=== PATIENT | female | born 1950 | race Caucasian/White ===

== ENCOUNTER → 2019-11-03 13:34 | Outpatient (BNVA) | payer SELFPAY | PROVIDERS: PCP Nurse Practitioner Family; Visit Provider Nurse Practitioner Family | DX: B37.0 Candidal stomatitis (principal) | CPT/HCPCS: 80053 ==

== ENCOUNTER 2019-12-16 14:28 | Emergency (ER) | payer MEDICAID, SELFPAY ==
[2019-12-16 14:30] VITALS: BP 191/109; PULSE 102; RESP 17; TEMP 36.9; O2SAT 97; BMI 18.3
[2019-12-16 15:10] LABS: Rapid Strep A Test Negative (Negative)
--- NOTE | 2019-12-16 15:22 | W.ED.GENADLT ---
HPI - General Adult General: Chief complaint: General Medical Stated complaint: throat pain/swelling Time Seen by Provider: 12/16/19 14:41 Source: patient Mode of arrival: ambulatory Limitations: no limitations History of Present Illness: HPI narrative: sore throat x 3 mos; improved mildly with diflucan orally x 2 weeks. Returned over the past few days. Severity scale (1-10): 8 Quality: burning Pain Consistency: constant Relieving factors: none Review of Systems General: Reports: 10 or more systems reviewed and unremarkable except in HPI and below Const: Denies: fever ENMT: Reports: throat pain, uvular edema, enlarged tonsils, painful swallowing and oral sores/lesions PFSH ED PFSH: Social History Smoking and tobacco status: current every day smoker cigarettes Packs smoked per day: 1 Alcohol intake: current Alcohol intake frequency: 0-2 Drinks per Day Alcohol type: beer Physical Exam HENMT: COMMON NORMALS: external nose normal NOSE: external nose normal THROAT: posterior oropharynx abnormal, postnasal drainage and uvular edema OTHER: discoloration and thickening of tongue palate; lesions and white pustular appearance to hypertrophied tonsils bilaterally Neck/C-Spine: COMMON NORMALS: full ROM and no lymphadenopathy GENERAL: Yes normal visual inspection Course ED course: Pt has been seen and evaluated for this complaint with her PCP. She is not improving clinically. Her BP is elevated today but is not on any medications. Will be following up for further evaluation on this finding as well. ENT referral. RSS negative. Diflucan orally and magic mouthwash ordered. Will proceed with DC. Vital Signs: Vital signs: Vital Signs Temperature 98.5 F 12/16/19 14:30 Pulse Rate 102 H 12/16/19 14:30 Respiratory Rate 17 12/16/19 14:30 Blood Pressure 191/109 12/16/19 14:30 Pulse Oximetry 97 12/16/19 14:30 [facility] - General Adult Lab Data: Labs: Lab Results 12/16/19 Range/Units 14:50 Group A Strep Rapi d Negative (Negative) Discharge Plan Discharge Patient Disposition: Home, Self-Care Clinical Impression: Esophageal thrush Condition: Stable Prescriptions: New Lidocaine Viscous 2 % solution 5 ml MUCOUS MEM Q3H PRN (Reason: pain) Qty: 100 RF: 0 fluconazole [Diflucan] 150 mg tablet 150 mg PO DAILY 21 Days RF: 0 No Action nystatin 100,000 unit/mL suspension 4 ml PO QID Qty: 473 RF: 1 fluconazole 200 mg tablet 200 mg PO DAILY Qty: 14 RF: 0 Referrals: Alka Tristan NP [Primary Care Provider] - Discharge Diet: Advance as tolerated Discharge Activity: Resume usual activity Activity Restrictions/Additional Instructions: STOP SMOKING. TAKE ALLERGY MEDICATION OTC. FOLLOW UP WITH ENT WITHOUT FAIL. Coding Level of Care Code ED [employer] for [employer]
[2019-12-16 15:37] VITALS: BP 149/89; PULSE 98; RESP 16; O2SAT 99
--- NOTE | 2019-12-17 13:11 | DCPLANNER ---
senior account manager had message to schedule a follow up appointment for patient with ENT, Dr. Hernandez. senior account manager called the clinic, spoke with Aisha, a follow up appointment was scheduled for November at 1:00. senior account manager spoke with patient, gave her the appointment information. Patient told case finisher to cancel the appointment, stated that she was not going to go to appointment. Patient stated that she does not have insurance.
== END 2019-12-16 15:37 | disposition home or self-care (01) ==
PROVIDERS: Emergency Provider Nurse Practitioner Family; PCP Nurse Practitioner Family
DX: B37.81 Candidal esophagitis (principal); F17.210 Nicotine dependence, cigarettes, uncomplicated
CPT/HCPCS: 12345; 87070; 87071; 87081; 87880; 99282

== ENCOUNTER 2020-01-05 10:25 | Outpatient (CLI) | payer MEDICAID, SELFPAY ==
--- NOTE | 2020-01-05 11:04 | FL_ITS ---
NOTE: Report was unsigned for reason: Order was edited. Original Signature date and time was: 01/05/20 [id number] WS: [id number] ESOPHAGRAM TECHNIQUE: Double contrast examination was performed with thin and thick barium. Upright and COURTNEY images were obtained. CLINICAL INFORMATION: CHRONIC DISEASE OF TONSILS AND ADENOIDS; DISEASE OF LARYNX COMPARISON: None. FINDINGS: Straightening of the normal cervical lordosis with moderate spondylitic changes. Anterior bridging osteophytes at C5-C7. Swallowing: Normal oropharyngeal phase. No evidence of aspiration or penetration. Esophagus: Moderate esophageal dysmotility. No stricture or obstructing mass. Moderate reflux is visualized to the midesophagus on the upright and supine imaging. No difficulties with the barium tablet. Gastroesophageal reflux: Present Fluoroscopy time: 3.4 minutes. [facility] [place]/FL barium swallow 2cont [id number] IMPRESSION: 1. Normal oropharyngeal phase. No evidence of aspiration or penetration. 2. Moderate esophageal dysmotility with reflux to the midesophagus in the upri ght and supine positioning 3. No evidence of high-grade stricture or mass. 4. No difficulties with barium tablet.
--- NOTE | 2020-01-05 14:14 | MR_ITS ---
WS: [id number] INDICATION: Chronic tonsillar and adenoid disease TECHNIQUE: MRI of the neck without gadolinium enhancement. Axial T1 and T2 coronal T1-T2 coronal T1 f at sat, and sagittal T2 fat sat. FINDINGS: Exam is limited due to patient motion. Diffuse nodular soft tissue thickening involving the adenoids and palatine tonsils. Additional simila r-appearing nodular soft tissue thickening involving the supraglottic larynx at the inferior aspect o f the piriform sinuses extending into the vocal folds and glottis. Circumferential soft tissue thicke kristal at the level of the glottis with mild glottic narrowing. Recommend correlation for malignancy an d direct visualization. Parotid glands are normal. Submandibular glands are normal. T2 hyperintense enlarged left cervical ly mph nodes level 2 and level 3 along the parotid tail and carotid sheath. Largest lymph nodes measure approximately 12 x 9 mm. Findings are nonspecific but suspicious for malignancy. This can be further evaluated with PET/CT. Subcutaneous sebaceous cysts in the upper back. Normal posterior fossa. Normal vascular flow voids at the skull base. Mild mucosal thickening in the right greater than left mastoid air cells. Mild centr al canal stenosis C5-C6 with a small central protrusion. Small bilateral T2 hyperintense thyroid nodules measuring 7-8 mm. MR/[place] [id number] IMPRESSION: 1. Exam is somewhat limited due to patient motion. 2. Diffuse nodular soft tissue thickening involving Waldeyer's ring at the lakshmi noids extending into the palatine tonsils. Recommend correlation for malignancy . 3. Additional similar-appearing nodular soft tissue thickening involving the s upraglottic larynx at the inferior aspect of the piriform sinuses extending int o the vocal folds and glottis. Circumferential soft tissue thickening at the le kanchan of the glottis with mild glottic narrowing. Recommend direct visualization. 4. Enlarged left level 2 and level 3 cervical lymph nodes along the left parot id tail and carotid sheath the largest measuring 12 x 9 mm suspicious for metas tatic disease. 5. No enlarged right-sided cervical lymph nodes visualized. 6. Partial opacification right mastoid air cells. 7. A few small thyroid nodules the largest measuring 8 mm. This can be followe d up with ultrasound. 8. Mild central canal stenosis with small disc protrusion at C5-C6.
== END 2020-01-05 10:26 | disposition home or self-care (01) ==
LOC: RAD 10:28
PROVIDERS: PCP Nurse Practitioner Family; Visit Provider Specialist
DX: J35.8 Other chronic diseases of tonsils and adenoids (principal); J38.7 Other diseases of larynx
CPT/HCPCS: 70336; 74220; 74221

== ENCOUNTER 2020-01-14 10:03 | Outpatient (CLI) | payer MEDICAID, SELFPAY ==
[2020-01-14 14:46] LABS: Basophils # 0.1 10^3/uL (0.0-0.1); Basophils % 0.8 %; Eosinophils # 0.2 10^3/uL (0.0-0.8); Eosinophils % 2.3 %; Hematocrit 41.6 % (37.0-47.0); Lymphocytes # 2.5 10^3/uL (0.8-4.8); Lymphocytes % 27.9 %; Mean Corpuscular HGB Conc 31.3 g/dL (30.0-36.0); Mean Corpuscular Hemoglobin 30.5 pg (28.0-34.0); Mean Corpuscular Volume 97.7 fL (81-99); Mean Platelet Volume 9.6 fL (7.4-10.4); Monocytes # 0.8 10^3/uL (0.2-0.9); Monocytes % 8.8 %; Neutrophils # 5.3 10^3/uL (1.8-7.7); Neutrophils % 59.9 %; Nucleated Red Blood Cells % 0 %; Platelet Count 356 10^3/cmm (130-400); Red Blood Count 4.26 10^6/uL (4.1-5.3); Red Cell Distribution Width 12.6 % (12.1-15.1); White Blood Count 8.9 10^3/uL (4.0-10.0)
[2020-01-14 15:17] LABS: Alanine Aminotransferase 9 U/L (0-33); Albumin Level 4.2 g/dL (3.5-5.2); Alkaline Phosphatase 62 IU/L (35-105); Aspartate Amino Transferase 16 U/L (0-32); Blood Urea Nitrogen 9 mg/dL (8-23); Calcium 9.7 mg/dL (8.5-10.5); Carbon Dioxide 26 mmol/L (22-29); Chloride 98 mmol/L (98-107); Globulin 3.4 g/dL (1.3-4.6); Glomerular Filtration Rate 159.2 mL/min (90-130); Glucose 97 mg/dL (65-115); Osmolality Calculated 276 mOsm/kg (285-295); Sodium 135 mmol/L (136-145); Total Bilirubin 0.4 mg/dL (0.15-1.2); Total Protein 7.6 g/dL (6.6-8.7)
--- NOTE | 2020-01-14 16:36 | N.ONRAD NP_ITS ---
Radiation Oncology New Patient Visit Patient: Luna Mathis MR#: [id number] : 1950> Age: 69> Sex: Female> Dictated by: Dr. Isidro Gomez Date of Service: 01/14/2020 Referring Physician(s) : Messi Clarke M.D. 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 She underwent biopsy on December 26, 2019. Pathology revealed it was P 16-. We were asked to see her regarding definitive radiation therapy in combination with sensitizing cis-[place] chemotherapy Radiotherapy to date: Summary > No prior radiation therapy. Chief Complaint / History of Present Illness: Mrs. Luna Mathis is a 69-year-old woman who noted thrush-like changes in her oral cavity where she saw white cottage cheese changes on her tonsil and tongue. During this time she was developing a sore throat. She had no difficulty swallowing when first noticing this in August 2019. In October 2019 she saw her primary physician and was treated with anti-fungal therapy with Diflucan and not in nystatin. Symptoms failed to improve she was then seen here in the emergency room and given a course of Diflucan and Magic mouthwash. And following this was sent to Dr. Diaz for further evaluation He saw her on December 26, 2019 at that time there was a large exophytic lesion involving the right tonsil and right soft palate that extend to the midline of the palate and involving the uvula there was perforation of the palate just lateral to the midline. He performed fiberoptic video laryngoscopy at that time there was a large exophytic lesion extending into the posterior aspect of the right soft palate and into the nasopharynx or prominent on the right past the midline there was bilateral true vocal cord pseudo-sulcus intra-arytenoid pachyderma edema and erythema of the arytenoid mucosa false cords were normal bilaterally visualized portion of the base of tongue vallecula epiglottis aryepiglottic folds and piriform sinuses were normal bilaterally. Biopsy was obtained and this did reveal squamous cell carcinoma P 16 negative. During this time she did note that she lost 9 pounds despite good appetite her taste was altered. She did note that some food went into her nasopharynx when swallowing liquids. Sore throat was described as 6 on a 10 scale of pain. She had no neck pain. MRI scan of the neck without gadolinium was performed on January 05, 2020 there was diffuse nodular soft tissue thickening involving Waldeyer's ring of the at the adenoids extending into the palatine tonsils. There was nodular soft tissue thickening along the supraglottic larynx extending into the vocal folds and glottis and circumferential soft tissue thickening at the level of the glottis and mild glottic narrowing. ( Note that the previous video laryngoscopy revealed no hypopharyngeal or laryngeal pathology) PET CT scan from January 10, 2020 revealed a hypermetabolic right tonsillar mass extending to the soft palate measuring 2.6 x 1.8 cm with an SUV of 22.3 consistent with malignancy bilateral sub-centimeters level 2 lymph nodes are FDG positive SUV of 3.0 on the right and 3.3 on the left reflecting a high probability of local metastatic disease no findings in the hypopharyngeal region were noted. No evidence for metastatic disease was seen elsewhere. Current Medications: HYDROcodone-Acetaminophen. Allergies: Aspirin. Medical History: No history of collagen vascular disease. No previous radiation therapy. Surgical History: Family History: Father is at age 77 having experienced surgical complications. Mother is at age 73. Social History: Last screened on 01/14/2020 - Current every day smoker 1.0 pack/day for 30 years (30 pack years). Last screened on 01/14/2020 - Active drinker 1 drink/day 7 days/week. Patient indicated use of the following products: cigarettes. Patient indicated access to the following support systems: lives with spouse, significant other, family, or friends, lives in own house, supportive family/friends willing to assist with needs, and adequate transportation available for expected visits. Patient indicated the following nutritional habits: regular meals. Patient indicated participation in the following forms of activity: regular exercise. As noted she has smoked 30 years up to 2 packs a day now 1 pack a day for 49 years. is disabled from COPD and is very limited in his mobility at home. She is very active gardening and [place] she has 8 children all of whom live here. Current Complaints / Review of Systems: Constitutional - Complains of mild fatigue. Complains of change in weight in which she has lost about 10 lbs. in the last 4 month. Denies lack of appetite, fever and night sweats. Eyes - Denies blurred vision. ENMT - Complains of dysphagia and also has odynophagia which started in end of 2019, ear pain occasionally in both ears, problems with hearing in the right ear and it feels like it needs to pop but does not., mouth dryness, stomatitis and altered taste with certain seasonings. Denies tinnitus. Neck - Denies neck pain and decreased range of motion. Integumentary - Denies bruising and rash. Breasts - Denies pain. Cardiovascular - Denies arrhythmias, chest pain and edema. Respiratory - Denies cough, dyspnea, hiccoughs and wheezing. Gastrointestinal - Denies abdominal pain, constipation, diarrhea, heartburn / dyspepsia, melena / GI bleeding, nausea and vomiting. Genitourinary (F) - Complains of nocturia gets up about 1 time per night. Denies dysuria, frequency, urgency, vaginal discharge / bleeding and vaginal spotting. Musculoskeletal - Complains of joint pain in which is generalized all over related to arthritis. Complains of generalized muscle weakness. Denies bone pain. Neurologic - Complains of headaches which is just a slight one that she gets almost everyday. Denies dizziness and abnormal gait. Endocrine - Denies diabetes and thyroid disease. Hematologic/Lymphatic - Denies tender or enlarged lymph nodes.. Vital Signs: Performed on 01/14/2020 11:37 AM Height - 67.00 in, Weight - 108.6 lbs (high), BSA - 1.56 sq.m, BMI - 17.01 (low), Temperature - 98.1 f (low), Pulse - 80 /min, Respiration - 20 /min, O2 Sat - 97 %, Pain - 6 and BP - 136/ 72 mm(hg). Physical Exam: A spry pleasant woman in no acute distress. She had no nasal voice voice was clear. H EENT examination there was an exophytic mass extending from both tonsillar regions into the soft palate uvula was destroyed by manual palpation confirmed mass in the tonsillar regions base of tongue was clear palpation she was edentulous with dentures placed in the maxilla no dentures in the mandible. Neck regions revealed small palpable adenopathy mid right neck I could not palpate any left neck adenopathy. Lungs decreased breath sounds. Heart regular without murmur gallop. Abdominal examination unremarkable. Extremities reveal no clubbing cyanosis or edema. 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 She has no evidence for occult metastatic disease. She has a good performance status. I recommended definitive radiation therapy to 70 Gy in combination with sensitizing chemotherapy. I discussed the critical nature for her to pursue smoking cessation. I also discussed the need for port placement to assist in chemotherapy administration. Ideally I would recommend a PEG tube placed prior to treatment. She is adamant in wanting not to do this. She has good appetite and supportive family and appears to be compliant with the need for aggressive hydration and nutritional support during treatment. 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 I discussed this in detail with the patient and her 2 daughters I emphasized the need for aggressive nutritional support and smoking cessation as critical elements in her care I reviewed my recommendations with Dr. Clarke as well. Plan: Signed by: 01/14/2020 4:34:53 PM <<Signature on File>> Time spent with patient: CPT Code: CPT Code:
--- NOTE | 2020-01-14 17:18 | ONC CON_ITS ---
Dr. Clarke New Patient Note Patient: Luna Mathis Unit #: [id number]: 1950 Dicatated By: Messi Clarke M.D.Date of Visit: January 14, 2020 Onc MED New Patient/Consult Referring Physician: Dr. Cosme Hernandez M.D. History of Present Illness: Mrs. Luna Mathis, is a 69-year-old female with history of thrush-like sign/symptoms , first noticed in August 2019, patient tried home remedies without much improvement eventually saw her primary care physician in October 2019 at that time she was prescribed Diflucan and nystatin, with no significant improvement patient developed progressive pain in her throat and dysphagia eventually referred to Dr. Hernandez, and she underwent fiberoptic video laryngoscopy which showed large exophytic lesion extending into the posterior aspect of right soft palate and into nasopharynx or prominent on the right past the midline, biopsy was obtained which confirmed well differentiated squamous cell carcinoma p16 negative. Patient underwent MRI scan of the neck on 01/05/2020 which showed diffuse nodular soft tissue thickening involving waldeyer's ring at the adenoids extending into the palatine tonsils. Additional similar-appearing nodular soft tissue thickening involving supraglottic larynx at the inferior aspect of the piriform sinuses extending into the vocal folds and glottis enlarged left cervical lymph nodes level II and level III seen largest measures 12 x 9 mm., Subsequently patient underwent CT PET scan which confirmed oropharyngeal primary with bilateral cervical lymph nodes size about 3 cm, no distant metastases seen. Patient has lost about 9 pounds since August 2019 due to pain in her throat which is now 6 on a scale of 1-10, now being controlled with pain medication. Patient denies any hemoptysis or hematemesis. Patient denies any change in taste or smell. Patient has long-standing history of smoking about one pack a day for 30 years and still active. Denies any hemoptysis or hematemesis, denies any fever chills, denies any nausea or vomiting, denies any diarrhea constipation denies any history of kidney failure her creatinine was 0.5 in October 2019. Denies any history of hearing loss. Past Medical History: Ms. Espinal medical history is unremarkable. Past Surgical History: Ms. Espinal surgical history is unremarkable. Medications: HYDROcodone-Acetaminophen 1 tablespoonful(s) (of 7.5-325 mg/15mL) Solution Oral q PRN Allergies: Aspirin Social History: Ms. Mathis is and she is retired. She is a daily smoker who has smoked 1.0 pack/day for 30 years. She drinks daily. She consumes 1 drink/day 7 days/week. She has indicated exposure to the following products: cigarettes. Ms. Mathis reports the following support systems: lives with spouse, significant other, family, or friends, lives in own house, supportive family/friends willing to assist with needs, and adequate transportation available for expected visits. Her diet consists of regular meals. She indicates her activity level as: regular exercise. Family History: Ms. Garcias mother at age 73. Ms. Garcias father at age 77: surgical complications. Review Of Symptoms: Constitutional - Complains of mild fatigue. Complains of change in weight in which she has lost about 10 lbs. in the last 4 month. Denies lack of appetite, fever and night sweats, Eyes - Denies blurred vision, ENMT - Complains of dysphagia and also has odynophagia which started in end of 2019, ear pain occasionally in both ears, problems with hearing in the right ear and it feels like it needs to pop but does not., mouth dryness, stomatitis and altered taste with certain seasonings. Denies tinnitus, Neck - Denies neck pain and decreased range of motion, Integumentary - Denies bruising and rash, Breasts - Denies pain, Cardiovascular - Denies arrhythmias, chest pain and edema, Respiratory - Denies cough, dyspnea, hiccoughs and wheezing, Gastrointestinal - Denies abdominal pain, constipation, diarrhea, heartburn / dyspepsia, melena / GI bleeding, nausea and vomiting, Genitourinary (F) - Complains of nocturia gets up about 1 time per night. Denies dysuria, frequency, urgency, vaginal discharge / bleeding and vaginal spotting, Musculoskeletal - Complains of joint pain in which is generalized all over related to arthritis. Complains of generalized muscle weakness. Denies bone pain, Neurologic - Complains of headaches which is just a slight one that she gets almost everyday. Denies dizziness and abnormal gait, Endocrine - Denies diabetes and thyroid disease, Hematologic/Lymphatic - Denies tender or enlarged lymph nodes, Constitutional - Appetite is good and weight is decreasing. No fever, chills, or night sweats. Positive for hot flashes and fatigue, ENMT - No sinus congestion/drainage. No mouth sores. Positive for sore throat and difficulty swallowing, Hematologic/Lymphatic - No abnormal bruising or bleeding, Respiratory - No shortness of breath. No cough. No pleuritic pain or hemoptysis, Cardiovascular - No angina pain. No palpitations, Gastrointestinal - Positive for nausea, no vomiting. Positive for heartburn and acid reflux. No diarrhea. Positive for constipation. No blood in the stool or black stools, Genitourinary (F) - No dysuria or hematuria. No urinary frequency. No urgency or incontinence, Musculoskeletal - Positive for joint and back pain, Neurologic - No headache or dizziness. No numbness/paresthesias or other focal neurologic symptoms, Psychiatric - Positive for anxiety or depression. No insomnia. Vital Signs: Performed on January 14, 2020 12:48: 67.00 in, 108.6 lbs, 98.1 F, 80, 20, 136/72 mm(hg), 97 %, 6, Performed on January 14, 2020 12:48: 17.009 kg/m2 (LOW), and Performed on January 14, 2020 11:37: 1.56 sq.m. Performance Status: 0 - Fully active, able to carry on all predisease activities without restrictions. (ECOG) Physical Examination: ENMT - Sinuses are nontender. No oral exudates Tongue normal.fullness in her tonsillar area more prominent on the right side and small palpable lymph node bilaterally, Respiratory - Lungs are clear to auscultation without rhonchi or wheezing, Cardiovascular - Regular rate and rhythm of heart, Abdomen - Non-tender, non-distended, bowel sounds present, Extremities - no edema or rash. Lab/Imaging: Most recent lab results are not available for this patient. Impression: Well differentiated squamous cell carcinoma, p16 negative per biopsy of right tonsil done on 12/26/2019 MRI scan of the neck done on 01/05/2020 showed diffuse nodular soft tissue thickening involving Waldeyer's ring at the adenoids extending into palatine tonsils. Additional similar appearing nodule soft tissue thickening involving supraglottic larynx at the inferior aspect of pyriform sinuses extending into vocal fold and epiglottis. Left cervical lymph nodes level II and level III noted largest lymph node 12 x 9 mm. 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 No distant metastases. 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 1 PPD for 30 years Plan: Discussed with patient regarding her disease status and treatment options, patient has locally advanced disease and her CT PET scan shows bilateral cervical lymph node involvement which would make her stage IV , p16 negative and not a candidate for upfront surgery but combined chemoradiation with high-dose cisplatin if tolerated. All the side effect possible benefit associated with high-dose cisplatin concurrent with radiation therapy were discussed including but not limited to, bone marrow suppression, hair loss, pablo/nephrotoxicity, nausea vomiting, were mentioned, further teaching will be done by chemotherapy nurse. Plan to consider cisplatin 100 mg/m??? concurrent with radiation therapy every 3 weeks, as tolerated . We'll obtain approval from her insurance prior to the treatment in the meantime consider Port-A-Cath placement and obtain baseline CBC CMP. And also refer her to radiation oncology for treatment plan and we'll see her back 1 week after chemoradiation is initiated. Signed By: Messi Clarke M.D. <<Signature on File>>
== END 2020-01-14 10:04 | disposition home or self-care (01) ==
PROVIDERS: Absent Provider Radiology Radiation Oncology; PCP Nurse Practitioner Family; Referring Provider Specialist; Visit Provider Internal Medicine Hematology & Oncology
DX: C09.8 Malignant neoplasm of overlapping sites of tonsil (principal); C77.0 Secondary and unspecified malignant neoplasm of lymph nodes of head, face and neck; J43.9 Emphysema, unspecified; F17.210 Nicotine dependence, cigarettes, uncomplicated
CPT/HCPCS: 80053; 85025; 99205; 99215

== ENCOUNTER 2020-01-21 07:49 | Day surgery (SDC) | payer MEDICAID, SELFPAY ==
[2020-01-20 13:07] VITALS: BMI 17.2
--- NOTE | 2020-01-21 | SCC_ITS ---
Procedure Done: Placement of PowerPort in the left subclavian vein 18.2 seconds of fluoroscopic guidance, for a cumulative dose of 1.01 mGy, was provided to Dr. Mendoza by the radiology department. C-arm images of the chest were saved for the patient's permanent record. [employer]
--- NOTE | 2020-01-21 08:01 | W.PM.OPSUD ---
Surgery/Procedure H&P Update DATE OF PROCEDURE: January 21, 2020 DATE H&P PERFORMED: 01/20/20 H&P UPDATE INFORMATION: I have reviewed H&P completed within last 30 days, I have examined patient prior to procedure and No changes to prior documentation PLANNED PROCEDURE: Operation Date: 01/21/20 09:00 Proposed Procedures p Portacath Placement 27835 C09.8(Not Applicable) - Rinku Mendoza MD
[2020-01-21 08:03] VITALS: BP 147/82; PULSE 98; RESP 18; TEMP 36.2; O2SAT 99
[2020-01-21] MEDS: sodium chloride 0.9% 1,000 ML 30 ML IV (08:29)
--- NOTE | 2020-01-21 08:31 | SC_ITS ---
NOTE: Report was unsigned for reason: Order was edited. Original Signature date and time was: 01/21/20 1434 WS: [id number] C-arm Fluoroscopy 33265 REASON FOR EXAM: intra-op FINDINGS: A Mediport is seen extending from the left side the positioning of the tip the catheter is above the right atrium excellent position. MTDD SC/C-arm Fluoroscopy 89228 IMPRESSION: . A Mediport is seen in good position extends from the left side.
--- NOTE | 2020-01-21 08:31 | ANES.PREANE2 ---
Pre-Anesthetic Assessment Pre-Anesthetic Assessment: Height/Weight: Height 1.7 m Weight 49.895 kg Temp Pulse Resp BP Pulse Ox 97.2 F L 98 18 147/82 99 01/21/20 08:03 01/21/20 08:03 01/21/20 08:03 01/21/20 08:03 01/21/20 08:03 Preop Diagnosis: Cancer of the hypopharynx Proposed Procedure: Operation Date: 01/21/20 09:00 Proposed Procedures p Portacath Placement 06705 C09.8(Not Applicable) - Rinku Mendoza MD Familial anesthetic complications: None Was Beta Nick taken within 24 hours: N/A Last intake: Intake Last Liquid Date 01/20/20 Last Liquid Time 23:55 Last Solid Date 01/20/20 Last Solid Time 22:00 Social: Social History: No alcohol and No tobacco Exam: Pre-Anes Outpt Exam: alert, oriented x 3, clear to auscultation bilaterally and regular rate & rhythm Airway: Cervical ROM: WNL MP: 2 Additional comments: edentulous Pulmonary: Pulmonary: None reported CV/HEM: CV/HEM: None reported : : None reported Hepatic: Hepatic: None reported GI: GI: None reported Metabolic: Metabolic: None reported Musc/skel: Musc/skel: None reported Neuropsych: Neuropsych: None reported Anesthetic Plan: ASA status: 2 Anesthesia: MAC Other: patient states she has trouble swallowing (cancer of hypoharynx) no difficulty breathing Risk of > 500 ml blood loss (7ml/kg in children): No Meds/Allergies Current Medications: Current Medications Generic Name Dose Route Start Last Admin Trade Name Freq PRN Reason Stop Dose Admin Sodium Chloride 1,000 mls @ 30 ml s/hr 01/21/20 08:15 01/21/20 08:29 Sodium Chloride 0.9% IV 01/22/20 08:14 30 mls/hr .Q24H [place] Administration PFSH Anesthesia PFSH: Medical History (Updated 01/20/20 @ 14:29 by Rinku Mendoza MD) Cancer of hypopharynx Family History Denies family history of Anesthesia complication Bleeding disorder Social History Smoking and tobacco status: current every day smoker cigarettes Packs smoked per day: 1 Alcohol intake: current Alcohol intake frequency: 0-2 Drinks per Day Alcohol type: beer Data Anesthesia Cardiac Studies: No Data to Display
[2020-01-21] MEDS: heparin, porcine 1,000 unit/mL INJ 10 mL 10000 UNIT XX (09:08)
[2020-01-21] MEDS: lidocaine 1% INJ 20 mL SUBCUT (09:10)
--- NOTE | 2020-01-21 09:31 | PM.OP ---
Operative Report Date of procedure: January 21, 2020 Pre-op Diagnosis: Cancer of the hypopharynx Post-op diagnosis: same Procedure Done: Placement of PowerPort in the left subclavian vein Fluoroscopic guidance and interpretation for placement of catheter Pathology: none sent Surgeon: Rinku Mendoza Anesthesia: MAC Estimated blood loss (mL): 10 Condition: stable Disposition: same day Procedure: The patient was taken to the Operating Room and the chest and neck bilaterally were prepped and draped in a sterile manner after the antibiotic had been administered and shoulder rolls had been placed. A total of 10 mL of 1% lidocaine with 0.5% Marcaine was infiltrated under the clavicle on the left side at the site of the planned entry into the subclavian vein. An introducer needle was then used to access the subclavian vein under the clavicle and after withdrawing blood syringe was removed and a guidewire passed under fluoroscopy into the superior vena cava. The site of the planned port was then marked on the chest and a 15 blade was used to make a 3 cm skin incision this was extended into the subcutaneous tissue using electrocautery and a subcutaneous pocket over the pectoralis fascia was created 2-0 Vicryl suture was used to suture the port to the pectoral fascia in the pocket on 3 sides. The catheter, after having been flushed with hep saline, was attached to the tunneler and a tunnel created between the port site and the subclavian vein entry site. Under fluoroscopy the dilator sheath was passed over the guidewire into the proximal superior vena cava. The inner dilator was removed and the sheath left behind and~ the catheter was introduced through the peel-away sheath with the tip in the superior vena cava. The peel-away sheath was removed. The proximal end of the catheter was cut to the right size and was attached to the port. Using a Gregorio needle the port was accessed, it withdrew blood easily and flushed easily. A final 5cc of heparin was used to flush the PowerPort. The subcutaneous tissue was approximated using interrupted 3-0 Vicryl sutures and the skin at the introducer site and the port site was closed using subcuticular running 4-0 Monocryl sutures. Surgical glue was applied and the patient was stable throughout the procedure. Fluoroscopic guidance and interpretation was performed for introduction of the guidewire in the left subclavian vein, passage of dilator and placement of catheter tip in the distal superior vena cava.
[2020-01-21 09:43] VITALS: BP 132/72; PULSE 85; RESP 14; TEMP 36.3; O2SAT 99
[2020-01-21 09:52] VITALS: BP 141/91; PULSE 86; RESP 18; TEMP 36.3; O2SAT 100
[2020-01-21] MEDS: cetylpyridinium Lozenge 1 EACH MUCOUS MEM (09:55)
== END 2020-01-21 10:15 | disposition home or self-care (01) ==
PROVIDERS: PCP Nurse Practitioner Family; Visit Provider Surgery
PROC: (CPT 36561; principal; 2020-01-21 09:00)
DX: C13.9 Malignant neoplasm of hypopharynx, unspecified (principal); F17.210 Nicotine dependence, cigarettes, uncomplicated
CPT/HCPCS: 36561; 12345; 76000; 77001; C1788; J0690; J1644; J2001; J2704; J3490; J7030

== ENCOUNTER 2020-02-17 06:52 | Outpatient (RCR) | payer MEDICAID, SELFPAY ==
--- NOTE | 2020-01-21 | CT_ITS ---
Radiation Therapy Planning CT images; total exam DLP: 604.33 mGy-cm MTDD
[2020-01-28] MEDS: sodium chloride 0.9% 250 ML 75 ML IV (09:32)
[2020-01-28 09:43] LABS: Basophils # 0.1 10^3/uL (0.0-0.1); Basophils % 0.5 %; Eosinophils # 0.2 10^3/uL (0.0-0.8); Eosinophils % 1.6 %; Hematocrit 40.2 % (37.0-47.0); Hemoglobin 12.7 g/dL (11.5-15.3); Lymphocytes # 2.1 10^3/uL (0.8-4.8); Lymphocytes % 18.2 %; Mean Corpuscular HGB Conc 31.6 g/dL (30.0-36.0); Mean Corpuscular Hemoglobin 30.8 pg (28.0-34.0); Mean Corpuscular Volume 97.6 fL (81-99); Mean Platelet Volume 9.6 fL (7.4-10.4); Monocytes # 0.8 10^3/uL (0.2-0.9); Neutrophils # 8.2 10^3/uL (1.8-7.7); Neutrophils % 72.2 %; Nucleated Red Blood Cells % 0 %; Platelet Count 346 10^3/cmm (130-400); Red Blood Count 4.12 10^6/uL (4.1-5.3); Red Cell Distribution Width 12.4 % (12.1-15.1); White Blood Count 11.4 10^3/uL (4.0-10.0)
[2020-01-28 10:00] LABS: Alanine Aminotransferase 7 U/L (0-33); Albumin Level 3.9 g/dL (3.5-5.2); Alkaline Phosphatase 65 IU/L (35-105); Aspartate Amino Transferase 14 U/L (0-32); Blood Urea Nitrogen 5 mg/dL (8-23); Calcium 9.7 mg/dL (8.5-10.5); Carbon Dioxide 25 mmol/L (22-29); Chloride 100 mmol/L (98-107); Globulin 3.6 g/dL (1.3-4.6); Glomerular Filtration Rate 159.2 mL/min (90-130); Glucose 112 mg/dL (65-115); Osmolality Calculated 280 mOsm/kg (285-295); Sodium 137 mmol/L (136-145); Total Bilirubin 0.4 mg/dL (0.15-1.2); Total Protein 7.5 g/dL (6.6-8.7)
[2020-01-28] MEDS: FUROsemide 10 mg/mL SDV 2mL 20 MG IV (13:16)
[2020-01-28] MEDS: sodium chlor 0.9% + KCl 20 mEq 20 MEQ/1,000 ML BAG 500 MEQ IV (13:18)
[2020-01-28] MEDS: LORazepam 0.5 mg Tablet PO (13:18)
--- NOTE | 2020-02-03 14:35 | ONCRAD TMN_ITS ---
Radiation Oncology Weekly Treatment Management Patient: Luna Mathis MR#: [id number] : 1950> Age: 69> Sex: Female Dictated by: Dr. Carl Olivera Date of Service: 02/03/2020 Referring Physician(s) : Messi Clarke M.D. 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 ID: [id number], Energy: 6X, Dose/Fx (cGy): 200, #Fx: , Dose Correction (cGy): 0, Total Dose (cGy): 1,000, Start Date: 01/28/2020, Elapsed Days: 6 Current Complaints/Interval History: Mrs. Mathis has completed 1 week of a 7-week course of radiation. She refused a feeding tube prior to the initiation of treatment. She has had significant problems with pain and has lost about 6 and half pounds over the past 3 weeks. She had a hydrocodone liquid which initially helped but ultimately began adding to the problem because of severe burning of the oropharyngeal mucosa. I gave her a prescription for oxycodone 12/20/2024 yesterday. She has found it helpful and actually she was able to put in her dentures today for the first time in quite some time. She thinks being able to wear the dentures will help with calorie intake. Prior to treatment she had severe sore throat, altered taste, and xerostomia. Therefore it is difficult to tell if she is having any of those problems related to radiation at this point. Certainly they are anticipated. Constitutional Complains of moderate fatigue. Complains of change in weight down 6.4 lbs. since last seen on 01/14/20. Denies lack of appetite but is having a hard time eating, fever and night sweats. ENMT Complains of dysphagia and also has odynophagia. Complains of ear pain on the left side. Complains of mouth dryness. Complains of altered taste. Denies stomatitis. Neck Denies neck pain. Integumentary No redness to the neck Current Medications: CISplatin, dexamethasone Sodium Phosphate, emend, furosemide, hYDROcodone-Acetaminophen, hYDROcodone-Acetaminophen, lORazepam, magnesium Sulfate, mouthwash Compounding Base, nystatin, oxyCODONE-Acetaminophen, palonosetron HCl, potassium Chloride, prochlorperazine Maleate. Allergies: Aspirin. Vital Signs: Performed on 02/03/2020 1:42 PM BMI - 16.007 kg/m2 (low), Height - 67.00 in, Weight - 102.2 lbs, Temperature - 97.9 f, Pulse - 82, Respiration - 20, O2 Sat - 100 %, Pain - 0 and BP - 120/ 79 mm(hg). Physical Exam: Appears stable, no skin erythema or desquamation. There is bilateral lymphadenopathy in the neck that is stable based on previous descriptions. She has no skin reaction at this point. The oral cavity is edentulous. In the oropharynx she has whitish tumor occupying all of the right tonsillar fossa and most of the right soft palate. There are changes that extend across the midline. I do not see any yeast at this time. Performance Status: 0 - Fully active, able to carry on all predisease activities without restrictions. (ECOG) Lab: None pending in Radiation Oncology. Test performed on 01/14/2020 2:07 PM Sodium - 135 mmol/l (low), Creatinine - 0.4 mg/dl (low) and eGFR - 159.2 ml/min (high). Imaging: No new diagnostic imaging was performed since the last weekly treatment visit. All radiation therapy related imaging (including but not limited to kV, MV, and CBCT generated images) was reviewed. Appropriate changes, if any, were made to assure accurate target localization. Impression/Plan: Tolerating treatment well with expected side effects. Continue treatment as planned. She will do her best to increase her fluid intake as well as her caloric intake. I recommended a feeding tube if her weight goes below 95 pounds. She seems agreeable CPT: 54257 Signed by: Dr. Carl Olivera>02/03/2020 2:33:46 PM <<Signature on File>>
[2020-02-04 13:18] LABS: Basophils # 0.1 10^3/uL (0.0-0.1); Basophils % 1.2 %; Eosinophils # 0.1 10^3/uL (0.0-0.8); Eosinophils % 0.8 %; Hematocrit 36.6 % (37.0-47.0); Hemoglobin 11.7 g/dL (11.5-15.3); Lymphocytes # 1.5 10^3/uL (0.8-4.8); Lymphocytes % 18.9 %; Mean Corpuscular Hemoglobin 30.5 pg (28.0-34.0); Mean Corpuscular Volume 95.3 fL (81-99); Mean Platelet Volume 9.5 fL (7.4-10.4); Monocytes # 0.8 10^3/uL (0.2-0.9); Monocytes % 10.7 %; Neutrophils # 5.2 10^3/uL (1.8-7.7); Neutrophils % 67.9 %; Nucleated Red Blood Cells % 0 %; Platelet Count 310 10^3/cmm (130-400); Red Blood Count 3.84 10^6/uL (4.1-5.3); Red Cell Distribution Width 12.1 % (12.1-15.1); White Blood Count 7.7 10^3/uL (4.0-10.0)
[2020-02-04 13:40] LABS: Albumin Level 4.1 g/dL (3.5-5.2); Alkaline Phosphatase 63 IU/L (35-105); Aspartate Amino Transferase 19 U/L (0-32); Blood Urea Nitrogen 8 mg/dL (8-23); Calcium 9.1 mg/dL (8.5-10.5); Carbon Dioxide 26 mmol/L (22-29); Chloride 98 mmol/L (98-107); Globulin 2.6 g/dL (1.3-4.6); Glomerular Filtration Rate 159.2 mL/min (90-130); Glucose 101 mg/dL (65-115); Osmolality Calculated 274 mOsm/kg (285-295); Sodium 134 mmol/L (136-145); Total Bilirubin 0.3 mg/dL (0.15-1.2); Total Protein 6.7 g/dL (6.6-8.7)
[2020-02-04 13:50] LABS: Alanine Aminotransferase 18 U/L (0-33)
--- NOTE | 2020-02-08 17:17 | ONC FU_ITS ---
[facility] Patient Note Patient: Luna Mathis Unit #: [id number]: 1950 Dictated By: Giovany MustafaDate of Visit: Feb 04, 2020 Onc MED Follow-Up/Prog Note Chief Complaint: squamous cell carcinoma involving bilateral tonsils History of Present Illness: Mrs. Mathis, is a 69-year-old female with history of thrush-like sign/symptoms. She first noticed them in August 2019. She tried home remedies without much improvement. She eventually saw her primary care physician in October 2019 and at that time she was prescribed Diflucan and nystatin. She had no significant improvement. Mrs Mathis developed progressive pain in her throat. She also had dysphagia. She was eventually referred to Dr. Hernandez. She underwent fiberoptic video laryngoscopy which showed large exophytic lesion extending into the posterior aspect of right soft palate and into nasopharynx or prominent on the right past the midline. 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 Mrs Mathis underwent MRI scan of the neck on 01/05/2020 which showed diffuse nodular soft tissue thickening involving Waldeyer's ring at the adenoids extending into the palatine tonsils. 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 Mrs Mathis has lost about 9 pounds since August 2019 due to pain in her throat which had been a 6 on a scale of 1-10, but being controlled with pain medication. She denies any hemoptysis or hematemesis. She also denies any change in taste or smell. She has long-standing history of smoking about one pack a day for 30 years and still active. Mrs. Mathis began her first cycle of chemotherapy on January 28, 2020. She is tolerating it well so far. She did have some fatigue on Sunday and Sunday after being treated last week. She states that but at that point and then after that point she felt really good. She had a lot of energy was eating good. She denies any pain. She denies any mouth sores sore throat or difficulty swallowing. She states that she has not had any nausea or vomiting. She states her breathing is about the same kind of comes and goes at times but for the most part is feeling good. She denies any chest pain or palpitations. He denies any lower extremity edema. She denies any bowel or bladder concerns at this time. She denies any neuropathy or hearing changes at present. She is only had 1 dose of the cisplatin which was 117 mg. Her ECOG is 1. Past Medical History: Ms. Espinal medical history is unremarkable. Past Surgical History: Ms. Espinal surgical history is unremarkable. Allergies: Aspirin Medications: Family History: Ms. Garcias mother at age 73. Ms. Garcias father at age 77: surgical complications. Social History: Ms. Mathis is and she is retired. She is a daily smoker who has smoked 0.5 packs/day for 30 years. She drinks daily. She consumes 1 drink/day 7 days/week. She has indicated exposure to the following products: cigarettes. Ms. Mathis reports the following support systems: lives with spouse, significant other, family, or friends, lives in own house, supportive family/friends willing to assist with needs, and adequate transportation available for expected visits. Her diet consists of regular meals. She indicates her activity level as: regular exercise. Review Of Symptoms: Constitutional Denies fevers, chills, night sweats, excessive fatigue or weight loss. Last weekend felt washed out, but resolved now. Allergic/Immunologic No reactions. Eyes Denies significant visual changes. No diplopia. No amaurosis. ENMT Denies changes in hearing, sore throat, mouth sores, difficulty or changes in swallowing ability, and/or sinus drainage. Endocrine No diabetes, thyroid disease or hormone replacement. Denies hot flashes or night sweats. Hematologic/Lymphatic Denies easy bruising or bleeding. The patient denies any tender or palpable lymph nodes. Respiratory Denies dyspnea on exertion, chest pain, cough or hemoptysis. Denies orthopnea. Cardiovascular Denies anginal chest pain, palpitations or orthopnea. Gastrointestinal Denies nausea, vomiting, diarrhea, GI bleeding, or constipation. Denies change in bowel habits and/or stool color, no heartburn or early satiety. Genitourinary (F) No hematuria, hesitancy, incontinence, vaginal bleeding, discharge or other problems with urination. Musculoskeletal Denies joint pain, swelling or redness. No decreased range of motion. Integumentary Denies chronic rashes, inflammation, ulcerations or skin changes. Neurologic Denies headache, blurred vision, and no areas of focal weakness or numbness. Normal gait. No sensory problems. Psychiatric Denies insomnia, depression, cadence or mood swings. Vital Signs: Performed on Feb 04, 2020 13:30 Height - 67.00 in Weight - 102.6 lbs (HIGH) BSA - 1.52 sq.m BMI - 16.07 (LOW) Temperature - 97.1 F (LOW) Pulse - 67 /min Respiration - 16 /min BP - 136/88 mm(hg) O2 Sat - 94 % (LOW) Pain - 0,1 - No physically strenuous activity, but ambulatory and able to carry out light or sedentary work (e.g. office work, light house work). (ECOG) Physical Examination: ENMT Mouth is noted to be beefy, bright red in appearance but thus far no oral exudates, ulcers, masses, thrush or mucositis. Oropharynx clear. Tongue is also bright red and beefy in appearance but no sores or yeast noted. Constitutional Alert, oriented, no acute distress. Skin pink, warm and dry. Head Normocephalic; atraumatic. Eyes Conjunctivae and sclerae are clear and without icterus. Pupils are reactive and equal. Neck Supple without masses or thyromegaly. No jugular venous distension. Hematologic/Lymphatic No petechiae or purpura. No tender or palpable lymph nodes in the cervical or supraclavicular areas. Respiratory Lungs are clear to auscultation without rhonchi or wheezing. Cardiovascular Regular rate and rhythm of heart without murmurs,clicks, gallops or rubs. Chest Left chest wall venous access device is unremarkable. It has healed well. Abdomen Non-tender, non-distended, no masses or ascites. Good bowel sounds noted in all quads. No guarding or rebound tenderness. No pulsatile masses. Back/Spine Non-tender to palpation. Extremities No visible deformities, no cyanosis, clubbing or edema. Musculoskeletal No tenderness or swelling, normal range of motion without obvious weakness. Integumentary No rashes or lesions. Neurologic No sensory or motor deficits, normal cerebellar function, normal gait. Psychiatric Alert and oriented times three. Coherent speech. Verbalizes understanding of our discussions today. Laboratory:Test performed on Feb 04, 2020 13:04 Sodium 134 mmol/L Potassium 4.0 mmol/L Chloride 98 mmol/L CO2 26 mmol/L Anion Gap 14.0 BUN 8 mg/dL Creatinine 0.4 mg/dL Cr Clearance (Est) 106.1300 mL/min eGFR 159.2 mL/min Glucose 101 mg/dL Calcium 9.1 mg/dL Protein, Total 6.7 g/dL Albumin 4.1 g/dL Globulin 2.6 g/dL Bilirubin, Total 0.3 mg/dL ALT (SGPT) 18 U/L AST (SGOT) 19 U/L Alkaline Phosphatase 63 IU/L WBC 7.7 10 3/uL RBC 3.84 10 6/uL HGB 11.7 g/dL HCT 36.6 % MCV 95.3 fL MCH 30.5 pg MCHC 32.0 g/dL RDW 12.1 % Platelet Count 310 10 3/cmm MPV 9.5 fL Neutrophils 5.2 10 3/uL Lymphocytes 1.5 10 3/uL Monocytes 0.8 10 3/uL Eosinophils 0.1 10 3/uL Basophils 0.1 10 3/uL Neutrophil % 67.9 % Lymphocyte % 18.9 % Monocyte % 10.7 % Eosinophil % 0.8 % Basophils % 1.2 % NRBC % 0 % Impression: Well differentiated squamous cell carcinoma, p16 negative per biopsy of right tonsil done on 12/26/2019 MRI scan of the neck done on 01/05/2020 showed diffuse nodular soft tissue thickening involving Waldeyer's ring at the adenoids extending into palatine tonsils. Additional similar appearing nodule soft tissue thickening involving supraglottic larynx at the inferior aspect of pyriform sinuses extending into vocal fold and epiglottis. Left cervical lymph nodes level II and level III noted largest lymph node 12 x 9 mm. 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 No distant metastases. 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 [address] Clarke discussed with Mrs Mathis her disease status and treatment options. She has locally advanced disease and her CT PET scan shows bilateral cervical lymph node involvement which would make her stage IV. This would also not allow her to be a candidate for upfront surgery. Mrs Mathis was offered a treatmetn plan with combined chemoradiation with high-dose cisplatin if tolerated. (cisplatin 100 mg/m??? concurrent with radiation therapy every 3 weeks, as tolerated) . She began her first cycle of cisplatin on January 28, 2020. She is tolerated it well with expected mild side effects. Plan: 1. Continue with cycle 1 this is day 8. She is doing well thus far. 2. She may need to consider a dexamethasone taper as I suspect this is why she was washed out on Sunday and Sunday after treatment last week. She states her after treatment she had energy and was cleaning her house and felt great for a couple days and then all of a sudden crashed . 3. Continue current anti-medics as they are working well for her. 4. Labs from today were reviewed in detail discussed with Mrs. Chrales a copy was given to her. WBC 7.7, hemoglobin 30.6 0.6 platelets 310,000 ANC is 5200. 5. We will plan to see her back in 1 week for labs only. She does have a Port-A-Cath and she will need port maintenance with all her labs. 6. We will plan for her to return in 2 weeks with CBC CMP prior to her visit. 7. Mrs. Mathis is instructed to contact questions or problems arise. 8. I did go ahead and send in a prescription for fluconazole in case she develops yeast over the weekend. She has instructions today once daily. She has mild beefy redness in the mouth but no actual thrush is noted at present. Her mouth appears that the yeast could start at any moment. Signed By: Giovany Mustafa-CAMMIE, AOCNP Matty Lopez MD <<Signature on File>>
--- NOTE | 2020-02-10 15:17 | ONCRAD TMN_ITS ---
Radiation Oncology Weekly Treatment Management Patient: Luna Mathis MR#: [id number] : 1950> Age: 69> Sex: Female Dictated by: Dr. Carl Olivera Date of Service: 02/10/2020 Referring Physician(s) : Messi Clarke M.D. Diagnosis: C09.8 - Malignant neoplasm of overlapping sites of tonsil, Diagnosed 01/14/2020 (Active) C77.0 - Secondary and unspecified malignant neoplasm of lymph nodes of head, face and neck, Diagnosed 01/14/2020 (Active) Radiotherapy to date: Course: HN 2019, Treatment Site: [facility] 35FX, Ref. 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 Her pain is improved. She takes about 3 oxycodone tablets per day. Her dry mouth is stable. She states she is dry all the time. Most food tastes normal. She is eating better because of having less pain. However, she continues to lose weight and is down another 1.4 pounds. She has mild irritation of the neck. She knows to apply Aquaphor if needed. Mrs. Mathis, is a 69-year-old female with history of thrush-like sign/symptoms. She first noticed them in August 2019. She tried home remedies without much improvement. She eventually saw her primary care physician in October 2019 and at that time she was prescribed Diflucan and nystatin. She had no significant improvement. Mrs Mathis developed progressive pain in her throat. She also had dysphagia. She was eventually referred to Dr. Hernandez. She underwent fiberoptic video laryngoscopy which showed large exophytic lesion extending into the posterior aspect of right soft palate and into nasopharynx or prominent on the right past the midline. 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 Mrs Mathis underwent MRI scan of the neck on 01/05/2020 which showed diffuse nodular soft tissue thickening involving Waldeyer's ring at the adenoids extending into the palatine tonsils. 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 Mrs Mathis has lost about 9 pounds since August 2019 due to pain in her throat which had been a 6 on a scale of 1-10, but being controlled with pain medication. She denies any hemoptysis or hematemesis. She also denies any change in taste or smell. She has long-standing history of smoking about one pack a day for 30 years and still active. Mrs. Mathis began her first cycle of chemotherapy on January 28, 2020. She is tolerating it well so far. She did have some fatigue on Sunday and Sunday after being treated last week. She states that but at that point and then after that point she felt really good. She had a lot of energy was eating good. She denies any pain. She denies any mouth sores sore throat or difficulty swallowing. She states that she has not had any nausea or vomiting. She states her breathing is about the same kind of comes and goes at times but for the most part is feeling good. She denies any chest pain or palpitations. He denies any lower extremity edema. She denies any bowel or bladder concerns at this time. She denies any neuropathy or hearing changes at present. She is only had 1 dose of the cisplatin which was 117 mg. Her ECOG is 1. Current Medications: CISplatin, dexamethasone Sodium Phosphate, emend, fluconazole, furosemide, hYDROcodone-Acetaminophen, lORazepam, magnesium Sulfate, mouthwash Compounding Base, nystatin, oxyCODONE-Acetaminophen, palonosetron HCl, potassium Chloride, prochlorperazine Maleate. Allergies: Aspirin. Current Complaints/Review of Systems: Constitutional - Complains of mild fatigue occasionally. Complains of change in weight down 1.4 lbs. since last OTV on 02/03/20. Denies lack of appetite, fever and night sweats. ENMT - Complains of dysphagia but is improving. Complains of ear pain on the left side occasionally. Complains of mouth dryness. Complains of stomatitis. Denies altered taste. Neck - Complains of neck pain. Denies decreased range of motion. Integumentary - Has slight redness to the neck. Vital Signs: Performed on 02/10/2020 1:29 PM BMI - 15.85 kg/m2 (low), Height - 67.00 in, Weight - 101.2 lbs, Temperature - 98.9 f, Pulse - 84, Respiration - 18, O2 Sat - 98 %, Pain - 0 and BP - 133/ 75 mm(hg). Physical Exam: Appears stable, no skin erythema or desquamation. There is mild erythema of the skin of the neck. No excessive irritation at all. In the oral cavity she has no yeast or viral ulcerations. There has been considerable reduction in the mass of the tumor involving the right tonsillar fossa and soft palate. Not only is the bulk of tumor significantly reduced, but the raw irritated appearance of the tumor has resolved. Performance Status: 1 - No physically strenuous activity, but ambulatory and able to carry out light or sedentary work (e.g. office work, light house work). (ECOG) Lab: None pending in Radiation Oncology. Test performed on 02/04/2020 1:04 PM RBC - 3.84 10 6/ul (low), HCT - 36.6 % (low), Sodium - 134 mmol/l (low), Creatinine - 0.4 mg/dl (low) and eGFR - 159.2 ml/min (high). Imaging: No new diagnostic imaging was performed since the last weekly treatment visit. All radiation therapy related imaging (including but not limited to kV, MV, and CBCT generated images) was reviewed. Appropriate changes, if any, were made to assure accurate target localization. Impression/Plan: Tolerating treatment well with expected side effects. Very nice reduction in tumor volume. Continue treatment as planned. CPT: 96083 Signed by: Dr. Carl Olivera>02/10/2020 3:16:26 PM <<Signature on File>>
--- NOTE | 2020-02-16 14:40 | ONCRAD TMN_ITS ---
Radiation Oncology Weekly Treatment Management Patient: Luna Mathis MR#: [id number] : 1950> Age: 69> Sex: Female Dictated by: Dr. Carl Olivera Date of Service: 02/16/2020 Referring Physician(s) : Messi Clarke M.D. Diagnosis: C09.8 - Malignant neoplasm of overlapping sites of tonsil, Diagnosed 01/14/2020 (Active) C77.0 - Secondary and unspecified malignant neoplasm of lymph nodes of head, face and neck, Diagnosed 01/14/2020 (Active) Radiotherapy to date: Course: HN 2019, Treatment Site: [facility] 35FX, Ref. ID: [id number], Energy: 6X, Dose/Fx (cGy): 200, #Fx: , Dose Correction (cGy): 0, Total Dose (cGy): 2,600, Start Date: 01/28/2020, Elapsed Days: 19 Chief Complaint/History of Present Illness: 2600 cGy in 13 fractions She has developed some sores in her mouth. She states that she is eating well and has a good appetite but her weight is down 2.2 pounds. Taste is off and her mouth is dry all the time. The oxycodone is helping her pain. She needs a refill today. Mrs. Mathis, is a 69-year-old female with history of thrush-like sign/symptoms. She first noticed them in August 2019. She tried home remedies without much improvement. She eventually saw her primary care physician in October 2019 and at that time she was prescribed Diflucan and nystatin. She had no significant improvement. Mrs Mathis developed progressive pain in her throat. She also had dysphagia. She was eventually referred to Dr. Hernandez. She underwent fiberoptic video laryngoscopy which showed large exophytic lesion extending into the posterior aspect of right soft palate and into nasopharynx or prominent on the right past the midline. 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 Mrs Mathis underwent MRI scan of the neck on 01/05/2020 which showed diffuse nodular soft tissue thickening involving Waldeyer's ring at the adenoids extending into the palatine tonsils. 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 Mrs Mathis has lost about 9 pounds since August 2019 due to pain in her throat which had been a 6 on a scale of 1-10, but being controlled with pain medication. She denies any hemoptysis or hematemesis. She also denies any change in taste or smell. She has long-standing history of smoking about one pack a day for 30 years and still active. Mrs. Mathis began her first cycle of chemotherapy on January 28, 2020. She is tolerating it well so far. She did have some fatigue on Sunday and Sunday after being treated last week. She states that but at that point and then after that point she felt really good. She had a lot of energy was eating good. She denies any pain. She denies any mouth sores sore throat or difficulty swallowing. She states that she has not had any nausea or vomiting. She states her breathing is about the same kind of comes and goes at times but for the most part is feeling good. She denies any chest pain or palpitations. He denies any lower extremity edema. She denies any bowel or bladder concerns at this time. She denies any neuropathy or hearing changes at present. She is only had 1 dose of the cisplatin which was 117 mg. Her ECOG is 1. Current Medications: CISplatin, dexamethasone Sodium Phosphate, emend, fluconazole, furosemide, hYDROcodone-Acetaminophen, lORazepam, magnesium Sulfate, mouthwash Compounding Base, nystatin, oxyCODONE-Acetaminophen, palonosetron HCl, potassium Chloride, prochlorperazine Maleate. Allergies: Aspirin. Current Complaints/Review of Systems: Constitutional - Complains of mild fatigue in the afternoon. Complains of change in weight in which she is donw 2.2 lbs. since last seen 02/10/20. Denies lack of appetite, fever and night sweats. ENMT - Complains of ear pain on the right side occasionally. Complains of mouth dryness. Complains of stomatitis. Complains of altered taste. Denies dysphagia but has odynophagia and is improving. Neck - Denies neck pain. Integumentary - Has no redness to the neck. Respiratory - Denies cough, dyspnea and hiccoughs. Vital Signs: Performed on 02/16/2020 1:29 PM BMI - 15.506 kg/m2 (low), Height - 67.00 in, Weight - 99.0 lbs, Temperature - 98.2 f, Pulse - 67, Respiration - 16, O2 Sat - 99 %, Pain - 0 and BP - 139/ 89 mm(hg). Physical Exam: Appears stable, no skin erythema or desquamation. No lymphadenopathy in the neck. No skin reaction. Oral cavity examination reveals mild mucositis and ulcerations related to treatment. No yeast or viral lesions seen. She continues to have an outstanding response of the primary cancer. Due to tumor erosion a significant amount of the soft palate and uvula are absent. However, the gross tumor that was quite bulky in this area at the beginning of treatment has resolved. There is just minor ulceration along the border of the soft palate. No tumor seen in the tonsillar fossa. Posterior pharyngeal wall looks excellent. Performance Status: 1 - No physically strenuous activity, but ambulatory and able to carry out light or sedentary work (e.g. office work, light house work). (ECOG) Lab: None pending in Radiation Oncology. Test performed on 02/04/2020 1:04 PM RBC - 3.84 10 6/ul (low), HCT - 36.6 % (low), Sodium - 134 mmol/l (low), Creatinine - 0.4 mg/dl (low) and eGFR - 159.2 ml/min (high). Imaging: No new diagnostic imaging was performed since the last weekly treatment visit. All radiation therapy related imaging (including but not limited to kV, MV, and CBCT generated images) was reviewed. Appropriate changes, if any, were made to assure accurate target localization. Impression/Plan: Tolerating treatment well with expected side effects. Continue treatment as planned. Refill for oxycodone given. She will continue her baking soda rinses, Magic mouthwash, and the oxycodone for control of pain. Weight loss is acceptable at this point. I encouraged her to continue to get calories and to maintain a good fluid intake. CPT: 45746 Signed by: Dr. Carl Olivera>02/16/2020 2:38:59 PM <<Signature on File>>
== END 2020-02-17 23:59 | disposition home or self-care (01) ==
LOC: ONCMED 06:52
PROVIDERS: Internal Medicine Hematology & Oncology; Nurse Practitioner; Absent Provider Specialist; PCP Nurse Practitioner Family; Visit Provider Specialist
DX: Z51.0 Encounter for antineoplastic radiation therapy (principal); Z51.11 Encounter for antineoplastic chemotherapy; C09.8 Malignant neoplasm of overlapping sites of tonsil; C77.0 Secondary and unspecified malignant neoplasm of lymph nodes of head, face and neck; K13.79 Other lesions of oral mucosa; F17.210 Nicotine dependence, cigarettes, uncomplicated
CPT/HCPCS: 36591; 77300; 77301; 77334; 77336; 77338; 77386; 80053; 85025; 96366; 96367; 96375; 96413; 99214; J1100; J1453; J1940; J2469; J3475; J3480; J7030; J7040; J7050; J9060

== ENCOUNTER 2020-03-19 06:57 | Outpatient (RCR) | payer MEDICAID, SELFPAY ==
[2020-02-18] MEDS: sodium chloride 0.9% 250 ML IV (09:32)
[2020-02-18 09:43] LABS: Basophils # 0.1 10^3/uL (0.0-0.1); Basophils % 1.6 %; Eosinophils # 0.2 10^3/uL (0.0-0.8); Eosinophils % 7.5 %; Hematocrit 37.7 % (37.0-47.0); Hemoglobin 11.9 g/dL (11.5-15.3); Lymphocytes # 0.7 10^3/uL (0.8-4.8); Lymphocytes % 22.1 %; Mean Corpuscular HGB Conc 31.6 g/dL (30.0-36.0); Mean Corpuscular Hemoglobin 31.2 pg (28.0-34.0); Mean Corpuscular Volume 98.7 fL (81-99); Mean Platelet Volume 9.1 fL (7.4-10.4); Monocytes # 0.4 10^3/uL (0.2-0.9); Monocytes % 12.4 %; Neutrophils # 1.7 10^3/uL (1.8-7.7); Neutrophils % 56.1 %; Nucleated Red Blood Cells % 0 %; Platelet Count 216 10^3/cmm (130-400); Red Blood Count 3.82 10^6/uL (4.1-5.3); Red Cell Distribution Width 13.2 % (12.1-15.1); White Blood Count 3.1 10^3/uL (4.0-10.0)
[2020-02-18 10:16] LABS: Alanine Aminotransferase 17 U/L (0-33); Alkaline Phosphatase 61 IU/L (35-105); Anion Gap 14.9 (5-19); Aspartate Amino Transferase 23 U/L (0-32); Blood Urea Nitrogen 11 mg/dL (8-23); Calcium 9.1 mg/dL (8.5-10.5); Carbon Dioxide 25 mmol/L (22-29); Chloride 103 mmol/L (98-107); Globulin 2.8 g/dL (1.3-4.6); Glomerular Filtration Rate 123.1 mL/min (90-130); Glucose 108 mg/dL (65-115); Osmolality Calculated 285 mOsm/kg (285-295); Potassium 3.9 mmol/L (3.5-5.1); Sodium 139 mmol/L (136-145); Total Bilirubin 0.2 mg/dL (0.15-1.2); Total Protein 6.8 g/dL (6.6-8.7)
--- NOTE | 2020-02-18 13:44 | ONC FU_ITS ---
Dr. Clarke follow up note Patient: Luna Mathis Unit #: [id number]: 1950 Dicatated By: Messi Clarke M.D.Date of Visit:Feb 18, 2020 Onc Med Follow-up/Prog Note History of Present Illness: Mrs. Mathis, is a 69-year-old female with history of thrush-like sign/symptoms. She first noticed them in August 2019. She tried home remedies without much improvement. She eventually saw her primary care physician in October 2019 and at that time she was prescribed Diflucan and nystatin. She had no significant improvement. Mrs Mathis developed progressive pain in her throat. She also had dysphagia. She was eventually referred to Dr. Hernandez. She underwent fiberoptic video laryngoscopy which showed large exophytic lesion extending into the posterior aspect of right soft palate and into nasopharynx or prominent on the right past the midline. 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 Mrs Mathis underwent MRI scan of the neck on 01/05/2020 which showed diffuse nodular soft tissue thickening involving Waldeyer's ring at the adenoids extending into the palatine tonsils. 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 Mrs Mathis has lost about 9 pounds since August 2019 due to pain in her throat which had been a 6 on a scale of 1-10, but being controlled with pain medication. She denies any hemoptysis or hematemesis. She also denies any change in taste or smell. She has long-standing history of smoking about one pack a day for 30 years and still active. Mrs. Mathis began her first cycle of chemotherapy on January 28, 2020. Came for follow-up, denies any specific complaints except generalized weakness but mild sore throat otherwise no fever or chills, no nausea or vomiting, no diarrhea or constipation, tolerated first cycle of chemotherapy with us cisplatin concurrent with radiation therapy, well. Medications: There is no information available for Current Medications - Patient. Allergies: Aspirin Review of Systems: Review of Systems is not available for this patient. Vital Signs: Performed on Feb 18, 2020 11:05 Height - 67.00 in Weight - 101.6 lbs (HIGH) BSA - 1.52 sq.m BMI - 15.91 (LOW) Temperature - 97.3 F (LOW) Pulse - 72 /min Respiration - 18 /min BP - 123/74 mm(hg) O2 Sat - 97 % Pain - 0 Performance Status: 1 - No physically strenuous activity, but ambulatory and able to carry out light or sedentary work (e.g. office work, light house work). (ECOG) Physical Examination: ENMT - No mouth sores, no thrush, no jaundice mild erythema involving throat, Respiratory - Lungs are clear, Cardiovascular - Regular rate and rhythm of heart, Abdomen - Soft, bowel sounds present, Extremities - No edema or rash. Lab/Imaging: Test performed on Feb 04, 2020 13:04 Sodium 134 mmol/L Potassium 4.0 mmol/L Chloride 98 mmol/L CO2 26 mmol/L Anion Gap 14.0 BUN 8 mg/dL Creatinine 0.4 mg/dL Cr Clearance (Est) 106.1300 mL/min eGFR 159.2 mL/min Glucose 101 mg/dL Calcium 9.1 mg/dL Protein, Total 6.7 g/dL Albumin 4.1 g/dL Globulin 2.6 g/dL Bilirubin, Total 0.3 mg/dL ALT (SGPT) 18 U/L AST (SGOT) 19 U/L Alkaline Phosphatase 63 IU/L WBC 7.7 10 3/uL RBC 3.84 10 6/uL HGB 11.7 g/dL HCT 36.6 % MCV 95.3 fL MCH 30.5 pg MCHC 32.0 g/dL RDW 12.1 % Platelet Count 310 10 3/cmm MPV 9.5 fL Neutrophils 5.2 10 3/uL Lymphocytes 1.5 10 3/uL Monocytes 0.8 10 3/uL Eosinophils 0.1 10 3/uL Basophils 0.1 10 3/uL Neutrophil % 67.9 % Lymphocyte % 18.9 % Monocyte % 10.7 % Eosinophil % 0.8 % Basophils % 1.2 % NRBC % 0 % Impression: Well differentiated squamous cell carcinoma, p16 negative per biopsy of right tonsil done on 12/26/2019 MRI scan of the neck done on 01/05/2020 showed diffuse nodular soft tissue thickening involving Waldeyer's ring at the adenoids extending into palatine tonsils. Additional similar appearing nodule soft tissue thickening involving supraglottic larynx at the inferior aspect of pyriform sinuses extending into vocal fold and epiglottis. Left cervical lymph nodes level II and level III noted largest lymph node 12 x 9 mm. 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 No distant metastases. 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 1 PPD for 30 years discussed with Mrs Mathis her disease status and treatment options. She has locally advanced disease and her CT PET scan shows bilateral cervical lymph node involvement which would make her stage IV. This would also not allow her to be a candidate for upfront surgery. Mrs Mathis was offered a treatmetn plan with combined chemoradiation with high-dose cisplatin if tolerated. (cisplatin 100 mg/m??? concurrent with radiation therapy every 3 weeks, as tolerated) . She began her first cycle of cisplatin on January 28, 2020. She is tolerated it well with expected mild side effects. Plan: Discussed with patient regarding her labs white blood count 3.1 hemoglobin 11.9 hematocrit 37.7 platelets 216,000 ANC 1700 CMP within normal limits Clinically, patient doing well, tolerating combined chemoradiation with high-dose cisplatin concurrent with radiation therapy well but with expected side effects e.g. progressive neutropenia/leukopenia, patient was due for her 3 weekly dose of cisplatin, today but there is a progressive leukopenia/neutropenia, will hold her chemotherapy for a week and then she will return to clinic in 1 week with CBC CMP and a far leukopenia/neutropenia resolves then will consider second dose of high-dose cisplatin concurrent with radiation therapy but with Neulasta support to prevent chemotherapy-induced neutropenia and delay in treatment schedule. Signed By: Messi Clarke M.D. <<Signature on File>>
[2020-02-24] MEDS: sodium chloride 0.9% 250 ML 75 ML IV (11:24)
[2020-02-24 11:43] LABS: Basophils # 0.1 10^3/uL (0.0-0.1); Basophils % 1.5 %; Eosinophils # 0.2 10^3/uL (0.0-0.8); Eosinophils % 4.7 %; Hematocrit 37.5 % (37.0-47.0); Hemoglobin 11.4 g/dL (11.5-15.3); Lymphocytes # 0.5 10^3/uL (0.8-4.8); Lymphocytes % 15.5 %; Mean Corpuscular HGB Conc 30.4 g/dL (30.0-36.0); Mean Corpuscular Hemoglobin 30.6 pg (28.0-34.0); Mean Corpuscular Volume 100.8 fL (81-99); Mean Platelet Volume 9.4 fL (7.4-10.4); Monocytes # 0.4 10^3/uL (0.2-0.9); Monocytes % 11.1 %; Neutrophils # 2.3 10^3/uL (1.8-7.7); Neutrophils % 66.6 %; Nucleated Red Blood Cells % 0 %; Platelet Count 206 10^3/cmm (130-400); Red Blood Count 3.72 10^6/uL (4.1-5.3); White Blood Count 3.4 10^3/uL (4.0-10.0)
[2020-02-24 12:13] LABS: Alanine Aminotransferase 14 U/L (0-33); Albumin Level 3.6 g/dL (3.5-5.2); Alkaline Phosphatase 49 IU/L (35-105); Anion Gap 12.8 (5-19); Aspartate Amino Transferase 18 U/L (0-32); Blood Urea Nitrogen 10 mg/dL (8-23); Calcium 8.6 mg/dL (8.5-10.5); Carbon Dioxide 23 mmol/L (22-29); Chloride 105 mmol/L (98-107); Globulin 3.1 g/dL (1.3-4.6); Glomerular Filtration Rate 159.2 mL/min (90-130); Glucose 104 mg/dL (65-115); Osmolality Calculated 280 mOsm/kg (285-295); Potassium 3.8 mmol/L (3.5-5.1); Sodium 137 mmol/L (136-145); Total Bilirubin 0.3 mg/dL (0.15-1.2); Total Protein 6.7 g/dL (6.6-8.7)
[2020-02-24] MEDS: FUROsemide 10 mg/mL SDV 2mL 20 MG IV (15:11)
[2020-02-24] MEDS: sodium chlor 0.9% + KCl 20 mEq 20 MEQ/1,000 ML BAG 500 MEQ IV (15:13)
--- NOTE | 2020-02-24 18:34 | ONC FU_ITS ---
Dr. Clarke follow up note Patient: Luna Mathis Unit #: [id number]: 1950 Dicatated By: Messi Clarke M.D.Date of Visit:Feb 24, 2020 Onc Med Follow-up/Prog Note History of Present Illness: Mrs. Mathis, is a 69-year-old female with history of thrush-like sign/symptoms. She first noticed them in August 2019. She tried home remedies without much improvement. She eventually saw her primary care physician in October 2019 and at that time she was prescribed Diflucan and nystatin. She had no significant improvement. Mrs Mathis developed progressive pain in her throat. She also had dysphagia. She was eventually referred to Dr. Hernandez. She underwent fiberoptic video laryngoscopy which showed large exophytic lesion extending into the posterior aspect of right soft palate and into nasopharynx or prominent on the right past the midline. 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 Mrs Mathis underwent MRI scan of the neck on 01/05/2020 which showed diffuse nodular soft tissue thickening involving Waldeyer's ring at the adenoids extending into the palatine tonsils. 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 Mrs Mathis has lost about 9 pounds since August 2019 due to pain in her throat which had been a 6 on a scale of 1-10, but being controlled with pain medication. She denies any hemoptysis or hematemesis. She also denies any change in taste or smell. She has long-standing history of smoking about one pack a day for 30 years and still active. Mrs. Mathis began her first cycle of chemotherapy on January 28, 2020. Came for follow-up, denies any specific complaint except sore throat but under control with Magic mouthwash otherwise denies any fever chills denies any nausea or vomiting denies any diarrhea constipation denies any hemoptysis or hematemesis denies any jaundice, tolerating combined chemoradiation well otherwise per her second dose of cisplatin was postponed because of persistent neutropenia/leukopenia Medications: LORazepam 0.5 - 1 Tablet (of 1 mg) Oral PRN, MAGIC MOUTHWASH 1 Solution t.i.d. PRN, oxyCODONE-Acetaminophen 1 Tablet (of 5-325 mg) Oral b.i.d. Allergies: Aspirin Review of Systems: Constitutional - Complains of mild fatigue. Denies fever and night sweats, ENMT - Complains of problems with hearing occasionally in the left ear which is muffled, mouth dryness, stomatitis and altered taste. Denies dysphagia, ear pain and tinnitus, Neck - Denies neck pain, Integumentary - Has some redness to the neck, Respiratory - Denies hiccoughs. Vital Signs: Performed on Feb 24, 2020 13:23 Height - 67.00 in Weight - 102.4 lbs Temperature - 98.2 F Pulse - 71 Respiration - 18 BP - 123/69 mm(hg) O2 Sat - 100 % Pain - 0 Performed on Feb 24, 2020 13:23 BMI - 16.038 kg/m2 (LOW) Performed on Feb 24, 2020 12:45 Height - 67.00 in Weight - 102.4 lbs (HIGH) BSA - 1.52 sq.m BMI - 16.04 (LOW) Temperature - 98.2 F (LOW) Pulse - 71 /min Respiration - 18 /min BP - 123/69 mm(hg) O2 Sat - 100 % Pain - 0 Performance Status: 1 - No physically strenuous activity, but ambulatory and able to carry out light or sedentary work (e.g. office work, light house work). (ECOG) Physical Examination: ENMT - No mouth sores no thrush but pharyngeal erythema, Respiratory - Lungs are clear, Cardiovascular - Regular rate and rhythm of heart, Abdomen - Soft, bowel sounds present, Extremities - No visible edema. Lab/Imaging: Test performed on Feb 18, 2020 09:08 Sodium 139 mmol/L Potassium 3.9 mmol/L Chloride 103 mmol/L CO2 25 mmol/L Anion Gap 14.9 BUN 11 mg/dL Creatinine 0.5 mg/dL Cr Clearance (Est) 84.9100 mL/min eGFR 123.1 mL/min Glucose 108 mg/dL Calcium 9.1 mg/dL Protein, Total 6.8 g/dL Albumin 4.0 g/dL Globulin 2.8 g/dL Bilirubin, Total 0.2 mg/dL ALT (SGPT) 17 U/L AST (SGOT) 23 U/L Alkaline Phosphatase 61 IU/L WBC 3.1 10 3/uL RBC 3.82 10 6/uL HGB 11.9 g/dL HCT 37.7 % MCV 98.7 fL MCH 31.2 pg MCHC 31.6 g/dL RDW 13.2 % Platelet Count 216 10 3/cmm MPV 9.1 fL Neutrophils 1.7 10 3/uL Lymphocytes 0.7 10 3/uL Monocytes 0.4 10 3/uL Eosinophils 0.2 10 3/uL Basophils 0.1 10 3/uL Neutrophil % 56.1 % Lymphocyte % 22.1 % Monocyte % 12.4 % Eosinophil % 7.5 % Basophils % 1.6 % NRBC % 0 % Impression: Well differentiated squamous cell carcinoma, p16 negative per biopsy of right tonsil done on 12/26/2019 MRI scan of the neck done on 01/05/2020 showed diffuse nodular soft tissue thickening involving Waldeyer's ring at the adenoids extending into palatine tonsils. Additional similar appearing nodule soft tissue thickening involving supraglottic larynx at the inferior aspect of pyriform sinuses extending into vocal fold and epiglottis. Left cervical lymph nodes level II and level III noted largest lymph node 12 x 9 mm. 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 No distant metastases. 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 1 PPD for 30 years discussed with Mrs Mathis her disease status and treatment options. She has locally advanced disease and her CT PET scan shows bilateral cervical lymph node involvement which would make her stage IV. This would also not allow her to be a candidate for upfront surgery. Mrs Mathis was offered a treatmetn plan with combined chemoradiation with high-dose cisplatin if tolerated. (cisplatin 100 mg/m??? concurrent with radiation therapy every 3 weeks, as tolerated) . She began her first cycle of cisplatin on January 28, 2020. She is tolerated it well with expected mild side effects. Plan: Discussed with patient regarding her labs white blood count 3.4 hemoglobin 11.4 crit 37.5 platelets 206,000 ANC 2300 CMP within normal limits Clinically, patient is doing well, tolerating combined chemoradiation therapy with high-dose cisplatin well. Her second dose of modified dose high-dose cisplatin was postponed for a week because of persistent leukopenia/neutropenia. Now recovered, will proceed with second cycle with Neulasta support to prevent chemotherapy-induced neutropenia/leukopenia, today and then she will return to clinic in 1 week with CBC CMP Signed By: Messi Clarke M.D. <<Signature on File>>
--- NOTE | 2020-02-24 19:24 | ONCRAD TMN_ITS ---
Radiation Oncology Weekly Treatment Management Patient: Luna Mathis MR#: [id number] : 1950 Age: 69 Sex: Female Dictated by: Dr. Edward Sanchez Date of Service: 02/24/2020 Referring Physician(s) : Messi Clarke M.D. Diagnosis: C09.8 - Malignant neoplasm of overlapping sites of tonsil, Diagnosed 01/14/2020 (Active) C77.0 - Secondary and unspecified malignant neoplasm of lymph nodes of head, face and neck, Diagnosed 01/14/2020 (Active) Radiotherapy to date: Course: HN 2019, Treatment Site: [facility] 35FX, Ref. ID: [id number], Energy: 6X, Dose/Fx (cGy): 200, #Fx: 18 35, Dose Correction (cGy): 0, Total Dose (cGy): 3,600, Start Date: 01/28/2020, Elapsed Days: During today's office visit, the patient reports xerostomia, dysgeusia, but she is still able to swallow food. Her weight is up 1.2 pounds over the past week. She occasionally has muffled hearing in her left ear. She is tolerating her every 3 weekly cisplatin. Current Medications: CISplatin, dexamethasone Sodium Phosphate, emend, fluconazole, furosemide, lORazepam, lORazepam, mAGIC MOUTHWASH, magnesium Sulfate, mouthwash Compounding Base, neulasta, nystatin, oxyCODONE-Acetaminophen, oxyCODONE-Acetaminophen, palonosetron HCl, potassium Chloride, prochlorperazine Maleate. Allergies: Aspirin. Current Complaints/Review of Systems: Constitutional - Complains of mild fatigue. Denies fever and night sweats. ENMT - Complains of problems with hearing occasionally in the left ear which is muffled, mouth dryness, stomatitis and altered taste. Denies dysphagia, ear pain and tinnitus. Neck - Denies neck pain. Integumentary - Has some redness to the neck. Respiratory - Denies hiccoughs. Vital Signs: Performed on 02/24/2020 12:45 PM Height - 67.00 in, Weight - 102.4 lbs (high), BSA - 1.52 sq.m, BMI - 16.04 (low), Temperature - 98.2 f (low), Pulse - 71 /min, Respiration - 18 /min, O2 Sat - 100 %, Pain - 0 and BP - 123/ 69 mm(hg). Physical Exam: Appears stable, no skin erythema or desquamation. There is no evidence of oral thrush, or mucositis. There is no palpable cervical lymphadenopathy. Performance Status: 1 - No physically strenuous activity, but ambulatory and able to carry out light or sedentary work (e.g. office work, light house work). (ECOG) Lab: None pending in Radiation Oncology. Test performed on 02/18/2020 9:08 AM WBC - 3.1 10 3/ul (low), RBC - 3.82 10 6/ul (low), Neutrophils - 1.7 10 3/ul (low) and Lymphocytes - 0.7 10 3/ul (low). Imaging: No new diagnostic imaging was performed since the last weekly treatment visit. All radiation therapy related imaging (including but not limited to kV, MV, and CBCT generated images) was reviewed. Appropriate changes, if any, were made to assure accurate target localization. Impression/Plan: Tolerating treatment well with expected side effects. Continue treatment as planned. CPT: 04576 Signed by: Dr. Edward Sanchez>02/24/2020 7:22:38 PM <<Signature on File>>
[2020-03-01 14:45] LABS: Basophils # 0.1 10^3/uL (0.0-0.1); Basophils % 0.3 %; Eosinophils # 0.1 10^3/uL (0.0-0.8); Eosinophils % 0.8 %; Hematocrit 34.8 % (37.0-47.0); Hemoglobin 11.1 g/dL (11.5-15.3); Lymphocytes # 0.7 10^3/uL (0.8-4.8); Lymphocytes % 4.7 %; Mean Corpuscular HGB Conc 31.9 g/dL (30.0-36.0); Mean Corpuscular Hemoglobin 31.8 pg (28.0-34.0); Mean Corpuscular Volume 99.7 fL (81-99); Mean Platelet Volume 9.9 fL (7.4-10.4); Monocytes # 1.2 10^3/uL (0.2-0.9); Monocytes % 8.4 %; Neutrophils # 12.27 10^3/uL (1.8-7.7); Neutrophils % 84.1 %; Nucleated Red Blood Cells % 0 %; Platelet Count 172 10^3/cmm (130-400); Red Blood Count 3.49 10^6/uL (4.1-5.3); Red Cell Distribution Width 14.6 % (12.1-15.1); White Blood Count 14.6 10^3/uL (4.0-10.0)
[2020-03-01 15:10] LABS: Alanine Aminotransferase 16 U/L (0-33); Albumin Level 4.1 g/dL (3.5-5.2); Alkaline Phosphatase 113 IU/L (35-105); Anion Gap 13.7 (5-19); Aspartate Amino Transferase 18 U/L (0-32); Blood Urea Nitrogen 9 mg/dL (8-23); Carbon Dioxide 25 mmol/L (22-29); Chloride 106 mmol/L (98-107); Globulin 2.2 g/dL (1.3-4.6); Glomerular Filtration Rate 221.9 mL/min (90-130); Glucose 82 mg/dL (65-115); Osmolality Calculated 287 mOsm/kg (285-295); Potassium 3.7 mmol/L (3.5-5.1); Sodium 141 mmol/L (136-145); Total Bilirubin 0.4 mg/dL (0.15-1.2); Total Protein 6.3 g/dL (6.6-8.7)
[2020-03-01 15:54] LABS: Slide Review Slide Review Perform
--- NOTE | 2020-03-03 14:50 | ONC FU_ITS ---
Dr. Clarke follow up note Patient: Luna Mathis Unit #: [id number]: 1950 Dicatated By: Messi Clarke M.D.Date of Visit:Mar 03, 2020 Onc Med Follow-up/Prog Note History of Present Illness: Mrs. Mathis, is a 69-year-old female with history of thrush-like sign/symptoms. She first noticed them in August 2019. She tried home remedies without much improvement. She eventually saw her primary care physician in October 2019 and at that time she was prescribed Diflucan and nystatin. She had no significant improvement. Mrs Mathis developed progressive pain in her throat. She also had dysphagia. She was eventually referred to Dr. Hernandez. She underwent fiberoptic video laryngoscopy which showed large exophytic lesion extending into the posterior aspect of right soft palate and into nasopharynx or prominent on the right past the midline. 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 Mrs Mathis underwent MRI scan of the neck on 01/05/2020 which showed diffuse nodular soft tissue thickening involving Waldeyer's ring at the adenoids extending into the palatine tonsils. 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 Mrs Mathis has lost about 9 pounds since August 2019 due to pain in her throat which had been a 6 on a scale of 1-10, but being controlled with pain medication. She denies any hemoptysis or hematemesis. She also denies any change in taste or smell. She has long-standing history of smoking about one pack a day for 30 years and still active. Mrs. Mathis began her first cycle of chemotherapy on January 28, 2020. Came for follow-up, denies any specific complaint except with the last chemotherapy she had episode of nausea but no vomiting, patient did not take recommended post chemotherapy antiemetics. But no fever chills, no nausea or vomiting now, no diarrhea or constipation. She has progressive sore throat due to combined chemoradiation but still tolerating orally well and maintaining hydration well. Medications: MAGIC MOUTHWASH 1 Solution t.i.d. PRN Allergies: Aspirin Review of Systems: Constitutional - Appetite is poor and weight is decreasing. No fever, chills, or night sweats. Positive for hot flashes and fatigue. Energy level is poor, ENMT - No sinus congestion/drainage. No mouth sores. Positive for sore throat and difficulty swallowing, Hematologic/Lymphatic - No abnormal bruising or bleeding, Respiratory - No shortness of breath. No cough. No pleuritic pain or hemoptysis, Cardiovascular - No angina pain. No palpitations, Gastrointestinal - Positive for nausea, no vomiting. Positive for heartburn and acid reflux. No diarrhea. Positive for constipation. No blood in the stool or black stools, Genitourinary (F) - No dysuria or hematuria. No urinary frequency. No urgency or incontinence, Musculoskeletal - Positive for joint and back pain, Neurologic - No headache or dizziness. No numbness/paresthesias or other focal neurologic symptoms, Psychiatric - Positive for anxiety or depression. No insomnia. Vital Signs: Performed on Mar 03, 2020 14:02 Height - 67.00 in Weight - 98.4 lbs (LOW) BSA - 1.50 sq.m BMI - 15.41 (LOW) Temperature - 98.4 F Pulse - 99 /min Respiration - 18 /min BP - 111/65 mm(hg) O2 Sat - 99 % Pain - 0 Performance Status: 1 - No physically strenuous activity, but ambulatory and able to carry out light or sedentary work (e.g. office work, light house work). (ECOG) Physical Examination: ENMT - No mouth sores no thrush but erythema involving throat, Respiratory - Lungs are clear, Cardiovascular - Regular rate and rhythm of heart, Abdomen - Soft, bowel sounds present, Extremities - No visible edema. Lab/Imaging: Test performed on Feb 18, 2020 09:08 Sodium 139 mmol/L Potassium 3.9 mmol/L Chloride 103 mmol/L CO2 25 mmol/L Anion Gap 14.9 BUN 11 mg/dL Creatinine 0.5 mg/dL Cr Clearance (Est) 84.9100 mL/min eGFR 123.1 mL/min Glucose 108 mg/dL Calcium 9.1 mg/dL Protein, Total 6.8 g/dL Albumin 4.0 g/dL Globulin 2.8 g/dL Bilirubin, Total 0.2 mg/dL ALT (SGPT) 17 U/L AST (SGOT) 23 U/L Alkaline Phosphatase 61 IU/L WBC 3.1 10 3/uL RBC 3.82 10 6/uL HGB 11.9 g/dL HCT 37.7 % MCV 98.7 fL MCH 31.2 pg MCHC 31.6 g/dL RDW 13.2 % Platelet Count 216 10 3/cmm MPV 9.1 fL Neutrophils 1.7 10 3/uL Lymphocytes 0.7 10 3/uL Monocytes 0.4 10 3/uL Eosinophils 0.2 10 3/uL Basophils 0.1 10 3/uL Neutrophil % 56.1 % Lymphocyte % 22.1 % Monocyte % 12.4 % Eosinophil % 7.5 % Basophils % 1.6 % NRBC % 0 % Impression: Well differentiated squamous cell carcinoma, p16 negative per biopsy of right tonsil done on 12/26/2019 MRI scan of the neck done on 01/05/2020 showed diffuse nodular soft tissue thickening involving Waldeyer's ring at the adenoids extending into palatine tonsils. Additional similar appearing nodule soft tissue thickening involving supraglottic larynx at the inferior aspect of pyriform sinuses extending into vocal fold and epiglottis. Left cervical lymph nodes level II and level III noted largest lymph node 12 x 9 mm. 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 No distant metastases. 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 1 PPD for 30 years discussed with Mrs Mathis her disease status and treatment options. She has locally advanced disease and her CT PET scan shows bilateral cervical lymph node involvement which would make her stage IV. This would also not allow her to be a candidate for upfront surgery. Mrs Mathis was offered a treatmetn plan with combined chemoradiation with high-dose cisplatin if tolerated. (cisplatin 100 mg/m??? concurrent with radiation therapy every 3 weeks, as tolerated) . She began her first cycle of cisplatin on January 28, 2020. She is tolerated it well with expected mild side effects. Plan: Discussed with patient regarding her labs white blood count 14.6 hemoglobin 11.1 hematocrit 34.8 platelets 172,000 CMP within normal limits Clinically, patient is doing well, tolerating combined chemoradiation with cisplatin well but with expected side effect, e.g. postchemotherapy nausea but no vomiting, probably patient's noncompliance with post chemo antiemetics. Follow-up lab showed mild leukocytosis due to Neulasta and stable mild anemia otherwise within normal range. Patient did not like nausea after second chemotherapy so now considering not to take final dose of chemotherapy. Patient was advised that she is being treated with curative intent and her high-dose cisplatin dose was modified earlier because of her poor performance status and there was a concern about tolerance, now she is tolerating combined chemoradiation well although her second dose was delayed for 1 week because of persistent leukopenia, therefore she was given Neulasta with second dose to prevent chemotherapy-induced leukopenia/neutropenia. Patient was advised to proceed with final dose of chemo with cisplatin in 2 weeks, patient will think about this and return to clinic in 2 weeks with a CBC CMP, if patient agreed then for final dose of concurrent cisplatin otherwise she will continue with radiation alone, knowing the risk versus benefits. Signed By: Messi Clarke M.D. <<Signature on File>>
--- NOTE | 2020-03-09 15:31 | ONCRAD TMN_ITS ---
Radiation Oncology Weekly Treatment Management Patient: Luna Mathis MR#: [id number] : 1950> Age: 69> Sex: Female Dictated by: Dr. Edward Sanchez Date of Service: 03/09/2020 Referring Physician(s) : Messi Clarke Diagnosis: C09.8 - Malignant neoplasm of overlapping sites of tonsil, Diagnosed 01/14/2020 (Active) C77.0 - Secondary and unspecified malignant neoplasm of lymph nodes of head, face and neck, Diagnosed 01/14/2020 (Active) Radiotherapy to date: Course: HN 2019, Treatment Site: HN 35FX, Ref. ID: [id number], Energy: 6X, Dose/Fx (cGy): 200, #Fx: , Dose Correction (cGy): 0, Total Dose (cGy): 5,200, Start Date: 01/28/2020, Elapsed Days: 41 Interim history: The patient is seen in her weekly on treatment visit and she reports that she has persistent dry mouth, and she is only using her mouth rinse once per day. Furthermore, she shares that she is not excited about having her third dose of every 3 weekly cisplatin. She reports no oral mouth sores, and no painful swallowing. Her weight is up approximately 8 ounces over the past week. Current Medications: CISplatin, dexamethasone Sodium Phosphate, emend, furosemide, mAGIC MOUTHWASH, magnesium Sulfate, mouthwash Compounding Base, nystatin, palonosetron HCl, potassium Chloride, prochlorperazine Maleate. Allergies: Aspirin. Current Complaints/Review of Systems: Constitutional - Complains of mild fatigue. Denies lack of appetite, fever, rigors / chills and change in weight. ENMT - Complains of ear pain on the left side occasionally. Complains of mouth dryness. Complains of altered taste. Denies dysphagia, stomatitis and tinnitus. Neck - Denies neck pain. Integumentary - Has redness to the neck. Vital Signs: Performed on 03/09/2020 1:15 PM BMI - 15.537 kg/m2 (low), Height - 67.00 in, Weight - 99.2 lbs, Temperature - 97.7 f, Pulse - 94, Respiration - 18, O2 Sat - 99 %, Pain - 0 and BP - 127/ 71 mm(hg). Physical Exam: Right skin erythema is appreciated in the bilateral neck along with dry desquamation. Oral cavity examination reveals xerostomia, no thrush, and no oral mucositis. Performance Status: 1 - No physically strenuous activity, but ambulatory and able to carry out light or sedentary work (e.g. office work, light house work). (ECOG) Lab: None pending in Radiation Oncology. Test performed on 02/18/2020 9:08 AM WBC - 3.1 10 3/ul (low), RBC - 3.82 10 6/ul (low), Neutrophils - 1.7 10 3/ul (low) and Lymphocytes - 0.7 10 3/ul (low). Imaging: Radiation therapy related imaging (including but not limited to kV, MV, and CBCT generated images) was reviewed. Appropriate changes, if any, were made to assure accurate target localization. Impression/Plan: Tolerating treatment well with expected side effects. Continue treatment as planned. Signed by: Dr. Edward Sanchez>03/09/2020 3:29:51 PM <<Signature on File>>
--- NOTE | 2020-03-16 16:56 | ONC FU_ITS ---
Dr. Clarke follow up note Patient: Luna Mathis Unit #: [id number]: 1950 Dicatated By: Messi Clarke M.D.Date of Visit:Mar 16, 2020 Onc Med Follow-up/Prog Note History of Present Illness: Mrs. Mathis, is a 69-year-old female with history of thrush-like sign/symptoms. She first noticed them in August 2019. She tried home remedies without much improvement. She eventually saw her primary care physician in October 2019 and at that time she was prescribed Diflucan and nystatin. She had no significant improvement. Mrs Mathis developed progressive pain in her throat. She also had dysphagia. She was eventually referred to Dr. Hernandez. She underwent fiberoptic video laryngoscopy which showed large exophytic lesion extending into the posterior aspect of right soft palate and into nasopharynx or prominent on the right past the midline. 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 Mrs Mathis underwent MRI scan of the neck on 01/05/2020 which showed diffuse nodular soft tissue thickening involving Waldeyer's ring at the adenoids extending into the palatine tonsils. 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 Mrs Mathis has lost about 9 pounds since August 2019 due to pain in her throat which had been a 6 on a scale of 1-10, but being controlled with pain medication. She denies any hemoptysis or hematemesis. She also denies any change in taste or smell. She has long-standing history of smoking about one pack a day for 30 years and still active. Mrs. Mathis began her first cycle of chemotherapy Concurrent with radiation therapy on January 28, 2020. Came for follow-up, denies any specific complaints, except sore throat but no hemoptysis or hematemesis, no dysphagia, but odynophagia is controlled with Magic mouthwash. No fever chills no nausea or vomiting, no diarrhea or constipation, no jaundice, no shortness of breath or palpitation tolerating combined chemoradiation well but with expected side effects Medications: MAGIC MOUTHWASH 1 Solution t.i.d. PRN Allergies: Aspirin Review of Systems: Constitutional - Denies lack of appetite, fatigue, fever, night sweats and change in weight, ENMT - Complains of dysphagia but has improved significantly. Complains of severe mouth dryness. Complains of stomatitis. Complains of altered taste. Denies ear pain, Neck - Complains of neck pain usually after treatment but goes away. Denies decreased range of motion, Integumentary - Has dry desquamation to the neck. Has itchiness to the neck, Constitutional - Appetite is poor and weight is decreasing. No fever, chills, or night sweats. Positive for hot flashes and fatigue. Energy level is poor, ENMT - No sinus congestion/drainage. No mouth sores. Positive for sore throat and difficulty swallowing, Hematologic/Lymphatic - No abnormal bruising or bleeding, Respiratory - No shortness of breath. No cough. No pleuritic pain or hemoptysis, Cardiovascular - No angina pain. No palpitations, Gastrointestinal - Positive for nausea, no vomiting. Positive for heartburn and acid reflux. No diarrhea. Positive for constipation. No blood in the stool or black stools, Genitourinary (F) - No dysuria or hematuria. No urinary frequency. No urgency or incontinence, Musculoskeletal - Positive for joint and back pain, Neurologic - No headache or dizziness. No numbness/paresthesias or other focal neurologic symptoms, Psychiatric - Positive for anxiety or depression. No insomnia. Vital Signs: Performed on Mar 16, 2020 11:27 Height - 67.00 in Weight - 99.2 lbs Temperature - 97.7 F Pulse - 97 Respiration - 16 BP - 135/72 mm(hg) O2 Sat - 98 % Pain - 0 Performed on Mar 16, 2020 11:27 BMI - 15.537 kg/m2 (LOW) Performed on Mar 16, 2020 09:51 Height - 67.00 in Weight - 99.2 lbs BSA - 1.50 sq.m BMI - 15.54 (LOW) Temperature - 97.7 F (LOW) Pulse - 97 /min Respiration - 16 /min BP - 135/72 mm(hg) O2 Sat - 98 % Pain - 0 Performance Status: 1 - No physically strenuous activity, but ambulatory and able to carry out light or sedentary work (e.g. office work, light house work). (ECOG) Physical Examination: ENMT - No mouth sores but pharyngeal erythema, Respiratory - Lungs are clear, Cardiovascular - Regular rate and rhythm of heart, Abdomen - Soft, bowel sounds present, Extremities - No visible edema. Lab/Imaging: Test performed on Mar 01, 2020 13:42 Sodium 141 mmol/L Potassium 3.7 mmol/L Chloride 106 mmol/L CO2 25 mmol/L Anion Gap 13.7 BUN 9 mg/dL Creatinine 0.3 mg/dL Cr Clearance (Est) 141.5100 mL/min eGFR 221.9 mL/min Glucose 82 mg/dL Calcium 9.0 mg/dL Protein, Total 6.3 g/dL Albumin 4.1 g/dL Globulin 2.2 g/dL Bilirubin, Total 0.4 mg/dL ALT (SGPT) 16 U/L AST (SGOT) 18 U/L Alkaline Phosphatase 113 IU/L WBC 14.6 10 3/uL RBC 3.49 10 6/uL HGB 11.1 g/dL HCT 34.8 % MCV 99.7 fL MCH 31.8 pg MCHC 31.9 g/dL RDW 14.6 % Platelet Count 172 10 3/cmm MPV 9.9 fL Neutrophils 12.27 10 3/uL Lymphocytes 0.7 10 3/uL Monocytes 1.2 10 3/uL Eosinophils 0.1 10 3/uL Basophils 0.1 10 3/uL Neutrophil % 84.1 % Lymphocyte % 4.7 % Monocyte % 8.4 % Eosinophil % 0.8 % Basophils % 0.3 % NRBC % 0 % CBC Slide Review Slide Review Perform SLIDE REVIEW AGREES WITH AUTOMATED RESULTS Impression: Well differentiated squamous cell carcinoma, p16 negative per biopsy of right tonsil done on 12/26/2019 MRI scan of the neck done on 01/05/2020 showed diffuse nodular soft tissue thickening involving Waldeyer's ring at the adenoids extending into palatine tonsils. Additional similar appearing nodule soft tissue thickening involving supraglottic larynx at the inferior aspect of pyriform sinuses extending into vocal fold and epiglottis. Left cervical lymph nodes level II and level III noted largest lymph node 12 x 9 mm. 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 No distant metastases. 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 1 PPD for 30 years discussed with Mrs Mathis her disease status and treatment options. She has locally advanced disease and her CT PET scan shows bilateral cervical lymph node involvement which would make her stage IV. This would also not allow her to be a candidate for upfront surgery. Mrs Mathis was offered a treatmetn plan with combined chemoradiation with high-dose cisplatin if tolerated. (cisplatin 100 mg/m??? concurrent with radiation therapy every 3 weeks, as tolerated) . She began her first cycle of cisplatin on January 28, 2020. She is tolerated it well with expected mild side effects. Plan: Discussed with patient regarding her disease status and question concern, patient was started on high-dose cisplatin concurrent with radiation therapy but because of her somewhat compromised performance status due to significant weight loss, her dose was modified and plan to give her 3 weekly cisplatin total 3 cycles during radiation therapy, and instead of two full/high dose cisplatin. Patient tolerated to modified high-dose cisplatin cycle concurrent radiation well but now refusing third planned dose today rather we will proceed with her radiation therapy which she will conclude on March 22, 2020. Overall patient has tolerated treatment reasonably well but with expected side effects e.g. extensive pharyngeal erythema and mild to moderate skin toxicity involving neck and upper chest so at patient's request we will not proceed with third dose of cisplatin in that case she will return to clinic in 2 months with CBC CMP in the meantime continue monthly port maintenance and patient will get follow-up CT scan of neck planned by radiation therapy in about 6 weeks and she will also see Dr. Hernandez, ENT for posttreatment evaluation in the meantime. Signed By: Messi Clarke M.D. <<Signature on File>>
--- NOTE | 2020-03-17 10:56 | ONCRAD TMN_ITS ---
Radiation Oncology Weekly Treatment Management Patient: Luna Mathis MR#: [id number] : 1950 Age: 69 Sex: Female Dictated by: Dr. Edward Sanchez Date of Service: 03/16/2020 Referring Physician(s) : Messi Clarke M.D. Diagnosis: C09.8 - Malignant neoplasm of overlapping sites of tonsil, Diagnosed 01/14/2020 (Active) C77.0 - Secondary and unspecified malignant neoplasm of lymph nodes of head, face and neck, Diagnosed 01/14/2020 (Active) Radiotherapy to date: Course: HN 2019, Treatment Site: HN 35FX, Ref. ID: [id number], Energy: 6X, Dose/Fx (cGy): 200, #Fx: , Dose Correction (cGy): 0, Total Dose (cGy): 6,200, Start Date: 01/28/2020, Elapsed Days: 48 Interim History: The patient's weight is stable, she continues to complain of xerostomia, as well as irritation and pruritus to the neck. Current Medications: CISplatin, dexamethasone Sodium Phosphate, emend, furosemide, mAGIC MOUTHWASH, magnesium Sulfate, mouthwash Compounding Base, nystatin, palonosetron HCl, potassium Chloride, prochlorperazine Maleate. Allergies: Aspirin. Current Complaints/Review of Systems: Constitutional - Denies lack of appetite, fatigue, fever, night sweats and change in weight. ENMT - Complains of dysphagia but has improved significantly. Complains of severe mouth dryness. Complains of stomatitis. Complains of altered taste. Denies ear pain. Neck - Complains of neck pain usually after treatment but goes away. Denies decreased range of motion. Integumentary - Has dry desquamation to the neck. Has itchiness to the neck. Vital Signs: Performed on 03/16/2020 9:51 AM Height - 67.00 in, Weight - 99.2 lbs, BSA - 1.50 sq.m, BMI - 15.54 (low), Temperature - 97.7 f (low), Pulse - 97 /min, Respiration - 16 /min, O2 Sat - 98 %, Pain - 0 and BP - 135/ 72 mm(hg). Physical Exam: Bright erythema and dry desquamation is appreciated on the bilateral neck. There are no physical exam findings consistent with oral thrush. Performance Status: 1 - No physically strenuous activity, but ambulatory and able to carry out light or sedentary work (e.g. office work, light house work). (ECOG) Lab: None pending in Radiation Oncology. Imaging: .Radiation therapy related imaging (including but not limited to kV, MV, and CBCT generated images) was reviewed. Appropriate changes, if any, were made to assure accurate target localization. Impression/Plan: Tolerating treatment well with expected side effects. Continue treatment as planned. CPT: 38116 Signed by: Dr. Edward Sanchez>03/17/2020 10:54:39 AM <<Signature on File>>
== END 2020-03-19 23:59 | disposition home or self-care (01) ==
LOC: ONCMED 06:57
PROVIDERS: Internal Medicine Hematology & Oncology; Absent Provider Radiology Radiation Oncology; PCP Nurse Practitioner Family; Visit Provider Radiology Radiation Oncology
DX: Z51.0 Encounter for antineoplastic radiation therapy (principal); Z51.11 Encounter for antineoplastic chemotherapy; C09.8 Malignant neoplasm of overlapping sites of tonsil; C77.0 Secondary and unspecified malignant neoplasm of lymph nodes of head, face and neck; D70.1 Agranulocytosis secondary to cancer chemotherapy; L58.0 Acute radiodermatitis; Y84.2 Radiological procedure and radiotherapy as the cause of abnormal reaction of the patient, or of later complication, without mention of misadventure at the time of the procedure; K11.7 Disturbances of salivary secretion; K12.1 Other forms of stomatitis; T45.1X5A Adverse effect of antineoplastic and immunosuppressive drugs, initial encounter; F17.210 Nicotine dependence, cigarettes, uncomplicated; J43.9 Emphysema, unspecified; Z79.891 Long term (current) use of opiate analgesic
CPT/HCPCS: 36591; 77336; 77386; 80053; 85025; 96365; 96366; 96367; 96372; 96375; 96413; 99214; J1100; J1453; J1940; J2469; J2505; J3475; J3480; J7030; J7040; J7050; J9060

== ENCOUNTER 2020-04-16 05:37 | Outpatient (RCR) | payer MEDICAID, SELFPAY | END 2020-04-19 23:59 | disposition home or self-care (01) | LOC: ONCMED 05:37 | PROVIDERS: PCP Nurse Practitioner Family; Visit Provider Internal Medicine Hematology & Oncology | DX: Z51.0 Encounter for antineoplastic radiation therapy (principal); C09.8 Malignant neoplasm of overlapping sites of tonsil; C77.0 Secondary and unspecified malignant neoplasm of lymph nodes of head, face and neck; Z45.2 Encounter for adjustment and management of vascular access device | CPT/HCPCS: 77336; 77386; 96523 ==

== ENCOUNTER 2020-04-19 15:51 | Inpatient (IN) | payer MEDICARE, MEDICAID, SELFPAY ==
[2020-04-19] VITALS (9 sets, daily range): BP systolic 126–150; BP diastolic 74–103; PULSE 91–111; RESP 15–20; TEMP 36.4–37.1; O2SAT 91–100; BMI 15.7
--- NOTE | 2020-04-19 15:57 | XRR_ITS ---
PROCEDURE INFORMATION: Exam: XR Right Hip with Pelvis when Performed Exam date and time: 04/19/2020 3:59 PM Age: 69 years old Clinical indication: Injury or trauma; Fall; Initial encounter; Blunt trauma (contusions or hematomas); Right; Hip; Additional info: Fall, leg shortened TECHNIQUE: Imaging protocol: XR Right hip with pelvis when performed. Views: 1 view. COMPARISON: No relevant prior studies available. FINDINGS: Bones/joints: Displaced comminuted angulated intertrochanteric fracture of the right femur. There is osteoarthritis with sclerosis in the region of the sacroiliac joints. Soft tissues: Soft tissue edema is seen in the right hip XR/XR hip RT 2-3V wo/w pel* [id number] IMPRESSION: 1. Displaced comminuted angulated intertrochanteric fracture right hip. 2. Soft tissue edema right hip
--- NOTE | 2020-04-19 15:58 | XRR_ITS ---
PROCEDURE INFORMATION: Exam: XR Right Wrist Exam date and time: 04/19/2020 3:59 PM Age: 69 years old Clinical indication: Pain and injury or trauma; Fall; Initial encounter; Blunt trauma (contusions or hematomas; Wrist; Right; Additional info: Fall, pain TECHNIQUE: Imaging protocol: XR Right wrist. Views: 3 or more views. COMPARISON: No relevant prior studies available. FINDINGS: Bones/joints: Negative for acute bony abnormality. Mild chronic deformity is seen in the distal aspect of the radius which may reflect an old injury Soft tissues: Normal. XR/XR wrist RT min 3V* [id number] IMPRESSION: 1. No acute bone abnormality. 2. Chronic deformity distal aspect of the radius
--- NOTE | 2020-04-19 15:59 | ED_ITS ---
Documented by User: DEENA Sesay 04/19/20 16:01 HPI - Fall General: Chief Complaint: Fall Stated Complaint: FALL/HIP AND WRIST PAIN Time Seen by Provider: 04/19/20 15:53 History of Present Illness: HPI Narrative: Patient arrived via ambulance due to fall about an hour ago. Patient was down in the rain for approximately an hour temperature is 95.6 when ambulance picked her up. She has a right hip pain with shortening of the right leg positive pulses. Has right wrist pain with bruising swelling decreased movement denies any other problems. Actually been treated for throat cancer due to get port out next week. complaint: fall Onset (ago): hour(s) Fall from: standing Place fall occurred: home Loss of consciousness: None Prolonged down time: yes Location of injury: pelvis Location of injury - extremities: Right: forearm Severity: severe Severity scale (1-10): 6 Quality: aching Associated symptoms-after fall: Reports no associated symptoms; Denies abdominal pain, chest pain or headache(s) Review of Systems Narrative: Patient is and what close presently is warmer than when she was found. Const: Denies: fever(s), chills or body aches Eyes: Denies: change in vision or blurry vision ENMT: Denies: throat pain or nasal congestion Card: Denies: chest pain or dyspnea on exertion Resp: Denies: dyspnea, productive cough or non-productive cough GI: Denies: abdominal pain, nausea or vomiting Musc: Reports: extremity pain, joint pain (Right wrist and right hip) and limited range of motion Skin/Breast: Denies: rash Neuro: Denies: headache(s) Psych: Denies: anxiety or depression Calvin/Lymph: Denies: easy bruising PFSH ED PFSH: Medical History Cancer of hypopharynx Port-A-Cath in place (01/21/20) left subclavian Family History Denies family history of Anesthesia complication Bleeding disorder Social History Smoking and tobacco status: current every day smoker cigarettes Packs smoked per day: 1 Alcohol intake: current Alcohol intake frequency: 0-2 Drinks per Day Alcohol type: beer Physical Exam Const: COMMON NORMALS: no acute distress, average body habitus and patient oriented x3 HENMT: COMMON NORMALS: normocephalic HEAD & SCALP: normal to inspection and normocephalic FACE & SINUS: normal facial exam Eye: COMMON NORMALS: conjunctivae normal GENERAL EYE: appearance normal, both eyes and all related structures CONJUNCTIVA: Yes conjunctivae normal Neck/C-Spine: COMMON NORMALS: no JVD Chest: COMMONS NORMALS: normal inspection of the chest Resp: COMMON NORMALS: normal respiratory effort and clear to auscultation bilaterally AUSCULTATION: clear to auscultation bilaterally Cardio: COMMON NORMALS: no JVD, regular rate and regular rhythm RATE: regular rate RHYTHM: regular rhythm GI: COMMON NORMALS: Normal to inspection, nondistended, normoactive bowel sounds present Extremity: RIGHT UPPER EXTREMITY: Yes wrist (Tender with swelling and bruising decreased range of motion) RIGHT LOWER EXTREMITY: Yes hip joint (Pain and shortening and rotation inwardly right hip) Neuro: COMMON NORMALS: patient oriented x3 Course Vital Signs: Vital signs: Vital Signs Temperature 99.2 F 04/20/20 08:00 Pulse Rate 98 04/20/20 08:00 Respiratory Rate 18 04/20/20 08:00 Blood Pressure 108/95 04/20/20 08:00 Pulse Oximetry 95 04/20/20 08:00 MDM - Fall Lab Data: Labs: Lab Results 04/19/20 04/19/20 04/19/20 Range/Units 16:10 16:10 16:10 WBC 12.2 H (4.0-10.0) 10^3/ uL RBC 3.55 L (4.1-5.3) 10^6/u L Hgb 11.8 (11.5-15.3) g/dL Hct 38.0 (37.0-47.0) % MCV 107.0 H (81-99) fL MCH 33.2 (28.0-34.0) pg MCHC 31.1 (30.0-36.0) g/dL RDW 15.8 H (12.1-15.1) % Plt Count 226 (130-400) 10^3/c mm MPV 8.8 (7.4-10.4) fL Neut % (Auto) 82.6 % Lymph % (Auto) 7.5 % [place] % (Auto) 6.1 % Eos % (Auto) 2.1 % Baso % (Auto) 0.8 % Neut # (Auto) 10.07 H (1.8-7.7) 10^3/u L Lymph # (Auto) 0.9 (0.8-4.8) 10^3/u L [place] # (Auto) 0.7 (0.2-0.9) 10^3/u L Eos # (Auto) 0.3 (0.0-0.8) 10^3/u L Baso # (Auto) 0.1 (0.0-0.1) 10^3/u L Nucleated RBC % (a uto) 0 % Nucleated RBCs # 0.0 /100WBC PT 13.50 (12.1-14.9) SECO NDS INR 1.00 (0.8-1.2) Sodium 136 (136-145) mmol/L Potassium 4.1 (3.5-5.1) mmol/L Chloride 103 (98-107) mmol/L Carbon Dioxide 22 (22-29) mmol/L Anion Gap 15.1 (5-19) BUN 6 L (8-23) mg/dL Creatinine 0.5 (0.5-0.9) mg/dL GFR Calculation 123.1 (90-130) mL/min Glucose 102 (65-115) mg/dL Calculated Osmolal ity 278 L (285-295) mOsm/k g Calcium 8.5 (8.5-10.5) mg/dL Total Bilirubin 0.3 (0.15-1.2) mg/dL AST 23 (0-32) U/L ALT 13 (0-33) U/L Alkaline Phosphata se 66 (35-105) IU/L Total Protein 7.0 (6.6-8.7) g/dL Albumin 4.0 (3.5-5.2) g/dL Globulin 3.0 (1.3-4.6) g/dL Discharge Plan Discharge Patient Disposition: Admitted As Inpatient Admit Provider: Carrillo Gambino Clinical Impression: Intertrochanteric fracture of right hip, Cancer of hypopharynx Condition: Stable Interventions: ED Discharge Assessment Last Done: 04/19/20 19:05 ED Charges Last Done: 04/19/20 19:05 Discharge Date/Time: 04/19/20 19:54 Sign Out Sign Out Data: Patient Sign Out occurred on 04/19/20 at 16:48. Patient's care was discussed, and care was transferred from to Carlos A Castillo DO. Coding Level of Care Code ED Manager Of Operations for Chg Fwd Exam Comprehensive Documented by User: Carlos A Castillo DO 04/20/20 09:02 HPI - Fall General: Chief Complaint: Fall Stated Complaint: FALL/HIP AND WRIST PAIN Time Seen by Provider: 04/19/20 15:53 PFSH ED PFSH: Medical History Cancer of hypopharynx Port-A-Cath in place (01/21/20) left subclavian Family History Denies family history of Anesthesia complication Bleeding disorder Social History Smoking and tobacco status: current every day smoker cigarettes Packs smoked per day: 1 Alcohol intake: current Alcohol intake frequency: 0-2 Drinks per Day Alcohol type: beer Course Vital Signs: Vital signs: Vital Signs Temperature 99.2 F 04/20/20 08:00 Pulse Rate 98 04/20/20 08:00 Respiratory Rate 18 04/20/20 08:00 Blood Pressure 108/95 04/20/20 08:00 Pulse Oximetry 95 04/20/20 08:00 MDM - Fall MDM Narrative: Medical decision making narrative: Case reviewed with Trino FRANCO. Patient has an intertrochanteric hip fracture will admit Dr. Galarza consulted patient admitted to Dr. Vazuqez Lab Data: Labs: Lab Results 04/19/20 04/19/2020 Range/Units 16:10 16:10 16:10 WBC 12.2 H (4.0-10.0) 10^3/ uL RBC 3.55 L (4.1-5.3) 10^6/u L Hgb 11.8 (11.5-15.3) g/dL Hct 38.0 (37.0-47.0) % MCV 107.0 H (81-99) fL MCH 33.2 (28.0-34.0) pg MCHC 31.1 (30.0-36.0) g/dL RDW 15.8 H (12.1-15.1) % Plt Count 226 (130-400) 10^3/c mm MPV 8.8 (7.4-10.4) fL Neut % (Auto) 82.6 % Lymph % (Auto) 7.5 % [place] % (Auto) 6.1 % Eos % (Auto) 2.1 % Baso % (Auto) 0.8 % Neut # (Auto) 10.07 H (1.8-7.7) 10^3/u L Lymph # (Auto) 0.9 (0.8-4.8) 10^3/u L [place] # (Auto) 0.7 (0.2-0.9) 10^3/u L Eos # (Auto) 0.3 (0.0-0.8) 10^3/u L Baso # (Auto) 0.1 (0.0-0.1) 10^3/u L Nucleated RBC % (a uto) 0 % Nucleated RBCs # 0.0 /100WBC PT 13.50 (12.1-14.9) SECO NDS INR 1.00 (0.8-1.2) Sodium 136 (136-145) mmol/L Potassium 4.1 (3.5-5.1) mmol/L Chloride 103 (98-107) mmol/L Carbon Dioxide 22 (22-29) mmol/L Anion Gap 15.1 (5-19) BUN 6 L (8-23) mg/dL Creatinine 0.5 (0.5-0.9) mg/dL GFR Calculation 123.1 (90-130) mL/min Glucose 102 (65-115) mg/dL Calculated Osmolal ity 278 L (285-295) mOsm/k g Calcium 8.5 (8.5-10.5) mg/dL Total Bilirubin 0.3 (0.15-1.2) mg/dL AST 23 (0-32) U/L ALT 13 (0-33) U/L Alkaline Phosphata se 66 (35-105) IU/L Total Protein 7.0 (6.6-8.7) g/dL Albumin 4.0 (3.5-5.2) g/dL Globulin 3.0 (1.3-4.6) g/dL Discharge Plan Discharge Patient Disposition: Admitted As Inpatient Admit Provider: Carrillo Gambino Clinical Impression: Intertrochanteric fracture of right hip, Cancer of hypopharynx Condition: Stable Interventions: ED Discharge Assessment Last Done: 04/19/20 19:05 ED Charges Last Done: 04/19/20 19:05 Discharge Date/Time: 04/19/20 19:54 Sign Out Sign Out Data: Patient Sign Out occurred on 04/19/20 at 16:48. Patient's care was discussed, and care was transferred from to Carlos A Castillo DO. Coding Level of Care Code ED Manager Of Operations for Jarett Fwd Exam Comprehensive
--- NOTE | 2020-04-19 16:01 | ECG_ITS ---
[facility] Test Date: 2020-04-19 Pat Name: Luna Mathis Department: Room: Gender: Female Education Department Registrar: ANNIE: 1950 Requested By: Trino Downs Order Number: [id number] Tiffany MD: De Corral M.D. Measurements Intervals [place] Rate: 107 P: 81 NJ: 146 QRS: 98 QRSD: 89 T: 82 QT: 345 QTc: 461 Interpretive Statements SINUS TACHYCARDIA BORDERLINE RIGHT AXIS DEVIATION [QRS AXIS > 90] ANTERIOR MYOCARDIAL INFARCTION , OF INDETERMINATE AGE [40+ ms Q WAVE AND/OR ST/T ABNORMALITY IN V3/V4] No previous ECG available for comparison Electronically Signed On 04-19-2020 23:44:32 CDT by De Corral M.D. [id number]
--- NOTE | 2020-04-19 16:01 | XRR_ITS ---
PROCEDURE INFORMATION: Exam: XR Chest, 1 View Exam date and time: 04/19/2020 4:02 PM Age: 69 years old Clinical indication: Injury or trauma; Fall; Initial encounter; Blunt trauma (contusions or hematomas) TECHNIQUE: Imaging protocol: XR of the chest Views: 1 view. COMPARISON: No relevant prior studies available. FINDINGS: Tubes, catheters and devices: A central line is in place on the left side extending into the proximal SVC Lungs: Unremarkable. No consolidation. Pleural space: Unremarkable. No pleural effusion. No pneumothorax. Heart/Mediastinum: Unremarkable. No cardiomegaly. Bones/joints: Unremarkable. XR/XR chest 1V portable [id number] IMPRESSION: 1. No acute findings. 2. A left central line extends into the proximal SVC.
[2020-04-19] MEDS: morphine 4 mg/mL SDV 1 mL IVP (16:15)
[2020-04-19] MEDS: ondansetron 2 mg/ML SDV 2 mL 4 MG IVP (16:15)
[2020-04-19 16:17] LABS: Basophils # 0.1 10^3/uL (0.0-0.1); Basophils % 0.8 %; Eosinophils # 0.3 10^3/uL (0.0-0.8); Eosinophils % 2.1 %; Hemoglobin 11.8 g/dL (11.5-15.3); Lymphocytes # 0.9 10^3/uL (0.8-4.8); Lymphocytes % 7.5 %; Mean Corpuscular HGB Conc 31.1 g/dL (30.0-36.0); Mean Corpuscular Hemoglobin 33.2 pg (28.0-34.0); Mean Platelet Volume 8.8 fL (7.4-10.4); Monocytes # 0.7 10^3/uL (0.2-0.9); Monocytes % 6.1 %; Neutrophils # 10.07 10^3/uL (1.8-7.7); Neutrophils % 82.6 %; Nucleated Red Blood Cells % 0 %; Platelet Count 226 10^3/cmm (130-400); Red Blood Count 3.55 10^6/uL (4.1-5.3); Red Cell Distribution Width 15.8 % (12.1-15.1); White Blood Count 12.2 10^3/uL (4.0-10.0)
--- NOTE | 2020-04-19 16:36 | PC.NURSE ---
Read and agree with assessment
[2020-04-19 16:38] LABS: Alanine Aminotransferase 13 U/L (0-33); Alkaline Phosphatase 66 IU/L (35-105); Aspartate Amino Transferase 23 U/L (0-32); Blood Urea Nitrogen 6 mg/dL (8-23); Calcium 8.5 mg/dL (8.5-10.5); Carbon Dioxide 22 mmol/L (22-29); Chloride 103 mmol/L (98-107); Glomerular Filtration Rate 123.1 mL/min (90-130); Glucose 102 mg/dL (65-115); Osmolality Calculated 278 mOsm/kg (285-295); Sodium 136 mmol/L (136-145); Total Bilirubin 0.3 mg/dL (0.15-1.2)
[2020-04-19 16:40] LABS: Anion Gap 15.1 (5-19); Potassium 4.1 mmol/L (3.5-5.1)
--- NOTE | 2020-04-19 17:21 | P.HP_ITS ---
Providers/Chief Complaint Admitting Physician: Hospitalist/Dr. Gambino Primary Care Provider: Alka Tristan NP Chief Complaint: FALL/HIP AND WRIST PAIN History of Present Illness Luna Mathis is a 69 year old female with past medical history of squamous cell carcinoma of hypopharynx, post recent completion of chemoradiation therapy 3 weeks ago, Port-A-Cath in place who presented to the ER after having a mechanical fall after which she started complaining of pain in her hips. She denies having nausea, vomiting, headache, dizziness, dysuria, fever, diarrhea, headache, palpitation, chest pain, difficulty in breathing, flulike symptoms, recent exposure to COVID-19. Patient in the ER showed intertrochanteric fracture of the right hip. Review of Systems General: Reports: 10 or more systems reviewed and unremarkable except in HPI and below Const: Denies: fever(s), chills, body aches, change in appetite, change in weight, malaise, night sweats, diaphoresis, change in sleep pattern, daytime sleepiness or snoring Eyes: Denies: change in vision, blurry vision, photophobia, eye discomfort or eye discharge ENMT: Denies: throat pain, enlarged tonsils, hoarseness, mouth pain, oral sores, dry mouth, tinnitus, nasal congestion or post nasal drip Card: Denies: chest pain, palpitations, irregular heart rhythm, edema, swelling of feet/ankles, lightheadedness, syncope, pre-syncope, dyspnea on exertion, orthopnea, leg pain with exertion or acrocyanosis Resp: Denies: dyspnea, productive cough, non-productive cough, wheezing, stridor, pain on inspiration, change in phlegm color, hemoptysis or chest congestion GI: Denies: abdominal pain, nausea, vomiting, hematemesis, coffee ground emesis, dysphagia, heartburn, diarrhea, constipation, bloating, GI cramping, change in bowel habits, pain on defecation, hematochezia or melena : Denies: flank pain, dysuria, urinary frequency, urinary urgency, urinary hesitancy, nocturia or hematuria Musc: Denies: neck pain, back pain, extremity pain, joint pain, joint swelling, joint redness, joint stiffness or limited range of motion Neuro: Denies: headache(s), numbness in extremities, weakness in extremities, sensory changes, lack of coordination, difficulty walking, frequent falls, dizziness, vertigo, confusion, Slurred speech present, difficulty communicating thoughts or seizure-like activity Psych: Denies: anxiety, depression, mood swings, panic attacks, hopelessness o r irritability Endo: Denies: polyuria, polydipsia, tired all the time, cold intolerance, excessive sweating, flushing or heat intolerance Calvin/Lymph: Denies: easy bruising or easy bleeding All/Imm: Denies: tongue swelling, facial swelling or acute wheezing Medications/Allergies Home Medications Medication Instructions Recorded Confirmed Last Taken Type No Known Home Medications 04/19/20 04/19/20 Unknown History Allergies Allergy/AdvReac Type Severity Reaction Status Date / Time aspirin Allergy ALGY-Hives Verified 01/20/20 14:14 PFSH Acute PFSH: Medical History Cancer of hypopharynx Port-A-Cath in place (01/21/20) left subclavian Family History Denies family history of Anesthesia complication Bleeding disorder Social History Smoking and tobacco status: current every day smoker cigarettes Packs smoked per day: 1 Alcohol intake: current Alcohol intake frequency: 0-2 Drinks per Day Alcohol type: beer Vitals/I&O/Wt Last Vital Signs Temp 97.6 F 04/19/20 16:09 Pulse 111 H 04/19/20 16:09 Resp 20 H 04/19/20 16:15 BP 145/94 04/19/20 16:09 Pulse Ox 97 04/19/20 16:15 Weight last 48 hrs Weight 45.813 kg Physical Exam Narrative: EXAM NARRATIVE: General: No acute distress, AO x3, cachectic, dehydrated, cold peripheries but not mottled HEENT: PERRLA, pupils bilaterally equal and reactive Chest: Normal vesicular breath sounds, no added sounds, equal good air entry bilaterally CVS: S1-S2 regular, no murmurs, no tachycardia, no gallops, no rubs Abdomen: Soft, nontender, no organomegaly, bowel sounds present Neuro: No focal deficits, no facial deformity, AO x3, power 4 x 5 in both upper limbs, lower limbs could not be assessed because of pain Data : 04/20/20 01:45 04/20/20 01:45 A&P Assessment and plan (1) Intertrochanteric fracture of right hip: Status: Acute (2) Cancer of hypopharynx: Status: Acute (3) Uvular edema: Status: Acute Additional A&P Information Hip fracture: Right hip: Orthopedics have been called from the ER. Keep n.p.o. after midnight. Anticoagulation, physical therapy, perioperative antibiotics as per Dr. Galarza. Check iron panel. Morphine for pain. Foot pumps. Check HbA1c, TSH, iron panel, lipid panel. D5 NS at 50 cc/h. Chest x-ray, EKG reviewed. 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 Port-A-Cath still in place. No signs of sepsis. Regular diet, n.p.o. after midnight. Foot pumps for SCDs. Protonix for PUD prophylaxis Attestations Medical Necessity Statement*: For more than 2 midnights for intertrochanteric displaced hip fracture of right side. Time Spent in Patient Care: Greater than 35 minutes (>than 50% of time spent in counselling and/or direct pt care on unit) . 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
[2020-04-19] MEDS: HYDROmorphone 1 mg/mL INJ 1 mL IVP (18:40)
[2020-04-19] MEDS: dextrose 5%-sod chloride 0.45% 1,000 ML 50 ML IV (20:36)
[2020-04-19] MEDS: famotidine 20 mg/2 mL INJ IVP (20:36)
[2020-04-20] VITALS (24 sets, daily range): BP systolic 100–133; BP diastolic 62–95; PULSE 98–118; RESP 16–24; TEMP 36.2–37.6; O2SAT 94–100
--- NOTE | 2020-04-20 | SCC_ITS ---
Procedure Done: Open reduction and internal fixation right hip with intramedullary device 43.3 seconds of fluoroscopic guidance, for a cumulative dose of 3.46 mGy, was provided to Dr. Galarza by the radiology department. C-arm images of the RIGHT femur were saved for the patient's permanent record. [facility]
--- NOTE | 2020-04-20 | XR_ITS ---
WS: [id number] C-ARM RADIOGRAPHS RIGHT FEMUR; 5 IMAGES HISTORY: ORIF right hip COMPARISON: 04/19/2020 Intraoperative imaging during intramedullary rodding and screw fixation subcapital femoral neck fract ure. Avulsion of the lesser trochanter. XR/XR femur RT min 2V* [id number] IMPRESSION: Intraoperative ORIF RIGHT hip fracture in good alignment.
[2020-04-20 00:13] LABS: Thyroid Stimulating Hormone 3.89 uIU/mL (0.27-4.20)
[2020-04-20 01:00] LABS: Iron 30 ug/dL (37-145); Percent Saturation 15.5 % (20-50); Total Iron Binding Capacity 193 mcg/dl; Unsaturated Iron Binding 163 ug/dL (112-347)
[2020-04-20 01:54] LABS: Basophils % 0.6 %; Eosinophils # 0.1 10^3/uL (0.0-0.8); Eosinophils % 2.1 %; Hematocrit 30.3 % (37.0-47.0); Hemoglobin 9.6 g/dL (11.5-15.3); Lymphocytes # 0.6 10^3/uL (0.8-4.8); Lymphocytes % 11.7 %; Mean Corpuscular HGB Conc 31.7 g/dL (30.0-36.0); Mean Corpuscular Hemoglobin 32.8 pg (28.0-34.0); Mean Corpuscular Volume 103.4 fL (81-99); Mean Platelet Volume 8.6 fL (7.4-10.4); Monocytes # 0.5 10^3/uL (0.2-0.9); Monocytes % 10.3 %; Neutrophils # 3.64 10^3/uL (1.8-7.7); Neutrophils % 74.9 %; Nucleated Red Blood Cells % 0 %; Platelet Count 175 10^3/cmm (130-400); Red Blood Count 2.93 10^6/uL (4.1-5.3); Red Cell Distribution Width 15.7 % (12.1-15.1); White Blood Count 4.9 10^3/uL (4.0-10.0)
[2020-04-20 02:12] LABS: Alanine Aminotransferase 12 U/L (0-33); Albumin Level 3.7 g/dL (3.5-5.2); Alkaline Phosphatase 43 IU/L (35-105); Aspartate Amino Transferase 22 U/L (0-32); Blood Urea Nitrogen 6 mg/dL (8-23); Carbon Dioxide 20 mmol/L (22-29); Chloride 103 mmol/L (98-107); Globulin 2.2 g/dL (1.3-4.6); Glomerular Filtration Rate 221.9 mL/min (90-130); Glucose 147 mg/dL (65-115); Osmolality Calculated 278 mOsm/kg (285-295); Sodium 135 mmol/L (136-145); Total Bilirubin 0.6 mg/dL (0.15-1.2); Total Protein 5.9 g/dL (6.6-8.7)
[2020-04-20 02:17] LABS: Chol HDL Ratio 2.77 mg/dL (0.0-4.40); Cholesterol 158 mg/dL (0-200); HDL Cholesterol 57 mg/dL (60-100); LDL Cholesterol Calculated 84 mg/dL (50-129); Triglycerides 87 mg/dL (0-150); VLDL Cholestrol Calculation 17 mg/dL (0-30)
[2020-04-20] MEDS: acetaminophen 325 mg Tablet 650 MG PO (02:26)
[2020-04-20] MEDS: morphine 4 mg/mL SDV 1 mL 2 MG IVP ×2 (06:20→17:37)
--- NOTE | 2020-04-20 07:36 | PM.CONSULT ---
Providers/Reason For Consult Consulting Physican/Specialty*: Raul Galarza MD; orthopedic surgery Reason for Consult*: Right intratrochanteric hip fracture Attending Physician: Carrillo Gambino MD Primary Care Provider: Alka Tristan NP History of Present Illness History of Present Illness Luna Mathis is a 69 year old female who fell when she was pulled over by her dog yesterday with immediate pain in her right hip. She was transferred to [facility] where radiographs revealed a intratrochanteric fracture of the right hip. She has a previous history of squamous cell cancer of the hypopharynx and recently completed chemotherapy 3 weeks ago. He denies any previous pain in her hip. She previously ambulated without aids. 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 Meds/Allergies Home Medications and Allergies Home Medications Medication Instructions Recorded Confirmed Last Taken Type No Known Home Medications 04/19/20 04/19/20 Unknown History Allergies Allergy/AdvReac Type Severity Reaction Status Date / Time aspirin Allergy ALGY-Hives Verified 01/20/20 14:14 Current Medications Current Medications Generic Name Dose Route Start Last Admin Trade Name Freq PRN Reason Stop Dose Admin Albuterol/Ipratropium 3 ml 04/19/20 21:00 04/19/20 20:31 Duoneb INHALATION Not Given Q6H.RESPIRATORY BENTON Famotidine 20 mg 04/19/20 20:18 04/19/20 20:36 Pepcid Inj IVP 20 mg Q12H BENTON Administration Dextrose/Sodium Chloride 1,000 mls @ 50 mls/hr 04/19/20 20:18 04/19/20 20:36 Dextrose 5%-Sod Chloride 0.45% IV 50 mls/hr .Q20H BENTON Administration Morphine Sulfate 2 mg 04/19/20 20:18 04/20/20 06:20 Morphine IVP 2 mg Q4H PRN Administration SEVERE PAIN PFSH Acute PFSH: Medical History Cancer of hypopharynx Port-A-Cath in place (01/21/20) left subclavian Family History Denies family history of Anesthesia complication Bleeding disorder Social History Smoking and tobacco status: current every day smoker cigarettes Packs smoked per day: 1 Alcohol intake: current Alcohol intake frequency: 0-2 Drinks per Day Alcohol type: beer Vitals/I&O/Wt Last Vital Signs Temp 98.7 F 04/20/20 04:00 Pulse 105 H 04/20/20 04:00 Resp 18 04/20/20 06:20 BP 108/69 04/20/20 04:00 Pulse Ox 97 04/20/20 04:00 04/19/20 04/20/20 04/20/20 22:59 06:59 14:59 Output Total 900 / 900 Balance -900 / -900 Weight last 48 hrs Weight 101 lb Physical Exam Narrative: EXAM NARRATIVE: Patient has obvious shortening and external rotation of the right hip. She has exquisite pain with motion of the hip. There is no wounds or skin breakdown I can appreciate over the right lower extremity He has a palpable right dorsalis pedis pulse. Will flex extend and move her toes and her ankle without any motor deficits. Her sensation is intact to light touch. He has no tenderness to palpation or pain with motion of her left lower extremity or upper extremity Urinary Catheter Management^: Olivas: Cath Placed During This Visit: yes Reason for Continuing Indwelling Catheter: Perioperative Use in Selected Surgeries Urinary Catheter Date of Insertion: 04/19/20 Urinary Catheter Time of Insertion: 17:18 Data Imaging^: Xray Ortho: Radiologist's impression: Radiographs are reviewed of the right hip from yesterday. The patient has a intratrochanteric hip fracture with displacement and varus alignment of the neck. An associated lesser trochanter fragment is identified as well. She appears to have significant underlying osteopenia A&P Assessment and plan (1) Intertrochanteric fracture of right hip: I discussed options with the patient in person and the patient's Iona caballero, by phone. I told the patient we could treat this nonoperatively but certainly they would be at risk for medical problems without surgery. Theywould have problems with pain that would require narcotics for pain control. 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 I discussed surgical intervention with the patient. I told them with open reduction internal fixation they should be able to be mobilized and resume ambulatory status. We can eliminate the problems associated with prolonged bed rest and would have better control of pain. Certainly there would be inherent risk with surgery. These would would include the risk of cardiac complications, stroke, infection, and even . I discussed risk of any orthopedic implant including nonunion, malunion, a component failure. I discussed the possible need for component removal. I discussed risk of deep venous thromboses and pulmonary emboli that are present with any treatment and the importance of DVT prophylaxis. The patient and daughter expressed good understanding of alternative treatments, seem to comprehend, and agrees to surgical intervention. Status: Acute Coding Level of Care Code Acute Assistant Tennis Coach for Jarett Lr Diagnoses Intertrochanteric fracture of right hip S72.141A
[2020-04-20] MEDS: famotidine 20 mg/2 mL INJ IVP ×2 (08:45→19:58)
[2020-04-20 09:22] LABS: Estmated Average Glucose 82; Hemoglobin A1C 4.5 % (4.0-6.0)
[2020-04-20] MEDS: ipratropium-albuterol 3 mL Neb INHALATION (09:26)
--- NOTE | 2020-04-20 09:30 | P.PN_ITS ---
Subjective Subjective: Interval history: No acute events overnight. Patient states she was uncomfortable because she was not able to get a good position in bed. On examination she is lying comfortably in bed. She is due for over at around 12 PM today. She is complaining of mild hip pain. Denies of any nausea, vomiting, headache, dizziness, palpitations, chest pain. Vitals/I&O/Wt Last Vital Signs Temp 99.2 F 04/20/20 08:00 Pulse 103 H 04/20/20 09:26 Resp 17 04/20/20 09:26 BP 108/95 04/20/20 08:00 Pulse Ox 95 04/20/20 09:26 04/19/20 04/20/20 04/20/20 22:59 06:59 14:59 Output Total 900 / 900 Balance -900 / -900 Weight last 48 hrs Weight 45.813 kg Physical Exam Narrative: EXAM NARRATIVE: General: No acute distress, AO x3, cachectic, dehydrated, cold peripheries but not mottled HEENT: PERRLA, pupils bilaterally equal and reactive Chest: Normal vesicular breath sounds, no added sounds, equal good air entry bilaterally CVS: S1-S2 regular, no murmurs, no tachycardia, no gallops, no rubs Abdomen: Soft, nontender, no organomegaly, bowel sounds present Neuro: No focal deficits, no facial deformity, AO x3, power 4 x 5 in both upper limbs, lower limbs could not be assessed because of pain Urinary Catheter Management^: Olivas: Cath Placed During This Visit: yes Reason for Continuing Indwelling Catheter: Required Immobilization for Trauma or Surgery or Anesthesia Urinary Catheter Date of Insertion: 04/19/20 Urinary Catheter Time of Insertion: 17:18 Data : 04/20/20 01:45 04/20/20 01:45 A&P Assessment and plan (1) Intertrochanteric fracture of right hip: Status: Acute (2) Cancer of hypopharynx: Status: Acute (3) Uvular edema: Status: Acute Additional A&P Information Hip fracture: Right hip: Plan for ORIF today in the afternoon. N.p.o. for now. Advance diet as per orthopedics postoperation.. Anticoagulation, physical therapy, perioperative antibiotics as per Dr. Galarza. Check iron panel. Morphine for pain. Foot pumps. D5 NS at 50 cc/h. Chest x-ray, EKG reviewed. 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 Port-A-Cath still in place. No signs of sepsis. N.p.o., regular diet once cleared from surgery. Foot pumps for SCDs. Protonix for PUD prophylaxis Attestations Medical Necessity Statement*: Right hip fracture Time Spent in Patient Care: 16 - 35 minutes Coding Level of Care Code Acute Director Of Healthcare Systems for [facility] Fwd Diagnoses Intertrochanteric fracture of right hip S72.141A Cancer of hypopharynx C13.9 Uvular edema K13.79
--- NOTE | 2020-04-20 10:59 | PC.CHAP ---
Pastoral Care Encounter/Spiritual Assessment Type of Contact [] Declined burner technician visit [] Patient/Family/Request visit [] Outpatient visit [] Follow-up visit [] Physician referral [] Code/Alert [] Routine visit [] Staff referral [] Actively dying [] Patient sleeping [] Family support [] [] Out of room [] Palliative care [] [] Receiving care in room [] Pre-surgical visit [] Trauma [] Long length of stay [] ICU visit [] Other: Relational/Emotional Strength [] Patient feels connected with others/family/visitors/staff [] Distress [] Loneliness/isolation [] Abandonment Spirituality of Patient [] Person of Marsha [] Attends Episcopalian of their Marsha [] Believes in Prayer [] Reads Bible or Mormon materials [] There are Spiritual issues to be addressed Mold Chipper Interventions [] Prayer [] Active listening [] Non-anxious presence [] Spiritual/emotional support [] Crisis/trauma care [] Spiritual counseling [] Bereavement support [] Provided bereavement packet [] Provided Bible/devotional materials [] Provided toy/stuffed animal, coloring book to patient or family member [] Provided Communion [] Anointing/Theodore [] Salvation [] Completed spiritual assessment [] Other: Impact on Illness or Injury [] Angry [] Fearful [] Anxious [] Often cries [] Exhaustion [] Unable to work [] Unable to attend christianity [] Unable to walk/stand [] Unable to read [] Unable to drive [] Unable to eat/drink [] Unable to sleep [] Unable to be with family [] Patient intubated [] Other: Summary Patient asleep, needs Follow up visit. Time spent with patient
--- NOTE | 2020-04-20 11:17 | ANES.PREANE2 ---
Pre-Anesthetic Assessment Pre-Anesthetic Assessment: Height/Weight: Height 1.7 m Weight 45.813 kg Temp Pulse Resp BP Pulse Ox 98.5 F 103 H 18 104/66 95 04/20/20 11:06 04/20/20 11:06 04/20/20 11:06 04/20/20 11:06 04/20/20 11:06 Preop Diagnosis: Cancer of the hypopharynx Proposed Procedure: Operation Date: 04/20/20 12:00 Proposed Procedures p Open Reduction and internal fixation right intertrochanteric hip(Right) - Raul Galarza MD Familial anesthetic complications: none Was Beta Nick taken within 24 hours: N/A Last intake: Intake Last Liquid Date 04/19/20 Last Liquid Time 23:00 Last Solid Date 04/19/20 Last Solid Time 23:00 Social: Social History: Tobacco Exam: Pre-Anes Outpt Exam: alert, oriented x 3, clear to auscultation bilaterally and regular rate & rhythm Airway: Cervical ROM: WNL MP: 2 Dentition: Other (no teeth) Additional comments: cancer of hypopharynx - port placed under MAC and chemo start MRI MPRESSION: 1. Exam is somewhat limited due to patient motion. 2. Diffuse nodular soft tissue thickening involving Waldeyer's ring at the adenoids extending into the palatine tonsils. Recommend correlation for malignancy. 3. Additional similar-appearing nodular soft tissue thickening involving the supraglottic larynx at the inferior aspect of the piriform sinuses extending into the vocal folds and glottis. Circumferential soft tissue thickening at the level of the glottis with mild glottic narrowing. Recommend direct visualization. 4. Enlarged left level 2 and level 3 cervical lymph nodes along the left parotid tail and carotid sheath the largest measuring 12 x 9 mm suspicious for metastatic disease. 5. No enlarged right-sided cervical lymph nodes visualized. 6. Partial opacification right mastoid air cells. 7. A few small thyroid nodules the largest measuring 8 mm. This can be followed up with ultrasound. 8. Mild central canal stenosis with small disc protrusion at C5-C6. GI: Comments: currently feeling sick to stomach - giving zofran Anesthetic Plan: ASA status: 2E Risk of > 500 ml blood loss (7ml/kg in children): No Meds/Allergies Current Medications: Current Medications Generic Name Dose Route Start Last Admin Trade Name Freq PRN Reason Stop Dose Admin Albuterol/Ipratrop ium 3 ml 04/19/20 21:00 04/20/20 09:26 Duoneb INHALATION 3 ml Q6H.RESPIRATORY S CH Administration Famotidine 20 mg 04/19/20 20:18 04/20/20 08:45 Pepcid Inj IVP 20 mg Q12H BENTON Administration Dextrose/Sodium Ch loride 1,000 mls @ 50 ml s/hr 04/19/20 20:18 04/19/20 20:36 Dextrose 5%-Sod Chloride 0.45% IV 50 mls/hr .Q20H BENTON Administration Morphine Sulfate 2 mg 04/19/20 20:18 04/20/20 06:20 Morphine IVP 2 mg Q4H PRN Administration SEVERE PAIN PFSH Anesthesia PFSH: Medical History Cancer of hypopharynx Port-A-Cath in place (01/21/20) left subclavian Family History Denies family history of Anesthesia complication Bleeding disorder Social History Smoking and tobacco status: current every day smoker cigarettes Packs smoked per day: 1 Alcohol intake: current Alcohol intake frequency: 0-2 Drinks per Day Alcohol type: beer Data Anesthesia CBC & Chem 7: 04/20/20 01:45 04/20/20 01:45 Other Labs: Laboratory Results - last 48 hr 04/19/20 04/19/20 04/19/20 16:10 16:10 16:10 WBC 12.2 H RBC 3.55 L Hgb 11.8 Hct 38.0 MCV 107.0 H MCH 33.2 MCHC 31.1 RDW 15.8 H Plt Count 226 MPV 8.8 Neut % (Auto) 82.6 Lymph % (Auto) 7.5 Refugio % (Auto) 6.1 Eos % (Auto) 2.1 Baso % (Auto) 0.8 Neut # (Auto) 10.07 H Lymph # (Auto) 0.9 Refugio # (Auto) 0.7 Eos # (Auto) 0.3 Baso # (Auto) 0.1 Nucleated RBC % (auto) 0 Nucleated RBCs # 0.0 PT 13.50 INR 1.00 Sodium 136 Potassium 4.1 Chloride 103 Carbon Dioxide 22 Anion Gap 15.1 BUN 6 L Creatinine 0.5 GFR Calculation 123.1 Glucose 102 Estimat Average Glucose Hemoglobin A1c Calculated Osmolality 278 L Calcium 8.5 Iron TIBC % Saturation Unsat Iron Binding Total Bilirubin 0.3 AST 23 ALT 13 Alkaline Phosphatase 66 Total Protein 7.0 Albumin 4.0 Globulin 3.0 Triglycerides Cholesterol LDL Cholesterol, Calc Total VLDL Cholesterol HDL Cholesterol Cholesterol/HDL Ratio TSH 04/19/20 04/19/20 04/20/20 23:35 23:35 01:45 WBC RBC Hgb Hct MCV MCH MCHC RDW Plt Count MPV Neut % (Auto) Lymph % (Auto) Refugio % (Auto) Eos % (Auto) Baso % (Auto) Neut # (Auto) Lymph # (Auto) Refugio # (Auto) Eos # (Auto) Baso # (Auto) Nucleated RBC % (auto) Nucleated RBCs # PT INR Sodium Potassium Chloride Carbon Dioxide Anion Gap BUN Creatinine GFR Calculation Glucose Estimat Average Glucose 82 Hemoglobin A1c 4.5 Calculated Osmolality Calcium Iron 30 L TIBC 193 % Saturation 15.5 L Unsat Iron Binding 163 Total Bilirubin AST ALT Alkaline Phosphatase Total Protein Albumin Globulin Triglycerides Cholesterol LDL Cholesterol, Calc Total VLDL Cholesterol HDL Cholesterol Cholesterol/HDL Ratio TSH 3.89 04/20/20 04/20/20 04/20/20 01:45 01:45 01:45 WBC 4.9 RBC 2.93 L Hgb 9.6 L Hct 30.3 L MCV 103.4 H MCH 32.8 MCHC 31.7 RDW 15.7 H Plt Count 175 MPV 8.6 Neut % (Auto) 74.9 Lymph % (Auto) 11.7 Refugio % (Auto) 10.3 Eos % (Auto) 2.1 Baso % (Auto) 0.6 Neut # (Auto) 3.64 Lymph # (Auto) 0.6 L Refugio # (Auto) 0.5 Eos # (Auto) 0.1 Baso # (Auto) 0.0 Nucleated RBC % (auto) 0 Nucleated RBCs # 0.0 PT INR Sodium 135 L Potassium 4.0 Chloride 103 Carbon Dioxide 20 L Anion Gap 16.0 BUN 6 L Creatinine 0.3 L GFR Calculation 221.9 H Glucose 147 H Estimat Average Glucose Hemoglobin A1c Calculated Osmolality 278 L Calcium 8.0 L Iron TIBC % Saturation Unsat Iron Binding Total Bilirubin 0.6 AST 22 ALT 12 Alkaline Phosphatase 43 Total Protein 5.9 L Albumin 3.7 Globulin 2.2 Triglycerides 87 Cholesterol 158 LDL Cholesterol, Calc 84 Total VLDL Cholesterol 17 HDL Cholesterol 57 L Cholesterol/HDL Ratio 2.77 TSH Cardiac Studies: No Data to Display
[2020-04-20] MEDS: sodium chloride 0.9% 1,000 ML 30 ML IV (11:38)
[2020-04-20] MEDS: ondansetron 2 mg/ML SDV 2 mL 4 MG IVP (11:39)
--- NOTE | 2020-04-20 11:47 | PC.NURSE ---
surgeryl Pt was taken down to surgery.
--- NOTE | 2020-04-20 13:16 | PM.OP ---
Operative Report Date of procedure: April 20, 2020 Pre-op Diagnosis: Right intertrochanteric hip fracture Post-op diagnosis: same Post-op Findings: Same Procedure Done: Open reduction and internal fixation right hip with intramedullary device Implants: Will gamma nail 11 mm x 380 mm, 90 mm proximal lag screw Pathology: none sent Surgeon: Raul Galarza Anesthesia: General Estimated blood loss (mL): 50 Findings: The patient had a comminuted fracture of the right intratrochanteric hip consisting of a shaft, head neck, and lesser trochanter fragment Condition: stable Disposition: PACU Procedure: The patient was taken to the operating room. He was given 1 g of Ancef. He was positioned on the fracture table with the right lower extremity in gentle traction. A timeout was performed. A 2 cm long incision was made proximal to the greater trochanter scalpel blade. Dissection was carried down to tip the greater trochanter. A guidepin was passed manually from the tip of the trochanter down the shaft. The proximal reamer was utilized to open up the proximal canal. An 11 mm by 380 mm Will gamma nail was passed down the canal without difficulty. Under visualization of fluoroscopy a guidepin was driven up into the head and neck at 125? angle. It was measured at 9 mm in length. A 90 mm lag screw was then placed and locked into place with the proximal locking screw. The construct appeared stable and a distal locking screw was not placed. intraoperative imaging was obtained verifying satisfactory position of the hardware and reduction of the fracture. Deep tissues were closed with 0 Vicryl as were subcutaneous tissues. The skin was closed with skin jeffrey. Sterile dressings were applied. The patient was extubated and taken to recovery room in stable condition.
--- NOTE | 2020-04-20 13:34 | SUR.PHASEI ---
1334 PT HAS SENSATION/MOVEMENT TO R. FOOT, PEDAL PULSE PALPATED, CAP REFILL <3 SEC
[2020-04-20] MEDS: HYDROcodone-acetaminophen 5-325 mg Tablet 1 TAB PO (15:52)
[2020-04-20] MEDS: dextrose 5%-sod chloride 0.45% 1,000 ML 50 ML IV (15:55)
[2020-04-20] MEDS: ferrous sulfate EC 325 mg Tablet PO (17:38)
--- NOTE | 2020-04-20 18:20 | PC.NURSE ---
summary Pt stated she did not want anything to drink this evening and pt is drowsy. One of her daughters was here shortly to visit. Medicated pt twice for pain. Pts urine does smelled strong when i emptied her xiao out.
--- NOTE | 2020-04-20 18:21 | PC.OT ---
OT note: Pt to surgery today. Will hold until better able to participate post surgery.
[2020-04-20] MEDS: ceFAZolin 1,000 MG in sodium chloride 0.9% (plus) 50 ML 100 MG IV (19:48)
[2020-04-21] VITALS (13 sets, daily range): BP systolic 97–109; BP diastolic 54–66; PULSE 58–126; RESP 13–18; TEMP 36.5–37.3; O2SAT 90–100
--- NOTE | 2020-04-21 00:37 | PC.NURSE ---
on rounding, pt complained of inability to move right arm, suggestive of possible shoulder injury? Checked weakness in payroll representative compared to left with significant difference. Neuro exam preformed along side charge nurse PETE Shaikh. No facial droop noted. No report given from prior shift about any weakness in arm. Vital signs WNL and patient alert and orientedx4. Pt states implicitly that the weakness in her arm is from the fall she suffered when she broke her hip. Will notify phys.
--- NOTE | 2020-04-21 01:00 | P.EN_ITS ---
Event Note Event Note: Called by nurse as patient complained of right upper extremity weakness. After I discussed this with the patient it is clear this is been going on since her fall and occurred with her hip fracture. She denies any diminished sensation. She does have a visible contusion over the wrist and elbow. She has decreased range of motion at the shoulder probably secondary to rotator cuff pathology. Elbow has good range of motion. Wrist is tender and x- ray did not demonstrate an acute fracture. Neurologic exam does not demonstrate any facial asymmetry, lower extremity weakness. When she tries to do an activity with the hand it hurts in the wrist consistent with trauma as the etiology of her weakness.
[2020-04-21] MEDS: enoxaparin 30 mg/0.3 mL Syringe SUBCUT (01:47)
[2020-04-21] MEDS: HYDROcodone-acetaminophen 5-325 mg Tablet 1 TAB PO ×3 (03:05→21:19)
[2020-04-21] MEDS: ondansetron 2 mg/ML SDV 2 mL 4 MG IVP (03:30)
[2020-04-21] MEDS: ceFAZolin 1,000 MG in sodium chloride 0.9% (plus) 50 ML 100 MG IV ×2 (03:35→11:10)
[2020-04-21 05:10] LABS: Basophils % 0.4 %; Eosinophils % 0.1 %; Hematocrit 26.8 % (37.0-47.0); Hemoglobin 8.2 g/dL (11.5-15.3); Lymphocytes # 0.4 10^3/uL (0.8-4.8); Lymphocytes % 5.5 %; Mean Corpuscular HGB Conc 30.6 g/dL (30.0-36.0); Mean Corpuscular Hemoglobin 32.9 pg (28.0-34.0); Mean Corpuscular Volume 107.6 fL (81-99); Mean Platelet Volume 9.8 fL (7.4-10.4); Monocytes # 0.6 10^3/uL (0.2-0.9); Monocytes % 8.2 %; Neutrophils # 6.37 10^3/uL (1.8-7.7); Neutrophils % 85.4 %; Nucleated Red Blood Cells % 0 %; Platelet Count 144 10^3/cmm (130-400); Red Blood Count 2.49 10^6/uL (4.1-5.3); White Blood Count 7.5 10^3/uL (4.0-10.0)
[2020-04-21 05:34] LABS: Alanine Aminotransferase 12 U/L (0-33); Albumin Level 3.1 g/dL (3.5-5.2); Alkaline Phosphatase 36 IU/L (35-105); Anion Gap 12.9 (5-19); Aspartate Amino Transferase 19 U/L (0-32); Blood Urea Nitrogen 6 mg/dL (8-23); Carbon Dioxide 23 mmol/L (22-29); Chloride 101 mmol/L (98-107); Globulin 2.5 g/dL (1.3-4.6); Glomerular Filtration Rate 159.2 mL/min (90-130); Glucose 129 mg/dL (65-115); Osmolality Calculated 273 mOsm/kg (285-295); Potassium 3.9 mmol/L (3.5-5.1); Sodium 133 mmol/L (136-145); Total Bilirubin 0.6 mg/dL (0.15-1.2); Total Protein 5.6 g/dL (6.6-8.7)
--- NOTE | 2020-04-21 08:22 | PM.PN ---
Subjective Subjective: Interval history: Patient complains of pain in her right hip but also her right wrist and inability to use her wrist. She states she has fallen but not believe she has ever hurt her right wrist. Vitals/I&O/Wt Last Vital Signs Temp 98.4 F 04/21/20 07:45 Pulse 111 H 04/21/20 07:45 Resp 18 04/21/20 07:45 BP 97/61 04/21/20 07:45 Pulse Ox 99 04/21/20 07:45 04/20/20 04/21/20 04/21/20 22:59 06:59 14:59 Intake Total 50 / 800 Output Total 275 / 300 650 / 650 Balance -225 / 500 -650 / -650 Weight last 48 hrs Weight 101 lb Physical Exam Narrative: EXAM NARRATIVE: Right hip dressing clean and dry. Expected swelling right thigh Some swelling right wrist and tenderness over distal radius. Will dorsiflex and palmar flex wrist only approximately 20 degrees before limited by pain. She can flex and extend her ulnar 4 digits and extend and oppose her right thumb. She has diminished sensation in the right hand she attributes to chemo. Urinary Catheter Management^: Olivas: Cath Placed During This Visit: yes Reason for Continuing Indwelling Catheter: Perioperative Use in Selected Surgeries Urinary Catheter Date of Insertion: 04/19/20 Urinary Catheter Time of Insertion: 17:18 Data : 04/21/20 04:05 04/21/20 04:05 Xray Ortho: My impression: I reviewed radiographs of the right distal radius dated 04/19/2020. She does appear to have a loss of volar tilt suggesting fracture of unknown acuity A&P Assessment and plan (1) Postoperative state: The patient can begin mobilization with a walker. She will be weightbearing as tolerated the right lower extremity. She is fairly week after chemotherapy and I think progress will be slow. She will certainly need nursing home placement. Status: Acute (2) Fracture, Colles, right, closed: Patient denies previous injury to the wrist. Her swelling and tenderness with suggesting acute component to the fracture. I will put him in a cock-up style wrist splint. She may ambulate with a platform walker. Status: Acute (3) Intertrochanteric fracture of right hip: Status: Acute Attestations Medical Necessity Statement*: As per medicine. Will need nursing home Coding Level of Care Code Acute Bookmobile Driver for Chg Fwd Diagnoses Postoperative state Z98.890 Fracture, Colles, right, closed S52.531A Intertrochanteric fracture of right hip S72.141A Comment CPT 85184
[2020-04-21] MEDS: ferrous sulfate EC 325 mg Tablet PO ×2 (09:05→17:05)
[2020-04-21] MEDS: dextrose 5%-sod chloride 0.45% 1,000 ML 50 ML IV (09:08)
[2020-04-21] MEDS: ipratropium-albuterol 3 mL Neb INHALATION ×2 (09:09→14:48)
--- NOTE | 2020-04-21 09:17 | ANE.PACU2 ---
Inpatient post-anesthesia follow up: Airway intact: Yes Vital signs: Temperature 98.4 F Pulse Rate 105 Respiratory Rate 18 Blood Pressure 97/61 Pulse Oximetry 96 Oxygen Delivery Me thod Room Air Oxygen Flow Rate 2 Fraction of Inspir ed Oxygen Hydration adequate: Yes Nausea and vomiting: No Pain level: 3 Mental status: Baseline
[2020-04-21] MEDS: famotidine 20 mg/2 mL INJ IVP (09:23)
[2020-04-21] MEDS: calcium carbonate 500 mg Chew Tablet PO ×3 (09:54→21:19)
[2020-04-21] MEDS: pantoprazole DR 40 mg Tablet PO (09:54)
--- NOTE | 2020-04-21 16:54 | P.PN_ITS ---
Subjective Subjective: Interval history: No acute events overnight. Patient underwent ORIF yesterday. She was also found to have chronic cold fracture of the right wrist. She states she is feeling a lot better now. She is sitting in chair and working well with physical therapy. She denies of any nausea, vomiting, headache, chest pain, palpitations. Discussed in detail regarding safe discharge planning. Just brought up to the patient that given her hip fracture and fracture in the respiratory be best if patient goes to SNF for a couple of weeks for further rehabilitation. Patient states that if she goes to SNF she will . Vitals/I&O/Wt Last Vital Signs Temp 98.5 F 04/21/20 15:32 Pulse 105 H 04/21/20 15:32 Resp 16 04/21/20 15:32 BP 98/54 04/21/20 15:32 Pulse Ox 98 04/21/20 15:32 04/21/20 04/21/20 04/21/20 06:59 14:59 22:59 Intake Total 50 / 850 1580.833 / 1580.833 Output Total 850 / 850 Balance 50 / 550 730.833 / 730.833 Physical Exam Narrative: EXAM NARRATIVE: General: No acute distress, AO x3, cachectic, dehydrated, cold peripheries but not mottled HEENT: PERRLA, pupils bilaterally equal and reactive Chest: Normal vesicular breath sounds, no added sounds, equal good air entry bilaterally CVS: S1-S2 regular, no murmurs, no tachycardia, no gallops, no rubs Abdomen: Soft, nontender, no organomegaly, bowel sounds present Neuro: No focal deficits, no facial deformity, AO x3, power 4 x 5 in both upper limbs, lower limbs could not be assessed because of pain Extremities: Surgical dressing present. Right wrist brace present. Urinary Catheter Management^: Olivas: Cath Placed During This Visit: yes, but has since been removed by the nurse Reason for Continuing Indwelling Catheter: Perioperative Use in Selected Surgeries Urinary Catheter Date of Insertion: 04/19/20 Urinary Catheter Time of Insertion: 17:18 Date Urinary Catheter Removed: 04/21/20 Time Urinary Catheter Discontinued: 07:00 Data : 04/21/20 04:05 04/21/20 04:05 A&P Assessment and plan (1) Intertrochanteric fracture of right hip: Status: Acute (2) Cancer of hypopharynx: Status: Acute (3) Uvular edema: Status: Acute Additional A&P Information Hip fracture: Right hip: Plan for ORIF today in the afternoon. Regular diet. Hemoglobin stable. We will continue to trend hemoglobin. Anticoagulation, physical therapy as per Dr. Galarza. Continue oral iron supplementation. Pain medication as per Dr. Galaraz. Foot pumps. Stop IV fluids. Griggs fracture of the right wrist: Splint as per Dr. Galarza. 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 Port-A-Cath still in place. No signs of sepsis. Regular diet. Foot pumps for SCDs. Lovenox. Protonix for PUD prophylaxis Discharge planning: Patient states she would not want to want to go to SNF for further rehabilitation. Patient does have good family support at home and would like to go to home with home meds for further rehabilitation. We will consult care coordination for safe discharge planning. Attestations Medical Necessity Statement*: Postop care for hip fracture, safe discharge planning Time Spent in Patient Care: Greater than 35 minutes Coding Level of Care Code Acute Clinical Applications Manager for Jarett Fwharleen Diagnoses Intertrochanteric fracture of right hip S72.141A Cancer of hypopharynx C13.9 Uvular edema K13.79
[2020-04-22] VITALS (10 sets, daily range): BP systolic 100–126; BP diastolic 60–72; PULSE 78–120; RESP 15–18; TEMP 36.8–37.2; O2SAT 94–98
[2020-04-22] MEDS: enoxaparin 30 mg/0.3 mL Syringe SUBCUT (00:48)
[2020-04-22] MEDS: HYDROcodone-acetaminophen 5-325 mg Tablet 1 TAB PO ×2 (00:51→12:01)
[2020-04-22 05:02] LABS: Basophils % 0.6 %; Eosinophils # 0.1 10^3/uL (0.0-0.8); Eosinophils % 1.5 %; Hematocrit 22.5 % (37.0-47.0); Lymphocytes # 0.4 10^3/uL (0.8-4.8); Mean Corpuscular HGB Conc 31.1 g/dL (30.0-36.0); Mean Corpuscular Hemoglobin 32.6 pg (28.0-34.0); Mean Corpuscular Volume 104.7 fL (81-99); Monocytes # 0.4 10^3/uL (0.2-0.9); Monocytes % 8.2 %; Neutrophils # 3.82 10^3/uL (1.8-7.7); Neutrophils % 80.3 %; Nucleated Red Blood Cells % 0 %; Platelet Count 137 10^3/cmm (130-400); Red Blood Count 2.15 10^6/uL (4.1-5.3); Red Cell Distribution Width 14.6 % (12.1-15.1); White Blood Count 4.8 10^3/uL (4.0-10.0)
[2020-04-22 05:27] LABS: Alanine Aminotransferase 8 U/L (0-33); Alkaline Phosphatase 40 IU/L (35-105); Anion Gap 10.9 (5-19); Aspartate Amino Transferase 16 U/L (0-32); Blood Urea Nitrogen 7 mg/dL (8-23); Calcium 8.4 mg/dL (8.5-10.5); Carbon Dioxide 25 mmol/L (22-29); Chloride 99 mmol/L (98-107); Globulin 2.7 g/dL (1.3-4.6); Glomerular Filtration Rate 159.2 mL/min (90-130); Glucose 102 mg/dL (65-115); Osmolality Calculated 268 mOsm/kg (285-295); Potassium 3.9 mmol/L (3.5-5.1); Sodium 131 mmol/L (136-145); Total Bilirubin 0.5 mg/dL (0.15-1.2); Total Protein 5.7 g/dL (6.6-8.7)
[2020-04-22] MEDS: dextrose 5%-sod chloride 0.45% 1,000 ML 50 ML IV (08:14)
--- NOTE | 2020-04-22 08:25 | PC.NURSE ---
pt refusing morning meds. educated pt on importance of taking morning meds and pt still refused.
--- NOTE | 2020-04-22 09:00 | PC.SOCIAL ---
IMM Page 2 of IMM explained to patient. Initialed, dated, and timed and placed in chart. Copy provided to patient.
--- NOTE | 2020-04-22 12:36 | PM.PN ---
Subjective Subjective: Interval history: Patient feels much better today. Preparing for discharge home with family Vitals/I&O/Wt Last Vital Signs Temp 98.6 F 04/22/20 07:19 Pulse 120 H 04/22/20 11:56 Resp 16 04/22/20 11:56 BP 101/60 04/22/20 07:19 Pulse Ox 98 04/22/20 11:56 04/21/20 04/22/20 04/22/20 22:59 06:59 14:59 Intake Total 620 / 2200.833 1000 / 3200.833 170 / 170 Output Total 300 / 1150 250 / 1400 Balance 320 / 1050.833 750 / 1800.833 170 / 170 Physical Exam Narrative: EXAM NARRATIVE: bow maker machine tender over right distal radius Incisions clean over right hip Urinary Catheter Management^: Olivas: Cath Placed During This Visit: yes, but has since been removed by the nurse Reason for Continuing Indwelling Catheter: Perioperative Use in Selected Surgeries Urinary Catheter Date of Insertion: 04/19/20 Urinary Catheter Time of Insertion: 17:18 Date Urinary Catheter Removed: 04/21/20 Time Urinary Catheter Discontinued: 07:00 Data : 04/22/20 04:00 04/22/20 04:00 A&P Assessment and plan (1) Fracture, Colles, right, closed: Status: Acute (2) Postoperative state: Stable for discharge today. She will be set up with home health therapy. I will see her back in 2 weeks for stitch removal. Status: Acute (3) Intertrochanteric fracture of right hip: Status: Acute Attestations Medical Necessity Statement*: Discharge today Coding Level of Care Code Acute Manager Grant for Jarett Lr Diagnoses Fracture, Colles, right, closed S52.531A Postoperative state Z98.890 Intertrochanteric fracture of right hip S72.141A
--- NOTE | 2020-04-22 14:11 | P.DS_ITS ---
Discharge Providers Date of Admission: 04/19/20 17:00 Date of Discharge: April 22, 2020 Attending Provider at Admission: Carrillo Gambino MD Attending Provider at Discharge: Carrillo Gambino MD Consults: Orthopedics: Dr. Betancourt Primary Care Provider: Alka Tristan NP Diagnoses at Discharge Discharge Diagnosis (1) Fracture, Colles, right, closed: Status: Acute (2) Postoperative state: Status: Acute (3) Intertrochanteric fracture of right hip: Status: Acute Reason for Visit Reason for Visit: FALL/HIP AND WRIST PAIN Hospital Course Discharge Summary: Luna Mathis is a 69 year old female who fell when she was pulled over by her dog yesterday with immediate pain in her right hip. She was transferred to [facility] where radiographs revealed a intratrochanteric fracture of the right hip. She has a previous history of squamous cell cancer of the hypopharynx and recently completed chemotherapy 3 weeks ago. He denies any previous pain in her hip. She previously ambulated without aids. 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 Dr. Galarza from orthopedics was consulted. She underwent ORIF on April 20. She is also found to have swelling in her right wrist which on imaging was consistent with a chronic Colles' fracture for which right wrist splint was done. She worked appropriately well with physical therapy. Her hemoglobin trended down to 7 for which she underwent 1 unit of blood transfusion. Option of discharge to SNF was discussed with the patient which she refused. Home health has been set up and has been confirmed with orthopedics as well. Patient is been discharged in hemodynamically stable condition with advised to follow-up with orthopedics in 2 weeks. Patient remained mildly tachycardic persistently during hospitalization which is sinus and rhythm for which metoprolol has been added to her medication list. She is also been advised to take iron and calcium supplementation. Physical Exam Narrative: EXAM NARRATIVE: General: No acute distress, AO x3, cachectic, dehydrated, cold peripheries but not mottled HEENT: PERRLA, pupils bilaterally equal and reactive Chest: Normal vesicular breath sounds, no added sounds, equal good air entry bilaterally CVS: S1-S2 regular, no murmurs, no tachycardia, no gallops, no rubs Abdomen: Soft, nontender, no organomegaly, bowel sounds present Neuro: No focal deficits, no facial deformity, AO x3, power 4 x 5 in both upper limbs, lower limbs could not be assessed because of pain Extremities: Surgical dressing present. Right wrist brace present. Urinary Catheter Management^: Olivas: Cath Placed During This Visit: yes, but has since been removed by the nurse Reason for Continuing Indwelling Catheter: Perioperative Use in Selected Surgeries Urinary Catheter Date of Insertion: 04/19/20 Urinary Catheter Time of Insertion: 17:18 Date Urinary Catheter Removed: 04/21/20 Time Urinary Catheter Discontinued: 07:00 Discharge Data Data Completed and Pending: Completed Studies During Hospitalization Category Date Time Status XR chest 1V christian ble [id number] Stat Exams 04/19/20 16:01 Completed XR femur RT min 2 V* [id number] Routine Exams 04/20/20 Completed XR hip RT 2-3V wo /w pel* [id number] Stat Exams 04/19/20 15:57 Completed XR wrist RT min 3 V* [id number] Stat Exams 04/19/20 15:58 Completed Labs from last 24 hours 04/22/20 04/22/20 04/22/20 12:48 04:00 04:00 WBC 4.8 RBC 2.15 L Hgb 7.0 L Hct 22.5 L MCV 104.7 H MCH 32.6 MCHC 31.1 RDW 14.6 Plt Count 137 MPV 10.0 Neut % (Auto) 80.3 Lymph % (Auto) 9.0 Benzie % (Auto) 8.2 Eos % (Auto) 1.5 Baso % (Auto) 0.6 Neut # (Auto) 3.82 Lymph # (Auto) 0.4 L Benzie # (Auto) 0.4 Eos # (Auto) 0.1 Baso # (Auto) 0.0 Nucleated RBC % (a uto) 0 Nucleated RBCs # 0.0 Sodium 131 L Potassium 3.9 Chloride 99 Carbon Dioxide 25 Anion Gap 10.9 BUN 7 L Creatinine 0.4 L GFR Calculation 159.2 H Glucose 102 Calculated Osmolal ity 268 L Calcium 8.4 L Total Bilirubin 0.5 AST 16 ALT 8 Alkaline Phosphata se 40 Total Protein 5.7 L Albumin 3.0 L Globulin 2.7 Blood Type O Positive Rho(D) Type Positive Antibody Screen Negative Crossmatch See Detail Vitals: Last Vital Signs Temp 99.0 F 04/22/20 13:59 Pulse 114 H 04/22/20 13:59 Resp 15 04/22/20 13:59 BP 118/70 04/22/20 13:59 Pulse Ox 96 04/22/20 13:59 Discharge Plan Discharge Patient Disposition: Home Health Service Condition: Stable Prescriptions: New hydrocodone-acetaminophen 5-325 mg Tablet 1 tab PO Q4H PRN (Reason: Moderate Pain) 7 Days Qty: 30 RF: 0 Lovenox 30 mg/0.3 mL Syringe 30 mg SUBCUT Q24H Qty: 10 RF: 0 metoprolol tartrate 25 mg tablet 12.5 mg PO DAILY Qty: 20 RF: 0 ferrous gluconate 324 mg (38 mg iron) tablet 324 mg PO BID Qty: 60 RF: 0 calcium carbonate 200 mg calcium (500 mg) Tablet,Chewable 500 mg PO Q12H Qty: 30 RF: 0 Discharge Orders: Discharge Order (Routine); Ordered 04/22/20 Ordered By: Raul Galarza Other Ambulatory Orders: DME: Walker (Order) Location: None Selected Ordered By: Raul Galarza Referrals: [facility] [Outside] (This is the company that provided your walker. If you have any issues with it or questions/concerns, you may call them at the phone number listed.) [facility] [Outside] (This is your home health company. They are tentatively scheduled to come out and begin services next 04/28/20. If you have any questions you may call their office at the phone number provided.) Raul Galarza MD [Physician] - 05/05/20 11:15 am Alka Tristan NP [Primary Care Provider] - 04/29/20 10:00 am (You have an appointment on at 10:00am for hospital follow up.) Discharge Diet: Regular Discharge Activity: Increase activity as tolerated and As per PT/OT instructions Patient Instructions: Hydrocodone/Acetaminophen (By mouth), Enoxaparin (Injection), Fractures - Colles', Open Reduction and Internal Fixation of a Hip Fracture (DC) Activity Restrictions/Additional Instructions: Change dressing as needed for drainage Okay to sponge bathe and showers while jeffrey in place, may bathe once jeffrey discontinued Full weightbearing on operative hip May weight-bear on right arm with walker Discharge Attestations Time Spent in Discharge Care*: greater than 30 min Specific Discharge Activities: Specific discharge activities: educating patient, discussing with pcp/other providers, discussing with watch case polisher/social workers/dc planners, documenting/other paperwork and evaluating patient/reviewing data Status at Discharge: Cognitive status at discharge: mildly impaired cognition , Behavioral status at discharge: cooperative , Functional status at discharge: uses cane/walker Overall status at discharge: patient is progressing back to baseline Quality Metrics Clinical Quality Measures During this hospital stay, did patient experience: None Coding Level of Care Code Acute Mva Operator for Jarett Fwd Diagnoses Fracture, Colles, right, closed S52.531A Postoperative state Z98.890 Intertrochanteric fracture of right hip S72.141A
[2020-04-22] MEDS: calcium carbonate 500 mg Chew Tablet PO (14:26)
[2020-04-22] MEDS: sodium chloride 0.9% (100 ml) 100 ML 150 ML (14:41)
== END 2020-04-22 17:30 | disposition home health service (06) | DRG 481 ==
LOC: ER 19:07 → MEDSURG 19:26
PROVIDERS: Family Medicine; Nurse Practitioner Family; Orthopaedic Surgery; Admitting Provider Student in an Organized Health Care Education/Training Program; PCP Nurse Practitioner Family; Visit Provider Student in an Organized Health Care Education/Training Program
PROC: 0QS606Z Reposition Right Upper Femur with Intramedullary Internal Fixation Device, Open Approach (ICD-10-PCS; CPT 27245; principal; 2020-04-20 12:00)
DX: S72.141A Displaced intertrochanteric fracture of right femur, initial encounter for closed fracture (principal); S52.531A Colles' fracture of right radius, initial encounter for closed fracture; W18.31XA Fall on same level due to stepping on an object, initial encounter; C13.9 Malignant neoplasm of hypopharynx, unspecified; Z92.21 Personal history of antineoplastic chemotherapy; Z92.3 Personal history of irradiation; Z95.828 Presence of other vascular implants and grafts; F17.210 Nicotine dependence, cigarettes, uncomplicated; K13.79 Other lesions of oral mucosa; D64.9 Anemia, unspecified
CPT/HCPCS: 12345; 36415; 36430; 51702; 71045; 73110; 73502; 73552; 76000; 80053; 80061; 83036; 83540; 83550; 84443; 85025; 85610; 86850; 86900; 86920; 93005; 94640; 96372; 96375; 97110; 97116; 97161; 97166; 97530; 97535; 99283; C1713; J0690; J1170; J1650; J2270; J2405; J2704; J3010; J3490; J7030; J7799; P9016

== ENCOUNTER 2020-05-05 14:07 | Outpatient (CLI) | payer MEDICARE, MEDICAID, SELFPAY | END 2020-05-05 14:08 | disposition home or self-care (01) | LOC: SPT 14:08 | PROVIDERS: PCP Nurse Practitioner Family; Visit Provider Orthopaedic Surgery | DX: Z46.89 Encounter for fitting and adjustment of other specified devices (principal); S72.141D Displaced intertrochanteric fracture of right femur, subsequent encounter for closed fracture with routine healing; S52.531D Colles' fracture of right radius, subsequent encounter for closed fracture with routine healing; X58.XXXD Exposure to other specified factors, subsequent encounter | CPT/HCPCS: 97760; L3982 ==

== ENCOUNTER 2020-06-01 11:00 | Outpatient (CLI) | payer MEDICAID, SELFPAY ==
[2020-06-01 12:21] LABS: Basophils # 0.1 10^3/uL (0.0-0.1); Basophils % 0.9 %; Eosinophils # 0.2 10^3/uL (0.0-0.8); Hematocrit 35.8 % (37.0-47.0); Hemoglobin 10.9 g/dL (11.5-15.3); Lymphocytes % 18.2 %; Mean Corpuscular HGB Conc 30.4 g/dL (30.0-36.0); Mean Corpuscular Hemoglobin 29.9 pg (28.0-34.0); Mean Corpuscular Volume 98.4 fL (81-99); Mean Platelet Volume 9.3 fL (7.4-10.4); Monocytes # 0.5 10^3/uL (0.2-0.9); Monocytes % 9.8 %; Neutrophils # 3.57 10^3/uL (1.8-7.7); Neutrophils % 67.7 %; Nucleated Red Blood Cells % 0 %; Platelet Count 277 10^3/cmm (130-400); Red Blood Count 3.64 10^6/uL (4.1-5.3); Red Cell Distribution Width 14.6 % (12.1-15.1); White Blood Count 5.3 10^3/uL (4.0-10.0)
[2020-06-01 12:45] LABS: Alanine Aminotransferase 8 U/L (0-33); Albumin Level 4.2 g/dL (3.5-5.2); Alkaline Phosphatase 77 IU/L (35-105); Anion Gap 14.9 (5-19); Aspartate Amino Transferase 16 U/L (0-32); Blood Urea Nitrogen 6 mg/dL (8-23); Calcium 9.4 mg/dL (8.5-10.5); Carbon Dioxide 25 mmol/L (22-29); Chloride 102 mmol/L (98-107); Globulin 2.7 g/dL (1.3-4.6); Glomerular Filtration Rate 159.2 mL/min (90-130); Glucose 85 mg/dL (65-115); Osmolality Calculated 283 mOsm/kg (285-295); Potassium 3.9 mmol/L (3.5-5.1); Sodium 138 mmol/L (136-145); Total Bilirubin 0.2 mg/dL (0.15-1.2); Total Protein 6.9 g/dL (6.6-8.7)
--- NOTE | 2020-06-01 17:34 | ONC FU_ITS ---
Dr. Clarke follow up note Patient: Luna Mathis Unit #: [id number]: 1950 Dicatated By: Messi Clarke M.D.Date of Visit:Jun 01, 2020 Onc Med Follow-up/Prog Note History of Present Illness: Mrs. Mathis, is a 69-year-old female with history of thrush-like sign/symptoms. She first noticed them in August 2019. She tried home remedies without much improvement. She eventually saw her primary care physician in October 2019 and at that time she was prescribed Diflucan and nystatin. She had no significant improvement. Mrs Mathis developed progressive pain in her throat. She also had dysphagia. She was eventually referred to Dr. Hernandez. She underwent fiberoptic video laryngoscopy which showed large exophytic lesion extending into the posterior aspect of right soft palate and into nasopharynx or prominent on the right past the midline. 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 Mrs Mathis underwent MRI scan of the neck on 01/05/2020 which showed diffuse nodular soft tissue thickening involving Waldeyer's ring at the adenoids extending into the palatine tonsils. 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 Mrs Mathis has lost about 9 pounds since August 2019 due to pain in her throat which had been a 6 on a scale of 1-10, but being controlled with pain medication. She denies any hemoptysis or hematemesis. She also denies any change in taste or smell. She has long-standing history of smoking about one pack a day for 30 years and still active. Mrs. Mathis began her first cycle of chemotherapy Concurrent with radiation therapy on January 28, 2020. And concluded her chemotherapy on February 24, 2020 and radiation therapy on March 22, 2020 Came for follow-up, complaint except since her last visit she had a right hip fracture, as per patient her dog pulled her down and underwent internal fixation on ,. Otherwise no fever chills, no nausea or vomiting, no diarrhea or constipation, off and on sore throat,, no dysphagia. Or odynophagia. Patient is scheduled to see Dr. Hernandez, ENT on June 04, 2020 Medications: HYDROcodone-Acetaminophen 1 Tablet (of 5-325 mg) Oral q 4 hours PRN Allergies: Aspirin Review of Systems: Review of Systems is not available for this patient. Vital Signs: Performed on Jun 01, 2020 12:44 Height - 67.00 in Weight - 99.8 lbs (HIGH) BSA - 1.50 sq.m BMI - 15.63 (LOW) Temperature - 98.6 F Pulse - 84 /min Respiration - 18 /min BP - 138/76 mm(hg) O2 Sat - 99 % Pain - 3 Performance Status: 1 - No physically strenuous activity, but ambulatory and able to carry out light or sedentary work (e.g. office work, light house work). (ECOG) Physical Examination: ENMT - No mouth sores, no thrush, no jaundice, Respiratory - Lungs are clear to auscultation, Cardiovascular - Regular rate and rhythm of heart, Abdomen - Soft, bowel sounds present, Extremities - No visible edema. Lab/Imaging: Test performed on Mar 01, 2020 13:42 Sodium 141 mmol/L Potassium 3.7 mmol/L Chloride 106 mmol/L CO2 25 mmol/L Anion Gap 13.7 BUN 9 mg/dL Creatinine 0.3 mg/dL Cr Clearance (Est) 141.5100 mL/min eGFR 221.9 mL/min Glucose 82 mg/dL Calcium 9.0 mg/dL Protein, Total 6.3 g/dL Albumin 4.1 g/dL Globulin 2.2 g/dL Bilirubin, Total 0.4 mg/dL ALT (SGPT) 16 U/L AST (SGOT) 18 U/L Alkaline Phosphatase 113 IU/L WBC 14.6 10 3/uL RBC 3.49 10 6/uL HGB 11.1 g/dL HCT 34.8 % MCV 99.7 fL MCH 31.8 pg MCHC 31.9 g/dL RDW 14.6 % Platelet Count 172 10 3/cmm MPV 9.9 fL Neutrophils 12.27 10 3/uL Lymphocytes 0.7 10 3/uL Monocytes 1.2 10 3/uL Eosinophils 0.1 10 3/uL Basophils 0.1 10 3/uL Neutrophil % 84.1 % Lymphocyte % 4.7 % Monocyte % 8.4 % Eosinophil % 0.8 % Basophils % 0.3 % NRBC % 0 % CBC Slide Review Slide Review Perform SLIDE REVIEW AGREES WITH AUTOMATED RESULTS Impression: Well differentiated squamous cell carcinoma, p16 negative per biopsy of right tonsil done on 12/26/2019 MRI scan of the neck done on 01/05/2020 showed diffuse nodular soft tissue thickening involving Waldeyer's ring at the adenoids extending into palatine tonsils. Additional similar appearing nodule soft tissue thickening involving supraglottic larynx at the inferior aspect of pyriform sinuses extending into vocal fold and epiglottis. Left cervical lymph nodes level II and level III noted largest lymph node 12 x 9 mm. 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 No distant metastases. 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 1 PPD for 30 years discussed with Mrs Mathis her disease status and treatment options. She has locally advanced disease and her CT PET scan shows bilateral cervical lymph node involvement which would make her stage IV. This would also not allow her to be a candidate for upfront surgery. Mrs Mathis was offered a treatmetn plan with combined chemoradiation with high-dose cisplatin if tolerated. (cisplatin 100 mg/m??? concurrent with radiation therapy every 3 weeks, as tolerated) . She began her first cycle of cisplatin on January 28, 2020. She is tolerated it well with expected mild side effects. Plan: Discussed with patient regarding her labs white blood count 5.3 hemoglobin 10.9 hematocrit 35.8 platelets 277,000 CMP within normal limits Clinically, patient is doing well with no new signs symptoms, patient was supposed to get follow-up CT scan of neck but patient missed her follow-up appointment with radiation oncology so it was not ordered. Now patient is scheduled see Dr. Hernandez, ENT on June 04, 2020 and she will talk to him regarding CT scan of neck if needed. As far as mild anemia is concerned, hemoglobin is stable, patient was advised to take [id number] multivitamin, if no improvement will consider anemia work-up She will return to clinic in 2 months with CBC CMP Signed By: Messi Clarke M.D. <<Signature on File>>
== END 2020-06-01 11:01 | disposition home or self-care (01) ==
LOC: ONCMED 11:04
PROVIDERS: PCP Nurse Practitioner Family; Visit Provider Internal Medicine Hematology & Oncology
DX: C09.9 Malignant neoplasm of tonsil, unspecified (principal); C77.0 Secondary and unspecified malignant neoplasm of lymph nodes of head, face and neck; D64.9 Anemia, unspecified; J43.9 Emphysema, unspecified; F17.210 Nicotine dependence, cigarettes, uncomplicated; Z79.899 Other long term (current) drug therapy
CPT/HCPCS: 36591; 80053; 85025; G0463

== ENCOUNTER 2020-07-13 14:29 | Outpatient (CLI) | payer MEDICAID, SELFPAY ==
--- NOTE | 2020-07-17 21:38 | ONC FU_ITS ---
[facility] Patient Note Patient: Luna Mathis Unit #: [id number]: 1950 Dictated By: Giovany MustafaDate of Visit: Jul 13, 2020 Onc MED Follow-Up/Prog Note Chief Complaint: squamous cell carcinoma involving bilateral tonsils History of Present Illness: Mrs. Mathis, is a 69-year-old female with history of thrush-like sign/symptoms. She first noticed them in August 2019. She tried home remedies without much improvement. She eventually saw her primary care physician in October 2019 and at that time she was prescribed Diflucan and nystatin. She had no significant improvement. Mrs Mathis developed progressive pain in her throat. She also had dysphagia. She was eventually referred to Dr. Hernandez. She underwent fiberoptic video laryngoscopy which showed large exophytic lesion extending into the posterior aspect of right soft palate and into nasopharynx or prominent on the right past the midline. 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 Mrs Mathis underwent MRI scan of the neck on 01/05/2020 which showed diffuse nodular soft tissue thickening involving Waldeyer's ring at the adenoids extending into the palatine tonsils. 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 Mrs Mathis has lost about 9 pounds since August 2019 due to pain in her throat which had been a 6 on a scale of 1-10, but being controlled with pain medication. She denies any hemoptysis or hematemesis. She also denies any change in taste or smell. She has long-standing history of smoking about one pack a day for 30 years and still active. Mrs. Mathis began her first cycle of chemotherapy Concurrent with radiation therapy on January 28, 2020. And concluded her chemotherapy on February 24, 2020 and radiation therapy on March 22, 2020 At her last followup with Dr Clarke, she had had a right hip fracture, as per patient her dog pulled her down and underwent internal fixation on . Patient was scheduled to see Dr. Hernandez, ENT on June 04, 2020. Ms Mathis is here today for an unscheduled followup as her family called in with concerns that Ms Mathis is having uncontrolled pain in her throat. She states since she completed treatment she has been doing well however when she broke her hip her arm she focused on taking care of that and did not follow through with current recommendations of Magic mouthwash Diflucan for her mouth and throat. She states it is gradually gotten worse. She states she has been told there really is not much more they can do treatment roberts by Dr. Diaz. However she is in significant pain. Her pain today is a 7/8 out of 10. She states she is unable to eat due to the pain. It hurts to swallow. She is having some thick phlegm and states her throat is cm all the time. She does get slight relief with some Magic mouthwash but it only last a few minutes and is gone. She is currently using hydrocodone for pain relief but is not effective. She denies any constipation. She has had no nausea or vomiting. She denies any fever or chills. She is unsure that she is had any actual mouth sores but he states it just hurts to swallow. Her ECOG is currently at 2 due to the pain. Past Medical History: Ms. Mathis's medical history is unremarkable. Past Surgical History: Ms. Espinal surgical history is unremarkable. Allergies: Aspirin Medications: Amoxicillin 5 mL Suspension, when reconstituted Oral t.i.d. for 10 days HYDROcodone-Acetaminophen 1 Tablet (of 5-325 mg) Oral q 4 hours PRN Mouthwash Compounding Base Liquid Oral PRN NIACIN Solution Oral Take as Directed Family History: Ms. Mathis's mother at age 73. Ms. Mathis's father at age 77: surgical complications. Social History: Ms. Mathis is and she is retired. She is a daily smoker who has smoked 0.5 packs/day for 30 years. She drinks daily. She consumes 1 drink/day 7 days/week. She has indicated exposure to the following products: cigarettes. Ms. Mathis reports the following support systems: lives with spouse, significant other, family, or friends, lives in own house, supportive family/friends willing to assist with needs, and adequate transportation available for expected visits. Her diet consists of regular meals. She indicates her activity level as: regular exercise. Review Of Symptoms: Constitutional Denies fevers, chills, night sweats. Unable to eat solid foods due to throat pain. Allergic/Immunologic No reactions. Eyes Denies significant visual changes. No diplopia. No amaurosis. ENMT Denies changes in hearing, but has had worsening sore throat and difficulty or changes in swallowing ability. She denies mouth sores and/or sinus drainage. Hematologic/Lymphatic Denies easy bruising or bleeding. The patient denies any tender or palpable lymph nodes. Respiratory Denies dyspnea on exertion, chest pain, cough or hemoptysis. Denies orthopnea. Cardiovascular Denies anginal chest pain, palpitations or orthopnea. Gastrointestinal Denies nausea, vomiting, diarrhea, GI bleeding, or constipation. Denies change in bowel habits and/or stool color, no heartburn or early satiety. Genitourinary (F) No hematuria, hesitancy, incontinence, vaginal bleeding, discharge or other problems with urination. Musculoskeletal Denies joint pain, swelling or redness. No decreased range of motion. Integumentary Denies chronic rashes, inflammation, ulcerations or skin changes. Neurologic Denies headache, blurred vision, and no areas of focal weakness or numbness. Normal gait. No sensory problems. Psychiatric Denies insomnia, depression, cadence or mood swings. Vital Signs: Performed on Jul 13, 2020 14:53 Height - 67.00 in Weight - 94.2 lbs (LOW) BSA - 1.47 sq.m BMI - 14.75 (LOW) Temperature - 98.4 F Pulse - 94 /min Respiration - 16 /min BP - 160/75 mm(hg) (HIGH) O2 Sat - 96 % Pain - 7,2 - Ambulatory/capable of all self-care, unable to perform any work activities. Up and about more than 50% of waking hours. (ECOG) Physical Examination: Constitutional Alert, oriented, no acute distress but obviously does not feel well. Skin pink, warm and dry. Head Normocephalic; atraumatic. Eyes Conjunctivae and sclerae are clear and without icterus. Pupils are reactive and equal. ENMT Mouth is noted to be bright red in appearance but thus far no oral exudates, ulcers, masses, thrush or mucositis. Oropharynx bright red without lesions. Tongue is also bright red and beefy in appearance but no sores or yeast noted. Neck Supple without masses or thyromegaly. No jugular venous distension. Hematologic/Lymphatic No petechiae or purpura. No tender or palpable lymph nodes in the cervical or supraclavicular areas. Respiratory Lungs are clear to auscultation without rhonchi or wheezing. Cardiovascular Regular rate and rhythm of heart without murmurs,clicks, gallops or rubs. Chest Left chest wall venous access device is unremarkable. Back/Spine Non-tender to palpation. Extremities No visible deformities, no cyanosis, clubbing or edema. Musculoskeletal No tenderness or swelling, normal range of motion without obvious weakness. Integumentary No rashes or lesions. Neurologic No sensory or motor deficits, normal cerebellar function, normal gait. Psychiatric Alert and oriented times three. Coherent speech. Verbalizes understanding of our discussions today. Laboratory:Test performed on Jun 01, 2020 11:23 Sodium 138 mmol/L Potassium 3.9 mmol/L Chloride 102 mmol/L CO2 25 mmol/L Anion Gap 14.9 BUN 6 mg/dL Creatinine 0.4 mg/dL Cr Clearance (Est) 106.1300 mL/min eGFR 159.2 mL/min Glucose 85 mg/dL Osmolality - Calculated 283 mOsm/kg Calcium 9.4 mg/dL Protein, Total 6.9 g/dL Albumin 4.2 g/dL Globulin 2.7 g/dL Bilirubin, Total 0.2 mg/dL ALT (SGPT) 8 U/L AST (SGOT) 16 U/L Alkaline Phosphatase 77 IU/L WBC 5.3 10 3/uL RBC 3.64 10 6/uL HGB 10.9 g/dL HCT 35.8 % MCV 98.4 fL MCH 29.9 pg MCHC 30.4 g/dL RDW 14.6 % Platelet Count 277 10 3/cmm MPV 9.3 fL Neutrophils 3.57 10 3/uL Lymphocytes 1.0 10 3/uL Monocytes 0.5 10 3/uL Eosinophils 0.2 10 3/uL Basophils 0.1 10 3/uL Neutrophil % 67.7 % Lymphocyte % 18.2 % Monocyte % 9.8 % Eosinophil % 3.0 % Basophils % 0.9 % NRBC % 0 % Impression: Well differentiated squamous cell carcinoma, p16 negative per biopsy of right tonsil done on 12/26/2019 MRI scan of the neck done on 01/05/2020 showed diffuse nodular soft tissue thickening involving Waldeyer's ring at the adenoids extending into palatine tonsils. Additional similar appearing nodule soft tissue thickening involving supraglottic larynx at the inferior aspect of pyriform sinuses extending into vocal fold and epiglottis. Left cervical lymph nodes level II and level III noted largest lymph node 12 x 9 mm. 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 No distant metastases. 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 1 PPD for 30 years discussed with Mrs Mathis her disease status and treatment options. She has locally advanced disease and her CT PET scan shows bilateral cervical lymph node involvement which would make her stage IV. This would also not allow her to be a candidate for upfront surgery. Mrs Mathis was offered a treatmetn plan with combined chemoradiation with high-dose cisplatin if tolerated. (cisplatin 100 mg/m??? concurrent with radiation therapy every 3 weeks, as tolerated) . She began her first cycle of cisplatin on January 28, 2020. She is tolerated it well with expected mild side effects. Plan: 1. We will have her stop the hydrocodone. 2. She states she has had oxycodone with Tylenol in the past and thinks that this works good but she really states she cannot remember. However we will have her try the oxycodone 12/20/2024 1 or 2 every 4-6 hours as needed pain. I have asked her to start this this afternoon and call the clinic tomorrow with an update as well be a long holiday weekend. If she is not having relief with the Percocet will consider morphine with her. She was given a prescription for the Percocet per Dr. Lopez's written prescription. 3. We will plan to see her back as scheduled for follow-up. 4. She was given a case of Ensure for nutritional supplements today. 5. I have asked Ms. Mathis to make sure and call us tomorrow with how she is doing or at least have her daughter call us. She is also given instructions on how to get a hold of the physician on-call for the long holiday weekend by calling [facility] fuel yard operator and asking for the physician fuel injection servicer. Signed By: Giovany Mustafa-, AOCNP Messi Clarke MD <<Signature on File>>
--- NOTE | 2020-07-17 21:45 | ONC FU_ITS ---
[facility] Patient Note Patient: Luna Mathis Unit #: [id number]: 1950 Dictated By: Giovany MustafaDate of Visit: Jul 13, 2020 Onc MED Telephone/Prog Note I received a call from Ms Mathis' daughter this morning as she left a message on my [employer]. She states that Luna called her before 9:00 this morning and that is something that she does not normally do. She states that she could talk and states that she had no pain. She states that right now the Percocet is working well for her pain. She states she has been able to swallow better and is doing well at present. They are let us know next week how she is doing, otherwise we will see her as scheduled. She may need refills on her Percocet if it is working well for her. Signed By: Giovany Mustafa-CAMMIE, AOCNP <<Signature on File>>
== END 2020-07-13 14:30 | disposition home or self-care (01) ==
LOC: ONCMED 14:31
PROVIDERS: PCP Nurse Practitioner Family; Visit Provider Internal Medicine Hematology & Oncology
DX: C09.8 Malignant neoplasm of overlapping sites of tonsil (principal); Z87.891 Personal history of nicotine dependence; Z79.891 Long term (current) use of opiate analgesic; J43.9 Emphysema, unspecified
CPT/HCPCS: 99214

== ENCOUNTER 2020-08-03 05:35 | Outpatient (CLI) | payer MEDICAID, SELFPAY ==
[2020-08-03 12:10] LABS: Basophils # 0.1 10^3/uL (0.0-0.1); Basophils % 0.8 %; Eosinophils # 0.1 10^3/uL (0.0-0.8); Eosinophils % 2.3 %; Hematocrit 37.5 % (37.0-47.0); Hemoglobin 11.5 g/dL (11.5-15.3); Lymphocytes # 1.2 10^3/uL (0.8-4.8); Lymphocytes % 18.9 %; Mean Corpuscular HGB Conc 30.7 g/dL (30.0-36.0); Mean Corpuscular Hemoglobin 28.1 pg (28.0-34.0); Mean Corpuscular Volume 91.7 fL (81-99); Mean Platelet Volume 8.7 fL (7.4-10.4); Monocytes # 0.5 10^3/uL (0.2-0.9); Monocytes % 7.7 %; Nucleated Red Blood Cells % 0 %; Platelet Count 299 10^3/cmm (130-400); Red Blood Count 4.09 10^6/uL (4.1-5.3); Red Cell Distribution Width 15.9 % (12.1-15.1); White Blood Count 6.1 10^3/uL (4.0-10.0)
[2020-08-03 12:48] LABS: Alanine Aminotransferase 10 U/L (0-33); Albumin Level 4.1 g/dL (3.5-5.2); Alkaline Phosphatase 77 IU/L (35-105); Aspartate Amino Transferase 13 U/L (0-32); Blood Urea Nitrogen 5 mg/dL (8-23); Calcium 8.9 mg/dL (8.5-10.5); Carbon Dioxide 26 mmol/L (22-29); Chloride 100 mmol/L (98-107); Globulin 2.7 g/dL (1.3-4.6); Glomerular Filtration Rate 221.9 mL/min (90-130); Glucose 82 mg/dL (65-115); Osmolality Calculated 276 mOsm/kg (285-295); Sodium 135 mmol/L (136-145); Total Bilirubin 0.3 mg/dL (0.15-1.2); Total Protein 6.8 g/dL (6.6-8.7)
--- NOTE | 2020-08-03 14:27 | ONC FU_ITS ---
Dr. Clarke follow up note Patient: Luna Mathis Unit #: [id number]: 1950 Dicatated By: Messi Clarke M.D.Date of Visit:Aug 03, 2020 Onc Med Follow-up/Prog Note History of Present Illness: Mrs. Mathis, is a 69-year-old female with history of thrush-like sign/symptoms. She first noticed them in August 2019. She tried home remedies without much improvement. She eventually saw her primary care physician in October 2019 and at that time she was prescribed Diflucan and nystatin. She had no significant improvement. Mrs Mathis developed progressive pain in her throat. She also had dysphagia. She was eventually referred to Dr. Hernandez. She underwent fiberoptic video laryngoscopy which showed large exophytic lesion extending into the posterior aspect of right soft palate and into nasopharynx or prominent on the right past the midline. 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 Mrs Mathis underwent MRI scan of the neck on 01/05/2020 which showed diffuse nodular soft tissue thickening involving Waldeyer's ring at the adenoids extending into the palatine tonsils. 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 Mrs Mathis has lost about 9 pounds since August 2019 due to pain in her throat which had been a 6 on a scale of 1-10, but being controlled with pain medication. She denies any hemoptysis or hematemesis. She also denies any change in taste or smell. She has long-standing history of smoking about one pack a day for 30 years and still active. Mrs. Mathis began her first cycle of chemotherapy Concurrent with radiation therapy on January 28, 2020. And concluded her chemotherapy on February 24, 2020 and radiation therapy on March 22, 2020 , she had had a right hip fracture, as per patient her dog pulled her down and underwent internal fixation on . Patient was scheduled to see Dr. Hernandez, ENT on June 04, 2020. But missed her appointment Came for follow-up, complaining of throat pain, as per patient she has multiple sores in her mouth and has seen Dr. Hernandez in the recent past and was told could be due to combined chemoradiation treatment, as per patient is not improving she has tried nystatin mouthwash, Magic mouthwash helps her for well few minutes. Requiring narcotics to control pain. Denies any hematemesis or hemoptysis denies any painful swallowing beyond throat denies any abdominal pain denies any diarrhea or constipation denies any fever chills denies any painful skin rash. Medications: Amoxicillin 5 mL Suspension, when reconstituted Oral t.i.d. for 10 days, HYDROcodone-Acetaminophen 1 - 2 Tablet (of 5-325 mg) Oral q 4 hours PRN, Mouthwash Compounding Base Liquid Oral PRN, NIACIN Solution Oral Take as Directed, oxyCODONE-Acetaminophen 1 Tablet (of 5-325 mg) Oral q 4 hours PRN Allergies: Aspirin Review of Systems: Constitutional - Appetite is poor and weight is decreasing. No fever, chills, or night sweats. Positive for hot flashes and fatigue. Energy level is poor, ENMT - No sinus congestion/drainage. Positive for mouth sores. Positive for sore throat and difficulty swallowing, Hematologic/Lymphatic - No abnormal bruising or bleeding, Respiratory - No shortness of breath. No cough. No pleuritic pain or hemoptysis, Cardiovascular - No angina pain. No palpitations, Gastrointestinal - Positive for nausea, no vomiting. Positive for heartburn and acid reflux. No diarrhea. Positive for constipation. No blood in the stool or black stools, Genitourinary (F) - No dysuria or hematuria. No urinary frequency. No urgency or incontinence, Musculoskeletal - Positive for joint and back pain, Neurologic - No headache or dizziness. No numbness/paresthesias or other focal neurologic symptoms, Psychiatric - Positive for anxiety or depression. No insomnia. Vital Signs: Performed on Aug 03, 2020 13:19 Height - 67.00 in Weight - 94.8 lbs (HIGH) BSA - 1.47 sq.m BMI - 14.85 (LOW) Temperature - 98.7 F Pulse - 96 /min Respiration - 16 /min BP - 171/85 mm(hg) (HIGH) O2 Sat - 94 % (LOW) Pain - 5 Performance Status: 2 - Ambulatory/capable of all self-care, unable to perform any work activities. Up and about more than 50% of waking hours. (ECOG) Physical Examination: ENMT - On exam she shows erythematous lesions in the throat no purulent discharge, no mucositis, no thrush, Respiratory - Lungs are clear to auscultation , Cardiovascular - Regular rate and rhythm of heart, Abdomen - Soft, bowel sounds present, Extremities - No visible edema or rash. Lab/Imaging: Test performed on Jun 01, 2020 11:23 Sodium 138 mmol/L Potassium 3.9 mmol/L Chloride 102 mmol/L CO2 25 mmol/L Anion Gap 14.9 BUN 6 mg/dL Creatinine 0.4 mg/dL Cr Clearance (Est) 106.1300 mL/min eGFR 159.2 mL/min Glucose 85 mg/dL Osmolality - Calculated 283 mOsm/kg Calcium 9.4 mg/dL Protein, Total 6.9 g/dL Albumin 4.2 g/dL Globulin 2.7 g/dL Bilirubin, Total 0.2 mg/dL ALT (SGPT) 8 U/L AST (SGOT) 16 U/L Alkaline Phosphatase 77 IU/L WBC 5.3 10 3/uL RBC 3.64 10 6/uL HGB 10.9 g/dL HCT 35.8 % MCV 98.4 fL MCH 29.9 pg MCHC 30.4 g/dL RDW 14.6 % Platelet Count 277 10 3/cmm MPV 9.3 fL Neutrophils 3.57 10 3/uL Lymphocytes 1.0 10 3/uL Monocytes 0.5 10 3/uL Eosinophils 0.2 10 3/uL Basophils 0.1 10 3/uL Neutrophil % 67.7 % Lymphocyte % 18.2 % Monocyte % 9.8 % Eosinophil % 3.0 % Basophils % 0.9 % NRBC % 0 % Test performed on Mar 01, 2020 13:42 CBC Slide Review Slide Review Perform SLIDE REVIEW AGREES WITH AUTOMATED RESULTS Impression: Well differentiated squamous cell carcinoma, p16 negative per biopsy of right tonsil done on 12/26/2019 MRI scan of the neck done on 01/05/2020 showed diffuse nodular soft tissue thickening involving Waldeyer's ring at the adenoids extending into palatine tonsils. Additional similar appearing nodule soft tissue thickening involving supraglottic larynx at the inferior aspect of pyriform sinuses extending into vocal fold and epiglottis. Left cervical lymph nodes level II and level III noted largest lymph node 12 x 9 mm. 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 No distant metastases. 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 1 PPD for 30 years discussed with Mrs Mathis her disease status and treatment options. She has locally advanced disease and her CT PET scan shows bilateral cervical lymph node involvement which would make her stage IV. This would also not allow her to be a candidate for upfront surgery. Mrs Mathis was offered a treatmetn plan with combined chemoradiation with high-dose cisplatin if tolerated. (cisplatin 100 mg/m??? concurrent with radiation therapy every 3 weeks, as tolerated) . She began her first cycle of cisplatin on January 28, 2020. She is tolerated it well with expected mild side effects.And took second dose on February 24, 2020 but did not take third dose of high-dose cisplatin because of related side effects and completed her radiation therapy on March 22, 2020 Plan: Discussed with patient regarding her labs white blood count 6.1 hemoglobin 11.5 hematocrit 37.5 platelets 299,000 CMP within normal limits Clinically, patient is doing reasonably well now in moderate to severe distress due to painful swallowing and pain in her throat, requiring narcotics and Magic mouthwash also using nystatin without much help, on exam appears like herpes reactivation, case was discussed with Dr. Hernandez, ENT, who would see her this afternoon and evaluate her and if confirmed, will consider treatment with acyclovir in the meantime patient was advised to use Orajel and continues Magic mouthwash also tried Percocet 12/20/2024 on as-needed basis As per the mild anemia is concerned, her hemoglobin has improved now in the normal range but on the low side, will continue monitor return to clinic in 1 month with CBC and continue with monthly port maintenance. Signed By: Messi Clarke M.D. <<Signature on File>>
== END 2020-08-03 05:36 | disposition home or self-care (01) ==
LOC: ONCMED 05:39
PROVIDERS: PCP Nurse Practitioner Family; Visit Provider Internal Medicine Hematology & Oncology
DX: C10.8 Malignant neoplasm of overlapping sites of oropharynx (principal); C77.0 Secondary and unspecified malignant neoplasm of lymph nodes of head, face and neck; D64.9 Anemia, unspecified; R07.0 Pain in throat; J43.9 Emphysema, unspecified; F17.210 Nicotine dependence, cigarettes, uncomplicated; K13.79 Other lesions of oral mucosa; Z79.899 Other long term (current) drug therapy; Z95.828 Presence of other vascular implants and grafts; Z92.3 Personal history of irradiation; Z79.891 Long term (current) use of opiate analgesic
CPT/HCPCS: 36591; 80053; 85025; 99214

== ENCOUNTER 2020-09-03 07:50 | Outpatient (CLI) | payer MEDICAID, SELFPAY ==
[2020-09-03 08:21] LABS: Basophils # 0.1 10^3/uL (0.0-0.1); Basophils % 0.9 %; Eosinophils # 0.3 10^3/uL (0.0-0.8); Eosinophils % 2.8 %; Hematocrit 40.2 % (37.0-47.0); Hemoglobin 12.4 g/dL (11.5-15.3); Lymphocytes # 1.2 10^3/uL (0.8-4.8); Lymphocytes % 13.5 %; Mean Corpuscular HGB Conc 30.8 g/dL (30.0-36.0); Mean Corpuscular Hemoglobin 28.6 pg (28.0-34.0); Mean Corpuscular Volume 92.6 fL (81-99); Mean Platelet Volume 8.7 fL (7.4-10.4); Monocytes # 0.7 10^3/uL (0.2-0.9); Monocytes % 7.9 %; Neutrophils % 74.6 %; Nucleated Red Blood Cells % 0 %; Platelet Count 320 10^3/cmm (130-400); Red Blood Count 4.34 10^6/uL (4.1-5.3); Red Cell Distribution Width 15.8 % (12.1-15.1)
--- NOTE | 2020-09-03 10:22 | ONC FU_ITS ---
Dr. Clarke follow up note Patient: Luna Mathis Unit #: [id number]: 1950 Dicatated By: Messi Clarke M.D.Date of Visit:Sep 03, 2020 Onc Med Follow-up/Prog Note History of Present Illness: Mrs. Mathis, is a 69-year-old female with history of thrush-like sign/symptoms. She first noticed them in August 2019. She tried home remedies without much improvement. She eventually saw her primary care physician in October 2019 and at that time she was prescribed Diflucan and nystatin. She had no significant improvement. Mrs Mathis developed progressive pain in her throat. She also had dysphagia. She was eventually referred to Dr. Hernandez. She underwent fiberoptic video laryngoscopy which showed large exophytic lesion extending into the posterior aspect of right soft palate and into nasopharynx or prominent on the right past the midline. 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 Mrs Mathis underwent MRI scan of the neck on 01/05/2020 which showed diffuse nodular soft tissue thickening involving Waldeyer's ring at the adenoids extending into the palatine tonsils. 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 Mrs Mathis has lost about 9 pounds since August 2019 due to pain in her throat which had been a 6 on a scale of 1-10, but being controlled with pain medication. She denies any hemoptysis or hematemesis. She also denies any change in taste or smell. She has long-standing history of smoking about one pack a day for 30 years and still active. Mrs. Mathis began her first cycle of chemotherapy Concurrent with radiation therapy on January 28, 2020. And concluded her chemotherapy on February 24, 2020 and radiation therapy on March 22, 2020 , she had had a right hip fracture, as per patient her dog pulled her down and underwent internal fixation on . Patient was scheduled to see Dr. Hernandez, ENT f/u CT PET scan done on August 28, 2020 showed resolution of oropharyngeal malignancy and metastatic nodes. Post radiation therapy changes. Came for follow-up, complaining of persistent mouth sores and cough and she also continues to smoke AGAINST MEDICAL ADVICE, patient has seen Dr. Hernandez ENT recently will order CT PET scan which was done on August 28, 2020, showed no evidence of disease. Patient denies any fever chills, denies any nausea or vomiting denies any diarrhea constipation denies any dysphagia denies any hemoptysis or hematemesis Medications: Amoxicillin 5 mL Suspension, when reconstituted Oral t.i.d. for 10 days, HYDROcodone-Acetaminophen 1 - 2 Tablet (of 5-325 mg) Oral q 4 hours PRN, Mouthwash Compounding Base Liquid Oral PRN, NIACIN Solution Oral Take as Directed, oxyCODONE-Acetaminophen 1 Tablet (of 5-325 mg) Oral q 4 hours PRN Allergies: Aspirin Review of Systems: Constitutional - Appetite is poor but weight is stable. No fever, chills, or night sweats. Positive for hot flashes and fatigue. Energy level is poor, ENMT - No sinus congestion/drainage. Positive for mouth sores. Positive for sore throat and difficulty swallowing, Hematologic/Lymphatic - No abnormal bruising or bleeding, Respiratory - No shortness of breath. No cough. No pleuritic pain or hemoptysis, Cardiovascular - No angina pain. No palpitations, Gastrointestinal - Positive for nausea, no vomiting. Positive for heartburn and acid reflux. No diarrhea. Positive for constipation. No blood in the stool or black stools, Genitourinary (F) - No dysuria or hematuria. No urinary frequency. No urgency or incontinence, Musculoskeletal - Positive for joint and back pain, Neurologic - No headache or dizziness. No numbness/paresthesias or other focal neurologic symptoms, Psychiatric - Positive for anxiety or depression. No insomnia. Vital Signs: Performed on Sep 03, 2020 09:33 Height - 67.00 in Weight - 94.6 lbs (LOW) BSA - 1.47 sq.m BMI - 14.82 (LOW) Temperature - 98.3 F (LOW) Pulse - 121 /min (HIGH) Respiration - 16 /min BP - 148/86 mm(hg) (HIGH) O2 Sat - 98 % Pain - 2 Performance Status: 1 - No physically strenuous activity, but ambulatory and able to carry out light or sedentary work (e.g. office work, light house work). (ECOG) Physical Examination: ENMT - Patient is complaining of persistent mouth sores, but no visible ulceration or thrush, Respiratory - Denies any shortness of breath or wheezing, Cardiovascular - Denies any palpitation, Abdomen - Denies any abdominal pain, Extremities - No visible edema. Lab/Imaging: Test performed on Aug 03, 2020 11:57 Sodium 135 mmol/L Potassium 4.0 mmol/L Chloride 100 mmol/L CO2 26 mmol/L Anion Gap 13.0 BUN 5 mg/dL Creatinine 0.3 mg/dL Cr Clearance (Est) 123.53 mL/min eGFR 221.9 mL/min Glucose 82 mg/dL Osmolality - Calculated 276 mOsm/kg Calcium 8.9 mg/dL Protein, Total 6.8 g/dL Albumin 4.1 g/dL Globulin 2.7 g/dL Bilirubin, Total 0.3 mg/dL ALT (SGPT) 10 U/L AST (SGOT) 13 U/L Alkaline Phosphatase 77 IU/L WBC 6.1 10 3/uL RBC 4.09 10 6/uL HGB 11.5 g/dL HCT 37.5 % MCV 91.7 fL MCH 28.1 pg MCHC 30.7 g/dL RDW 15.9 % Platelet Count 299 10 3/cmm MPV 8.7 fL Neutrophils 4.30 10 3/uL Lymphocytes 1.2 10 3/uL Monocytes 0.5 10 3/uL Eosinophils 0.1 10 3/uL Basophils 0.1 10 3/uL Neutrophil % 70.0 % Lymphocyte % 18.9 % Monocyte % 7.7 % Eosinophil % 2.3 % Basophils % 0.8 % NRBC % 0 % Impression: Well differentiated squamous cell carcinoma, p16 negative per biopsy of right tonsil done on 12/26/2019 MRI scan of the neck done on 01/05/2020 showed diffuse nodular soft tissue thickening involving Waldeyer's ring at the adenoids extending into palatine tonsils. Additional similar appearing nodule soft tissue thickening involving supraglottic larynx at the inferior aspect of pyriform sinuses extending into vocal fold and epiglottis. Left cervical lymph nodes level II and level III noted largest lymph node 12 x 9 mm. 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 No distant metastases. 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 1 PPD for 30 years discussed with Mrs Mathis her disease status and treatment options. She has locally advanced disease and her CT PET scan shows bilateral cervical lymph node involvement which would make her stage IV. This would also not allow her to be a candidate for upfront surgery. Mrs Mathis was offered a treatmetn plan with combined chemoradiation with high-dose cisplatin if tolerated. (cisplatin 100 mg/m??? concurrent with radiation therapy every 3 weeks, as tolerated) . She began her first cycle of cisplatin on January 28, 2020. She is tolerated it well with expected mild side effects.And took second dose on February 24, 2020 but did not take third dose of high-dose cisplatin because of related side effects and completed her radiation therapy on March 22, 2020 Underwent follow-up CT PET scan on August 28, 2020 which showed resolution of oropharyngeal malignancy and metastatic nodes Plan: Discussed with patient regarding her labs white blood count 9 hemoglobin 12.4 hematocrit 40.2 platelets 320,[address] PET scan findings which shows no evidence of disease. Clinically, patient is doing reasonably well but with persistent mouth sores and cough and sore throat, for which she has seen Dr. Hernandez recently, as per patient he noticed some changes in her throat so he ordered CT PET scan which was done on August 28, 2019 and showed no evidence of disease. And she is scheduled see Dr. Hernandez on coming Sunday for evaluation, we will discuss with him regarding evaluation of mouth sores which could be due to radiation damage but concern was for oral herpes, may benefit from oral lesion scraping for pathology evaluation. Persistent mild anemia, now resolved, will monitor/moderate Patient to return to clinic in 3 months with CBC CMP Signed By: Messi Clarke M.D. <<Signature on File>>
== END 2020-09-03 07:51 | disposition home or self-care (01) ==
PROVIDERS: PCP Nurse Practitioner Family; Visit Provider Internal Medicine Hematology & Oncology
DX: C09.8 Malignant neoplasm of overlapping sites of tonsil (principal); C77.0 Secondary and unspecified malignant neoplasm of lymph nodes of head, face and neck; D64.9 Anemia, unspecified; J43.9 Emphysema, unspecified; F17.210 Nicotine dependence, cigarettes, uncomplicated; K13.79 Other lesions of oral mucosa; Z79.899 Other long term (current) drug therapy
CPT/HCPCS: 36591; 85025; G0463

== ENCOUNTER 2020-10-15 09:36 | Outpatient (CLI) | payer MEDICAID, SELFPAY | END 2020-10-15 09:37 | disposition home or self-care (01) | LOC: ONCMED 09:38 | PROVIDERS: PCP Nurse Practitioner Family; Visit Provider Internal Medicine Hematology & Oncology | DX: Z45.2 Encounter for adjustment and management of vascular access device (principal) | CPT/HCPCS: 96523 ==

== ENCOUNTER 2020-12-02 09:25 | Outpatient (CLI) | payer MEDICAID, SELFPAY ==
[2020-12-02 10:08] LABS: Basophils # 0.1 10^3/uL (0.0-0.1); Basophils % 1.2 %; Eosinophils # 0.1 10^3/uL (0.0-0.8); Eosinophils % 2.9 %; Hematocrit 41.6 % (37.0-47.0); Lymphocytes # 1.1 10^3/uL (0.8-4.8); Mean Corpuscular HGB Conc 31.3 g/dL (30.0-36.0); Mean Corpuscular Hemoglobin 29.7 pg (28.0-34.0); Mean Platelet Volume 8.6 fL (7.4-10.4); Monocytes # 0.6 10^3/uL (0.2-0.9); Monocytes % 11.9 %; Neutrophils # 2.96 10^3/uL (1.8-7.7); Neutrophils % 60.6 %; Nucleated Red Blood Cells % 0 %; Platelet Count 260 10^3/cmm (130-400); Red Blood Count 4.38 10^6/uL (4.1-5.3); Red Cell Distribution Width 14.2 % (12.1-15.1); White Blood Count 4.9 10^3/uL (4.0-10.0)
[2020-12-02 10:29] LABS: Alanine Aminotransferase 6 U/L (0-33); Albumin Level 4.6 g/dL (3.5-5.2); Alkaline Phosphatase 80 IU/L (35-105); Anion Gap 14.9 (5-19); Aspartate Amino Transferase 14 U/L (0-32); Blood Urea Nitrogen 4 mg/dL (8-23); Calcium 8.8 mg/dL (8.5-10.5); Carbon Dioxide 26 mmol/L (22-29); Chloride 103 mmol/L (98-107); Globulin 2.6 g/dL (1.3-4.6); Glomerular Filtration Rate 221.2 mL/min (90-130); Glucose 85 mg/dL (65-115); Osmolality Calculated 286 mOsm/kg (285-295); Potassium 3.9 mmol/L (3.5-5.1); Sodium 140 mmol/L (136-145); Total Bilirubin 0.4 mg/dL (0.15-1.2); Total Protein 7.2 g/dL (6.6-8.7)
--- NOTE | 2020-12-02 14:47 | ONC FU_ITS ---
Dr. Clarke follow up note Patient: Luna Mathis Unit #: [id number]: 1950 Dicatated By: Messi Clarke M.D.Date of Visit:Dec 02, 2020 Onc Med Follow-up/Prog Note History of Present Illness: Mrs. Mathis, is a 70-year-old female with history of thrush-like sign/symptoms. She first noticed them in August 2019. She tried home remedies without much improvement. She eventually saw her primary care physician in October 2019 and at that time she was prescribed Diflucan and nystatin. She had no significant improvement. Mrs Mathis developed progressive pain in her throat. She also had dysphagia. She was eventually referred to Dr. Hernandez. She underwent fiberoptic video laryngoscopy which showed large exophytic lesion extending into the posterior aspect of right soft palate and into nasopharynx or prominent on the right past the midline. 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 Mrs Mathis underwent MRI scan of the neck on 01/05/2020 which showed diffuse nodular soft tissue thickening involving Waldeyer's ring at the adenoids extending into the palatine tonsils. 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 Mrs Mathis has lost about 9 pounds since August 2019 due to pain in her throat which had been a 6 on a scale of 1-10, but being controlled with pain medication. She denies any hemoptysis or hematemesis. She also denies any change in taste or smell. She has long-standing history of smoking about one pack a day for 30 years and still active. Mrs. Mathis began her first cycle of chemotherapy Concurrent with radiation therapy on January 28, 2020. And concluded her chemotherapy on February 24, 2020 and radiation therapy on March 22, 2020 , she had had a right hip fracture, as per patient her dog pulled her down and underwent internal fixation on . Patient was scheduled to see Dr. Hernandez, ENT f/u CT PET scan done on August 28, 2020 showed resolution of oropharyngeal malignancy and metastatic nodes. Post radiation therapy changes. Came for follow-up, complaining of sore throat and oral pain, patient has seen Dr. Hernandez, for evaluation as per patient she was not pleased with the management, she was told it could be due to combined chemoradiation related side effects and offered her supportive care only As per patient mouthwash is not helping her, Chloraseptic spray is not helpful also tried Orajel but without much help, no new wants to see new ENT physician. Also complaining of soft nodules in the posterior neck and back of the head, nontender denies any history of trauma. Denies any hemoptysis or hematemesis denies any dysphagia Medications: Amoxicillin 5 mL Suspension, when reconstituted Oral t.i.d. for 10 days, HYDROcodone-Acetaminophen 1 - 2 Tablet (of 5-325 mg) Oral q 4 hours PRN, Mouthwash Compounding Base Liquid Oral PRN, NIACIN Solution Oral Take as Directed, oxyCODONE-Acetaminophen 1 Tablet (of 5-325 mg) Oral q 4 hours PRN Allergies: Aspirin Review of Systems: Review of Systems is not available for this patient. Vital Signs: Vitals are not available for this patient. Performance Status: 1 - No physically strenuous activity, but ambulatory and able to carry out light or sedentary work (e.g. office work, light house work). (ECOG) Physical Examination: ENMT - No mouth sores, no thrush but pharyngeal erythema, dry oral mucosa, no cervical lymphadenopathy. There is a 3 cm soft nontender mass in the dorsum of the neck, adjacent to that on the right side there is a 1 cm mass again soft and nontender and about 1 cm soft nontender mass palpable in the posterior scalp, Respiratory - Lungs are clear to auscultation, Cardiovascular - Regular rate and rhythm of heart, Abdomen - Soft, bowel sounds present, Extremities - No visible edema. Lab/Imaging: Test performed on Sep 03, 2020 08:10 WBC 9.0 10 3/uL RBC 4.34 10 6/uL HGB 12.4 g/dL HCT 40.2 % MCV 92.6 fL MCH 28.6 pg MCHC 30.8 g/dL RDW 15.8 % Platelet Count 320 10 3/cmm MPV 8.7 fL Neutrophils 6.70 10 3/uL Lymphocytes 1.2 10 3/uL Monocytes 0.7 10 3/uL Eosinophils 0.3 10 3/uL Basophils 0.1 10 3/uL Neutrophil % 74.6 % Lymphocyte % 13.5 % Monocyte % 7.9 % Eosinophil % 2.8 % Basophils % 0.9 % NRBC % 0 % Test performed on Aug 03, 2020 11:57 Sodium 135 mmol/L Potassium 4.0 mmol/L Chloride 100 mmol/L CO2 26 mmol/L Anion Gap 13.0 BUN 5 mg/dL Creatinine 0.3 mg/dL Cr Clearance (Est) 123.53 mL/min eGFR 221.9 mL/min Glucose 82 mg/dL Osmolality - Calculated 276 mOsm/kg Calcium 8.9 mg/dL Protein, Total 6.8 g/dL Albumin 4.1 g/dL Globulin 2.7 g/dL Bilirubin, Total 0.3 mg/dL ALT (SGPT) 10 U/L AST (SGOT) 13 U/L Alkaline Phosphatase 77 IU/L Impression: Well differentiated squamous cell carcinoma, p16 negative per biopsy of right tonsil done on 12/26/2019 MRI scan of the neck done on 01/05/2020 showed diffuse nodular soft tissue thickening involving Waldeyer's ring at the adenoids extending into palatine tonsils. Additional similar appearing nodule soft tissue thickening involving supraglottic larynx at the inferior aspect of pyriform sinuses extending into vocal fold and epiglottis. Left cervical lymph nodes level II and level III noted largest lymph node 12 x 9 mm. 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 No distant metastases. 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 1 PPD for 30 years discussed with Mrs Mathis her disease status and treatment options. She has locally advanced disease and her CT PET scan shows bilateral cervical lymph node involvement which would make her stage IV. This would also not allow her to be a candidate for upfront surgery. Mrs Mathis was offered a treatmetn plan with combined chemoradiation with high-dose cisplatin if tolerated. (cisplatin 100 mg/m??? concurrent with radiation therapy every 3 weeks, as tolerated) . She began her first cycle of cisplatin on January 28, 2020. She is tolerated it well with expected mild side effects.And took second dose on February 24, 2020 but did not take third dose of high-dose cisplatin because of related side effects and completed her radiation therapy on March 22, 2020 Underwent follow-up CT PET scan on August 28, 2020 which showed resolution of oropharyngeal malignancy and metastatic nodes Plan: Patient regarding her labs white blood count 4.9 hemoglobin 13 hematocrit 41.6 platelets 260,000 CMP within normal limits Clinically, patient doing well with no new signs symptoms suggestive of disease progression but on oral exam she was found to have mild pharyngeal erythema but no obvious mouth sores seen, no cervical lymphadenopathy noted but there is a 3 cm soft nodule on the dorsum of neck and right to this there is another centimeter sized soft nodule seen, and about centimeter size nodule in the posterior occipital scalp area, nontender soft, blocked sebaceous cyst versus lipoma, recurrence of disease but less likely Her lab work-up is within normal range, patient is in mild to moderate distress due to pharyngeal pain/discomfort and oral discomfort not being controlled with the topical agents, at this point we will give her prescription for Percocet 5/325 which she will take 1 to 2 tablets 4 to 6-hour as needed and at patient's request will refer her to Dr. Zavala, ENT physician for evaluation. In the meantime we will continue monthly port maintenance and patient return to clinic in 1 month for further discussion Signed By: Messi Clarke M.D. <<Signature on File>>
== END 2020-12-02 09:26 | disposition home or self-care (01) ==
PROVIDERS: PCP Nurse Practitioner Family; Visit Provider Internal Medicine Hematology & Oncology
DX: C09.8 Malignant neoplasm of overlapping sites of tonsil (principal); C77.0 Secondary and unspecified malignant neoplasm of lymph nodes of head, face and neck; J43.9 Emphysema, unspecified; F17.210 Nicotine dependence, cigarettes, uncomplicated; Z79.899 Other long term (current) drug therapy
CPT/HCPCS: 36591; 80053; 85025; 99214

== ENCOUNTER 2021-01-14 10:42 | Outpatient (CLI) | payer MEDICAID, SELFPAY ==
--- NOTE | 2021-01-14 12:29 | ONC FU_ITS ---
Dr. Clarke follow up note Patient: Luna Mathis Unit #: [id number]: 1950 Dicatated By: Messi Clarke M.D.Date of Visit:January 14, 2021 Onc Med Follow-up/Prog Note History of Present Illness: Mrs. Mathis, is a 70-year-old female with history of thrush-like sign/symptoms. She first noticed them in August 2019. She tried home remedies without much improvement. She eventually saw her primary care physician in October 2019 and at that time she was prescribed Diflucan and nystatin. She had no significant improvement. Mrs Mathis developed progressive pain in her throat. She also had dysphagia. She was eventually referred to Dr. Hernandez. She underwent fiberoptic video laryngoscopy which showed large exophytic lesion extending into the posterior aspect of right soft palate and into nasopharynx or prominent on the right past the midline. 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 Mrs Mathis underwent MRI scan of the neck on 01/05/2020 which showed diffuse nodular soft tissue thickening involving Waldeyer's ring at the adenoids extending into the palatine tonsils. 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 Mrs Mathis has lost about 9 pounds since August 2019 due to pain in her throat which had been a 6 on a scale of 1-10, but being controlled with pain medication. She denies any hemoptysis or hematemesis. She also denies any change in taste or smell. She has long-standing history of smoking about one pack a day for 30 years and still active. Mrs. Mathis began her first cycle of chemotherapy Concurrent with radiation therapy on January 28, 2020. And concluded her chemotherapy on February 24, 2020 and radiation therapy on March 22, 2020 , she had had a right hip fracture, as per patient her dog pulled her down and underwent internal fixation on . Patient was scheduled to see Dr. Hernandez, ENT f/u CT PET scan done on August 28, 2020 showed resolution of oropharyngeal malignancy and metastatic nodes. Post radiation therapy changes. Patient went to see Dr. Silver ENT on December 07, 2020 underwent laryngoscopy which showed no abnormality, she was advised to quit smoking and use Biotene or mouth coat or spray. Patient also underwent posterior neck mass removal on December 27, 2020, as per patient she was told it was a cyst. Came for follow-up, complaining of right shoulder pain and restricted movement and some radiation to the right arm,, as per patient initially it was off and on now somewhat progressive and bothersome but denies any numbness in the arm denies any headaches blurred vision double vision, denies any trauma to right shoulder or to the neck, denies any neck swelling. Medications: HYDROcodone-Acetaminophen 1 - 2 Tablet (of 5-325 mg) Oral q 4 hours PRN, Mouthwash Compounding Base Liquid Oral PRN, NIACIN Solution Oral Take as Directed, oxyCODONE-Acetaminophen 1 Tablet (of 5-325 mg) Oral q 4 hours PRN Allergies: Aspirin Review of Systems: Review of Systems is not available for this patient. Vital Signs: Performed on January 14, 2021 10:59 Height - 67.00 in Weight - 90.6 lbs (LOW) BSA - 1.44 sq.m BMI - 14.19 (LOW) Temperature - 97.3 F (LOW) Pulse - 110 /min (HIGH) Respiration - 17 /min BP - 160/87 mm(hg) (HIGH) O2 Sat - 99 % Pain - 6 Performance Status: 1 - No physically strenuous activity, but ambulatory and able to carry out light or sedentary work (e.g. office work, light house work). (ECOG) Physical Examination: ENMT - No mouth sores, no thrush, no jaundice, Respiratory - Lungs are clear to auscultation, Cardiovascular - Regular rate and rhythm of heart, Abdomen - Soft, bowel sounds present, Extremities - No visible edema or rash, no right shoulder swelling or skin changes, mild tenderness on deep palpation. Lab/Imaging: Test performed on Sep 03, 2020 08:10 WBC 9.0 10 3/uL RBC 4.34 10 6/uL HGB 12.4 g/dL HCT 40.2 % MCV 92.6 fL MCH 28.6 pg MCHC 30.8 g/dL RDW 15.8 % Platelet Count 320 10 3/cmm MPV 8.7 fL Neutrophils 6.70 10 3/uL Lymphocytes 1.2 10 3/uL Monocytes 0.7 10 3/uL Eosinophils 0.3 10 3/uL Basophils 0.1 10 3/uL Neutrophil % 74.6 % Lymphocyte % 13.5 % Monocyte % 7.9 % Eosinophil % 2.8 % Basophils % 0.9 % NRBC % 0 % Test performed on Aug 03, 2020 11:57 Sodium 135 mmol/L Potassium 4.0 mmol/L Chloride 100 mmol/L CO2 26 mmol/L Anion Gap 13.0 BUN 5 mg/dL Creatinine 0.3 mg/dL Cr Clearance (Est) 123.53 mL/min eGFR 221.9 mL/min Glucose 82 mg/dL Osmolality - Calculated 276 mOsm/kg Calcium 8.9 mg/dL Protein, Total 6.8 g/dL Albumin 4.1 g/dL Globulin 2.7 g/dL Bilirubin, Total 0.3 mg/dL ALT (SGPT) 10 U/L AST (SGOT) 13 U/L Alkaline Phosphatase 77 IU/L Impression: Well differentiated squamous cell carcinoma, p16 negative per biopsy of right tonsil done on 12/26/2019 MRI scan of the neck done on 01/05/2020 showed diffuse nodular soft tissue thickening involving Waldeyer's ring at the adenoids extending into palatine tonsils. Additional similar appearing nodule soft tissue thickening involving supraglottic larynx at the inferior aspect of pyriform sinuses extending into vocal fold and epiglottis. Left cervical lymph nodes level II and level III noted largest lymph node 12 x 9 mm. 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 No distant metastases. 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 1 PPD for 30 years discussed with Mrs Mathis her disease status and treatment options. She has locally advanced disease and her CT PET scan shows bilateral cervical lymph node involvement which would make her stage IV. This would also not allow her to be a candidate for upfront surgery. Mrs Mathis was offered a treatmetn plan with combined chemoradiation with high-dose cisplatin if tolerated. (cisplatin 100 mg/m??? concurrent with radiation therapy every 3 weeks, as tolerated) . She began her first cycle of cisplatin on January 28, 2020. She is tolerated it well with expected mild side effects.And took second dose on February 24, 2020 but did not take third dose of high-dose cisplatin because of related side effects and completed her radiation therapy on March 22, 2020 Underwent follow-up CT PET scan on August 28, 2020 which showed resolution of oropharyngeal malignancy and metastatic nodes Underwent direct laryngoscopy by Dr. Silver on December 07, 2020 which showed no evidence of malignancy, for symptomatic relief she was advised to use Biotene or other supportive care Plan: Discussed with patient regarding her concern and questions, now patient is complaining of right shoulder pain radiating to her arm some discomfort in the neck but denies any trauma to those areas denies any numbness or weakness in the right hand. Could be due to cervical radiculopathy or right shoulder pathology,, will consider, MRI scan of the neck and right shoulder but patient is claustrophobic and refusing MRI scan but agreed for CT scan of neck and right shoulder, in the meantime we will give her Percocet 5/325 every 4-6 hour as needed for the pain, patient was advised if there is a worsening of symptoms she need to go to ER for evaluation otherwise return to clinic after CT scan of the neck and right shoulder, and With CBC CMP Signed By: Messi Clarke M.D. <<Signature on File>>
== END 2021-01-14 10:43 | disposition home or self-care (01) ==
PROVIDERS: PCP Nurse Practitioner Family; Visit Provider Internal Medicine Hematology & Oncology
DX: C09.9 Malignant neoplasm of tonsil, unspecified (principal); R59.0 Localized enlarged lymph nodes; J43.9 Emphysema, unspecified; F17.210 Nicotine dependence, cigarettes, uncomplicated; Z79.899 Other long term (current) drug therapy; Z92.21 Personal history of antineoplastic chemotherapy; Z92.3 Personal history of irradiation
CPT/HCPCS: 99214

== ENCOUNTER 2021-02-08 08:26 | Outpatient (CLI) | payer MEDICAID, SELFPAY ==
[2021-02-08 09:10] LABS: Basophils # 0.1 10^3/uL (0.0-0.1); Basophils % 1.1 %; Eosinophils # 0.2 10^3/uL (0.0-0.8); Eosinophils % 2.9 %; Hematocrit 40.2 % (37.0-47.0); Lymphocytes # 1.4 10^3/uL (0.8-4.8); Lymphocytes % 25.6 %; Mean Corpuscular HGB Conc 32.3 g/dL (30.0-36.0); Mean Corpuscular Hemoglobin 30.4 pg (28.0-34.0); Mean Corpuscular Volume 93.9 fL (81-99); Mean Platelet Volume 9.1 fL (7.4-10.4); Monocytes # 0.6 10^3/uL (0.2-0.9); Monocytes % 11.1 %; Neutrophils # 3.23 10^3/uL (1.8-7.7); Neutrophils % 58.8 %; Nucleated Red Blood Cells % 0 %; Platelet Count 263 10^3/cmm (130-400); Red Blood Count 4.28 10^6/uL (4.1-5.3); Red Cell Distribution Width 13.8 % (12.1-15.1); White Blood Count 5.5 10^3/uL (4.0-10.0)
[2021-02-08 09:39] LABS: Alanine Aminotransferase 13 U/L (0-33); Albumin Level 4.4 g/dL (3.5-5.2); Alkaline Phosphatase 71 IU/L (35-105); Anion Gap 12.1 (5-19); Aspartate Amino Transferase 19 U/L (0-32); Blood Urea Nitrogen 4 mg/dL (8-23); Calcium 9.2 mg/dL (8.5-10.5); Carbon Dioxide 26 mmol/L (22-29); Chloride 101 mmol/L (98-107); Globulin 2.7 g/dL (1.3-4.6); Glomerular Filtration Rate 221.2 mL/min (90-130); Glucose 97 mg/dL (65-115); Osmolality Calculated 277 mOsm/kg (285-295); Potassium 4.1 mmol/L (3.5-5.1); Sodium 135 mmol/L (136-145); Total Bilirubin 0.3 mg/dL (0.15-1.2); Total Protein 7.1 g/dL (6.6-8.7)
--- NOTE | 2021-02-08 10:46 | ONC FU_ITS ---
Dr. Clarke follow up note Patient: Luna Mathis Unit #: [id number]: 1950 Dicatated By: Messi Clarke M.D.Date of Visit:Feb 08, 2021 Onc Med Follow-up/Prog Note History of Present Illness: Mrs. Mathis, is a 70-year-old female with history of thrush-like sign/symptoms. She first noticed them in August 2019. She tried home remedies without much improvement. She eventually saw her primary care physician in October 2019 and at that time she was prescribed Diflucan and nystatin. She had no significant improvement. Mrs Mathis developed progressive pain in her throat. She also had dysphagia. She was eventually referred to Dr. Hernandez. She underwent fiberoptic video laryngoscopy which showed large exophytic lesion extending into the posterior aspect of right soft palate and into nasopharynx or prominent on the right past the midline. 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 Mrs Mathis underwent MRI scan of the neck on 01/05/2020 which showed diffuse nodular soft tissue thickening involving Waldeyer's ring at the adenoids extending into the palatine tonsils. 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 Mrs Mathis has lost about 9 pounds since August 2019 due to pain in her throat which had been a 6 on a scale of 1-10, but being controlled with pain medication. She denies any hemoptysis or hematemesis. She also denies any change in taste or smell. She has long-standing history of smoking about one pack a day for 30 years and still active. Mrs. Mathis began her first cycle of chemotherapy Concurrent with radiation therapy on January 28, 2020. And concluded her chemotherapy on February 24, 2020 and radiation therapy on March 22, 2020 , she had had a right hip fracture, as per patient her dog pulled her down and underwent internal fixation on . Patient was scheduled to see Dr. Hernandez, ENT f/u CT PET scan done on August 28, 2020 showed resolution of oropharyngeal malignancy and metastatic nodes. Post radiation therapy changes. Patient went to see Dr. Silver ENT on December 07, 2020 underwent laryngoscopy which showed no abnormality, she was advised to quit smoking and use Biotene or mouth coat or spray. Patient also underwent posterior neck mass removal on December 27, 2020, as per patient she was told it was a cyst. Came for follow-up, denies any specific complaints, as per patient her neck and shoulder pain has resolved spontaneously and did not go for CT scan of neck which was scheduled. Denies any sore throat denies any hemoptysis or hematemesis mild dysphagia is improving Medications: HYDROcodone-Acetaminophen 1 - 2 Tablet (of 5-325 mg) Oral q 4 hours PRN, Mouthwash Compounding Base Liquid Oral PRN, NIACIN Solution Oral Take as Directed, oxyCODONE-Acetaminophen 1 Tablet (of 5-325 mg) Oral q 4 hours PRN Allergies: Aspirin Review of Systems: Review of Systems is not available for this patient. Vital Signs: Vitals are not available for this patient. Performance Status: 0 - Fully active, able to carry on all predisease activities without restrictions. (ECOG) Physical Examination: ENMT - No mouth sores, no thrush, no jaundice, Respiratory - Lungs are clear to auscultation, Cardiovascular - Regular rate and rhythm of heart, Abdomen - Soft, bowel sounds present, Extremities - No visible edema or rash. Lab/Imaging: Test performed on Sep 03, 2020 08:10 WBC 9.0 10 3/uL RBC 4.34 10 6/uL HGB 12.4 g/dL HCT 40.2 % MCV 92.6 fL MCH 28.6 pg MCHC 30.8 g/dL RDW 15.8 % Platelet Count 320 10 3/cmm MPV 8.7 fL Neutrophils 6.70 10 3/uL Lymphocytes 1.2 10 3/uL Monocytes 0.7 10 3/uL Eosinophils 0.3 10 3/uL Basophils 0.1 10 3/uL Neutrophil % 74.6 % Lymphocyte % 13.5 % Monocyte % 7.9 % Eosinophil % 2.8 % Basophils % 0.9 % NRBC % 0 % Impression: Well differentiated squamous cell carcinoma, p16 negative per biopsy of right tonsil done on 12/26/2019 MRI scan of the neck done on 01/05/2020 showed diffuse nodular soft tissue thickening involving Waldeyer's ring at the adenoids extending into palatine tonsils. Additional similar appearing nodule soft tissue thickening involving supraglottic larynx at the inferior aspect of pyriform sinuses extending into vocal fold and epiglottis. Left cervical lymph nodes level II and level III noted largest lymph node 12 x 9 mm. 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 No distant metastases. 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 1 PPD for 30 years discussed with Mrs Mathis her disease status and treatment options. She has locally advanced disease and her CT PET scan shows bilateral cervical lymph node involvement which would make her stage IV. This would also not allow her to be a candidate for upfront surgery. Mrs Mathis was offered a treatmetn plan with combined chemoradiation with high-dose cisplatin if tolerated. (cisplatin 100 mg/m??? concurrent with radiation therapy every 3 weeks, as tolerated) . She began her first cycle of cisplatin on January 28, 2020. She is tolerated it well with expected mild side effects.And took second dose on February 24, 2020 but did not take third dose of high-dose cisplatin because of related side effects and completed her radiation therapy on March 22, 2020 Underwent follow-up CT PET scan on August 28, 2020 which showed resolution of oropharyngeal malignancy and metastatic nodes Underwent direct laryngoscopy by Dr. Silver on December 07, 2020 which showed no evidence of malignancy, for symptomatic relief she was advised to use Biotene or other supportive care Plan: Discussed with patient regarding her labs white blood count 5.5 hemoglobin 13 hematocrit 40.2 platelets 263,000 CMP within normal limits Clinically, patient doing well with no new signs symptoms history of recurrence of disease earlier patient was complaining of right shoulder pain radiating to her arm and discomfort in her neck, for which CT scan of neck was ordered but patient said her pain resolved spontaneously and she did not go for CT scan and now has no new complaints, at this point we will continue to monitor return to clinic in 3 months with CBC CMP in the meantime she will continue monthly port maintenance and patient will also see her ENT on regular basis Signed By: Messi Clarke M.D. <<Signature on File>>
== END 2021-02-08 08:27 | disposition home or self-care (01) ==
LOC: ONCMED 08:27
PROVIDERS: PCP Nurse Practitioner Family; Visit Provider Internal Medicine Hematology & Oncology
DX: C10.9 Malignant neoplasm of oropharynx, unspecified (principal); C77.0 Secondary and unspecified malignant neoplasm of lymph nodes of head, face and neck; Z87.891 Personal history of nicotine dependence; J44.9 Chronic obstructive pulmonary disease, unspecified; Z92.3 Personal history of irradiation; Z92.21 Personal history of antineoplastic chemotherapy; Z79.899 Other long term (current) drug therapy
CPT/HCPCS: 36591; 80053; 85025; 99214

== ENCOUNTER 2021-03-18 09:53 | Outpatient (CLI) | payer MEDICAID, SELFPAY | END 2021-03-18 09:54 | disposition home or self-care (01) | LOC: ONCMED 09:55 | PROVIDERS: PCP Nurse Practitioner Family; Visit Provider Internal Medicine Medical Oncology | DX: C09.9 Malignant neoplasm of tonsil, unspecified (principal); Z79.899 Other long term (current) drug therapy | CPT/HCPCS: 36591 ==

== ENCOUNTER 2021-05-12 12:51 | Outpatient (CLI) | payer MEDICAID, SELFPAY ==
[2021-05-12 13:42] LABS: Basophils # 0.1 10^3/uL (0.0-0.1); Basophils % 0.8 %; Eosinophils # 0.2 10^3/uL (0.0-0.8); Eosinophils % 3.6 %; Hematocrit 39.3 % (37.0-47.0); Hemoglobin 12.6 g/dL (11.5-15.3); Lymphocytes # 1.8 10^3/uL (0.8-4.8); Lymphocytes % 27.9 %; Mean Corpuscular HGB Conc 32.1 g/dL (30.0-36.0); Mean Corpuscular Hemoglobin 30.7 pg (28.0-34.0); Mean Corpuscular Volume 95.9 fl (81-99); Mean Platelet Volume 9.1 fL (7.4-10.4); Monocytes # 0.6 10^3/uL (0.2-0.9); Monocytes % 9.6 %; Neutrophils # 3.73 10^3/uL (1.8-7.7); Neutrophils % 57.6 %; Nucleated Red Blood Cells % 0 %; Platelet Count 253 10^3/cmm (130-400); Red Cell Distribution Width 12.9 % (12.1-15.1); White Blood Count 6.5 10^3/uL (4.0-10.0)
[2021-05-12 14:06] LABS: Alanine Aminotransferase 6 U/L (0-33); Albumin Level 4.3 g/dL (3.5-5.2); Alkaline Phosphatase 74 IU/L (35-105); Aspartate Amino Transferase 15 U/L (0-32); Blood Urea Nitrogen 6 mg/dL (8-23); Carbon Dioxide 26 mmol/L (22-29); Chloride 101 mmol/L (98-107); Globulin 2.8 g/dL (1.3-4.6); Glomerular Filtration Rate 221.2 mL/min (90-130); Glucose 88 mg/dL (65-115); Osmolality Calculated 281 mOsm/kg (285-295); Sodium 137 mmol/L (136-145); Total Bilirubin 0.3 mg/dL (0.15-1.2); Total Protein 7.1 g/dL (6.6-8.7)
--- NOTE | 2021-05-12 15:30 | ONC FU_ITS ---
Dr. Clarke follow up note Patient: Luna Mathis Unit #: [id number]: 1950 Dicatated By: Messi Clarke M.D.Date of Visit:May 12, 2021 Onc Med Follow-up/Prog Note History of Present Illness: Mrs. Mathis, is a 70-year-old female with history of thrush-like sign/symptoms. She first noticed them in August 2019. She tried home remedies without much improvement. She eventually saw her primary care physician in October 2019 and at that time she was prescribed Diflucan and nystatin. She had no significant improvement. Mrs Mathis developed progressive pain in her throat. She also had dysphagia. She was eventually referred to Dr. Hernandez. She underwent fiberoptic video laryngoscopy which showed large exophytic lesion extending into the posterior aspect of right soft palate and into nasopharynx or prominent on the right past the midline. 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 Mrs Mathis underwent MRI scan of the neck on 01/05/2020 which showed diffuse nodular soft tissue thickening involving Waldeyer's ring at the adenoids extending into the palatine tonsils. 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 Mrs Mathis has lost about 9 pounds since August 2019 due to pain in her throat which had been a 6 on a scale of 1-10, but being controlled with pain medication. She denies any hemoptysis or hematemesis. She also denies any change in taste or smell. She has long-standing history of smoking about one pack a day for 30 years and still active. Mrs. Mathis began her first cycle of chemotherapy Concurrent with radiation therapy on January 28, 2020. And concluded her chemotherapy on February 24, 2020 and radiation therapy on March 22, 2020 , she had had a right hip fracture, as per patient her dog pulled her down and underwent internal fixation on . Patient was scheduled to see Dr. Hernandez, ENT f/u CT PET scan done on August 28, 2020 showed resolution of oropharyngeal malignancy and metastatic nodes. Post radiation therapy changes. Patient went to see Dr. Silver ENT on December 07, 2020 underwent laryngoscopy which showed no abnormality, she was advised to quit smoking and use Biotene or mouth coat or spray. Patient also underwent posterior neck mass removal on December 27, 2020, as per patient she was told it was a cyst. Came for follow-up, denies any specific complaints of generalized weakness and fatigue, no nausea or vomiting, no diarrhea or constipation, no melena or hematochezia, no hemoptysis or hematemesis, no dysphagia, no mouth sores but dry mouth, No shortness of breath or palpitation Medications: HYDROcodone-Acetaminophen 1 - 2 Tablet (of 5-325 mg) Oral q 4 hours PRN, Mouthwash Compounding Base Liquid Oral PRN, NIACIN Solution Oral Take as Directed, oxyCODONE-Acetaminophen 1 Tablet (of 5-325 mg) Oral q 4 hours PRN Allergies: Aspirin Review of Systems: Review of Systems is not available for this patient. Vital Signs: Performed on May 12, 2021 14:50 Height - 67.00 in Weight - 93.6 lbs (HIGH) BSA - 1.46 sq.m BMI - 14.66 (LOW) Temperature - 97.5 F (LOW) Pulse - 110 /min (HIGH) Respiration - 18 /min BP - 167/81 mm(hg) (HIGH) O2 Sat - 99 % Pain - 0 Performance Status: 0 - Fully active, able to carry on all predisease activities without restrictions. (ECOG) Physical Examination: ENMT - No mouth sores, no thrush, But dry oral mucosa,no jaundice, Respiratory - Lungs are clear to auscultation, Cardiovascular - Regular rate and rhythm of heart, Abdomen - Soft, bowel sounds present, Extremities - No visible edema. Lab/Imaging: Most recent lab results are not available for this patient. Impression: Well differentiated squamous cell carcinoma, p16 negative per biopsy of right tonsil done on 12/26/2019 MRI scan of the neck done on 01/05/2020 showed diffuse nodular soft tissue thickening involving Waldeyer's ring at the adenoids extending into palatine tonsils. Additional similar appearing nodule soft tissue thickening involving supraglottic larynx at the inferior aspect of pyriform sinuses extending into vocal fold and epiglottis. Left cervical lymph nodes level II and level III noted largest lymph node 12 x 9 mm. 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 No distant metastases. 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 1 PPD for 30 years discussed with Mrs Mathis her disease status and treatment options. She has locally advanced disease and her CT PET scan shows bilateral cervical lymph node involvement which would make her stage IV. This would also not allow her to be a candidate for upfront surgery. Mrs Mathis was offered a treatmetn plan with combined chemoradiation with high-dose cisplatin if tolerated. (cisplatin 100 mg/m??? concurrent with radiation therapy every 3 weeks, as tolerated) . She began her first cycle of cisplatin on January 28, 2020. She is tolerated it well with expected mild side effects.And took second dose on February 24, 2020 but did not take third dose of high-dose cisplatin because of related side effects and completed her radiation therapy on March 22, 2020 Underwent follow-up CT PET scan on August 28, 2020 which showed resolution of oropharyngeal malignancy and metastatic nodes Underwent direct laryngoscopy by Dr. Silver on December 07, 2020 which showed no evidence of malignancy, for symptomatic relief she was advised to use Biotene or other supportive care Plan: Discussed with patient regarding her labs white blood count 6.5 hemoglobin 12.6 hematocrit 39.3 platelets 253,000 CMP within normal limits Clinically, patient doing well with no new signs symptom suggestive of recurrence of disease her lab work-up is within normal range but she is complaining of generalized weakness and fatigue which could be multifactorial, including hypothyroidism as she was recently treated with combined chemoradiation for head and neck cancer, we will check a TSH level and also prescribe her vitamins in liquid form as patient she do not like large vitamin pills. Return to clinic in 3 months with CBC CMP Signed By: Messi Clarke M.D. <<Signature on File>>
[2021-05-12 15:34] LABS: Thyroid Stimulating Hormone 3.19 uIU/mL (0.27-4.20)
== END 2021-05-12 12:52 | disposition home or self-care (01) ==
PROVIDERS: PCP Nurse Practitioner Family; Visit Provider Internal Medicine Hematology & Oncology
DX: C10.9 Malignant neoplasm of oropharynx, unspecified (principal); C77.0 Secondary and unspecified malignant neoplasm of lymph nodes of head, face and neck; J44.9 Chronic obstructive pulmonary disease, unspecified; Z79.899 Other long term (current) drug therapy; Z87.891 Personal history of nicotine dependence
CPT/HCPCS: 36591; 80053; 84443; 85025; 99214

== ENCOUNTER 2021-06-10 07:46 | Outpatient (CLI) | payer SELFPAY | END 2021-06-10 07:47 | disposition home or self-care (01) | LOC: ONCMED 07:47 | PROVIDERS: PCP Nurse Practitioner Family; Visit Provider Internal Medicine Hematology & Oncology | DX: Z45.2 Encounter for adjustment and management of vascular access device (principal) | CPT/HCPCS: 96523 ==

== ENCOUNTER 2021-07-18 12:56 | Outpatient (CLI) | payer SELFPAY | END 2021-07-18 12:57 | disposition home or self-care (01) | LOC: ONCMED 12:57 | PROVIDERS: PCP Nurse Practitioner Family; Visit Provider Internal Medicine Hematology & Oncology | DX: Z45.2 Encounter for adjustment and management of vascular access device (principal) | CPT/HCPCS: 96523 ==

== ENCOUNTER 2021-08-03 14:30 | Outpatient (CLI) | payer SELFPAY ==
[2021-08-03 14:57] LABS: Basophils # 0.1 10^3/uL (0.0-0.1); Basophils % 0.8 %; Eosinophils # 0.3 10^3/uL (0.0-0.8); Eosinophils % 3.5 %; Hemoglobin 12.8 g/dL (11.5-15.3); Lymphocytes % 26.4 %; Mean Corpuscular Hemoglobin 30.2 pg (28.0-34.0); Mean Corpuscular Volume 94.3 fl (81-99); Monocytes # 0.7 10^3/uL (0.2-0.9); Monocytes % 9.7 %; Neutrophils # 4.36 10^3/uL (1.8-7.7); Neutrophils % 59.1 %; Nucleated Red Blood Cells % 0 %; Platelet Count 257 10^3/cmm (130-400); Red Blood Count 4.24 10^6/uL (4.1-5.3); Red Cell Distribution Width 13.1 % (12.1-15.1); White Blood Count 7.4 10^3/uL (4.0-10.0)
[2021-08-03 15:25] LABS: Alanine Aminotransferase < 5 U/L (0-33); Albumin Level 4.4 g/dL (3.5-5.2); Alkaline Phosphatase 59 IU/L (35-105); Anion Gap 18.3 (5-19); Aspartate Amino Transferase 18 U/L (0-32); Blood Urea Nitrogen 5 mg/dL (8-23); Calcium 8.7 mg/dL (8.5-10.5); Carbon Dioxide 23 mmol/L (22-29); Chloride 103 mmol/L (98-107); Globulin 2.9 g/dL (1.3-4.6); Glomerular Filtration Rate 158.7 mL/min (90-130); Glucose 93 mg/dL (65-115); Osmolality Calculated 287 mOsm/kg (285-295); Potassium 4.3 mmol/L (3.5-5.1); Sodium 140 mmol/L (136-145); Total Bilirubin 0.3 mg/dL (0.15-1.2); Total Protein 7.3 g/dL (6.6-8.7)
--- NOTE | 2021-08-04 09:31 | ONC FU_ITS ---
Dr. Clarke follow up note Patient: Luna Mathis Unit #: [id number]: 1950 Dicatated By: Messi Clarke M.D.Date of Visit:Aug 03, 2021 Onc Med Follow-up/Prog Note History of Present Illness: Mrs. Mathis, is a 70-year-old female with history of thrush-like sign/symptoms. She first noticed them in August 2019. She tried home remedies without much improvement. She eventually saw her primary care physician in October 2019 and at that time she was prescribed Diflucan and nystatin. She had no significant improvement. Mrs Mathis developed progressive pain in her throat. She also had dysphagia. She was eventually referred to Dr. Hernandez. She underwent fiberoptic video laryngoscopy which showed large exophytic lesion extending into the posterior aspect of right soft palate and into nasopharynx or prominent on the right past the midline. 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 Mrs Mathis underwent MRI scan of the neck on 01/05/2020 which showed diffuse nodular soft tissue thickening involving Waldeyer's ring at the adenoids extending into the palatine tonsils. 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 Mrs Mathis has lost about 9 pounds since August 2019 due to pain in her throat which had been a 6 on a scale of 1-10, but being controlled with pain medication. She denies any hemoptysis or hematemesis. She also denies any change in taste or smell. She has long-standing history of smoking about one pack a day for 30 years and still active. Mrs. Mathis began her first cycle of chemotherapy Concurrent with radiation therapy on January 28, 2020. And concluded her chemotherapy on February 24, 2020 and radiation therapy on March 22, 2020 , she had had a right hip fracture, as per patient her dog pulled her down and underwent internal fixation on . Patient was scheduled to see Dr. Hernandez ENT f/u CT PET scan done on August 28, 2020 showed resolution of oropharyngeal malignancy and metastatic nodes. Post radiation therapy changes. Patient went to see PHYLLIS Bauer on December 07, 2020 underwent laryngoscopy which showed no abnormality, she was advised to quit smoking and use Biotene or mouth coat or spray. Patient also underwent posterior neck mass removal on December 27, 2020, as per patient she was told it was a cyst. Came for follow-up, denies any specific complaint except mild dysphagia with certain foods, now being evaluated by Dr. Silver ENT, patient said she is scheduled to see him next week. Denies any hemoptysis or hematemesis denies any nausea or vomiting denies any fever chills denies any diarrhea or constipation, denies any mouth sores or thrush. Patient still smoking about half pack a day. Medications: HYDROcodone-Acetaminophen 1 - 2 Tablet (of 5-325 mg) Oral q 4 hours PRN, Mouthwash Compounding Base Liquid Oral PRN, NIACIN Solution Oral Take as Directed, oxyCODONE-Acetaminophen 1 Tablet (of 5-325 mg) Oral q 4 hours PRN Allergies: Aspirin Review of Systems: Review of Systems is not available for this patient. Vital Signs: Performed on Aug 03, 2021 16:06 Height - 67.00 in Weight - 95.8 lbs (HIGH) BSA - 1.48 sq.m BMI - 15.00 (LOW) Temperature - 98.6 F Pulse - 124 /min (HIGH) Respiration - 18 /min BP - 163/85 mm(hg) (HIGH) O2 Sat - 99 % Pain - 0 Fatigue - 5 Performance Status: 0 - Fully active, able to carry on all predisease activities without restrictions. (ECOG) Physical Examination: ENMT - No mouth sores, no thrush, no jaundice, no cervical lymphadenopathy, Respiratory - Lungs are clear to auscultation, Cardiovascular - Regular rate and rhythm of heart, Abdomen - Soft, bowel sounds present, Extremities - No visible edema. Lab/Imaging: Most recent lab results are not available for this patient. Impression: Well differentiated squamous cell carcinoma, p16 negative per biopsy of right tonsil done on 12/26/2019 MRI scan of the neck done on 01/05/2020 showed diffuse nodular soft tissue thickening involving Waldeyer's ring at the adenoids extending into palatine tonsils. Additional similar appearing nodule soft tissue thickening involving supraglottic larynx at the inferior aspect of pyriform sinuses extending into vocal fold and epiglottis. Left cervical lymph nodes level II and level III noted largest lymph node 12 x 9 mm. 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 No distant metastases. 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 1 PPD for 30 years discussed with Mrs Mathis her disease status and treatment options. She has locally advanced disease and her CT PET scan shows bilateral cervical lymph node involvement which would make her stage IV. This would also not allow her to be a candidate for upfront surgery. Mrs Mathis was offered a treatmetn plan with combined chemoradiation with high-dose cisplatin if tolerated. (cisplatin 100 mg/m??? concurrent with radiation therapy every 3 weeks, as tolerated) . She began her first cycle of cisplatin on January 28, 2020. She is tolerated it well with expected mild side effects.And took second dose on February 24, 2020 but did not take third dose of high-dose cisplatin because of related side effects and completed her radiation therapy on March 22, 2020 Underwent follow-up CT PET scan on August 28, 2020 which showed resolution of oropharyngeal malignancy and metastatic nodes Underwent direct laryngoscopy by Dr. Silver on December 07, 2020 which showed no evidence of malignancy, for symptomatic relief she was advised to use Biotene or other supportive care Plan: Discussed with patient regarding her labs white blood count 7.4 hemoglobin 12.8 hematocrit 40 platelets 257,000 CMP within normal limits and her TSH checked last time was 3.19 Clinically, patient doing well with no new signs symptoms history of recurrence of disease, her dysphagia could be due to post radiation changes, now being evaluated by ENT. Patient is high risk for lung cancer especially after being diagnosed with head and neck cancer and history of chronic smoking and still active, she will return to clinic in 3 months with CBC CMP and follow-up low-dose contrast CT scan of chest in the meantime continue with monthly port maintenance, patient was advised to quit smoking and was offered any assistance she may need Signed By: Messi Clarke M.D. <<Signature on File>>
== END 2021-08-03 14:31 | disposition home or self-care (01) ==
LOC: ONCMED 14:34
PROVIDERS: Internal Medicine Hematology & Oncology; PCP Nurse Practitioner Family; Visit Provider Nurse Practitioner Family
DX: C10.9 Malignant neoplasm of oropharynx, unspecified (principal); R13.10 Dysphagia, unspecified; F17.210 Nicotine dependence, cigarettes, uncomplicated; Z79.899 Other long term (current) drug therapy
CPT/HCPCS: 36591; 80053; 85025; 99214

== ENCOUNTER 2021-10-10 13:22 | Outpatient (CLI) | payer SELFPAY | END 2021-10-10 13:23 | disposition home or self-care (01) | PROVIDERS: PCP Nurse Practitioner Family; Visit Provider Internal Medicine Hematology & Oncology | DX: Z45.2 Encounter for adjustment and management of vascular access device (principal) | CPT/HCPCS: 36591 ==

== ENCOUNTER 2021-11-01 12:22 | Outpatient (CLI) | payer SELFPAY ==
[2021-11-01 13:06] LABS: Basophils # 0.1 10^3/uL (0.0-0.1); Basophils % 1.2 %; Eosinophils # 0.2 10^3/uL (0.0-0.8); Eosinophils % 3.1 %; Hematocrit 38.3 % (37.0-47.0); Hemoglobin 12.3 g/dL (11.5-15.3); Lymphocytes # 1.5 10^3/uL (0.8-4.8); Lymphocytes % 25.1 %; Mean Corpuscular HGB Conc 32.1 g/dL (30.0-36.0); Mean Corpuscular Hemoglobin 30.6 pg (28.0-34.0); Mean Corpuscular Volume 95.3 fl (81-99); Mean Platelet Volume 8.8 fL (7.4-10.4); Monocytes # 0.6 10^3/uL (0.2-0.9); Monocytes % 10.1 %; Neutrophils # 3.64 10^3/uL (1.8-7.7); Neutrophils % 60.2 %; Nucleated Red Blood Cells % 0 %; Platelet Count 290 10^3/cmm (130-400); Red Blood Count 4.02 10^6/uL (4.1-5.3); Red Cell Distribution Width 13.5 % (12.1-15.1); White Blood Count 6.1 10^3/uL (4.0-10.0)
[2021-11-01 13:22] LABS: Alanine Aminotransferase 10 U/L (0-33); Albumin Level 4.6 g/dL (3.5-5.2); Alkaline Phosphatase 72 IU/L (35-105); Anion Gap 13.2 (5-19); Aspartate Amino Transferase 16 U/L (0-32); Blood Urea Nitrogen 4 mg/dL (8-23); Calcium 8.6 mg/dL (8.5-10.5); Carbon Dioxide 26 mmol/L (22-29); Chloride 101 mmol/L (98-107); Globulin 2.6 g/dL (1.3-4.6); Glomerular Filtration Rate 220.6 mL/min (90-130); Glucose 84 mg/dL (65-115); Osmolality Calculated 278 mOsm/kg (285-295); Potassium 4.2 mmol/L (3.5-5.1); Sodium 136 mmol/L (136-145); Total Bilirubin 0.4 mg/dL (0.15-1.2); Total Protein 7.2 g/dL (6.6-8.7)
--- NOTE | 2021-11-01 16:55 | ONC FU_ITS ---
Dr. Clarke follow up note Patient: Luna Mathis Unit #: [id number]: 1950 Dicatated By: Messi Clarke M.D.Date of Visit:Nov 01, 2021 Onc Med Follow-up/Prog Note History of Present Illness: Mrs. Mathis, is a 71-year-old female with history of thrush-like sign/symptoms. She first noticed them in August 2019. She tried home remedies without much improvement. She eventually saw her primary care physician in October 2019 and at that time she was prescribed Diflucan and nystatin. She had no significant improvement. Mrs Mathis developed progressive pain in her throat. She also had dysphagia. She was eventually referred to Dr. Hernandez. She underwent fiberoptic video laryngoscopy which showed large exophytic lesion extending into the posterior aspect of right soft palate and into nasopharynx or prominent on the right past the midline. 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 Mrs Mathis underwent MRI scan of the neck on 01/05/2020 which showed diffuse nodular soft tissue thickening involving Waldeyer's ring at the adenoids extending into the palatine tonsils. 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 Mrs Mathis has lost about 9 pounds since August 2019 due to pain in her throat which had been a 6 on a scale of 1-10, but being controlled with pain medication. She denies any hemoptysis or hematemesis. She also denies any change in taste or smell. She has long-standing history of smoking about one pack a day for 30 years and still active. Mrs. Mathis began her first cycle of chemotherapy Concurrent with radiation therapy on January 28, 2020. And concluded her chemotherapy on February 24, 2020 and radiation therapy on March 22, 2020 , she had had a right hip fracture, as per patient her dog pulled her down and underwent internal fixation on . Patient was scheduled to see Dr. Hernandez, ENT f/u CT PET scan done on August 28, 2020 showed resolution of oropharyngeal malignancy and metastatic nodes. Post radiation therapy changes. Patient went to see Dr. Silver ENT on December 07, 2020 underwent laryngoscopy which showed no abnormality, she was advised to quit smoking and use Biotene or mouth coat or spray. Patient also underwent posterior neck mass removal on December 27, 2020, as per patient she was told it was a cyst. Came for follow-up, denies any specific complaints except dry mouth and sometimes problem with eating 'dry' food but less problem with semisolid or liquids. Also complaining of off-and-on cough and postnasal drip, still smoke about a pack a day. Denies any hemoptysis or hematemesis, denies any shortness of breath or chest pain, denies any dysphagia, denies any jaundice, denies any fever chills. . Medications: HYDROcodone-Acetaminophen 1 - 2 Tablet (of 5-325 mg) Oral q 4 hours PRN, Mouthwash Compounding Base Liquid Oral PRN, NIACIN Solution Oral Take as Directed, oxyCODONE-Acetaminophen 1 Tablet (of 5-325 mg) Oral q 4 hours PRN Allergies: Aspirin Review of Systems: Review of Systems is not available for this patient. Vital Signs: Performed on Nov 01, 2021 15:40 Height - 67.00 in Weight - 95.6 lbs (LOW) BSA - 1.48 sq.m BMI - 14.97 (LOW) Temperature - 97.9 F (LOW) Pulse - 120 /min (HIGH) Respiration - 18 /min BP - 149/90 mm(hg) (HIGH) O2 Sat - 99 % Pain - 0 Fatigue - 5 Performance Status: 1 - No physically strenuous activity, but ambulatory and able to carry out light or sedentary work (e.g. office work, light house work). (ECOG) Physical Examination: ENMT - Dry oral mucosa, no mucositis or thrush, no jaundice, no cervical lymphadenopathy, Respiratory - Poor air entry, mild wheezing, Cardiovascular - Regular rate and rhythm of heart, Abdomen - Soft, bowel sounds present, Extremities - No visible edema. Lab/Imaging: Most recent lab results are not available for this patient. Impression: Well differentiated squamous cell carcinoma, p16 negative per biopsy of right tonsil done on 12/26/2019 MRI scan of the neck done on 01/05/2020 showed diffuse nodular soft tissue thickening involving Waldeyer's ring at the adenoids extending into palatine tonsils. Additional similar appearing nodule soft tissue thickening involving supraglottic larynx at the inferior aspect of pyriform sinuses extending into vocal fold and epiglottis. Left cervical lymph nodes level II and level III noted largest lymph node 12 x 9 mm. 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 No distant metastases. 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 1 PPD for 30 years discussed with Mrs Mathis her disease status and treatment options. She has locally advanced disease and her CT PET scan shows bilateral cervical lymph node involvement which would make her stage IV. This would also not allow her to be a candidate for upfront surgery. Mrs Mathis was offered a treatmetn plan with combined chemoradiation with high-dose cisplatin if tolerated. (cisplatin 100 mg/m??? concurrent with radiation therapy every 3 weeks, as tolerated) . She began her first cycle of cisplatin on January 28, 2020. She is tolerated it well with expected mild side effects.And took second dose on February 24, 2020 but did not take third dose of high-dose cisplatin because of related side effects and completed her radiation therapy on March 22, 2020 Underwent follow-up CT PET scan on August 28, 2020 which showed resolution of oropharyngeal malignancy and metastatic nodes Underwent direct laryngoscopy by Dr. Silver on December 07, 2020 which showed no evidence of malignancy, for symptomatic relief she was advised to use Biotene or other supportive care Plan: Discussed with patient regarding her labs white blood count 6.1 hemoglobin 12.3 hematocrit 38.3 platelets 290,000 CMP within normal limits Clinically, patient doing well with no new signs symptoms history of recurrence of disease, patient is being followed by Dr. Silver, ENT. Patient is requesting Port-A-Cath removal, we will request Dr. Mendoza to do that. As far as, issues with dry mouth or problem with eating so-called dry food is concerned, most likely due to radiation related side effects, patient was advised to maintain hydration, she can use artificial saliva and encouraged to use semisolid and shakes. As patient is following Dr. Silver on regular basis, we will see her on as-needed basis. Patient was advised to quit smoking and was offered and he says she may need, on exam patient has poor air entry and has never seen pulmonology, will refer her to pulmonology to optimize her pulmonary care. Patient is high risk for second primary in the lung, CT scan of chest was ordered but due to no insurance patient could not get it done, as per patient she may get some sort of assistance in January or February 2022. In that case we will request pulmonology to monitor her and suggest low contrast CT scan screening. Signed By: Messi Clarke M.D. <<Signature on File>>
== END 2021-11-01 12:23 | disposition home or self-care (01) ==
PROVIDERS: PCP Nurse Practitioner Family; Visit Provider Internal Medicine Hematology & Oncology
DX: C10.9 Malignant neoplasm of oropharynx, unspecified (principal); J44.9 Chronic obstructive pulmonary disease, unspecified; F17.210 Nicotine dependence, cigarettes, uncomplicated; Z79.899 Other long term (current) drug therapy
CPT/HCPCS: 36591; 80053; 85025; 99214

== ENCOUNTER 2021-12-08 06:49 | Day surgery (SDC) | payer SELFPAY ==
[2021-12-07 16:23] VITALS: BMI 14.6
[2021-12-08] VITALS (7 sets, daily range): BP systolic 127–166; BP diastolic 76–103; PULSE 96–109; RESP 16–18; TEMP 36.6–36.9; O2SAT 98–100
--- NOTE | 2021-12-08 07:56 | W.PM.OPSFHP ---
Same Day Surgery H&P Indication for Procedure/HPI DATE OF PROCEDURE: December 08, 2021 CHIEF COMPLAINT/INDICATIONFOR SURGICAL PROCEDURE: port removal PREOP DIAGNOSIS: Hypopharyngeal cancer PLANNED PROCEDURE: Operation Date: 12/08/21 08:00 Proposed Procedures p Portacath Removal 32991/[id number] presence of other vas implants and grafts(Not Applicable) - Rinku Mendoza MD Medications/Allergies* Home Medications Medication Instructions Recorded Confirmed Type mouthwashes 5 ml PO DAILY PRN 12/07/21 12/07/21 History Allergies/Adverse Reactions Allergy/AdvReac Type Severity Reaction Status Date / Time aspirin Allergy ALGY-Hives Verified 12/06/21 12:05 Pertinent History/Comorbid Conditions* Medical History (Updated 12/30/20 @ 16:54 by Alka Tristan NP) Cancer of hypopharynx Port-A-Cath in place (01/21/20) left subclavian Surgical History (Updated 12/06/21 @ 12:42 by Rinku Mendoza MD) History of right hip replacement Family History (Updated 01/20/20 @ 14:17 by Katherine Jim RN) Denies family history of Anesthesia complication Bleeding disorder Social History Smoking and tobacco status: current every day smoker cigarettes Packs smoked per day: 1 Years cigarettes smoked: 48 Alcohol intake: current Alcohol intake frequency: 0-2 Drinks per Day Alcohol type: beer Pertinent Exam Findings alert, oriented x 3 and regular rate & rhythm Recommendations Surgery/Procedure today Coding Level of Care Code Acute Commissioning Agent for Jarett Lr
[2021-12-08] MEDS: lidocaine 2% INJ 20 mL INJECTION (08:19)
--- NOTE | 2021-12-09 12:05 | PM.OP ---
Operative Report Date of procedure: December 08, 2021 Pre-op diagnosis: Hypopharyngeal cancer Post-op diagnosis: same Procedure done: Removal of PowerPort from the left subclavian vein Pathology: none sent Surgeon: Rinku Mendoza Anesthesia: MAC Condition: stable Disposition: PACU Procedure: Patient was taken to the operating room and her left chest was prepped and draped in a sterile manner. 2 % lidocaine with 0.25% Marcaine was infiltrated around the MediPort and catheter in the left subclavian vein. Using a 15 blade the previous incision was opened, the subcutaneous tissue was divided using electrocautery and MediPort along the catheter was dissected free from the surrounding subcutaneous tissue and removed entirely. The wound was irrigated with saline, hemostasis ensured with electrocautery and subcutaneous tissue was approximated using 3-0 Vicryl suture and skin was closed using running subcuticular 4-0 Monocryl suture. 4x4 and sterile dressings were used as a pressure dressing. The patient was transferred to the recovery room in stable condition.
== END 2021-12-08 08:55 | disposition home or self-care (01) ==
PROVIDERS: PCP Nurse Practitioner Family; Visit Provider Surgery
PROC: (CPT 36589; principal; 2021-12-08 08:00)
DX: C13.9 Malignant neoplasm of hypopharynx, unspecified (principal); F17.210 Nicotine dependence, cigarettes, uncomplicated
CPT/HCPCS: 36561; J3490

== ENCOUNTER 2022-10-01 10:16 | Inpatient (IN) | payer MEDICARE, SELFPAY ==
[2022-10-01] VITALS (25 sets, daily range): BP systolic 99–158; BP diastolic 64–94; PULSE 98–126; RESP 14–28; TEMP 36.4–36.8; O2SAT 85–100; BMI 13.8; BMI 13.2
--- NOTE | 2022-10-01 10:24 | XRR_ITS ---
PROCEDURE INFORMATION: Exam: XR Chest Exam date and time: 10/01/2022 10:53 AM Age: 71 years old Clinical indication: Shortness of breath. TECHNIQUE: Imaging protocol: Radiologic exam of the chest. Views: 1 view. COMPARISON: CR XR chest 1V portable [id number] 04/19/2020 4:37 PM FINDINGS: Lungs: Pulmonary hyperinflation; query COPD, asthma or other obstructive lung disease. Possible mass at the left base measuring 2.4 cm. Possible nodule in the mid to upper right chest measuring 5 mm. Subsegmental atelectasis in the mid to upper right chest. There is mild peribronchial wall thickening. No pulmonary consolidation. Pleural spaces: No pleural effusion. No pneumothorax. Heart/Mediastinum: Cardiac silhouette is unchanged. No gross evidence of pneumomediastinum. Bones/joints: No gross fracture. XR/XR chest 1V portable [id number] IMPRESSION: 1. There is mild peribronchial wall thickening; query viral infection/bronchitis, chronic bronchitis and/or asthma. 2. Nodular densities in the chest bilaterally measuring up to 2.[address] chest to better characterize. 3. Pulmonary hyperinflation; query COPD, asthma or other obstructive lung disease.
--- NOTE | 2022-10-01 10:30 | ED_ITS ---
HPI - SOB/Dyspnea General: Chief Complaint: Shortness of Breath/Dyspnea Stated Complaint: SOB Time Seen by Provider: 10/01/22 10:20 Source: patient and EMS Mode of arrival: EMS Limitations: no limitations History of Present Illness: HPI Narrative: 71-year-old female with a history of oropharyngeal cancer has had surgery in the past for this she is not on any chemo or radiation states that over the last 2 days has been having some shortness of breath she denies any cough or fever patient is tachycardic here she does not wear oxygen at home she is requiring 2 L of oxygen here she denies any pain anywhere. Associated symptoms: Reports palpitations; Deny abdominal pain, fever(s), nausea or vomiting Review of Systems Const: Denies: fever(s), chills, body aches or change in appetite Eyes: Denies: blurry vision or eye discomfort ENMT: Denies: throat pain or dental pain Card: Reports: palpitations Resp: Reports: dyspnea GI: Denies: abdominal pain, nausea, vomiting or diarrhea : Denies: dysuria Musc: Denies: neck pain or back pain Skin/Breast: Denies: rash Neuro: Denies: headache(s) Psych: Denies: depression Calvin/Lymph: Denies: easy bruising All/Imm: Denies: urticaria PFSH ED PFSH: Medical History Port-A-Cath in place (01/21/20) left subclavian removed 12/08 Surgical History Cancer of hypopharynx History of right hip replacement Family History Denies family history of Anesthesia complication Bleeding disorder Social History Smoking and tobacco status: current every day smoker ( half a pack a day ) cigarettes Packs smoked per day: 0.5 Years cigarettes smoked: 48 Alcohol intake: never Physical Exam Const: COMMON NORMALS: no acute distress, patient oriented x3 and healthy appearing HENMT: COMMON NORMALS: normocephalic and atraumatic HEAD & SCALP: normocephalic and atraumatic Eye: COMMON NORMALS: Equal, round and reactive pupils present and EOMs intact bilaterally PUPIL: Yes Equal, round and reactive pupils present Neck/C-Spine: COMMON NORMALS: full ROM and supple Chest: COMMONS NORMALS: normal inspection of the chest and normal palpation of entire chest wall Resp: COMMON NORMALS: normal respiratory effort, No retractions, No use of accessory muscles and clear to auscultation bilaterally AUSCULTATION: clear to auscultation bilaterally Cardio: COMMON NORMALS: No murmurs present (Cardio) RATE: tachycardic GI: COMMON NORMALS: Normal to inspection, nondistended, normoactive bowel sounds present, Soft to palpation, non-tender and no masses PALPATION: Yes Soft to palpation Extremity: COMMON NORMALS: normal to inspection and full ROM Neuro: COMMON NORMALS: patient oriented x3, moves all extremities and no focal motor deficits Psych: COMMON NORMALS: mental status grossly normal, Normal thought process present and cooperative THOUGHT PROCESS: Normal thought process present Skin: COMMON NORMALS: no rashes or lesions noted and no wounds GENERAL SKIN EXAM: no rashes or lesions noted Course Vital Signs: Vital signs: Vital Signs Temperature 98.3 F 10/01/22 10:17 Pulse Rate 105 H 10/01/22 13:30 Respiratory Rate 20 H 10/01/22 13:30 Blood Pressure 135/85 10/01/22 13:30 Pulse Oximetry 98 10/01/22 13:30 Oxygen Delivery Me thod 10/01/22 11:56 Oxygen Flow Rate 3 10/01/22 11:56 MDM - SOB/Dyspnea Medical Decision Making Patient presents here with dyspnea CT does show a pneumonia she also has what appears to be mets to her lung and liver I did inform family of this and will admit her for pneumonia she is hypoxic here. Lab Data 10/01/22 10:50 10/01/22 10:50 Labs/Radiology: Radiology Impressions Chest X-Ray 10/01/22 10:24 IMPRESSION: 1. There is mild peribronchial wall thickening; query viral infection/bronchitis, chronic bronchitis and/or asthma. 2. Nodular densities in the chest bilaterally measuring up to 2.[address] chest to better characterize. 3. Pulmonary hyperinflation; query COPD, asthma or other obstructive lung disease. Chest CTA 10/01/22 11:31 IMPRESSION: 1. No pulmonary embolus. 2. Numerous pulmonary nodules/masses. A mass anterior to the right hilum appears centrally necrotic. This is concerning for primary and/or metastatic disease. Recommend PET-CT or biopsy for definitive characterization. 3. Marked peribronchial wall thickening; query viral infection/bronchitis, chronic bronchitis, chronic aspiration and/or asthma. There are foci of bronchial impaction bilaterally with patchy bibasilar consolidation concerning for pneumonia/aspiration pneumonia. 4. Marked mediastinal and bilateral hilar lymphadenopathy. This is concerning for metastatic disease. 5. Multiple hepatic masses concerning for metastatic disease. Recommend MRI of the abdomen hepatic protocol with and without contrast to better characterize. 6. Consolidation adjacent to the right hilar mass that could reflect pneumonia. 7. Moderate to advanced centrilobular emphysema. 8. Coronary artery disease. COMMENTS: In the absence of a history or active diagnosis of lung cancer, it is recommended that this patient with emphysema be evaluated for enrollment in a low dose CT lung cancer screening program. Laboratory Results WBC 7.2 10^3/uL (4.0-10.0) 10/01/22 10:50 RBC 5.04 10^6/uL (4.1-5.3) 10/01/22 10:50 Hgb 14.5 g/dL (11.5-15.3) 10/01/22 10:50 Hct 46.3 % (37.0-47.0) 10/01/22 10:50 MCV 91.9 fl (81-99) 10/01/22 10:50 MCH 28.8 pg (28.0-34.0) 10/01/22 10:50 MCHC 31.3 g/dL (30.0-36.0) 10/01/22 10:50 RDW 13.5 % (12.1-15.1) 10/01/22 10:50 Plt Count 263 10^3/cmm (130-400) 10/01/22 10:50 MPV 9.5 fL (7.4-10.4) 10/01/22 10:50 Neut % (Auto) 82.7 % 10/01/22 10:50 Lymph % (Auto) 11.3 % 10/01/22 10:50 [place] % (Auto) 5.3 % 10/01/22 10:50 Eos % (Auto) 0.0 % 10/01/22 10:50 Baso % (Auto) 0.3 % 10/01/22 10:50 Neut # (Auto) 5.91 10^3/uL (1.8-7.7) 10/01/22 10:50 Lymph # (Auto) 0.8 10^3/uL (0.8-4.8) 10/01/22 10:50 [place] # (Auto) 0.4 10^3/uL (0.2-0.9) 10/01/22 10:50 Eos # (Auto) 0.0 10^3/uL (0.0-0.8) 10/01/22 10:50 Baso # (Auto) 0.0 10^3/uL (0.0-0.1) 10/01/22 10:50 Nucleated RBC % (auto) 0 % 10/01/22 10:50 Nucleated RBCs # 0.0 /100WBC 10/01/22 10:50 PT 13.90 SECONDS (12.1-14.9) 10/01/22 10:50 INR 1.03 (0.8-1.2) 10/01/22 10:50 D-Dimer 1.13 ug/mIFEU (0-0.59) H 10/01/22 10:50 Specimen Type Arterial 10/01/22 10:27 Sample Site Radial, right 10/01/22 10:27 ABG pH 7.40 (7.35-7.45) 10/01/22 10:27 ABG pCO2 38.9 mmHg (35-45) 10/01/22 10:27 ABG pO2 63.0 mmHg (80.0-100.0) L 10/01/22 10:27 ABG HCO3 24.1 mmol/L (22-26) 10/01/22 10:27 ABG Base Excess -0.6 mmol/L (-2.0-2.0) 10/01/22 10:27 [place] Test Pos 10/01/22 10:27 Hematocrit 42.2 % (37-47) 10/01/22 10:27 Hgb O2 Saturation 91.5 % (95-100) L 10/01/22 10:27 Carboxyhemoglobin 1.9 %THgb (0.4-20.1) 10/01/22 10:27 Methemoglobin 0.6 % (0.4-1.5) 10/01/22 10:27 Total Hemoglobin 13.8 g/dL (12-16) 10/01/22 10:27 O2 Delivery Device Nc 10/01/22 10:27 O2 Liters/Min 2.0 % 10/01/22 10:27 Mixed Animal Veterinarian ID [email or web address] 10/01/22 10:27 Sodium 128 mmol/L (136-145) L 10/01/22 10:50 Potassium 4.5 mmol/L (3.5-5.1) 10/01/22 10:50 Chloride 87 mmol/L (98-107) L 10/01/22 10:50 Carbon Dioxide 25 mmol/L (22-29) 10/01/22 10:50 Anion Gap 20.5 (5-19) H 10/01/22 10:50 BUN 10 mg/dL (8-23) 10/01/22 10:50 Creatinine 0.4 mg/dL (0.5-0.9) L 10/01/22 10:50 GFR Calculation 158.3 mL/min (90-130) H 10/01/22 10:50 Glucose 101 mg/dL (65-115) 10/01/22 10:50 Calculated Osmolality 265 mOsm/kg (285-295) L 10/01/22 10:50 Calcium 9.4 mg/dL (8.5-10.5) 10/01/22 10:50 Total Bilirubin 0.5 mg/dL (0.15-1.2) 10/01/22 10:50 AST 24 U/L (0-32) 10/01/22 10:50 ALT 9 U/L (0-33) 10/01/22 10:50 Alkaline Phosphatase 70 U/L (35-105) 10/01/22 10:50 NT-Pro-B Natriuret Pep 1064 pg/mL (0-125) H 10/01/22 10:50 Total Protein 8.2 g/dL (6.6-8.7) 10/01/22 10:50 Albumin 4.4 g/dL (3.5-5.2) 10/01/22 10:50 Globulin 3.8 g/dL (1.3-4.6) 10/01/22 10:50 Influenza Type A Ag negative (Negative) 10/01/22 10:55 Influenza Type B Ag negative (Negative) 10/01/22 10:55 SARS-CoV-2 Ag (Rapid) negative (Negative) 10/01/22 10:55 Discharge Plan Discharge Patient Disposition: Admitted As Inpatient Clinical Impression: Pneumonia, Acute respiratory failure with hypoxia Condition: Stable Coding Level of Care Code ED Imager for Jarett Lr
[2022-10-01] MEDS: sodium chloride 0.9% 1,000 ML 999 ML IV (10:31)
--- NOTE | 2022-10-01 10:31 | ECG_ITS ---
[facility] Test Date: 2022-10-01 Pat Name: Luna Mathis (KAYE) Department: Room: Gender: Female Extension Course Counselor: : 1950 Requested By: Maroln Osullivan Order Number: [id number] Reading MD: Lowell Jade M.D. Measurements Intervals [place] Rate: 120 P: 82 AR: 162 QRS: 221 QRSD: 81 T: 76 QT: 306 QTc: 434 Interpretive Statements SINUS TACHYCARDIA RIGHT AXIS DEVIATION [QRS AXIS > 100] S1-S2-S3 PATTERN, CONSISTENT WITH PULMONARY DISEASE, RVH, OR NORMAL VARIANT PATTERN CONSISTENT WITH PULMONARY DISEASE SEPTAL MYOCARDIAL INFARCTION , PROBABLY OLD [40+ ms Q WAVE IN V1/V2] Compared to ECG 04/19/2020 16:29:02 Right ventricular hypertrophy now present Myocardial infarct finding still present Electronically Signed On 10-02-2022 8:54:05 ACOUSTICAL TILE DRILL PRESS OPERATOR by Lowell Jade M.D. [email or web address]
[2022-10-01 10:39] LABS: ABG PCO2 38.9 mmHg (35-45); Arterial Blood Gas Hematocrit 42.2 % (37-47); Base Excess ABG -0.6 mmol/L (-2.0-2.0); Blood Gas Allen Test Pos; Blood Gas Sample Site Radial, right; Blood Gas Sample Type Arterial; Carboxyhemoglobin 1.9 %THgb (0.4-20.1); HCO3 ABG 24.1 mmol/L (22-26); HGB O2 Sat 91.5 % (95-100); Methemoglobin 0.6 % (0.4-1.5); Oxygen Device NC; Total Hemoglobin 13.8 g/dL (12-16)
[2022-10-01 11:13] LABS: Basophils % 0.3 %; Hematocrit 46.3 % (37.0-47.0); Hemoglobin 14.5 g/dL (11.5-15.3); Lymphocytes # 0.8 10^3/uL (0.8-4.8); Lymphocytes % 11.3 %; Mean Corpuscular HGB Conc 31.3 g/dL (30.0-36.0); Mean Corpuscular Hemoglobin 28.8 pg (28.0-34.0); Mean Corpuscular Volume 91.9 fl (81-99); Mean Platelet Volume 9.5 fL (7.4-10.4); Monocytes # 0.4 10^3/uL (0.2-0.9); Monocytes % 5.3 %; Neutrophils # 5.91 10^3/uL (1.8-7.7); Neutrophils % 82.7 %; Nucleated Red Blood Cells % 0 %; Platelet Count 263 10^3/cmm (130-400); Red Blood Count 5.04 10^6/uL (4.1-5.3); Red Cell Distribution Width 13.5 % (12.1-15.1); White Blood Count 7.2 10^3/uL (4.0-10.0)
[2022-10-01 11:26] LABS: INR 1.03 (0.8-1.2)
[2022-10-01 11:29] LABS: D Dimer 1.13 ug/mIFEU (0-0.59)
--- NOTE | 2022-10-01 11:31 | CTR_ITS ---
PROCEDURE INFORMATION: Exam: CTA Chest With Contrast Exam date and time: 10/01/2022 12:35 PM Age: 71 years old Clinical indication: Shortness of breath. TECHNIQUE: Imaging protocol: Computed tomographic angiography of the chest with contrast. 3D rendering (Not supervised by radiologist): MIP and/or 3D reconstructed images were created by the technologist. Radiation optimization: All CT scans at this facility use at least one of these dose optimization techniques: automated exposure control; mA and/or kV adjustment per patient size (includes targeted exams where dose is matched to clinical indication); or iterative reconstruction. Contrast material: OMNI 350; Contrast volume: 61 ml; Contrast route: INTRAVENOUS (IV); Other protocol: This patient has received 0 known CTs and 0 known cardiac nuclear medicine studies in the 12 months prior to the current study. COMPARISON: CR (CHEST, ) 10/01/2022 10:53 AM RADIATION DOSE METRICS: Total DLP (mGy-cm): 141.95 FINDINGS: Pulmonary arteries: No pulmonary embolus. Aorta: No thoracic aortic aneurysm. No thoracic aortic dissection. Lungs: Patchy consolidation in the lower lobes. Moderate to advanced centrilobular emphysema. There is a mass immediately anterior to the right hilum measuring 2.4 x 3.2 cm. This appears centrally necrotic containing gas. There is adjacent consolidation that could reflect pneumonia. Pulmonary nodule in the right upper lobe measuring 1.3 cm (image 173). Pulmonary nodule in the right middle lobe measuring 4.8 mm (image 305). Pulmonary nodule in the right lower lobe measuring 4.3 mm (image 236). Subpleural pulmonary nodule in the right lower lobe measuring 1 cm (image 237). Solid nodule in the right upper lobe measuring 3.9 mm (image 224). Solid nodule in the right upper lobe measuring 5.2 mm (image 216). Solid nodule in the right upper lobe measuring 5.4 mm (image 212). Solid nodule in the right upper lobe measuring 3.4 mm (image 212). Solid nodule in the left upper lobe measuring 1.2 cm (image 133). Solid nodule in the left upper lobe measuring 7.6 mm (image 217). Numerous additional pulmonary nodules are seen. There is peribronchial wall thickening bilaterally. There are foci of bronchial impaction bilaterally. Pleural spaces: No pleural effusion. No pneumothorax. Heart: No pericardial effusion. Coronary arteries: Coronary arterial calcifications are seen. Lymph nodes: A right hilar lymph node measures 1.8 x 2.7 cm (image 233). A precarinal lymph node measures 1.2 x 1.5 cm (image 218). A left hilar lymph node measures 1.0 x 1.3 cm (image 161). Diaphragm: No hiatal hernia. Liver: Indeterminate mass in the right hepatic lobe measuring 1.9 cm (image 563). Indeterminate mass in the right hepatic lobe measuring 2.1 cm (image 152) indeterminate mass in the right hepatic lobe measuring 1.2 cm (image measuring 32). Bones/joints: No acute fracture is seen. CT/CT angio chest PE protcl [id number] IMPRESSION: 1. No pulmonary embolus. 2. Numerous pulmonary nodules/masses. A mass anterior to the right hilum appears centrally necrotic. This is concerning for primary and/or metastatic disease. Recommend PET-CT or biopsy for definitive characterization. 3. Marked peribronchial wall thickening; query viral infection/bronchitis, chronic bronchitis, chronic aspiration and/or asthma. There are foci of bronchial impaction bilaterally with patchy bibasilar consolidation concerning for pneumonia/aspiration pneumonia. 4. Marked mediastinal and bilateral hilar lymphadenopathy. This is concerning for metastatic disease. 5. Multiple hepatic masses concerning for metastatic disease. Recommend MRI of the abdomen hepatic protocol with and without contrast to better characterize. 6. Consolidation adjacent to the right hilar mass that could reflect pneumonia. 7. Moderate to advanced centrilobular emphysema. 8. Coronary artery disease. COMMENTS: In the absence of a history or active diagnosis of lung cancer, it is recommended that this patient with emphysema be evaluated for enrollment in a low dose CT lung cancer screening program.
[2022-10-01 11:45] LABS: Alanine Aminotransferase 9 U/L (0-33); Albumin Level 4.4 g/dL (3.5-5.2); Alkaline Phosphatase 70 U/L (35-105); Anion Gap 20.5 (5-19); Aspartate Amino Transferase 24 U/L (0-32); Blood Urea Nitrogen 10 mg/dL (8-23); Calcium 9.4 mg/dL (8.5-10.5); Carbon Dioxide 25 mmol/L (22-29); Chloride 87 mmol/L (98-107); Globulin 3.8 g/dL (1.3-4.6); Glomerular Filtration Rate 158.3 mL/min (90-130); Glucose 101 mg/dL (65-115); NT Pro B Type Natriuretic Pept 1064 pg/mL (0-125); Osmolality Calculated 265 mOsm/kg (285-295); Potassium 4.5 mmol/L (3.5-5.1); Sodium 128 mmol/L (136-145); Total Bilirubin 0.5 mg/dL (0.15-1.2); Total Protein 8.2 g/dL (6.6-8.7)
[2022-10-01 11:50] LABS: Influenza A by IFA negative (Negative); Influenza B by IFA negative (Negative); SARS Covid-2 Antigen negative (Negative)
[2022-10-01] MEDS: albuterol 2.5 mg/3 mL Neb INHALATION (11:55)
[2022-10-01] MEDS: iohexol 350 mg/mL 500 mL Btl (per mL) IV (12:41)
[2022-10-01] MEDS: cefTRIAXone 1,000 MG in sodium chloride 0.9% (plus) 50 ML 100 MG IV (13:37)
--- NOTE | 2022-10-01 15:00 | PM.HP ---
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 Patient tells me that she is here at [facility] as she has been feeling increasingly short of breath, having a productive cough thick sputum, no fevers, no chills, does have fatigue, does have malaise. No chest pain, palpitations. Has been losing weight has lost about 20 pounds in the last few months. No hemoptysis. No bloody or black stools. She continues to smoke has a history of COPD. Review of Systems Const: Denies: fever(s) or chills Eyes: Denies: change in vision ENMT: Denies: nasal congestion Card: Denies: chest pain or palpitations Resp: Denies: wheezing GI: Denies: abdominal pain, nausea, vomiting, diarrhea, hematochezia or melena : Denies: flank pain, dysuria or urinary frequency Musc: Denies: neck pain or back pain Skin/Breast: Denies: rash Neuro: Denies: headache(s), dizziness or vertigo Psych: Denies: anxiety or depression Endo: Denies: polyuria or polydipsia Calvin/Lymph: Reports: easy bruising Medications/Allergies Home Medications Medication Instructions Recorded Confirmed Last Taken Type mouthwashes 5 ml PO DAILY PRN pain 12/07/21 01/04/22 Unknown History Allergies Allergy/AdvReac Type Severity Reaction Status Date / Time aspirin Allergy ALGY-Hives Verified 01/04/22 09:56 PFSH Acute PFSH: Medical History (Updated 10/01/22 @ 15:21 by Curry Her MD) History of COPD History of dysphagia History of emphysema 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 (06/03/20) left subclavian removed 12/08 Squamous cell carcinoma of right tonsil Surgical History Cancer of hypopharynx History of right hip replacement Family History (Updated 10/01/22 @ 15:22 by Curry Her MD) Father Surgical complication Other CAD (coronary artery disease) Denies family history of Anesthesia complication Bleeding disorder Social History (Updated 10/01/22 @ 15:23 by Curry Her MD) Smoking and tobacco status: current every day smoker ( half a pack a day ) cigarettes Packs smoked per day: 0.5 Years cigarettes smoked: 48 Alcohol intake: never Substance/Drug Use: never Vitals/I&O/Wt Last Vital Signs Temp 98.3 F 10/01/22 10:17 Pulse 102 H 10/01/22 14:15 Resp 19 H 10/01/22 14:15 BP 126/84 10/01/22 14:15 Pulse Ox 98 10/01/22 14:15 O2 Del Method 10/01/22 11:56 O2 Flow Rate 3 10/01/22 11:56 10/01/22 10/01/22 10/01/22 06:59 14:59 22:59 Intake Total 1050 / 1050 Balance 1050 / 1050 Weight last 48 hrs Weight 39.916 kg Physical Exam Const: COMMON NORMALS: no acute distress and patient oriented x3 HENMT: COMMON NORMALS: normocephalic HEAD & SCALP: normocephalic OTHER: Smokers tongue Eye: COMMON NORMALS: Equal, round and reactive pupils present Neck/C-Spine: COMMON NORMALS: no JVD Lymph: LYMPHATIC: lymphadenopathy Chest: COMMONS NORMALS: normal inspection of the chest Resp: COMMON NORMALS: normal respiratory effort, No retractions and No use of accessory muscles AUSCULTATION: wheezes Cardio: COMMON NORMALS: no JVD, regular rate, regular rhythm, S1 normal heart sound present and S2 normal heart sound present RATE: regular rate RHYTHM: regular rhythm HEART SOUNDS: S1 normal heart sound present and S2 normal heart sound present GI: COMMON NORMALS: Normal to inspection, nondistended, normoactive bowel sounds present, Soft to palpation and non-tender PALPATION: Yes Soft to palpation and Yes No hepatosplenomegaly present : COMMON NORMALS: Yes no CVA tenderness Extremity: COMMON NORMALS: no clubbing, cyanosis or edema, no calf tenderness and no pedal edema Neuro: COMMON NORMALS: patient oriented x3, CN's II-XII intact bilaterally, moves all extremities and no focal motor deficits Psych: COMMON NORMALS: mental status grossly normal Data 10/01/22 10:50 10/01/22 10:50 Micro: Microbiology 10/01/22 10:52 Blood Culture - Preliminary Blood SPECIMEN COLLECTED 10/01/22 10:50 Blood Culture - Preliminary Blood SPECIMEN COLLECTED A&P Assessment and plan (1) Pneumonia: (2) Acute respiratory failure with hypoxia: (3) Protein calorie malnutrition: (4) Severe muscle deconditioning: (5) Muscle wasting: (6) Weight loss: (7) BMI less than 19,adult: (8) Cancer of hypopharynx: (9) Aspiration pneumonia: (10) Aspiration pneumonitis: (11) 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: (12) Mediastinal lymphadenopathy: (13) Hilar adenopathy: (14) Centrilobular emphysema: (15) Hilar mass: (16) Metastasis to liver of unknown origin: (17) Hyponatremia: (18) Smoker: (19) COPD exacerbation: (20) On deep vein thrombosis (DVT) prophylaxis: (21) Cancer cachexia: (22) Low BMI: Plan Acute hypoxic respiratory failure -Multifactorial from aspiration pneumonia, pneumonia, aspiration pneumonitis, COPD exacerbation Aspiration pneumonia/aspiration pneumonitis -CT angiogram findings highly suspicious for aspiration pneumonia aspiration pneumonitis -Likely secondary to history of chemoradiation for oropharyngeal cancer -Has seen ENT as outpatient, there is been concerns for aspiration -She reports chronic cough, throat clearing, globus sensation Plan -Admit to general medical floors -Aspiration precautions -Speech therapy evaluation -Consider modified barium swallow -She might also benefit from an EGD as outpatient for evaluation for esophagitis or esophageal disorder -She also will benefit from ENT evaluation as outpatient nasal laryngeal endoscopy -Continue broad-spectrum antibiotic therapy Zosyn -Follow sputum cultures, blood cultures -Monitor respiratory status closely -Steroid therapy for aspiration pneumonitis Aspiration pneumonitis, steroids as above Choking, coughing, globus sensation -Speech therapy evaluation -Consider modified barium swallow -She might also benefit from an EGD as outpatient for evaluation for esophagitis or esophageal disorder -She also will benefit from ENT evaluation as outpatient nasal laryngeal -Continue Mucinex -Mucomyst as needed COPD exacerbation -Continue Solu-Medrol 125 once followed by 40 every 8 hours -DuoNeb, budesonide Pneumonia Has patchy bibasilar consolidation -Continue vancomycin, Zosyn as above -Blood cultures, sputum cultures Hyponatremia -Possible hyponatremia or related to lung malignancy Hilar mass, with mediastinal hilar lymphadenopathy, with numerous pulmonary nodules masses, mass anterior to the right hilum -Smoker -Highly suspicious of primary versus metastatic malignancy with history of oropharyngeal cancer Evidence of multiple metastatic lesions in liver -Highly suspicious of metastatic malignancy from lung or oropharyngeal cancer Protein calorie malnutrition, consult speech therapy consult dietary Physical deconditioning PT OT Severe muscle wasting, physical deconditioning Goals of care discussion full code DVT prophylaxis Lovenox Cancer cachexia BMI 13.8 Attestations Medical Necessity Statement*: Patient requires hospitalization, inpatient, greater than 2 midnights, for aspiration pneumonia, aspiration pneumonitis, acute hypoxic ruma failure, hyponatremia, metastasis to the liver with unknown origin, metastasis to the lung with unknown origin, with hilar adenopathy, mediastinal lymphadenopathy, hilar mass, protein calorie malnutrition, deconditioning, smoker, COPD exacerbation and High Time for a total of 60 minutes, includes reviewing past or interval history, examining/interviewing patient, placing orders, counseling patient/family/other support, updating patient/family/other support, discussing plan of care with staff, communicating with other healthcare providers, documenting encounter and coordinating care Diagnoses Pneumonia J18.9 Acute respiratory failure with hypoxia J96.01 Protein calorie malnutrition E46 Severe muscle deconditioning R29.898 Muscle wasting M62.50 Weight loss R63.4 BMI less than 19,adult Z68.1 Cancer of hypopharynx C13.9 Aspiration pneumonia J69.0 Aspiration pneumonitis J69.0 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
--- NOTE | 2022-10-01 15:08 | USCV_ITS ---
Luna Mathis(ELY) Age: 71 Gender: F : 1950 Exam Date: 10/01/2022 16:13 Ordering Phys: Curry Her MD Technologist: LEVON Exam Location: [facility] [place] Indication: sob BP: / HR: 109 Rhythm: Sinus Technical Quality: Adequate MEASUREMENTS (Male / Female) Normal Values 2D ECHO LV Diastolic Diameter PLAX 3.1 cm 4.2 - 5.9 / 3.9 - 5.3 cm LV Systolic Diameter PLAX 1.7 cm IVS Diastolic Thickness 0.9 cm 0.6 - 1.0 / 0.6 - 0.9 cm IVS Systolic Thickness 1.2 cm LVPW Diastolic Thickness 0.9 cm 0.6 - 1.0 / 0.6 - 0.9 cm LVPW Systolic Thickness 1.3 cm LVOT Diameter 1.9 cm LV Ejection Fraction 2D Teich 77.8 % LV Ejection Fraction MOD 2C 43.0 % LV Ejection Fraction 2C AL 44.0 % LA Diameter 3.0 cm IVC Diameter 1.5 cm M-MODE Aortic Annulus Diameter 2.3 cm LA Ao Ratio MM 1.7 MV E Point Septal Separation 0.2 cm DOPPLER AV Peak Velocity 111.0 cm/s LVOT Peak Velocity 97.0 cm/s AV Area Cont Eq vti 2.4 cm squared AV Area Cont Eq pk 2.5 cm squared MV Area PHT 5.9 cm squared Mitral E to A Ratio 0.7 MV E' Velocity 35.0 cm/s Mitral E to MV E' Ratio 12.8 Mitral E to LV E' Lateral Ratio 11.3 Mitral E to LV E' Septal Ratio 14.9 TR Peak Velocity 269.0 cm/s TR Peak Gradient 28.9 mmHg Right Atrial Pressure 6.0 mmHg Pulmonary Artery Systolic Pressu 34.9 mmHg PV Peak Velocity 79.0 cm/s FINDINGS Left Ventricle Normal left ventricular size, systolic function and wall thickness, with no regional wall motion abnormalities. Grade I/IV diastolic dysfunction (abnormal relaxation filling pattern), normal to mildly elevated filling pressures. Left ventricular ejection fraction is estimated at 65 %. Right Ventricle Normal right ventricular size and systolic function. Mild pulmonary hypertension, RVSP 34.9 mmHg. Right Atrium The right atrium is normal in size. Left Atrium The left atrium is normal in size. Mitral Valve Structurally normal mitral valve. Mild mitral valve regurgitation. Aortic Valve Structurally normal aortic valve without significant sclerosis or stenosis. There is no aortic regurgitation. Tricuspid Valve Structurally normal tricuspid valve. [id number] tricuspid valve regurgitation. Pulmonic Valve Pulmonic valve not well visualized. Pericardium Normal pericardium without effusion. Aorta Normal ascending aorta dimension. IVC The inferior vena cava appears normal. CONCLUSIONS Normal left ventricular size, systolic function and wall thickness, with no regional wall motion abnormalities. Grade I/IV diastolic dysfunction (abnormal relaxation filling pattern), normal to mildly elevated filling pressures. Left ventricular ejection fraction is estimated at 65 %. Normal right ventricular size and systolic function. Mild pulmonary hypertension, RVSP 34.9 mmHg. Structurally normal mitral valve. Mild mitral valve regurgitation. Structurally normal tricuspid valve. Bnqljnhq-kl-[id number] tricuspid valve regurgitation. There are no prior echocardiogram studies to compare. Dr. David Osorio MD (Electronically Signed) Final Date: 02 October 2022 10:15 S
--- NOTE | 2022-10-01 15:17 | ECG_ITS ---
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 Measurements Intervals [place] Rate: 108 P: 82 OK: 156 QRS: 154 QRSD: 80 T: 74 QT: 336 QTc: 451 Interpretive Statements SINUS TACHYCARDIA RIGHT AXIS DEVIATION [QRS AXIS > 100] PATTERN CONSISTENT WITH PULMONARY DISEASE POSSIBLE RIGHT VENTRICULAR CONDUCTION DELAY [RSR (QR) IN V1/V2] SEPTAL MYOCARDIAL INFARCTION , OF INDETERMINATE AGE [40+ ms Q WAVE IN V1/V2] Compared to ECG 10/01/2022 10:31:33 Right ventricular hypertrophy no longer present Myocardial infarct finding still present Electronically Signed On 10-02-2022 8:53:42 SLIP MIXER by Lowell Jade M.D. [id number]
[2022-10-01] MEDS: vancomycin 500 MG in sodium chloride 0.9% (plus) 100 ML 200 MG IV (16:57)
[2022-10-01] MEDS: enoxaparin 40 mg/0.4 mL Syringe SUBCUT (16:57)
[2022-10-01] MEDS: pantoprazole 40 mg SDV IVP (16:58)
[2022-10-01 17:03] LABS: Troponin(5th) Baseline 64 ng/L (0-10)
[2022-10-01 17:09] LABS: Procalcitonin 0.14 ng/mL (0-0.5)
[2022-10-01 17:20] LABS: Chol HDL Ratio 3.95 mg/dL (0.0-4.40); Cholesterol 158 mg/dL (0-200); Creatine Phosphokinase 217 U/L (26-192); HDL Cholesterol 40 mg/dL (60-100); LDL Cholesterol Calculated 97 mg/dL (50-129); LDL HDL Ratio 2.43 RATIO (0.00-3.22); Phosphorus 2.5 mg/dL (2.5-4.5); Triglycerides 103 mg/dL (0-150)
--- NOTE | 2022-10-01 18:01 | ECG_ITS ---
[facility] Test Date: 2022-10-01 Pat Name: Luna Mathis (KAYE) Department: Room: 254 Gender: Female Hospital Account Liaison: : 1950 Requested By: Curry Her Order Number: [id number] Reading MD: Lowell Jade M.D. Measurements Intervals [place] Rate: 104 P: 83 NC: 136 QRS: 231 QRSD: 89 T: 63 QT: 357 QTc: 470 Interpretive Statements SINUS TACHYCARDIA RIGHT VENTRICULAR HYPERTROPHY [SOME/ALL OF: PROMINENT R IN V1, LATE TRANSITION, RAD, CAMILO, SSS] ANTEROSEPTAL MYOCARDIAL INFARCTION , OF INDETERMINATE AGE [40+ ms Q WAVE IN V1-V4] Compared to ECG 10/01/2022 15:17:14 Atrial abnormality now present Right ventricular hypertrophy now present Right-axis deviation no longer present Myocardial infarct finding still present Electronically Signed On 10-02-2022 11:23:37 SOUND TRUCK OPERATOR by Lowell Jade M.D. [id number]
[2022-10-01] MEDS: piperacillin-tazobactam 3.375 GM in sodium chloride 0.9% (plus) 50 ML IV (18:03)
[2022-10-01] MEDS: guaiFENesin 600 mg Tablet PO (18:07)
[2022-10-01 18:25] LABS: Lactic Sepsis W/Reflex 1.3 mmol/L (0.5-2.2)
[2022-10-01 18:27] LABS: Troponin 5 2HR 64.74 ng/L (0-10)
[2022-10-01 18:31] LABS: Troponin 5 2HR Delta 0.74 ABS# (0-10)
[2022-10-01] MEDS: budesonide 0.5 mg/2 mL Neb INHALATION (19:34)
[2022-10-01] MEDS: ipratropium-albuterol 3 mL Neb INHALATION ×2 (19:34→23:15)
[2022-10-01 21:06] LABS: Troponin 5 6HR 65.02 ng/L (0-10)
[2022-10-01 21:09] LABS: Troponin 5 6HR Delta 1.02 ng/L (0-12)
[2022-10-01 21:52] LABS: Estmated Average Glucose 85; Hemoglobin A1C 4.6 % (4.0-6.0)
[2022-10-02] VITALS (17 sets, daily range): BP systolic 120–155; BP diastolic 68–88; PULSE 76–126; RESP 16–18; TEMP 36.4–36.8; O2SAT 89–97
[2022-10-02] MEDS: piperacillin-tazobactam 3.375 GM in sodium chloride 0.9% (plus) 50 ML IV ×3 (00:30→16:58)
[2022-10-02] MEDS: vancomycin 500 MG in sodium chloride 0.9% (plus) 100 ML 200 MG IV ×2 (04:22→16:10)
[2022-10-02 05:47] LABS: Basophils % 0.2 %; Hematocrit 39.5 % (37.0-47.0); Hemoglobin 12.6 g/dL (11.5-15.3); Lymphocytes # 0.9 10^3/uL (0.8-4.8); Lymphocytes % 15.8 %; Mean Corpuscular HGB Conc 31.9 g/dL (30.0-36.0); Mean Corpuscular Hemoglobin 29.7 pg (28.0-34.0); Mean Corpuscular Volume 93.2 fl (81-99); Mean Platelet Volume 9.8 fL (7.4-10.4); Monocytes # 0.3 10^3/uL (0.2-0.9); Monocytes % 4.9 %; Neutrophils # 4.45 10^3/uL (1.8-7.7); Neutrophils % 78.4 %; Nucleated Red Blood Cells % 0 %; Platelet Count 240 10^3/cmm (130-400); Red Blood Count 4.24 10^6/uL (4.1-5.3); Red Cell Distribution Width 13.4 % (12.1-15.1); White Blood Count 5.7 10^3/uL (4.0-10.0)
[2022-10-02 06:04] LABS: Blood Urea Nitrogen 8 mg/dL (8-23); Calcium 8.7 mg/dL (8.5-10.5); Carbon Dioxide 23 mmol/L (22-29); Chloride 96 mmol/L (98-107); Glomerular Filtration Rate 220.6 mL/min (90-130); Glucose 119 mg/dL (65-115); Magnesium 2.1 mg/dL (1.7-2.3); Osmolality Calculated 277 mOsm/kg (285-295); Phosphorus 2.4 mg/dL (2.5-4.5); Sodium 134 mmol/L (136-145)
[2022-10-02 06:09] LABS: Anion Gap 19.1 (5-19); Potassium 4.1 mmol/L (3.5-5.1)
[2022-10-02 06:52] LABS: Slide Review Slide Review Perform
[2022-10-02] MEDS: guaiFENesin 600 mg Tablet PO ×2 (08:55→17:14)
[2022-10-02] MEDS: budesonide 0.5 mg/2 mL Neb INHALATION ×2 (09:00→20:10)
[2022-10-02] MEDS: ipratropium-albuterol 3 mL Neb INHALATION ×4 (09:00→20:10)
--- NOTE | 2022-10-02 09:30 | FL_ITS ---
WS: [id number] MODIFIED BARIUM SWALLOW TECHNIQUE: Modified barium swallow with speech therapy using multiple consistencies. FLUOROSCOPY TIME: 3min [id number] # of spot films: 0 CLINICAL INFORMATION: Oral dysphagia COMPARISON: None. FINDINGS: Multiple consistencies utilized. No evidence of penetration or doron aspiration. Pooling in the fernandez cula with early spillage. Pharyngeal hypotonia with decreased swallowing contracture due to prior stella opharyngeal surgery and radiation. FL/FL barium swallow modifd [id number] IMPRESSION: 1. No evidence of penetration or doron aspiration. 2. Pharyngeal hypotonia with overall decreased swallowing force due to prior n asopharyngeal surgery and radiation. 3. Pooling in the vallecula with early spillage.
--- NOTE | 2022-10-02 11:54 | PC.CHAP ---
Pastoral Care Encounter/Spiritual Assessment Type of Contact [] Declined comb setter visit [] Patient/Family/Request visit [] Outpatient visit [] Follow-up visit [] Physician referral [] Code/Alert [x] Routine visit [] Staff referral [] Actively dying [] Patient sleeping [x] Family support [] [] Out of room [] Palliative care [] [] Receiving care in room [] Pre-surgical visit [] Trauma [] Long length of stay [] ICU visit [] Other: Relational/Emotional Strength [x] Patient feels connected with others/family/visitors/staff [] Distress [] Loneliness/isolation [] Abandonment Spirituality of Patient [x] Person of Marsha [] Attends Latter Day of their Marsha [x] Believes in Prayer [] Reads Bible or Druze materials [] There are Spiritual issues to be addressed [place] [employer] Interventions [x] Prayer [x] Active listening x[] Non-anxious presence []x Spiritual/emotional support [] Crisis/trauma care [] Spiritual counseling [] Bereavement support [] Provided bereavement packet [] Provided Bible/devotional materials [] Provided toy/stuffed animal, coloring book to patient or family member [] Provided Communion [] Anointing/[place] [] Salvation x[x] Completed spiritual assessment [] Other: Impact on Illness or Injury [] Angry [] Fearful [] Anxious [] Often cries [] Exhaustion [] Unable to work [] Unable to attend samaritan [] Unable to walk/stand [] Unable to read [] Unable to drive [] Unable to eat/drink [] Unable to sleep [] Unable to be with family [] Patient intubated [] Other: Summary Time spent with patient 10 min
[2022-10-02] MEDS: enoxaparin 40 mg/0.4 mL Syringe SUBCUT (15:43)
[2022-10-02] MEDS: pantoprazole 40 mg SDV IVP (16:07)
--- NOTE | 2022-10-02 16:28 | P.PN_ITS ---
Subjective Subjective: She is doing slightly better. Coughing, not bringing up much phlegm. She is awaiting modified barium swallow. Vitals/I&O/Wt Last Vital Signs Temp 97.7 F 10/02/22 15:48 Pulse 97 10/02/22 15:48 Resp 16 10/02/22 15:48 BP 155/88 10/02/22 15:48 Pulse Ox 97 10/02/22 15:48 O2 Del Method 10/02/22 15:48 O2 Flow Rate 2 10/02/22 15:17 10/02/22 10/02/22 10/02/22 06:59 14:59 22:59 Intake Total 150 / 1830 510 / 510 Balance 150 / 1830 510 / 510 Weight last 48 hrs Weight 38.283 kg Weight 39.916 kg Physical Exam Narrative: Accompanied by family Const: COMMON NORMALS: patient oriented x3 and alert GENERAL APPEARANCE: cooperative ORIENTATION/CONSCIOUSNESS: Yes awake HENMT: COMMON NORMALS: oropharynx normal OTHER: Moderate to severe dysarthria Neck/C-Spine: COMMON NORMALS: no JVD Resp: COMMON NORMALS: normal respiratory effort AUSCULTATION: diminished lung sounds Cardio: COMMON NORMALS: no JVD, regular rhythm, S1 normal heart sound present, S2 normal heart sound present and No murmurs present (Cardio) RHYTHM: regular rhythm HEART SOUNDS: S1 normal heart sound present and S2 normal heart sound present GI: COMMON NORMALS: Normal to inspection, nondistended, normoactive bowel sounds present, Soft to palpation and non-tender PALPATION: Yes Soft to palpation Extremity: COMMON NORMALS: no joint enlargement and no pedal edema OTHER: Thin, low subcutaneous fat, severely sarcopenic, Neuro: COMMON NORMALS: patient oriented x3 and moves all extremities SENSORIUM/ORIENTATION: Yes alert Skin: COMMON NORMALS: no rashes or lesions noted GENERAL SKIN EXAM: no rashes or lesions noted Data 10/02/22 05:07 10/02/22 05:07 Micro: Microbiology 10/01/22 18:09 MRSA Culture - Final Nose 10/01/22 10:52 Blood Culture - Preliminary Blood NEGATIVE TO DATE 10/01/22 10:50 Blood Culture - Preliminary Blood NEGATIVE TO DATE A&P Assessment and plan (1) Pneumonia: Prior hospitalist documentation reviewed. Discussed with her, discussed with pulmonology, continue empiric management currently for aspiration pneumonia, COPD exacerbation, today also underwent assessment with modified barium swallow. Results appreciated. Discussed her condition with speech therapy. Concerns for difficulty with airway and access for bronchoscopy. Empiric medical management at this time, subsequently follow-up with PET scan in office for further assessment of lung mass, suspected metastatic malignancy. With moderate to severe dysarthria to confirm with her daughter. Improving. Home oxygen evaluation prior to discharge. Discussed with case management, nursing. (2) Aspiration pneumonia: Continue aspiration precautions. Did not aspirate during study, but pharyngeal hypotonia, decreased swallowing force. Pooling in the vallecula with early spillage. And risk of aspiration, additionally explained difficulties with solids. Will likely require to obtain most of her nutrition from liquids. Continue boost breeze. (3) COPD exacerbation: Decrease Solu-Medrol dose. (4) Hilar mass: Discussed with pulmonology, complete empiric treatment for aspiration pneumonia, follow-up with pulmonology in office for referral for PET scan, consideration of further steps with anticipated airway access difficulty with history of radiation therapy. (5) Protein calorie malnutrition: Severe malnutrition with low subcutaneous fat, muscle wasting. BMI 13.2. Unfortunately has difficulties with swallowing. Continue protein supple mentation, likely may need to meet most of her calorie requirements with liquids. Increase boost breeze to 3 times daily. 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 -Mucomyst as needed Hyponatremia: Sodium level appreciated, up to 134. Improving. Evidence of multiple metastatic lesions in liver as above Physical deconditioning PT OT Severe muscle wasting, physical deconditioning Goals of care discussion full code DVT prophylaxis Lovenox Cancer cachexia BMI 13.8 Attestations Medical Necessity Statement*: Continue admission for assessment of management of pneumonia, COPD exacerbation, aspiration pneumonia, weaning off steroid, optimization of oral diet with severe protein calorie malnutrition. Diagnoses Pneumonia J18.9 Aspiration pneumonia J69.0 COPD exacerbation J44.1 Hilar mass R91.8 Protein calorie malnutrition E46 Severe muscle deconditioning R29.898 Muscle wasting M62.50 Weight loss R63.4 BMI less than 19,adult Z68.1 Cancer of hypopharynx C13.9 Aspiration pneumonitis J69.0 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 C78.01; C80.1 Mediastinal lymphadenopathy R59.0 Hilar adenopathy R59.0 Centrilobular emphysema J43.2 Metastasis to liver of unknown origin C78.7; C80.1 Hyponatremia E87.1 Smoker F17.200 On deep vein thrombosis (DVT) prophylaxis Z79.899 Cancer cachexia R64 Low BMI
[2022-10-03] VITALS (13 sets, daily range): BP systolic 142–152; BP diastolic 79–84; PULSE 62–138; RESP 15–18; TEMP 36.4–36.8; O2SAT 87–97
[2022-10-03] MEDS: piperacillin-tazobactam 3.375 GM in sodium chloride 0.9% (plus) 50 ML IV ×2 (00:08→08:09)
[2022-10-03] MEDS: ipratropium-albuterol 3 mL Neb INHALATION ×3 (03:15→11:05)
[2022-10-03 03:24] LABS: Vancomycin Trough 6.8 ug/mL (10-15)
[2022-10-03] MEDS: vancomycin 500 MG in sodium chloride 0.9% (plus) 100 ML 200 MG IV (04:01)
[2022-10-03] MEDS: budesonide 0.5 mg/2 mL Neb INHALATION (07:53)
[2022-10-03] MEDS: guaiFENesin 600 mg Tablet PO (08:07)
--- NOTE | 2022-10-03 09:57 | ECG_ITS ---
[facility] Test Date: 2022-10-03 Pat Name: Luna Mathis (KAYE) Department: Room: 254 Gender: Female Food Service Coordinator: : 1950 Requested By: Tony Herrera Order Number: [id number] Reading MD: Lowell Jade M.D. Measurements Intervals [place] Rate: 112 P: 83 MS: 162 QRS: 58 QRSD: 94 T: 27 QT: 324 QTc: 443 Interpretive Statements SINUS TACHYCARDIA WITH OCCASIONAL VENTRICULAR PREMATURE COMPLEXES LOW QRS VOLTAGE IN EXTREMITY LEADS [QRS DEFLECTION < 0.5 mV IN LIMB LEADS] POSSIBLE ANTERIOR MYOCARDIAL INFARCTION , OF INDETERMINATE AGE [30 ms Q WAVE IN V3/V4, OR R < 0.2 mV IN V4] Compared to ECG 10/01/2022 18:01:39 Ventricular premature complex(es) now present Low QRS voltage now present Right ventricular hypertrophy no longer present Atrial abnormality no longer present Myocardial infarct finding still present Electronically Signed On 10-03-2022 11:43:26 NEEDLE MOLDER by Lowell Jade M.D. [id number]
[2022-10-03 11:37] LABS: Blood Urea Nitrogen 9 mg/dL (8-23); Calcium 9.3 mg/dL (8.5-10.5); Carbon Dioxide 24 mmol/L (22-29); Chloride 98 mmol/L (98-107); Glomerular Filtration Rate 220.6 mL/min (90-130); Glucose 105 mg/dL (65-115); Magnesium 2.2 mg/dL (1.7-2.3); Osmolality Calculated 285 mOsm/kg (285-295); Sodium 138 mmol/L (136-145)
[2022-10-03 11:39] LABS: Anion Gap 19.5 (5-19); Potassium 3.5 mmol/L (3.5-5.1)
[2022-10-03 11:42] LABS: Troponin T (5th) Once 44 ng/L (0-10)
[2022-10-03] MEDS: ALPRAZolam 0.5 mg Tablet PO (11:49)
[2022-10-03] MEDS: nicotine 4 mg lozenge MUCOUS MEM (12:15)
[2022-10-03] MEDS: potassium chloride oral liq 20 mEq/15 mL UDC PO (12:46)
--- NOTE | 2022-10-03 14:31 | P.DS_ITS ---
Discharge Providers Date of Admission: 10/01/22 13:28 Date of Discharge: October 03, 2022 Attending Provider at Admission: Curry Her MD Attending Provider at Discharge: Tony Herrera Primary Care Provider: Alka Tristan NP Diagnoses at Discharge Discharge Diagnosis (1) Pneumonia: Status: Acute (2) Aspiration pneumonia: Status: Acute (3) COPD exacerbation: Status: Acute (4) Hilar mass: Status: Acute (5) Protein calorie malnutrition: Status: Acute (6) Severe muscle deconditioning: Status: Acute (7) Muscle wasting: Status: Acute (8) Weight loss: Status: Acute (9) BMI less than 19,adult: Status: Acute (10) Cancer of hypopharynx: Status: Acute (11) Aspiration pneumonitis: Status: Acute (12) 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: Status: Acute (13) Mediastinal lymphadenopathy: Status: Acute (14) Hilar adenopathy: Status: Acute (15) Centrilobular emphysema: Status: Acute (16) Metastasis to liver of unknown origin: Status: Acute (17) Hyponatremia: Status: Acute (18) Smoker: Status: Acute (19) On deep vein thrombosis (DVT) prophylaxis: Status: Acute (20) Cancer cachexia: Status: Acute (21) Low BMI: Status: Acute Reason for Visit Reason for Visit: SOB Hospital Course Hospital Course Pleasant 71-year-old lady with past history of squamous cell carcinoma of Waldeyer's ring, status post, chemoradiation, on subsequent imaging with subsequent swallowing difficulties but without cancer activity or PET scan, concern for chronic aspiration with neck rigidity radiation therapy, low pharyngeal insufficiency, also with underlying COPD, edema, current smoker, with malnutrition, low BMI, was admitted after presenting with shortness productive cough, fatigue and malaise of breath for assessment of management due to aspiration pneumonia, as well as COPD exacerbation. CT angiogram of presentation without PE. With numerous pulmonary nodules. Mass anterior to the right hilum appears entirely necrotic. Recommended PET/CT or biopsy. Concerning for primary and/for metastatic disease. Marked peribronchial wall thickening, possible viral infection/bronchitis, chronic bronchitis, chronic aspiration and/or asthma. Foci of bronchial impaction bilaterally with patchy bilateral consolidation concerning for pneumonia/aspiration pneumonia. Marked mediastinal and bilateral hilar lymphadenopathy concerning for metastatic disease. Multiple hepatic masses concerning for metastatic disease with recommended MRI abdomen with hepatic protocol with and without contrast to better characterize. Consolidation adjacent to the right hilar mass that could reflect pneumonia. Moderate to advanced centrilobular emphysema. Coronary disease. While in hospital she was treated with Zosyn, vancomycin. Received Solu-Medrol due to initial COPD exacerbation. Breathing treatments with DuoNebs, budesonide. Oxygen supplementation. Not normally on supplemental oxygen, she is here on 2 L nasal cannula. Discussed with pulmonology. Consideration given to further assessment with bronchoscopy, however, anticipated difficulty with airway/access due to prior radiation, and thus plans are instead for further evaluation in the office and consideration with likely further evaluation first with PET scan. While in hospital her condition has gradually improved. She was assessed by modified barium swallow evaluation without evidence of penetration or doron aspiration, but with pharyngeal hypotonia with overall decrease swallowing force due to prior nasopharyngeal surgery and radiation. Pooling in the vallecula with early spillage. Due to malnutrition, and difficulties with oral intake recommendations for her to obtain most of her calories through liquids with protein shakes and supplements as discussed with her and her daughter. She otherwise reports feeling much better, denies any residual fatigue. Reports dyspnea has improved. No preparing for discharge today on home O2 evaluation she is found to require oxygen. Subsequently she is noted to be in sinus tachycardia, 112-120s. She is quite worked up that she is still here, and very adamant that she discharged home today. Discussed with her and her daughter concern regarding sinus tachycardia with some possibility of either progression/worsening of underlying condition or additional not yet diagnosed condition. She is given potassium placement due to mild hypokalemia, potassium 3.5, magnesium found normal. Troponin found unchanged from prior. Discussed with her regarding additional assessment for possible serious or life- threatening condition, however, she does not want to wait any longer. Xanax did help with anxiety and heart rate. She states other than feeling anxious is feeling better, denies any other symptoms. No chest pain or pressure. She is adamant that she is returning home with discharge or AGAINST MEDICAL ADVICE. She is discharged to complete course with Augmentin, expectorants, is prescribed a nebulizer as well since she states cannot use regular inhalers. She is encouraged to quit smoking, but states she he is not ready. She is cautioned never to smoke anywhere near oxygen. Physical Exam Narrative: Accompanied by daughter Const: COMMON NORMALS: patient oriented x3 and alert GENERAL APPEARANCE: cooperative ORIENTATION/CONSCIOUSNESS: Yes awake HENMT: COMMON NORMALS: oropharynx normal OTHER: Moderate to severe dysarthria Neck/C-Spine: COMMON NORMALS: no JVD Resp: COMMON NORMALS: normal respiratory effort and clear to auscultation bilaterally EFFORT & INSPECTION: Yes able to speak in complete sentences AUSCULTATION: clear to auscultation bilaterally Cardio: COMMON NORMALS: no JVD, regular rhythm, S1 normal heart sound present, S2 normal heart sound present and No murmurs present (Cardio) RATE: tachycardic RHYTHM: regular rhythm HEART SOUNDS: S1 normal heart sound present and S2 normal heart sound present GI: COMMON NORMALS: Normal to inspection, nondistended, normoactive bowel sounds present, Soft to palpation and non-tender PALPATION: Yes Soft to palpation Extremity: COMMON NORMALS: no joint enlargement and no pedal edema OTHER: Thin, low subcutaneous fat, severely sarcopenic, Neuro: COMMON NORMALS: patient oriented x3 and moves all extremities SENSORIUM/ORIENTATION: Yes alert Skin: COMMON NORMALS: no rashes or lesions noted GENERAL SKIN EXAM: no rashes or lesions noted Discharge Data Studies Completed and Pending Completed Studies During Hospitalization Category Date Time Status CTA chest [CT angio chest PE protcl 30358] Stat Cat Scan 10/01/22 11:31 Completed [place] barium swallow modifd 49712 Routine Exams 10/02/22 09:30 Completed XR chest 1V portable [id number] Stat Exams 10/01/22 10:24 Completed CV. echo complete* [id number] Routine Ultrasound 10/01/22 15:08 Completed Pending at discharge Category Date Time Status Blood Culture Stat Lab 10/01/22 10:52 Results Sputum Culture and Gram Stain Stat Lab 10/01/22 14:59 Uncollected Radiology Impressions Chest X-Ray 10/01/22 10:24 IMPRESSION: 1. There is mild peribronchial wall thickening; query viral infection/bronchitis, chronic bronchitis and/or asthma. 2. Nodular densities in the chest bilaterally measuring up to 2.[address] chest to better characterize. 3. Pulmonary hyperinflation; query COPD, asthma or other obstructive lung disease. Chest CTA 10/01/22 11:31 IMPRESSION: 1. No pulmonary embolus. 2. Numerous pulmonary nodules/masses. A mass anterior to the right hilum appears centrally necrotic. This is concerning for primary and/or metastatic disease. Recommend PET-CT or biopsy for definitive characterization. 3. Marked peribronchial wall thickening; query viral infection/bronchitis, chronic bronchitis, chronic aspiration and/or asthma. There are foci of bronchial impaction bilaterally with patchy bibasilar consolidation concerning for pneumonia/aspiration pneumonia. 4. Marked mediastinal and bilateral hilar lymphadenopathy. This is concerning for metastatic disease. 5. Multiple hepatic masses concerning for metastatic disease. Recommend MRI of the abdomen hepatic protocol with and without contrast to better characterize. 6. Consolidation adjacent to the right hilar mass that could reflect pneumonia. 7. Moderate to advanced centrilobular emphysema. 8. Coronary artery disease. COMMENTS: In the absence of a history or active diagnosis of lung cancer, it is recommended that this patient with emphysema be evaluated for enrollment in a low dose CT lung cancer screening program. Modified Barium Swallow 10/02/22 09:30 IMPRESSION: 1. No evidence of penetration or doron aspiration. 2. Pharyngeal hypotonia with overall decreased swallowing force due to prior nasopharyngeal surgery and radiation. 3. Pooling in the vallecula with early spillage. Laboratory Results WBC 5.7 10^3/uL (4.0-10.0) 10/02/22 05:07 RBC 4.24 10^6/uL (4.1-5.3) 10/02/22 05:07 Hgb 12.6 g/dL (11.5-15.3) 10/02/22 05:07 Hct 39.5 % (37.0-47.0) 10/02/22 05:07 MCV 93.2 fl (81-99) 10/02/22 05:07 MCH 29.7 pg (28.0-34.0) 10/02/22 05:07 MCHC 31.9 g/dL (30.0-36.0) 10/02/22 05:07 RDW 13.4 % (12.1-15.1) 10/02/22 05:07 Plt Count 240 10^3/cmm (130-400) 10/02/22 05:07 MPV 9.8 fL (7.4-10.4) 10/02/22 05:07 Neut % (Auto) 78.4 % 10/02/22 05:07 Lymph % (Auto) 15.8 % 10/02/22 05:07 [place] % (Auto) 4.9 % 10/02/22 05:07 Eos % (Auto) 0.0 % 10/02/22 05:07 Baso % (Auto) 0.2 % 10/02/22 05:07 Neut # (Auto) 4.45 10^3/uL (1.8-7.7) 10/02/22 05:07 Lymph # (Auto) 0.9 10^3/uL (0.8-4.8) 10/02/22 05:07 [place] # (Auto) 0.3 10^3/uL (0.2-0.9) 10/02/22 05:07 Eos # (Auto) 0.0 10^3/uL (0.0-0.8) 10/02/22 05:07 Baso # (Auto) 0.0 10^3/uL (0.0-0.1) 10/02/22 05:07 Nucleated RBC % (auto) 0 % 10/02/22 05:07 Nucleated RBCs # 0.0 /100WBC 10/02/22 05:07 PT 13.90 SECONDS (12.1-14.9) 10/01/22 10:50 INR 1.03 (0.8-1.2) 10/01/22 10:50 D-Dimer 1.13 ug/mIFEU (0-0.59) H 10/01/22 10:50 Specimen Type Arterial 10/01/22 10:27 Sample Site Radial, right 10/01/22 10:27 ABG pH 7.40 (7.35-7.45) 10/01/22 10:27 ABG pCO2 38.9 mmHg (35-45) 10/01/22 10:27 ABG pO2 63.0 mmHg (80.0-100.0) L 10/01/22 10:27 ABG HCO3 24.1 mmol/L (22-26) 10/01/22 10:27 ABG Base Excess -0.6 mmol/L (-2.0-2.0) 10/01/22 10:27 [place] Test Pos 10/01/22 10:27 Hematocrit 42.2 % (37-47) 10/01/22 10:27 Hgb O2 Saturation 91.5 % (95-100) L 10/01/22 10:27 Carboxyhemoglobin 1.9 %THgb (0.4-20.1) 10/01/22 10:27 Methemoglobin 0.6 % (0.4-1.5) 10/01/22 10:27 Total Hemoglobin 13.8 g/dL (12-16) 10/01/22 10:27 O2 Delivery Device Nc 10/01/22 10:27 O2 Liters/Min 2.0 % 10/01/22 10:27 Press Assistant And Feeder ID [email or web address] 10/01/22 10:27 Sodium 138 mmol/L (136-145) 10/03/22 11:06 Potassium 3.5 mmol/L (3.5-5.1) 10/03/22 11:06 Chloride 98 mmol/L (98-107) 10/03/22 11:06 Carbon Dioxide 24 mmol/L (22-29) 10/03/22 11:06 Anion Gap 19.5 (5-19) H 10/03/22 11:06 BUN 9 mg/dL (8-23) 10/03/22 11:06 Creatinine 0.3 mg/dL (0.5-0.9) L 10/03/22 11:06 GFR Calculation 220.6 mL/min (90-130) H 10/03/22 11:06 Glucose 105 mg/dL (65-115) 10/03/22 11:06 Estimat Average Glucose 85 10/01/22 17:23 Hemoglobin A1c 4.6 % (4.0-6.0) 10/01/22 17:23 Calculated Osmolality 285 mOsm/kg (285-295) 10/03/22 11:06 Lactic Acid 1.3 mmol/L (0.5-2.2) 10/01/22 17:23 Calcium 9.3 mg/dL (8.5-10.5) 10/03/22 11:06 Phosphorus 2.4 mg/dL (2.5-4.5) L 10/02/22 05:07 Magnesium 2.2 mg/dL (1.7-2.3) 10/03/22 11:06 Total Bilirubin 0.5 mg/dL (0.15-1.2) 10/01/22 10:50 AST 24 U/L (0-32) 10/01/22 10:50 ALT 9 U/L (0-33) 10/01/22 10:50 Alkaline Phosphatase 70 U/L (35-105) 10/01/22 10:50 Creatine Kinase 217 U/L (26-192) H 10/01/22 16:05 Troponin T Gen 5 ng/L 44 ng/L (0-10) H 10/03/22 11:06 Troponin T Baseline 64 ng/L (0-10) H 10/01/22 16:05 Troponin T 120 Minute 64.74 ng/L (0-10) H 10/01/22 17:23 Delta Troponin T 0.74 ABS# (0-10) 10/01/22 17:23 Troponin T Hi Sens 6Hr 65.02 ng/L (0-10) H 10/01/22 20:30 Troponin T Hi Sens 6Hr Delta 1.02 ng/L (0-12) 10/01/22 20:30 C-Reactive Protein 121.0 mg/L (0.0-4.9) H 10/01/22 16:05 NT-Pro-B Natriuret Pep 1064 pg/mL (0-125) H 10/01/22 10:50 Total Protein 8.2 g/dL (6.6-8.7) 10/01/22 10:50 Albumin 4.4 g/dL (3.5-5.2) 10/01/22 10:50 Globulin 3.8 g/dL (1.3-4.6) 10/01/22 10:50 Triglycerides 103 mg/dL (0-150) 10/01/22 16:05 Cholesterol 158 mg/dL (0-200) 10/01/22 16:05 LDL Cholesterol, Calc 97 mg/dL (50-129) 10/01/22 16:05 HDL Cholesterol 40 mg/dL (60-100) L 10/01/22 16:05 LDL/HDL Ratio 2.43 RATIO (0.00-3.22) 10/01/22 16:05 Cholesterol/HDL Ratio 3.95 mg/dL (0.0-4.40) 10/01/22 16:05 Procalcitonin 0.14 ng/mL (0-0.5) 10/01/22 16:05 TSH 1.00 uIU/mL (0.27-4.20) 10/01/22 16:05 Vancomycin Trough 6.8 ug/mL (10-15) L 10/03/22 02:38 Influenza Type A Ag negative (Negative) 10/01/22 10:55 Influenza Type B Ag negative (Negative) 10/01/22 10:55 SARS-CoV-2 Ag (Rapid) negative (Negative) 10/01/22 10:55 Vitals Last Vital Signs Temp 98.2 F 10/03/22 14:29 Pulse 62 10/03/22 14:29 Resp 16 10/03/22 14:29 BP 149/82 10/03/22 14:29 Pulse Ox 94 10/03/22 14:29 O2 Del Method 10/03/22 11:05 O2 Flow Rate 2 10/03/22 11:05 Discharge Plan Discharge Patient Disposition: Home Condition: Stable Prescriptions: New amoxicillin-pot clavulanate 400-57 mg/5 mL suspension for reconstitution 10 ml PO BID 10 Days Qty: 200 0RF albuterol sulfate 0.63 mg/3 mL solution for nebulization 0.63 mg inhalation Q6H PRN (Reason: shortness of breath or wheezing) Qty: 75 2RF guaifenesin 200 mg/5 mL liquid 400 mg PO Q6H PRN (Reason: congestion) Qty: 473 0RF Discharge Orders: Discharge Order (Routine); Ordered 10/03/22 Ordered By: Tony Herrera Other Ambulatory Orders: DME: Nebulizer with Neb Kit (Order) Location: None Selected Ordered By: Tony Herrera DME: Oxygen (Order) Location: None Selected Ordered By: Tony Herrera Referrals: Yoav Tan MD [Physician] - 10/05/22 Messi Clarke MD [Staff Physician] - 2 weeks Alka Tristan NP [Primary Care Provider] - 10/10/22 10:00 am Discharge Diet: Cardiac Discharge Activity: Oxygen as instructed Patient Instructions: COPD, Amoxicillin/Clavulanate Potassium (By mouth), Using Oxygen at Home (GEN), Aspiration Pneumonia (GEN), COPD Stoplight, Opioid Safety, Pneumonia Stoplight, Pneumonia - Viral Activity Restrictions/Additional Instructions: Continue strict aspiration precautions as per instructions by speech therapy. Continue protein shakes 3 times daily to help with malnutrition and due to difficulty with swallowing solids. Follow-up with pulmonology for assessment of pneumonia and lung mass. Follow-up with oncology for reassessment of lung mass and suspected metastatic lesions to the liver. Continue to cut down and quit smoking if able to. Never smoke anywhere near her oxygen due to severe fire hazard. Return to the hospital in case of any worsening or symptoms, any worsening shortness of breath, chest pain, inability to sustain oral intake or other concerning symptoms. Have your primary doctor recheck your sodium level for reassessment of improved low sodium. Discussed with your primary doctor in case you change your mind regarding outpatient physical therapy or home health physical therapy. Use flutter valve at home to help with expectoration. Follow-up with ear nose throat physician due to difficulty swallowing and aspiration pneumonia. Discharge Attestations Time Spent in Discharge Care*: greater than 30 min Status at Discharge: Cognitive status at discharge: mildly impaired cognition , Behavioral status at discharge: cooperative , Quality Metrics Clinical Quality Measures [ No reported AMI, CVA or VTE this stay] Coding Level of Care Code Acute Code for Chg Fwd Diagnoses Pneumonia J18.9 Aspiration pneumonia J69.0 COPD exacerbation J44.1 Hilar mass R91.8 Protein calorie malnutrition E46 Severe muscle deconditioning R29.898 Muscle wasting M62.50 Weight loss R63.4 BMI less than 19,adult Z68.1 Cancer of hypopharynx C13.9 Aspiration pneumonitis J69.0 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 C78.01; C80.1 Mediastinal lymphadenopathy R59.0 Hilar adenopathy R59.0 Centrilobular emphysema J43.2 Metastasis to liver of unknown origin C78.7; C80.1 Hyponatremia E87.1 Smoker F17.200 On deep vein thrombosis (DVT) prophylaxis Z79.899 Cancer cachexia R64 Low BMI
== END 2022-10-03 14:46 | disposition home or self-care (01) | DRG 177 ==
LOC: ER 14:03 → MEDSURG 14:36
PROVIDERS: Admitting Provider Family Medicine; Emergency Provider Emergency Medicine; PCP Nurse Practitioner Family; Visit Provider Internal Medicine
DX: J69.0 Pneumonitis due to inhalation of food and vomit (principal); E43 Unspecified severe protein-calorie malnutrition; C78.7 Secondary malignant neoplasm of liver and intrahepatic bile duct; Z68.1 Body mass index [BMI] 19.9 or less, adult; Z85.818 Personal history of malignant neoplasm of other sites of lip, oral cavity, and pharynx; Z92.21 Personal history of antineoplastic chemotherapy; Z92.3 Personal history of irradiation; F17.210 Nicotine dependence, cigarettes, uncomplicated; R91.8 Other nonspecific abnormal finding of lung field; J43.2 Centrilobular emphysema; E87.6 Hypokalemia; R59.0 Localized enlarged lymph nodes; Z96.641 Presence of right artificial hip joint; R13.10 Dysphagia, unspecified
CPT/HCPCS: 36415; 36600; 71045; 71275; 74230; 80048; 80053; 80061; 80202; 82550; 82805; 83036; 83605; 83735; 83880; 84100; 84145; 84443; 84484; 85025; 85378; 85610; 86140; 87040; 87426; 87641; 87804; 92523; 92526; 92610; 92611; 93005; 93306; 94640; 94760; 96365; 96367; 96372; 96375; 97116; 97161; 97165; 99285; C9113; J0696; J1650; J2543; J2920; J2930; J3370; J7030; J7608; J7613; J7626; Q9967

== ENCOUNTER 2022-12-13 12:56 | Emergency (ER) | payer MEDICARE, SELFPAY ==
[2022-12-13 13:06] VITALS: BP 103/74; PULSE 136; RESP 16; TEMP 36.7; O2SAT 95; BMI 13.4
[2022-12-13 13:09] VITALS: BP 125/78
[2022-12-13 15:39] VITALS: BP 125/78
--- NOTE | 2022-12-13 15:49 | XRR_ITS ---
PROCEDURE INFORMATION: Exam: XR Chest Exam date and time: 12/13/2022 4:14 PM Age: 72 years old Clinical indication: Other: Congestion; Patient HX: HX of throat cancer TECHNIQUE: Imaging protocol: Radiologic exam of the chest. Views: 1 view. COMPARISON: CR (CHEST, ) 10/01/2022 10:53 AM FINDINGS: Lungs: There is a interstitial congestion inferior to the right hilar region increased since prior examination. A linear density is seen traversing the right lung which likely reflects thickening in the minor fissure Pleural spaces: Moderate volume right lower lobe pleural effusion. This finding has increased volume since prior examination No pneumothorax. Heart/Mediastinum: Unremarkable. No cardiomegaly. Bones/joints: Unremarkable. XR/XR chest 1V portable [id number] IMPRESSION: 1. Moderate volume right lower lobe pleural effusion 2. Otherwise negative for acute cardiac or pulmonary disease
--- NOTE | 2022-12-13 15:52 | W.ED.WEAKNES ---
HPI - Weakness General: Chief complaint: Weakness Stated complaint: possible dehydration Time Seen by Provider: 12/13/22 15:37 Source: patient and family Limitations: no limitations History of Present Illness: Patient is here with her daughters because of weakness. The patient has history of throat (squamous cell carcinoma) cancer that has been treated by oncology she has received both chemotherapy as well as radiation therapy previously. She has subsequently left with significant swallowing and difficulty with handling secretions. She has been trying to sustain herself with oral soft and liquid foods without much success she has had a significant weight loss over the past months. She has had prior imaging at inpatient evaluation at this facility which revealed likely hepatic metastasis. She continues to be managed at home by herself and family, continues to smoke cigarettes and otherwise treat herself symptomatically. She does use oxygen on an as-needed basis at home. She was scheduled to be seen surgery/GI clinic today for possible PEG tube placement to help with enteral nutrition but her daughters felt that she was too weak and brought her to the emergency department for concerns about rehydration. Patient states that she is taking some oral nutrition and that she is making some urine and has had some bowel movements. She denies any fevers or chills and states her breathing has been unchanged from her baseline.. MD Complaint: generalized weakness and lack of energy Duration: progressively worsening Associated symptoms: Denies chest pain, melena, dysuria, headache(s), nausea or vomiting Review of Systems Const: Reports: change in weight and fatigue Eyes: Denies: change in vision ENMT: Reports: odynophagia and nasal congestion Card: Denies: chest pain or palpitations Resp: Reports: non-productive cough; Denies: dyspnea, productive cough or wheezing GI: Denies: abdominal pain, nausea, vomiting, hematemesis or melena : Denies: difficulty voiding or dysuria Musc: Denies: neck pain, back pain or extremity pain Skin/Breast: Denies: rash Neuro: Denies: headache(s), numbness in extremities or weakness in extremities Psych: Reports: anxiety PFSH ED PFSH: Medical History History of COPD History of dysphagia History of emphysema 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 (01/21/20) left subclavian removed 12/08 Squamous cell carcinoma of right tonsil Surgical History Cancer of hypopharynx History of right hip replacement Family History Father Surgical complication Other CAD (coronary artery disease) Denies family history of Anesthesia complication Bleeding disorder Social History Smoking and tobacco status: current every day smoker ( half a pack a day ) cigarettes Packs smoked per day: 0.5 Years cigarettes smoked: 48 Alcohol intake: never Substance/Drug Use: never Physical Exam Narrative: EXAM NARRATIVE: FemalePatient is alert. She appears to be a very thin communicates in a very hoarse difficult to understand voice but does answer questions appropriately. Const: COMMON NORMALS: patient oriented x3 and alert GENERAL APPEARANCE: cooperative and comfortable NUTRITIONAL APPEARANCE: thin and underweight HENMT: COMMON NORMALS: normocephalic and moist oral mucous membranes HEAD & SCALP: normocephalic FACE & SINUS: normal facial exam Eye: COMMON NORMALS: Equal, round and reactive pupils present, EOMs intact bilaterally and conjunctivae normal CONJUNCTIVA: Yes conjunctivae normal PUPIL: Yes Equal, round and reactive pupils present Neck/C-Spine: COMMON NORMALS: full ROM, supple, no JVD and No carotid bruits Chest: COMMONS NORMALS: normal inspection of the chest Resp: COMMON NORMALS: normal respiratory effort, No retractions and No use of accessory muscles AUSCULTATION: crackles Cardio: COMMON NORMALS: no JVD, regular rate, regular rhythm, No murmurs present (Cardio) and Peripheral pulses 2+ throughout RATE: regular rate RHYTHM: regular rhythm PERIPHERAL PULSES: Peripheral pulses 2+ throughout GI: COMMON NORMALS: Soft to palpation and non-tender PALPATION: Yes Soft to palpation : COMMON NORMALS: Yes no CVA tenderness BLADDER/KIDNEY EXAM: Yes no CVA tenderness Back/Pelvis: COMMON NORMALS: no CVA tenderness, thoracic and lumbar spine normal to inspection and no thoracic nor lumbar tenderness Extremity: COMMON NORMALS: normal to inspection, full ROM, capillary refill normal, no calf tenderness and no pedal edema NARRATIVE EXTREMITY EXAM: She has systemic decrease in muscle mass but otherwise no acute findings. Neuro: COMMON NORMALS: patient oriented x3, moves all extremities, no focal motor deficits and no sensory deficits noted SENSORIUM/ORIENTATION: Yes alert Course Reevaluation(s): Reevaluation #1: Reexamined. She states she is feeling much better. She is up moving about and interacting and appears to have much more energy. I discussed current findings with both she and her daughter. Also discussed the presence of her pleural effusion and while its not clinically impacting on her at this time I did advise both of them that she may need a therapeutic thoracentesis if she has more difficulty breathing or otherwise feels unwell. I also ensured that she was aware of all the previously noted metastatic changes on her prior CT scan. She acknowledged that she was. She is currently clinically stable to be discharged. I advised daughter to call surgery first thing in the morning to reschedule appointment for feeding tube placement. Given her clinical picture and my review of her history her prognosis would seem to be rather poor at this point. Time: 19:41 Vital Signs: Vital signs: Vital Signs Temperature 98.0 F 12/13/22 13:06 Pulse Rate 120 H 12/13/22 18:08 Respiratory Rate 16 12/13/22 18:08 Blood Pressure 127/95 12/13/22 18:08 Pulse Oximetry 95 12/13/22 18:08 Oxygen Delivery Me thod Room Air 12/13/22 18:08 MDM - Weakness Medical Decision Making Patient with known history of squamous cell carcinoma status post radiation and chemotherapy. Has evidence of metastatic disease. Is here because family thought that she was volume depleted and too weak to see her surgery appointment today for her feeding tube placement. Screening laboratories, chest x-ray and IV fluids were given in the emergency department. She responded well to the latter treatment even though she had no significant BUN elevation however I am sure she is chronically somewhat volume depleted. She is protein calorie malnourished and so therefore she possibly has old protein to increase her BUN due to lack of protein breakdown. She has evidence of a right pleural effusion which is a new finding however given status of her last CT scan with significant amount of right-sided metastatic and necrotic disease is not surprising that she would develop a pleural effusion. This was shared with family and they voiced understanding. At this point she is certainly stable to be discharged there is no additional benefit from emergency department intervention and she would prefer to care for herself at home given other alternatives. I did discuss the need for surgical follow-up for consideration for feeding tube placement as well as return for increasing shortness of breath or other issues that might necessitate therapeutic thoracentesis. Medical Records I reviewed the patient's medical records. Lab Data I reviewed the patient's lab results. 12/13/22 16:12 12/13/22 16:12 Radiology Impressions Chest X-Ray 12/13/22 15:49 IMPRESSION: 1. Moderate volume right lower lobe pleural effusion 2. Otherwise negative for acute cardiac or pulmonary disease Laboratory Results WBC 14.0 10^3/uL (4.0-10.0) H 12/13/22 16:12 RBC 5.53 10^6/uL (4.1-5.3) H 12/13/22 16:12 Hgb 15.0 g/dL (11.5-15.3) 12/13/22 16:12 Hct 47.8 % (37.0-47.0) H 12/13/22 16:12 MCV 86.4 fl (81-99) 12/13/22 16:12 MCH 27.1 pg (28.0-34.0) L 12/13/22 16:12 MCHC 31.4 g/dL (30.0-36.0) 12/13/22 16:12 RDW 14.2 % (12.1-15.1) 12/13/22 16:12 Plt Count 563 10^3/cmm (130-400) H 12/13/22 16:12 MPV 9.1 fL (7.4-10.4) 12/13/22 16:12 Neut % (Auto) 87.9 % 12/13/22 16:12 Lymph % (Auto) 8.6 % 12/13/22 16:12 Bledsoe % (Auto) 2.1 % 12/13/22 16:12 Eos % (Auto) 0.0 % 12/13/22 16:12 Baso % (Auto) 0.5 % 12/13/22 16:12 Neut # (Auto) 12.28 10^3/uL (1.8-7.7) H 12/13/22 16:12 Lymph # (Auto) 1.2 10^3/uL (0.8-4.8) 12/13/22 16:12 Bledsoe # (Auto) 0.3 10^3/uL (0.2-0.9) 12/13/22 16:12 Eos # (Auto) 0.0 10^3/uL (0.0-0.8) 12/13/22 16:12 Baso # (Auto) 0.1 10^3/uL (0.0-0.1) 12/13/22 16:12 Nucleated RBC % (auto) 0 % 12/13/22 16:12 Nucleated RBCs # 0.0 /100WBC 12/13/22 16:12 Sodium 131 mmol/L (136-145) L 12/13/22 16:12 Potassium 4.9 mmol/L (3.5-5.1) 12/13/22 16:12 Chloride 88 mmol/L (98-107) L 12/13/22 16:12 Carbon Dioxide 25 mmol/L (22-29) 12/13/22 16:12 Anion Gap 22.9 (5-19) H 12/13/22 16:12 BUN 8 mg/dL (8-23) 12/13/22 16:12 Creatinine 0.4 mg/dL (0.5-0.9) L 12/13/22 16:12 GFR Calculation 157.8 mL/min (90-130) H 12/13/22 16:12 Glucose 77 mg/dL (65-115) 12/13/22 16:12 Calculated Osmolality 269 mOsm/kg (285-295) L 12/13/22 16:12 Calcium 10.2 mg/dL (8.5-10.5) 12/13/22 16:12 Total Bilirubin 0.5 mg/dL (0.15-1.2) 12/13/22 16:12 AST 26 U/L (0-32) 12/13/22 16:12 ALT 12 U/L (0-33) 12/13/22 16:12 Alkaline Phosphatase 135 U/L (35-105) H 12/13/22 16:12 Total Protein 8.3 g/dL (6.6-8.7) 12/13/22 16:12 Albumin 4.3 g/dL (3.5-5.2) 12/13/22 16:12 Globulin 4.0 g/dL (1.3-4.6) 12/13/22 16:12 Discharge Plan Discharge Patient Disposition: Home Clinical Impression: History of oropharyngeal cancer, Protein calorie malnutrition, Pleural effusion, right Condition: Stable Prescriptions: No Action albuterol sulfate 0.63 mg/3 mL solution for nebulization 0.63 mg inhalation Q6H PRN (Reason: shortness of breath or wheezing) Qty: 75 2RF lorazepam 1 mg tablet See Rx Instructions .ROUTE .COMPLEX PRN (Reason: anxiety) Qty: 60 0RF Rx Instructions: take 1/2 to one tab up to three times daily as needed for anxiety and nausea. PRN; sodium chloride 7 % solution for nebulization 1 inh inhalation BID PRN (Reason: thick mucus) Qty: 120 0RF guaifenesin [Mucinex Fast-Max Chest-Congest] 100 mg/5 mL liquid 200 mg PO Q4H PRN (Reason: cough) Qty: 473 0RF Discharge Orders: Discharge ED (Routine); Ordered 12/13/22 Ordered By: Thomas Mclean Referrals: Alka Tristan, [employer] PERSON [Primary Care Provider] - Discharge Diet: Full LIquid Discharge Activity: Increase activity as tolerated Patient Instructions: Opioid Safety, Pain Management Activity Restrictions/Additional Instructions: Continue to use protein and other high calorie liquid feedings in addition to at least 2 quarts of water daily. Call the surgery department first thing in the morning to arrange if reschedule your appointment for feeding tube evaluation. If you develop increasing shortness of breath, other concerns at any time return to this emergency department for reevaluation. Coding Level of Care Code ED Clothing Cutter for Jarett Lr
[2022-12-13 16:19] LABS: Basophils # 0.1 10^3/uL (0.0-0.1); Basophils % 0.5 %; Hematocrit 47.8 % (37.0-47.0); Lymphocytes # 1.2 10^3/uL (0.8-4.8); Lymphocytes % 8.6 %; Mean Corpuscular HGB Conc 31.4 g/dL (30.0-36.0); Mean Corpuscular Hemoglobin 27.1 pg (28.0-34.0); Mean Corpuscular Volume 86.4 fl (81-99); Mean Platelet Volume 9.1 fL (7.4-10.4); Monocytes # 0.3 10^3/uL (0.2-0.9); Monocytes % 2.1 %; Neutrophils # 12.28 10^3/uL (1.8-7.7); Neutrophils % 87.9 %; Nucleated Red Blood Cells % 0 %; Platelet Count 563 10^3/cmm (130-400); Red Blood Count 5.53 10^6/uL (4.1-5.3); Red Cell Distribution Width 14.2 % (12.1-15.1)
[2022-12-13] MEDS: lactated ringers 1,000 ML 999 ML IV (16:19)
[2022-12-13 16:37] LABS: Alanine Aminotransferase 12 U/L (0-33); Albumin Level 4.3 g/dL (3.5-5.2); Alkaline Phosphatase 135 U/L (35-105); Anion Gap 22.9 (5-19); Aspartate Amino Transferase 26 U/L (0-32); Blood Urea Nitrogen 8 mg/dL (8-23); Calcium 10.2 mg/dL (8.5-10.5); Carbon Dioxide 25 mmol/L (22-29); Chloride 88 mmol/L (98-107); Glomerular Filtration Rate 157.8 mL/min (90-130); Glucose 77 mg/dL (65-115); Osmolality Calculated 269 mOsm/kg (285-295); Potassium 4.9 mmol/L (3.5-5.1); Sodium 131 mmol/L (136-145); Total Bilirubin 0.5 mg/dL (0.15-1.2); Total Protein 8.3 g/dL (6.6-8.7)
[2022-12-13 17:54] VITALS: BP 108/70; RESP 18
[2022-12-13 18:08] VITALS: BP 127/95; PULSE 120; RESP 16; O2SAT 95
[2022-12-13 20:03] VITALS: BP 127/95; PULSE 120; RESP 16; TEMP 36.7; O2SAT 95
== END 2022-12-13 20:04 | disposition home or self-care (01) ==
PROVIDERS: Emergency Medicine; Emergency Provider Emergency Medicine; PCP Nurse Practitioner Family
DX: J90 Pleural effusion, not elsewhere classified (principal); E46 Unspecified protein-calorie malnutrition; Z68.1 Body mass index [BMI] 19.9 or less, adult; Z85.818 Personal history of malignant neoplasm of other sites of lip, oral cavity, and pharynx; F17.210 Nicotine dependence, cigarettes, uncomplicated; J44.9 Chronic obstructive pulmonary disease, unspecified
CPT/HCPCS: 71045; 80053; 85025; 96360; 99284; J7120

== ENCOUNTER → 2022-12-20 13:59 | Outpatient (BNVA) | payer MEDICARE, SELFPAY | PROVIDERS: PCP Nurse Practitioner Family; Visit Provider Surgery | DX: E46 Unspecified protein-calorie malnutrition (principal); Z85.819 Personal history of malignant neoplasm of unspecified site of lip, oral cavity, and pharynx; R64 Cachexia | CPT/HCPCS: 99213 ==

== ENCOUNTER 2022-12-20 14:49 | Inpatient (IN) | payer MEDICARE, SELFPAY ==
[2022-12-20] VITALS (10 sets, daily range): BP systolic 100–165; BP diastolic 71–109; PULSE 96–145; RESP 14–25; O2SAT 91–100; BMI 13.1
[2022-12-20 16:38] LABS: Basophils % 0.2 %; Hematocrit 42.8 % (37.0-47.0); Hemoglobin 12.6 g/dL (11.5-15.3); Lymphocytes % 5.8 %; Mean Corpuscular HGB Conc 29.4 g/dL (30.0-36.0); Mean Corpuscular Hemoglobin 26.5 pg (28.0-34.0); Mean Corpuscular Volume 90.1 fl (81-99); Mean Platelet Volume 9.3 fL (7.4-10.4); Monocytes # 0.8 10^3/uL (0.2-0.9); Neutrophils # 14.56 10^3/uL (1.8-7.7); Neutrophils % 88.3 %; Nucleated Red Blood Cells % 0 %; Platelet Count 342 10^3/cmm (130-400); Red Blood Count 4.75 10^6/uL (4.1-5.3); Red Cell Distribution Width 14.6 % (12.1-15.1); White Blood Count 16.5 10^3/uL (4.0-10.0)
[2022-12-20 17:03] LABS: Alanine Aminotransferase 9 U/L (0-33); Albumin Level 3.6 g/dL (3.5-5.2); Alkaline Phosphatase 90 U/L (35-105); Anion Gap 17.2 (5-19); Aspartate Amino Transferase 31 U/L (0-32); Blood Urea Nitrogen 13 mg/dL (8-23); Calcium 11.1 mg/dL (8.5-10.5); Carbon Dioxide 27 mmol/L (22-29); Chloride 90 mmol/L (98-107); Globulin 3.3 g/dL (1.3-4.6); Glomerular Filtration Rate 219.9 mL/min (90-130); Glucose 84 mg/dL (65-115); Osmolality Calculated 269 mOsm/kg (285-295); Potassium 4.2 mmol/L (3.5-5.1); Sodium 130 mmol/L (136-145); Total Bilirubin 0.3 mg/dL (0.15-1.2); Total Protein 6.9 g/dL (6.6-8.7)
--- NOTE | 2022-12-20 18:15 | XRR_ITS ---
PROCEDURE INFORMATION: Exam: XR Chest Exam date and time: 12/20/2022 6:52 PM Age: 72 years old Clinical indication: Other: Congestion; Additional info: Congestion tachycardia TECHNIQUE: Imaging protocol: Radiologic exam of the chest. Views: 1 view. COMPARISON: CR XR chest 1V portable [id number] 12/13/2022 4:14 PM FINDINGS: Lungs: Interstitial opacities in the xmooo-cmyfiay-xkth-left lower lobe are similar. The image is overexposed in the region of the left lung apex. Pleural spaces: Small right pleural effusion is decreased since previous. Heart/Mediastinum: Unremarkable. No cardiomegaly. Bones/joints: Unremarkable. XR/XR chest 1V portable [id number] IMPRESSION: Decreased small right pleural effusion. Persistent bibasilar infiltrates suspicious for pneumonia.
--- NOTE | 2022-12-20 18:15 | ECG_ITS ---
[facility] Test Date: 2022-12-20 Pat Name: Luna Mathis Department: Room: Gender: Female Budget Specialist: : 1950 Requested By: Troy Hopson Order Number: [id number] Tiffany MD: De Corral M.D. Measurements Intervals [place] Rate: 135 P: 85 NV: 115 QRS: 197 QRSD: 101 T: 268 QT: 276 QTc: 415 Interpretive Statements Possible a flutter with 2 1 block RIGHT AXIS DEVIATION [QRS AXIS > 100] INCOMPLETE RIGHT BUNDLE BRANCH BLOCK [90+ ms QRS DURATION, TERMINAL R IN V1/V2, 40+ ms S IN I/aVL/V4/V5/V6] SEPTAL MYOCARDIAL INFARCTION , PROBABLY OLD [40+ ms Q WAVE IN V1/V2] MODERATE T-WAVE ABNORMALITY, CONSIDER LATERAL ISCHEMIA [-0.1+ mV T-WAVE IN I/aVL/V5/V6] MODERATE T-WAVE ABNORMALITY, CONSIDER INFERIOR ISCHEMIA [-0.1+ mV T-WAVE IN II/aVF] Compared to ECG 10/03/2022 09:57:15;Right-axis deviation now present;Incomplete right bundle-branch block now present;T-wave abnormality now present Possible ischemia now present Ventricular premature complex(es) no longer present Myocardial infarct finding still present Electronically Signed On 12-21-2022 21:17:14 CDT by De Corral M.D. [id number]
--- NOTE | 2022-12-20 18:21 | ED_ITS ---
HPI - Weakness General: Chief complaint: Weakness Stated complaint: Dickens sent/AMS/unable to thrive Time Seen by Provider: 12/20/22 18:11 History of Present Illness: Patient presents here from Dr. Dickens's office. Patient's family says she needs a PEG tube. Patient is a BMI of 13. Patient is failing to thrive not eating or drinking a whole lot due to stage IV throat cancer with probable mets to the lungs. MD Complaint: generalized weakness (Failure to thrive lack of oral intake) Onset (ago): unknown (Chronic and worsening) Duration: constant Severity: severe Review of Systems General: Reports: 10 or more systems reviewed and unremarkable except in HPI and below PFSH ED PFSH: Medical History History of COPD History of dysphagia History of emphysema 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 (01/21/20) left subclavian removed 12/08 Squamous cell carcinoma of right tonsil Surgical History Cancer of hypopharynx History of right hip replacement Family History Father Surgical complication Other CAD (coronary artery disease) Denies family history of Anesthesia complication Bleeding disorder Social History Smoking and tobacco status: current every day smoker ( half a pack a day ) cigarettes Packs smoked per day: 0.5 Years cigarettes smoked: 48 Alcohol intake: never Substance/Drug Use: never Physical Exam Const: COMMON NORMALS: alert GENERAL APPEARANCE: frail appearing NUTRITIONAL APPEARANCE: cachectic ORIENTATION/CONSCIOUSNESS: Yes awake HENMT: COMMON NORMALS: normocephalic, atraumatic, hearing grossly normal bilaterally, Normal external nose present and moist oral mucous membranes HE AD & SCALP: normocephalic and atraumatic NOSE: Normal external nose present Eye: COMMON NORMALS: Equal, round and reactive pupils present, EOMs intact bilaterally, conjunctivae normal and no scleral icterus CONJUNCTIVA: Yes conjunctivae normal PUPIL: Yes Equal, round and reactive pupils present Neck/C-Spine: COMMON NORMALS: full ROM, no lymphadenopathy, supple, no meningeal signs, no JVD and Thyroid normal THYROID: Thyroid normal Chest: COMMONS NORMALS: normal inspection of the chest and normal palpation of entire chest wall Resp: EFFORT & INSPECTION: Yes tachypneic, Yes Actively coughing and Yes audible wheezes AUSCULTATION: rhonchi and wheezes Cardio: COMMON NORMALS: no JVD, regular rate, regular rhythm, S1 normal heart sound present and S2 normal heart sound present RATE: regular rate RHYTHM: regular rhythm HEART SOUNDS: S1 normal heart sound present and S2 normal heart sound present GI: COMMON NORMALS: Normal to inspection, nondistended, normoactive bowel sounds present, Soft to palpation, non-tender, No hepatosplenomegaly present and no masses PALPATION: Yes Soft to palpation and Yes No hepatosplenomegaly present Neuro: SENSORIUM/ORIENTATION: Yes alert MENINGEAL SIGNS: Yes no meningeal signs Course Vital Signs: Vital signs: Vital Signs Pulse Rate 135 H 12/20/22 21:00 Respiratory Rate 17 12/20/22 21:00 Blood Pressure 162/99 12/20/22 21:00 Pulse Oximetry 97 12/20/22 21:00 Oxygen Delivery Me thod Nasal Cannula 12/20/22 19:30 Oxygen Flow Rate 2 12/20/22 19:30 MDM - Weakness Medical Decision Making Presents to the ER with complaints of esophageal cancer with lung metastases, adult failure to thrive, very poor oral intake. Patient's family says Dr. Dickens sent her over here for admission and PEG tube placement tomorrow lab work and imaging was obtained which showed a white count of 16,000 elevated lactic acid of 2.5 and chest showed persistent bibasilar infiltrates suspicious for pneumonia. Patient with persistent heart rate in the 130s. Dr. Veloz was consulted patient was given 3.375 g of Zosyn 1 L normal saline and will be admitted to [facility] for further evaluation and treatment. Differential Diagnosis Likely dehydration; Unlikely acute myocardial infarction, anemia, hypoglycemia, hypothyroidism, rhabdomyolysis or sepsis Medical Records I reviewed the patient's medical records. Lab Data I reviewed the patient's lab results. 12/20/22 16:25 12/20/22 16:25 Radiology Impressions Chest X-Ray 12/20/22 18:15 IMPRESSION: Decreased small right pleural effusion. Persistent bibasilar infiltrates suspicious for pneumonia. Laboratory Results WBC 16.5 10^3/uL (4.0-10.0) H 12/20/22 16:25 RBC 4.75 10^6/uL (4.1-5.3) 12/20/22 16:25 Hgb 12.6 g/dL (11.5-15.3) 12/20/22 16:25 Hct 42.8 % (37.0-47.0) 12/20/22 16:25 MCV 90.1 fl (81-99) 12/20/22 16:25 MCH 26.5 pg (28.0-34.0) L 12/20/22 16:25 MCHC 29.4 g/dL (30.0-36.0) L 12/20/22 16:25 RDW 14.6 % (12.1-15.1) 12/20/22 16:25 Plt Count 342 10^3/cmm (130-400) 12/20/22 16:25 MPV 9.3 fL (7.4-10.4) 12/20/22 16:25 Neut % (Auto) 88.3 % 12/20/22 16:25 Lymph % (Auto) 5.8 % 12/20/22 16:25 Lipscomb % (Auto) 5.0 % 12/20/22 16:25 Eos % (Auto) 0.0 % 12/20/22 16:25 Baso % (Auto) 0.2 % 12/20/22 16:25 Neut # (Auto) 14.56 10^3/uL (1.8-7.7) H 12/20/22 16:25 Lymph # (Auto) 1.0 10^3/uL (0.8-4.8) 12/20/22 16:25 Lipscomb # (Auto) 0.8 10^3/uL (0.2-0.9) 12/20/22 16:25 Eos # (Auto) 0.0 10^3/uL (0.0-0.8) 12/20/22 16:25 Baso # (Auto) 0.0 10^3/uL (0.0-0.1) 12/20/22 16:25 Nucleated RBC % (auto) 0 % 12/20/22 16:25 Nucleated RBCs # 0.0 /100WBC 12/20/22 16:25 Sodium 130 mmol/L (136-145) L 12/20/22 16:25 Potassium 4.2 mmol/L (3.5-5.1) 12/20/22 16:25 Chloride 90 mmol/L (98-107) L 12/20/22 16:25 Carbon Dioxide 27 mmol/L (22-29) 12/20/22 16:25 Anion Gap 17.2 (5-19) 12/20/22 16:25 BUN 13 mg/dL (8-23) 12/20/22 16:25 Creatinine 0.3 mg/dL (0.5-0.9) L 12/20/22 16:25 GFR Calculation 219.9 mL/min (90-130) H 12/20/22 16:25 Glucose 84 mg/dL (65-115) 12/20/22 16:25 Calculated Osmolality 269 mOsm/kg (285-295) L 12/20/22 16:25 Lactic Acid 2.5 mmol/L (0.5-2.2) H 12/20/22 18:43 Calcium 11.1 mg/dL (8.5-10.5) H 12/20/22 16:25 Phosphorus 2.4 mg/dL (2.5-4.5) L 12/20/22 18:43 Magnesium 2.1 mg/dL (1.7-2.3) 12/20/22 18:43 Total Bilirubin 0.3 mg/dL (0.15-1.2) 12/20/22 16:25 AST 31 U/L (0-32) 12/20/22 16:25 ALT 9 U/L (0-33) 12/20/22 16:25 Alkaline Phosphatase 90 U/L (35-105) 12/20/22 16:25 Troponin T Baseline 34 ng/L (0-10) H 12/20/22 20:00 Total Protein 6.9 g/dL (6.6-8.7) 12/20/22 16:25 Albumin 3.6 g/dL (3.5-5.2) 12/20/22 16:25 Globulin 3.3 g/dL (1.3-4.6) 12/20/22 16:25 Procalcitonin 0.22 ng/mL (0-0.5) 12/20/22 18:43 EKG Data EKG 1: I personally reviewed and interpreted this EKG as follows: EKG interpretation date: 12/20/22 EKG interpretation time: 19:34 Prior EKG tracings: not available for review Interpretation: EKG showed sinus tachycardia with short TX interval, ventricular rate of 135 bpm, TX interval 115, QRS 101, QTc 355, right axis deviation, incomplete right bundle branch block, moderate T wave abnormality negative T waves in V561 and aVL, 2 and aVF, septal myocardial infarction probably old Q waves in V1 and V2 Discharge Plan Discharge Patient Disposition: Admitted As Inpatient Clinical Impression: Pneumonia, Dehydration, Adult failure to thrive, Tachycardia, Leukocytosis Condition: Stable Prescriptions: No Action oxycodone-acetaminophen 5-325 mg tablet 1 tab PO .1/2 tab daily PRN albuterol sulfate 0.63 mg/3 mL solution for nebulization 0.63 mg inhalation Q6H PRN (Reason: shortness of breath or wheezing) Qty: 75 2RF lorazepam 1 mg tablet See Rx Instructions .ROUTE .COMPLEX PRN (Reason: anxiety) Qty: 60 0RF Rx Instructions: take 1/2 to one tab up to three times daily as needed for anxiety and nausea. PRN; sodium chloride 7 % solution for nebulization 1 inh inhalation BID PRN (Reason: thick mucus) Qty: 120 0RF guaifenesin [Mucinex Fast-Max Chest-Congest] 100 mg/5 mL liquid 200 mg PO Q4H PRN (Reason: cough) Qty: 473 0RF Referrals: Alka Tristan COMMUNICATION CENTER COORDINATOR [Primary Care Provider] - Coding Level of Care Code ED Business Planner for Chg Be
[2022-12-20 19:27] LABS: Magnesium 2.1 mg/dL (1.7-2.3); Phosphorus 2.4 mg/dL (2.5-4.5)
[2022-12-20 19:28] LABS: Lactic Sepsis W/Reflex 2.5 mmol/L (0.5-2.2)
[2022-12-20 19:35] LABS: Procalcitonin 0.22 ng/mL (0-0.5)
[2022-12-20] MEDS: sodium chloride 0.9% 1,000 ML 999 ML IV (20:26)
[2022-12-20] MEDS: piperacillin-tazobactam 3.375 GM in sodium chloride 0.9% (plus) 50 ML IV (20:27)
[2022-12-20 20:35] LABS: Troponin(5th) Baseline 34 ng/L (0-10)
[2022-12-20] MEDS: guaiFENesin 100 mg/5 mL UDC 10 mL 400 MG PO (21:28)
--- NOTE | 2022-12-20 21:45 | ECG_ITS ---
[facility] Test Date: 2022-12-20 Pat Name: Luna Mathis Department: Room: Gender: Female Interior Decorator: : 1950 Requested By: Troy Hopson Order Number: [id number] Tiffany MD: eD Corral M.D. Measurements Intervals [place] Rate: 129 P: 86 MN: 152 QRS: 200 QRSD: 97 T: 264 QT: 289 QTc: 424 Interpretive Statements SINUS TACHYCARDIA RIGHT AXIS DEVIATION [QRS AXIS > 100] INCOMPLETE RIGHT BUNDLE BRANCH BLOCK [90+ ms QRS DURATION, TERMINAL R IN V1/V2, 40+ ms S IN I/aVL/V4/V5/V6] ANTEROSEPTAL MYOCARDIAL INFARCTION , PROBABLY RECENT [40+ ms Q WAVE IN V1-V4] ACUTE UT Compared to ECG 12/20/2022 19:34:16 Short MN interval no longer present T-wave abnormality no longer present Possible ischemia no longer present Myocardial infarct finding still present Electronically Signed On 12-21-2022 21:27:13 CDT by De Corral M.D. [id number]
--- NOTE | 2022-12-20 22:31 | PM.HP ---
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 Patient tells me that since getting on the hospital she continues to have fatigue, malaise, poor appetite, she does not for the last 2 days the only thing that she can really get down is 2 bottles of Ensure, it is difficult to swallow anything, she tells me that she really has not moved out of bed for the last 2 days due to weakness, fatigue, she tells me she feels more short of breath, she feels more coarse, she does not whenever she drinks she tends to cough, and have coughing fits, BMI currently is 13.2, she was seen by Dr. Dickens, plan is for her to get an PEG tube placement tomorrow and monitoring, patient is agreeable Review of Systems Const: Denies: fever(s) Eyes: Denies: change in vision Card: Denies: chest pain Resp: Reports: dyspnea and non-productive cough GI: Reports: dysphagia; Denies: abdominal pain : Denies: difficulty voiding Musc: Reports: neck pain Medications/Allergies Home Medications Medication Instructions Recorded Confirmed Last Taken Type albuterol sulfate 0.63 mg/3 mL 0.63 mg (3 mL) inhalation Q6H PRN 10/17/22 12/20/22 Unknown Rx solution for nebulization shortness of breath or wheezing #75 mL lorazepam 1 mg tablet See Rx Instructions .Route 10/17/22 12/20/22 Unknown Rx .COMPLEX PRN anxiety #60 tabs guaifenesin 100 mg/5 mL oral 200 mg (10 mL) PO Q4H PRN cough 12/07/22 12/20/22 Unknown Rx liquid (Mucinex Fast-Max Chest #473 mL Congestion) sodium chloride 7 % for 1 inh inhalation BID PRN thick 12/07/22 12/20/22 Unknown Rx nebulization mucus #120 mL oxycodone-acetaminophen 5 mg-325 1 tab PO .1/2 tab daily PRN 12/20/22 12/20/22 Unknown History mg tablet Allergies Allergy/AdvReac Type Severity Reaction Status Date / Time aspirin Allergy ALGY-Hives Verified 12/20/22 14:06 PFSH Acute PFSH: Medical History History of COPD History of dysphagia History of emphysema 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 (01/21/20) left subclavian removed 12/08 Squamous cell carcinoma of right tonsil Surgical History Cancer of hypopharynx History of right hip replacement Family History Father Surgical complication Other CAD (coronary artery disease) Denies family history of Anesthesia complication Bleeding disorder Social History Smoking and tobacco status: current every day smoker ( half a pack a day ) cigarettes Packs smoked per day: 0.5 Years cigarettes smoked: 48 Alcohol intake: never Substance/Drug Use: never Vitals/I&O/Wt Last Vital Signs Pulse 135 H 12/20/22 21:00 Resp 17 12/20/22 21:00 BP 162/99 12/20/22 21:00 Pulse Ox 97 12/20/22 21:00 O2 Del Method Nasal Cannula 12/20/22 19:30 O2 Flow Rate 2 12/20/22 19:30 12/20/22 12/20/22 12/20/22 06:59 14:59 22:59 Intake Total 50 / 50 Balance 50 / 50 Weight last 48 hrs Weight 38.102 kg Physical Exam Const: COMMON NORMALS: no acute distress and patient oriented x3 GENERAL APPEARANCE: ill appearing and frail appearing NUTRITIONAL APPEARANCE: cachectic HENMT: COMMON NORMALS: normocephalic HEAD & SCALP: normocephalic Eye: COMMON NORMALS: Equal, round and reactive pupils present and EOMs intact bilaterally Neck/C-Spine: COMMON NORMALS: no JVD Resp: COMMON NORMALS: normal respiratory effort, No retractions and No use of accessory muscles AUSCULTATION: rales and wheezes Cardio: COMMON NORMALS: no JVD, regular rhythm, S1 normal heart sound present and S2 normal heart sound present RATE: tachycardic RHYTHM: regular rhythm HEART SOUNDS: S1 normal heart sound present and S2 normal heart sound present GI: COMMON NORMALS: Normal to inspection, nondistended, normoactive bowel sounds present, Soft to palpation and non-tender PALPATION: Yes Soft to palpation Back/Pelvis: COMMON NORMALS: no CVA tenderness Extremity: COMMON NORMALS: no calf tenderness and no pedal edema Neuro: COMMON NORMALS: patient oriented x3, CN's II-XII intact bilaterally, moves all extremities and no focal motor deficits Psych: COMMON NORMALS: mental status grossly normal Data 12/20/22 16:25 12/20/22 16:25 A&P Assessment and plan (1) Dehydration: (2) Adult failure to thrive: (3) Tachycardia: (4) Protein calorie malnutrition: (5) Recurrent aspiration pneumonia: (6) Cancer of hypopharynx: (7) Muscle wasting: (8) Weight loss: (9) Severe muscle deconditioning: (10) Protein calorie malnutrition: Plan EKG, reviewed by me personally, shows sinus tachycardia Chest x-ray reviewed by me personally, shows bilateral, bibasilar infiltrates Reviewed blood work Attestations Medical Necessity Statement*: Acute hypoxic respiratory failure secondary to recurrent aspiration pneumonia, aspiration pneumonitis Recurrent aspiration pneumonia, aspiration pneumonitis -Secondary to dysphagia, oropharyngeal cancer, hilar mass Plan -Keep n.p.o. -Broad-spectrum antibiotic therapy vancomycin, Zosyn -Oxygen therapy -Monitor respiratory status -Budesonide, Mucomyst -Full code -Lovenox for DVT prophylaxis Severe dysphagia, poor oral intake, cachexia, n.p.o. midnight for possible PEG tube placement Chronic choking, coughing, globus sensation, dysphagia and aspiration pneumonia Hyponatremia likely sec to dehydration, IV fluids Hilar mass, with mediastinal hilar lymphadenopathy, with numerous pulmonary nodules masses, mass anterior to the right hilum,, with history of oropharyngeal cancer, I have not seen that she is followed up with pulmonary or oncology Evidence of multiple metastatic lesions, highly suspicious for metastatic malignancy History of COPD Severe protein calorie malnutrition Cancer cachexia Goals of care discussion full code Lovenox for DVT prophylaxis Diagnoses Dehydration E86.0 Adult failure to thrive R62.7 Tachycardia R00.0 Protein calorie malnutrition E46 Recurrent aspiration pneumonia J69.0 Cancer of hypopharynx C13.9 Muscle wasting M62.50 Weight loss R63.4 Severe muscle deconditioning R29.898
[2022-12-20 22:53] LABS: Ionized Calcium 0.9 mmol/L (1.1-1.4)
[2022-12-20 23:00] LABS: Lactate (Lactic Acid level) 2.7 mmol/L (0.5-2.2); Troponin 5 2HR 31.72 ng/L (0-10)
[2022-12-20 23:01] LABS: Calcium 11.5 mg/dL (8.5-10.5)
[2022-12-20 23:02] LABS: Troponin 5 2HR Delta -2.28 ABS# (0-10)
--- NOTE | 2022-12-20 23:37 | XRR_ITS ---
PROCEDURE INFORMATION: Exam: XR Chest Exam date and time: 12/20/2022 11:42 PM Age: 72 years old Clinical indication: Shortness of breath; Prior surgery; Surgery type: Chest port; Patient HX: New onset of SOB with hypoxia while in er requiring bipap. TECHNIQUE: Imaging protocol: Radiologic exam of the chest. Views: 1 view. COMPARISON: CR (CHEST, ) 12/20/2022 6:52 PM FINDINGS: Lungs: Consolidation in the right parahilar region and lower lobe also appears increased. Consolidation in the left mid to lower lung is similar. Pleural spaces: Small right pleural effusion appears slightly increased. Heart/Mediastinum: Stable heart size. Bones/joints: Unremarkable. XR/XR chest 1V portable [id number] IMPRESSION: Increasing small right pleural effusion with increasing right perihilar and lower lobe consolidation suspicious for pneumonia.
[2022-12-21] VITALS (98 sets, daily range): BP systolic 75–138; BP diastolic 49–104; PULSE 93–134; RESP 13–26; TEMP 36.2–36.4; O2SAT 90–100
[2022-12-21 00:15] LABS: ABG PH Result 7.27 (7.35-7.45); Alveolar-Arterial Oxygen Gradi 54.4 mmHg (5-10); Arterial Blood Gas Hematocrit 40.5 % (37-47); Base Excess ABG 0.3 mmol/L (-2.0-2.0); Blood Gas Allen Test Pos; Blood Gas Operator Identificat JB; Blood Gas Sample Site Brachial, right; Blood Gas Sample Type Arterial; HCO3 ABG 28.6 mmol/L (22-26); HGB O2 Sat 98.8 % (95-100); Ionized Calcium Level - ABG 1.4 mmol/L (1.1-1.4); Methemoglobin 0.4 % (0.4-1.5); Oxygen Device BIPAP; Oxygen Saturation ABG > 100.0; Potassium Level - ABG 3.8 mmol/L (3.5-5.0); Total Hemoglobin 13.2 g/dL (12-16)
[2022-12-21 00:17] LABS: Thyroid Stimulating Hormone 6.85 uIU/mL (0.27-4.20)
[2022-12-21] MEDS: pantoprazole 40 mg SDV IVP ×2 (00:45→23:27)
[2022-12-21] MEDS: enoxaparin 40 mg/0.4 mL Syringe SUBCUT ×2 (00:45→23:28)
[2022-12-21] MEDS: dextrose 5%-sod chloride 0.9% 1,000 ML 125 ML IV ×3 (00:45→17:33)
--- NOTE | 2022-12-21 00:50 | PC.PHAR ---
Pharmacokinetic dosing service Date: 12/21/22 Time: 49 Objective: Patient: Luna Mathis Floor: 107-1 Age: 72 yo Serum creatinine: 0.3 mg/dL Height: 67.0 Inches Weight (kg): 38.102 Diagnosis: Relevant medical/social history: Cultures and sensitivities: Other labs: Assessment: IBW (kg): 61.60 Dosing wt(kg): 38.102 Estimated Creatinine clearance (ml/min): 105.0 CRCL method: Cockcroft and Gault using ibw(default). Drug selected: Vancomycin Loading dose (mg): 0 Vd (liters): 34.3 (factor used: 0.9 L/kg) Royce (hr-1): 0.092 Half life (hrs): 7.53 Recommended dose: 500 mg Interval: 8 hrs Infusion time (hrs): 1.5 Predicted peak (mcg/mL): 26.1 Predicted trough (mcg/mL): 14.35 Total body weight is being used for vancomycin dosing. Renal function is stable [ ] /unstable [ ] Recommendations: Give Vancomycin 500 mg q 8 hrs with an expected Cpeak of 26.1 mcg/ml and an expected Ctrough of 14.35 mcg/ml Renal dosing of other antibiotics (review renal dosing of other medications and list guidelines here): Thank you for the consult, will continue to follow. Signature: Shaylee Rodas [facility]
[2022-12-21 01:21] LABS: Parathyroid Hormone 4.9 pg/mL (15-65)
--- NOTE | 2022-12-21 01:45 | ECG_ITS ---
[facility] Test Date: 2022-12-21 Pat Name: Luna Mathis Department: Room: [facility] Gender: Female Functional Consultant: : 1950 Requested By: Troy Hopson Order Number: [id number] Tiffany MD: De Corral M.D. Measurements Intervals Junction Rate: 122 P: 94 NC: 143 QRS: 136 QRSD: 92 T: 252 QT: 310 QTc: 442 Interpretive Statements SINUS TACHYCARDIA RIGHT AXIS DEVIATION [QRS AXIS > 100] LOW QRS VOLTAGE IN EXTREMITY LEADS [QRS DEFLECTION < 0.5 mV IN LIMB LEADS] ANTERIOR MYOCARDIAL INFARCTION , OF INDETERMINATE AGE [40+ ms Q WAVE AND/OR ST/T ABNORMALITY IN V3/V4] MODERATE T-WAVE ABNORMALITY, CONSIDER LATERAL ISCHEMIA [-0.1+ mV T-WAVE IN I/aVL/V5/V6] MODERATE T-WAVE ABNORMALITY, CONSIDER INFERIOR ISCHEMIA [-0.1+ mV T-WAVE IN II/aVF] Compared to ECG 12/20/2022 22:09:37 Low QRS voltage now present T-wave abnormality now present Possible ischemia now present Incomplete right bundle-branch block no longer present Myocardial infarct finding still present Electronically Signed On 12-21-2022 21:28:44 CDT by De Corral M.D. [id number]
[2022-12-21] MEDS: vancomycin 500 MG in sodium chloride 0.9% (plus) 100 ML 200 MG IV ×2 (01:56→09:15)
[2022-12-21 02:14] LABS: Basophils % 0.1 %; Hematocrit 42.5 % (37.0-47.0); Hemoglobin 12.3 g/dL (11.5-15.3); Lymphocytes # 0.6 10^3/uL (0.8-4.8); Lymphocytes % 3.7 %; Mean Corpuscular HGB Conc 28.9 g/dL (30.0-36.0); Mean Corpuscular Hemoglobin 26.2 pg (28.0-34.0); Mean Corpuscular Volume 90.6 fl (81-99); Mean Platelet Volume 9.5 fL (7.4-10.4); Monocytes % 5.8 %; Neutrophils # 15.11 10^3/uL (1.8-7.7); Neutrophils % 89.3 %; Nucleated Red Blood Cells % 0 %; Platelet Count 311 10^3/cmm (130-400); Red Blood Count 4.69 10^6/uL (4.1-5.3); Red Cell Distribution Width 14.6 % (12.1-15.1); White Blood Count 16.9 10^3/uL (4.0-10.0)
[2022-12-21 02:21] LABS: Troponin 5 6HR 32.83 ng/L (0-10)
[2022-12-21 02:32] LABS: Alanine Aminotransferase 8 U/L (0-33); Albumin Level 3.1 g/dL (3.5-5.2); Alkaline Phosphatase 81 U/L (35-105); Anion Gap 19.5 (5-19); Aspartate Amino Transferase 28 U/L (0-32); Blood Urea Nitrogen 12 mg/dL (8-23); Calcium 10.3 mg/dL (8.5-10.5); Carbon Dioxide 25 mmol/L (22-29); Chloride 93 mmol/L (98-107); Glomerular Filtration Rate 219.9 mL/min (90-130); Glucose 85 mg/dL (65-115); Osmolality Calculated 275 mOsm/kg (285-295); Potassium 4.5 mmol/L (3.5-5.1); Sodium 133 mmol/L (136-145); Total Bilirubin 0.3 mg/dL (0.15-1.2); Total Protein 6.1 g/dL (6.6-8.7)
[2022-12-21 02:43] LABS: Troponin 5 6HR Delta -1.17 ng/L (0-12)
[2022-12-21 02:48] LABS: ABG PCO2 62.4 mmHg (35-45)
[2022-12-21] MEDS: LORazepam 2 mg/mL INJ 1 mL 0.5 MG IVP ×3 (03:03→15:40)
[2022-12-21 03:05] LABS: Add Urine Microscopic? YES; Bilirubin Urine Neg (Negative); Blood Urine Neg (Negative); Glucose Urine UA Norm (Normal); Ketones Urine 1+ (Negative); Leukocyte Esterase Urine Negative (Negative); Nitrate Urine Negative (Negative); Protein Urine 1+ (Negative); Specific Gravity, Urine 1.025 (1.005-1.030); Urine Appearance Clear (CLEAR); Urine Color Yellow (Yellow); Urobilinogen Urine Neg (Negative); pH Urine 5 (5-7)
[2022-12-21 03:06] LABS: Add Urine Culture? No; Bacteria Urine 1+ /hpf; Hyaline Casts Urine 0-4 /lpf; Mucus Urine 2+ /hpf; Squamous Epithelial Cell Urine 0-4 /hpf (0-5)
[2022-12-21] MEDS: piperacillin-tazobactam 3.375 GM in sodium chloride 0.9% (plus) 50 ML IV ×3 (03:10→18:25)
--- NOTE | 2022-12-21 03:49 | PC.NURSE ---
Admission Note: Pt arrived to ICU 6 @0109 12/21/22. Pt reported 0/10 pain. Stage 2 Pressure Injury noted on sacrum, Dr. Her made aware, optifoam placed. A&Ox4. Pt arrived to unit on 3.5L NC. When this RN attempted to place the BIPAP mask on the pt, the pt ripped the mask away, scratched this RN, and repeatedly said no . Pt refused to put BIPAP mask on. Educated pt and family @bedside on the purpose of the BIPAP mask related to the pts blood gas values and current/chronic conditions. Discussed in detail the pts treatment plan and code status. Pt states they want CPR and intubation if necessary but does not want to wear the BIPAP mask. Jenny from respiratory therapy spoke with patient and family about the importance of the BIPAP mask as well. At approximately 0315 pt became agreeable to wear BIPAP mask. @0440 pt ripped off mask saying, I dont know who you are , stop trying to hurt me , where am I , your trying to kill me . SpO2 dropped to 77%. This RN attempted to re-orientate pt. Pt grabbed this RN's fingers when attempting to put nasal canal in pts nose and bent fingers backward. Spoke w/ Dr. Her in person about the pts increasing confusion and refusal of the BIPAP mask. Verbal order for a one time dose of 0.5mg Ativan IVP and to start a titratable Precedex drip. See MAR for administration of medication.
[2022-12-21] MEDS: ipratropium-albuterol 3 mL Neb INHALATION ×5 (04:03→19:57)
[2022-12-21] MEDS: dexmedetomidine 400 MCG in sodium chloride 0.9% (100 ml) 100 ML IV (05:31)
[2022-12-21 06:27] LABS: ABG PH Result 7.34 (7.35-7.45); Arterial Blood Gas Hematocrit 36.1 % (37-47); Base Excess ABG 2.7 mmol/L (-2.0-2.0); Blood Gas Allen Test Pos; Blood Gas Sample Type Arterial; HCO3 ABG 29.5 mmol/L (22-26); PO2 ABG 80.1 mmHg (80.0-100.0)
[2022-12-21 06:28] LABS: Blood Gas Operator Identificat JB; Blood Gas Sample Site Brachial, right; Oxygen Device BIPAP
--- NOTE | 2022-12-21 10:35 | PM.PN ---
Subjective Subjective: patient taken off Bipap this morning, currently on oxymask, she will be going to OR soon for PEG placement Medications: Reviewed: Yes Vitals/I&O/Wt Last Vital Signs Temp 97.6 F 12/21/22 05:30 Pulse 101 H 12/21/22 10:12 Resp 15 12/21/22 10:00 BP 96/66 12/21/22 10:00 Pulse Ox 97 12/21/22 10:12 O2 Del Method BiPAP 12/21/22 07:55 O2 Flow Rate 3.5 12/21/22 01:30 FiO2 30 12/21/22 10:12 12/20/22 12/21/22 12/21/22 22:59 06:59 14:59 Intake Total 50 / 50 1101.265 / 3158.204 2379.815 / 1091.815 Output Total 450 / 450 Balance 50 / 50 651.265 / 600.626 2424.815 / 1091.815 Weight last 48 hrs Weight 42.32 kg Weight 38.102 kg Physical Exam Narrative: General: lethargic, chronically ill appearing, pale HEENT: PERRLA, pupils bilaterally equal and reactive, pallors not present Chest: coarse breath sounds CVS: S1-S2 regular, tachycardia Abdomen: Soft, nontender, no organomegaly, bowel sounds present Neuro: No focal deficits, no facial deformity, AO x3, power 5/5 in all limbs Urinary Catheter Management: Olivas: Cath Placed During This Visit: yes Reason for Continuing Indwelling Catheter: Accurate Measurement of Urinary Output in Critically Ill Patients Urinary Catheter Date of Insertion: 12/21/22 Urinary Catheter Time of Insertion: 02:41 Data 12/21/22 02:07 12/21/22 02:07 Micro: Microbiology 12/21/22 01:48 Blood Culture - Preliminary Blood SPECIMEN COLLECTED 12/20/22 18:43 Blood Culture - Preliminary Blood SPECIMEN COLLECTED A&P Assessment and plan (1) Dehydration: (2) Adult failure to thrive: (3) Tachycardia: (4) Protein calorie malnutrition: (5) Recurrent aspiration pneumonia: (6) Cancer of hypopharynx: (7) Muscle wasting: (8) Weight loss: (9) Severe muscle deconditioning: Plan # Acute hypoxic respiratory failure secondary to recurrent aspiration pneumonia, aspiration pneumonitis # Recurrent aspiration pneumonia, aspiration pneumonitis -Secondary to dysphagia, oropharyngeal cancer, hilar mass -Keep n.p.o. -s/p PEG tube today, to be used 24 hrs after placement -Broad-spectrum antibiotic therapy vancomycin, Zosyn -Oxygen therapy -Monitor respiratory status -Budesonide, Mucomyst -Full code -Lovenox for DVT prophylaxis Severe dysphagia, poor oral intake, cachexia Chronic choking, coughing, globus sensation, dysphagia and aspiration pneumonia Hyponatremia likely sec to dehydration, IV fluids Hilar mass, with mediastinal hilar lymphadenopathy, with numerous pulmonary nodules masses, mass anterior to the right hilum,, with history of oropharyngeal cancer, she will need follow up with pulmonary and oncology Evidence of multiple metastatic lesions, highly suspicious for metastatic malignancy History of COPD Severe protein calorie malnutrition Cancer cachexia Goals of care discussion full code Lovenox for DVT prophylaxis Attestations Medical Necessity Statement*: continue IVF, s/p PEG placement Coding Level of Care Code Acute Code for Chg Fwd Diagnoses Dehydration E86.0 Adult failure to thrive R62.7 Tachycardia R00.0 Protein calorie malnutrition E46 Recurrent aspiration pneumonia J69.0 Cancer of hypopharynx C13.9 Muscle wasting M62.50 Weight loss R63.4 Severe muscle deconditioning R29.898
--- NOTE | 2022-12-21 10:52 | P.ANESASSM_ITS ---
Pre-Anesthetic Assessment Height/Weight: Height 1.7 m Weight 42.32 kg Temp Pulse Resp BP Pulse Ox O2 Del Method O2 Flow Rate 97.2 F L 101 H 15 96/66 97 BiPAP 3.5 12/21/22 08:00 12/21/22 10:12 12/21/22 10:00 12/21/22 10:00 12/21/22 10:12 12/21/22 07:55 12/21/22 01:30 FiO2 30 12/21/22 10:12 Operation Date: 12/21/22 11:15 Proposed Procedures p PEG Tube Insertion Gastric Tube Insertion(Not Applicable) - Cleveland Dickens DO Familial anesthetic complications: None Last intake: > 8hrs Social No alcohol former smoker Exam alert, oriented x 3, clear to auscultation bilaterally and regular rate & rhythm BipAP Airway Comments: Comments: MRI MPRESSION found from previous Pre-anesthetic record in 2019 (at this time she was Grade I view with MAC 3 and placed a 6.5 ETT) 1.? Exam is somewhat limited due to patient motion. 2.? Diffuse nodular soft tissue thickening involving Waldeyer's ring at the adenoids extending into the palatine tonsils. Recommend correlation for malignancy. 3.? Additional similar-appearing nodular soft tissue thickening involving the supraglottic larynx at the inferior aspect of the piriform sinuses extending into the vocal folds and glottis. Circumferential soft tissue thickening at the level of the glottis with mild glottic narrowing. Recommend direct visualization. 4.? Enlarged left level 2 and level 3 cervical lymph nodes along the left parotid tail and carotid sheath the largest measuring 12 x 9 mm suspicious for metastatic disease. 5.? No enlarged right-sided cervical lymph nodes visualized. 6.? Partial opacification right mastoid air cells. 7.? A few small thyroid nodules the largest measuring 8 mm. This can be followed up with ultrasound. 8.? Mild central canal stenosis with small disc protrusion at C5-C6. Pulmonary Chronic Obstructive Pulmonary Disease and Sleep Apnea aspiration pneumonia Metabolic Failure to thrive, liver and lung mets Anesthetic Plan ASA status: 4 Anesthesia: MAC Other: High risk of requiring general ETA, patient's family informed of risk of aspiration, post-op mechanical ventilation, and potentially difficult airway. Wishes to proceed Risk of > 500 ml blood loss (7ml/kg in children): No Medications/Allergies Home Medications Medication Instructions Recorded Confirmed Last Taken Type albuterol sulfate 0.63 mg/3 mL 0.63 mg (3 mL) inhalation Q6H PRN 10/17/22 12/21/22 Unknown Rx solution for nebulization shortness of breath or wheezing #75 mL lorazepam 1 mg tablet See Rx Instructions .Route 10/17/22 12/21/22 Unknown Rx .COMPLEX PRN anxiety #60 tabs guaifenesin 100 mg/5 mL oral 200 mg (10 mL) PO Q4H PRN cough 12/07/22 12/21/22 Unknown Rx liquid (Mucinex Fast-Max Chest #473 mL Congestion) sodium chloride 7 % for 1 inh inhalation BID PRN thick 12/07/22 12/21/22 Unknown Rx nebulization mucus #120 mL oxycodone-acetaminophen 5 mg-325 1 tab PO .1/2 tab daily PRN Pain 12/20/22 12/21/22 Unknown History mg tablet Allergies Allergy/AdvReac Type Severity Reaction Status Date / Time aspirin Allergy ALGY-Hives Verified 12/20/22 14:06 Current Medications Generic Name Dose Route Start Last Admin Trade Name Freq PRN Reason Stop Dose Admin Albuterol/Ipratropium 3 ml 12/21/22 04:00 12/21/22 08:05 Ipratropium-Albuterol 3 Ml Neb INHALATION 3 ml Q4H.RESPIRATORY [place] Administration Enoxaparin Sodium 40 mg 12/20/22 23:19 12/21/22 00:45 Enoxaparin 40 Mg/0.4 Ml Syringe SUBCUT 40 mg Q24H [place] Administration Piperacillin Sod/Tazobactam 50 mls @ 12.5 mls/hr 12/21/22 03:00 12/21/22 07:28 Sod 3.375 gm/ Sodium Chloride IV Infused Q8H [place] Infusion Protocol Dextrose/Sodium Chloride 1,000 mls @ 125 mls/hr 12/20/22 23:19 12/21/22 09:26 Dextrose 5%-Sod Chloride 0.9% IV 125 mls/hr .Q8H [place] Administration Vancomycin HCl 500 mg/ Sodium 100 mls @ 200 mls/hr 12/21/22 01:00 12/21/22 09:57 Chloride IV Infused Q8H [place] Infusion Dexmedetomidine HCl 400 mcg/ 104 mls @ 0 mls/hr 12/21/22 04:45 12/21/22 08:48 Sodium Chloride IV 0 mcg/kg/hr .Q0M [place] 0 mls/hr Titration Protocol Per Protocol Lorazepam 0.5 mg 12/20/22 23:19 12/21/22 03:03 Lorazepam 2 Mg/Ml Inj 1 Ml IVP 0.5 mg Q8H PRN Administration ANXIETY Pantoprazole Sodium 40 mg 12/20/22 23:19 12/21/22 00:45 Pantoprazole 40 Mg Sdv IVP 40 mg Q24H [place] Administration PFSH Anesthesia Medical History History of COPD History of dysphagia History of emphysema 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 (01/21/20) left subclavian removed 12/08 Squamous cell carcinoma of right tonsil Surgical History Cancer of hypopharynx History of right hip replacement Family History Father Surgical complication Other CAD (coronary artery disease) Denies family history of Anesthesia complication Bleeding disorder Social History Smoking and tobacco status: current every day smoker ( half a pack a day ) cigarettes Packs smoked per day: 0.5 Years cigarettes smoked: 48 Alcohol intake: never Substance/Drug Use: never Data Anesthesia 12/21/22 02:07 12/21/22 02:07 Short CBC 12/20/22 12/21/22 Range/Units 16:25 02:07 WBC 16.5 H 16.9 H (4.0-10.0) 10^3/uL Hgb 12.6 12.3 (11.5-15.3) g/dL Hct 42.8 42.5 (37.0-47.0) % MCV 90.1 90.6 (81-99) fl Plt Count 342 311 (130-400) 10^3/cmm Neut % (Auto) 88.3 89.3 % Neut # (Auto) 14.56 H 15.11 H (1.8-7.7) 10^3/uL BMP 12/20/22 12/21/22 16:25 02:07 Sodium 130 L 133 L Potassium 4.2 4.5 Chloride 90 L 93 L Carbon Dioxide 27 25 BUN 13 12 Creatinine 0.3 L 0.3 L Glucose 84 85 Calcium 11.1 H 10.3 Cardiac Enzymes 12/20/22 12/20/22 12/21/22 Range/Units 20:00 22:28 01:48 Troponin T Baseline 34 H (0-10) ng/L Troponin T 120 Minute 31.72 H (0-10) ng/L Delta Troponin T -2.28 L (0-10) ABS# Troponin T Hi Sens 6Hr 32.83 H (0-10) ng/L Troponin T Hi Sens 6Hr Delta -1.17 L (0-12) ng/L Liver Function 12/20/22 12/21/22 Range/Units 16:25 02:07 Total Bilirubin 0.3 0.3 (0.15-1.2) mg/dL AST 31 28 (0-32) U/L ALT 9 8 (0-33) U/L Alkaline Phosphatase 90 81 (35-105) U/L Albumin 3.6 3.1 L (3.5-5.2) g/dL Urine 12/21/22 Range/Units 02:53 Urine Color Yellow (Yellow) Urine Appearance Clear (CLEAR) Urine pH 5 (5-7) Ur Specific [place] 1.025 (1.005-1.030) Urine Protein 1+ H (Negative) Urine Glucose (UA) Norm (Normal) Urine Ketones 1+ H (Negative) Urine Nitrate Negative (Negative) Urine Bilirubin Neg (Negative) Ur Leukocyte Esterase Negative (Negative) Urine RBC None (0-2) /hpf Urine WBC None (0-5) /hpf ABG 12/21/22 12/21/22 00:00 06:15 Specimen Type Arterial Arterial Sample Site Brachial, right Brachial, right ABG pH 7.27 L 7.34 L ABG pCO2 62.4 H* 55.0 H ABG pO2 215.0 H 80.1 ABG HCO3 28.6 H 29.5 H ABG O2 Saturation > 100.0 ABG Base Excess 0.3 2.7 H A-a O2 Gradient 54.4 H O2 Delivery Device Bipap Bipap FiO2 100.0 30.0 Microbiology 12/21/22 01:48 Blood Culture - Preliminary Blood SPECIMEN COLLECTED 12/20/22 18:43 Blood Culture - Preliminary Blood SPECIMEN COLLECTED Cardiac Studies: Echocardiogram 10/01/22
--- NOTE | 2022-12-21 11:20 | PC.PHAR ---
PHARMACY TO DOSE CONSULT With the patient's SCr. doubling from admit, I recalculated the dose to 500mg every 18 hours for a predicted peak of 31.7 and a trough of 14.02. Will enter a trough before the 4th overall dose and monitor/adjust from there. Pharmacy will continue to monitor the patient's renal function and make adjustments as necessary. Please let us know if there is anything else that we need to do. Thanks, Jeffery Felder, Pharm.D
--- NOTE | 2022-12-21 11:38 | PM.CONSULT ---
Providers/Reason For Consult Consulting Physician/Specialty*: Dr. Cleveland Dickens, DO/General surgery Reason for Consult*: PEG tube placement Attending Physician: Camryn Leary MD Primary Care Provider: Alka Tristan NP History of Present Illness History of Present Illness Luna Mathis is a 72 year old female with a history of squamous cell carcinoma of the throat, status post chemotherapy and radiation, who is currently in the hospital due to failure to thrive and aspiration pneumonia. I saw her in my office yesterday for a feeding tube consult. She looked very frail and somnolent and therefore I sent her to the emergency room. She is currently in the intensive care unit on BiPAP. Risks and benefits of PEG tube insertion were explained to the patient and her son and daughter. They want to proceed. Review of Systems General: Reports: 10 or more systems reviewed and unremarkable except in HPI and below Medications/Allergies Home Medications Medication Instructions Recorded Confirmed Last Taken Type albuterol sulfate 0.63 mg/3 mL 0.63 mg (3 mL) inhalation Q6H PRN 10/17/22 12/21/22 Unknown Rx solution for nebulization shortness of breath or wheezing #75 mL lorazepam 1 mg tablet See Rx Instructions .Route 10/17/22 12/21/22 Unknown Rx .COMPLEX PRN anxiety #60 tabs guaifenesin 100 mg/5 mL oral 200 mg (10 mL) PO Q4H PRN cough 12/07/22 12/21/22 Unknown Rx liquid (Mucinex Fast-Max Chest #473 mL Congestion) sodium chloride 7 % for 1 inh inhalation BID PRN thick 12/07/22 12/21/22 Unknown Rx nebulization mucus #120 mL oxycodone-acetaminophen 5 mg-325 1 tab PO .1/2 tab daily PRN Pain 12/20/22 12/21/22 Unknown History mg tablet Allergies Allergy/AdvReac Type Severity Reaction Status Date / Time aspirin Allergy ALGY-Hives Verified 12/20/22 14:06 Current Medications Generic Name Dose Route Start Last Admin Trade Name Freq PRN Reason Stop Dose Admin Albuterol/Ipratropium 3 ml 12/21/22 04:00 12/21/22 11:16 Ipratropium-Albuterol 3 Ml Neb INHALATION 3 ml Q4H.RESPIRATORY [place] Administration Enoxaparin Sodium 40 mg 12/20/22 23:19 05/04/23 00:45 Enoxaparin 40 Mg/0.4 Ml Syringe SUBCUT 40 mg Q24H [place] Administration Piperacillin Sod/Tazobactam 50 mls @ 12.5 mls/hr 12/21/22 03:00 12/21/22 07:28 Sod 3.375 gm/ Sodium Chloride IV Infused Q8H [place] Infusion Protocol Dextrose/Sodium Chloride 1,000 mls @ 125 mls/hr 12/20/22 23:19 12/21/22 09:26 Dextrose 5%-Sod Chloride 0.9% IV 125 mls/hr .Q8H [place] Administration Dexmedetomidine HCl 400 mcg/ 104 mls @ 0 mls/hr 12/21/22 04:45 12/21/22 08:48 Sodium Chloride IV 0 mcg/kg/hr .Q0M [place] 0 mls/hr Titration Protocol Per Protocol Lorazepam 0.5 mg 12/20/22 23:19 12/21/22 03:03 Lorazepam 2 Mg/Ml Inj 1 Ml IVP 0.5 mg Q8H PRN Administration ANXIETY Pantoprazole Sodium 40 mg 12/20/22 23:19 12/21/22 00:45 Pantoprazole 40 Mg Sdv IVP 40 mg Q24H [place] Administration PFSH Acute PFSH: Medical History History of COPD History of dysphagia History of emphysema 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 (01/21/20) left subclavian removed 12/08 Squamous cell carcinoma of right tonsil Surgical History Cancer of hypopharynx History of right hip replacement Family History Father Surgical complication Other CAD (coronary artery disease) Denies family history of Anesthesia complication Bleeding disorder Social History Smoking and tobacco status: current every day smoker ( half a pack a day ) cigarettes Packs smoked per day: 0.5 Years cigarettes smoked: 48 Alcohol intake: never Substance/Drug Use: never Vitals/I&O/Wt Last Vital Signs Temp 97.2 F L 12/21/22 08:00 Pulse 107 H 12/21/22 11:10 Resp 16 12/21/22 11:00 BP 96/66 12/21/22 10:00 Pulse Ox 95 12/21/22 11:05 O2 Del Method BiPAP 12/21/22 11:00 O2 Flow Rate 3.5 12/21/22 01:30 FiO2 30 12/21/22 11:05 12/20/22 12/21/22 12/21/22 22:59 06:59 14:59 Intake Total 50 / 50 1101.265 / 0670.744 5703.815 / 1091.815 Output Total 450 / 450 Balance 50 / 50 651.265 / 470.698 9305.815 / 1091.815 Weight last 48 hrs Weight 93 lb 4.8 oz Weight 84 lb Physical Exam Narrative: General : Patient is cachectic and somnolent Head : Normal cephalic, a-traumatic. Ears : Pinnae and external canal are normal. Hearing is normal. Eyes : PERRLA, Sclera and injection are normal. No conjunctival discharge. Nose : Mucous membranes are without erythema. Throat : buccal mucosa is normal, gums are without significant recession or hypertrophy. Lungs : Equal chest rise bilaterally, no use of accessory muscles, trachea is midline. Cor : Rate and rhythm are normal. Abdomen : Soft, ND, NT, no g/r/m Extremities : No edema, no cyanosis or clubbing, dorsalis pedis pulses are present bilaterally, non-tender to palpation of calves. Upper extremities are normal bilaterally. Back : non-tender to palpation, no CVA tenderness. Urinary Catheter Management: Olivas: Cath Placed During This Visit: yes Reason for Continuing Indwelling Catheter: Accurate Measurement of Urinary Output in Critically Ill Patients Urinary Catheter Date of Insertion: 12/21/22 Urinary Catheter Time of Insertion: 02:41 Data 12/21/22 02:07 12/21/22 02:07 Micro: Microbiology 12/21/22 01:48 Blood Culture - Preliminary Blood SPECIMEN COLLECTED 12/20/22 18:43 Blood Culture - Preliminary Blood SPECIMEN COLLECTED A&P Assessment and plan (1) Recurrent aspiration pneumonia: (2) Adult failure to thrive: (3) History of oropharyngeal cancer: (4) Dysphagia: Plan Percutaneous endoscopic gastrostomy tube placement The risk and benefits of the procedure, including but not limited to, bleeding, infection, scar, numbness, pain, intestinal perforation, damage to surrounding structures, were explained to the patient and her son and daughter. They are understanding of the risks and wished to proceed. Coding Level of Care Code Acute Code for Chg Fwd Diagnoses Recurrent aspiration pneumonia J69.0 Adult failure to thrive R62.7 History of oropharyngeal cancer Z85.819 Dysphagia R13.10
[2022-12-21 11:45] LABS: Glucose Point of Care 181 mg/dL (70-110)
--- NOTE | 2022-12-21 12:36 | PC.NURSE ---
Patient left unit at 1143 for PEG tube placement in GI lab.
--- NOTE | 2022-12-21 12:36 | PC.NURSE ---
Patient arrived back in room from GI lab at 1207.
--- NOTE | 2022-12-21 13:46 | ANE.PACU2 ---
Inpatient post-anesthesia follow up: Airway intact: Yes Vital signs: Temperature 97.2 F Pulse Rate 107 Respiratory Rate 16 Blood Pressure 96/66 Pulse Oximetry 95 Oxygen Delivery Me thod BiPAP Oxygen Flow Rate 3.5 Fraction of Inspir ed Oxygen 30 Hydration adequate: Yes Nausea and vomiting: No Pain level: 1 Mental status: Baseline
--- NOTE | 2022-12-21 15:58 | PC.SLP ---
Pt has agreed to get PEG tube placed. STUDENT DEVELOPMENT SPECIALIST assessment not completed at this time.
[2022-12-21] MEDS: morphine 4 mg/mL SDV 1 mL 2 MG IVP (17:46)
[2022-12-22] VITALS (109 sets, daily range): BP systolic 80–157; BP diastolic 51–109; PULSE 97–149; RESP 11–28; TEMP 36.1–37.2; O2SAT 76–100
[2022-12-22] MEDS: ipratropium-albuterol 3 mL Neb INHALATION ×6 (00:22→19:48)
[2022-12-22] MEDS: dextrose 5%-sod chloride 0.9% 1,000 ML 125 ML IV ×3 (02:29→17:55)
[2022-12-22] MEDS: piperacillin-tazobactam 3.375 GM in sodium chloride 0.9% (plus) 50 ML IV ×3 (03:12→19:39)
[2022-12-22] MEDS: vancomycin 500 MG in sodium chloride 0.9% (plus) 100 ML 200 MG IV (03:13)
[2022-12-22] MEDS: morphine 4 mg/mL SDV 1 mL 2 MG IVP ×2 (03:16→20:45)
[2022-12-22] MEDS: LORazepam 2 mg/mL INJ 1 mL 0.5 MG IVP ×2 (10:10→20:45)
[2022-12-22 10:46] LABS: Basophils % 0.2 %; Hemoglobin 12.4 g/dL (11.5-15.3); Lymphocytes # 0.4 10^3/uL (0.8-4.8); Lymphocytes % 2.7 %; Mean Corpuscular HGB Conc 28.2 g/dL (30.0-36.0); Mean Corpuscular Volume 92.2 fl (81-99); Mean Platelet Volume 9.6 fL (7.4-10.4); Monocytes # 0.5 10^3/uL (0.2-0.9); Monocytes % 3.3 %; Neutrophils # 15.17 10^3/uL (1.8-7.7); Neutrophils % 93.1 %; Nucleated Red Blood Cells % 0 %; Platelet Count 285 10^3/cmm (130-400); Red Blood Count 4.77 10^6/uL (4.1-5.3); Red Cell Distribution Width 14.7 % (12.1-15.1); White Blood Count 16.3 10^3/uL (4.0-10.0)
[2022-12-22] MEDS: metoprolol tartrate 1 mg/1 mL SDV 5 mL 2.5 MG IVP (10:54)
[2022-12-22] MEDS: metoprolol tartrate 25 mg Tablet 12.5 MG PEG-TUBE (11:14)
[2022-12-22] MEDS: acetaminophen 1,000 MG/100 ML PIGGYBACK 400 MG IV (11:15)
--- NOTE | 2022-12-22 11:17 | PM.PN ---
Subjective Subjective: Patient seen and examined. Currently on BiPAP Vitals/I&O/Wt Last Vital Signs Temp 98.0 F 12/22/22 04:00 Pulse 134 H 12/22/22 10:15 Resp 20 H 12/22/22 10:15 BP 106/82 12/22/22 10:15 Pulse Ox 93 12/22/22 10:15 O2 Del Method BiPAP 12/22/22 07:55 O2 Flow Rate 3.5 12/21/22 01:30 FiO2 30 12/22/22 07:55 12/21/22 12/22/22 12/22/22 22:59 06:59 14:59 Intake Total 1104.344 / 2196.159 1114.970 / 3311.129 1010.417 / 1010.417 Output Total 175 / 300 150 / 450 Balance 929.344 / 1896.159 964.970 / 2861.129 1010.417 / 1010.417 Weight last 48 hrs Weight 95 lb Weight 93 lb 4.8 oz Weight 84 lb Physical Exam Narrative: General: In moderate distress on BiPAP Abdomen: Soft, distended, appropriately tender, PEG tube in place without erythema or exudate Urinary Catheter Management: Olivas: Cath Placed During This Visit: yes Reason for Continuing Indwelling Catheter: Accurate Measurement of Urinary Output in Critically Ill Patients Urinary Catheter Date of Insertion: 12/21/22 Urinary Catheter Time of Insertion: 02:41 Data 12/22/22 10:37 12/22/22 10:37 Micro: Microbiology 12/21/22 01:48 Blood Culture - Preliminary Blood NEGATIVE TO DATE 12/20/22 18:43 Blood Culture - Preliminary Blood NEGATIVE TO DATE A&P Assessment and plan (1) Dysphagia: (2) Recurrent aspiration pneumonia: (3) Adult failure to thrive: (4) Cancer cachexia: Plan Postoperative day #1 status post PEG tube insertion May begin trickle tube feeds and advance as per orders Dietary consult Medical management per hospitalist Attestations Medical Necessity Statement*: Per primary Coding Level of Care Code Acute Code for Chg Fwd Diagnoses Dysphagia R13.10 Recurrent aspiration pneumonia J69.0 Adult failure to thrive R62.7 Cancer cachexia R64
[2022-12-22 12:28] LABS: Alanine Aminotransferase 9 U/L (0-33); Albumin Level 2.7 g/dL (3.5-5.2); Alkaline Phosphatase 69 U/L (35-105); Anion Gap 12.7 (5-19); Aspartate Amino Transferase 30 U/L (0-32); Blood Urea Nitrogen 7 mg/dL (8-23); Calcium 8.8 mg/dL (8.5-10.5); Carbon Dioxide 25 mmol/L (22-29); Chloride 109 mmol/L (98-107); Globulin 2.6 g/dL (1.3-4.6); Glucose 114 mg/dL (65-115); Magnesium 1.5 mg/dL (1.7-2.3); Osmolality Calculated 297 mOsm/kg (285-295); Sodium 144 mmol/L (136-145); Total Bilirubin 0.3 mg/dL (0.15-1.2); Total Protein 5.3 g/dL (6.6-8.7)
[2022-12-22 12:34] LABS: Potassium 2.7 mmol/L (3.5-5.1)
[2022-12-22] MEDS: lidocaine 1% 5 ML in potassium chloride premix 100 ML 26.25 ML IV ×2 (14:18→17:55)
--- NOTE | 2022-12-22 15:18 | P.PN_ITS ---
Subjective Subjective: s/p PEG tube placement yesterday, starting tube feeds today, Off bipap, on healted high flow NC Medications: Reviewed: Yes Vitals/I&O/Wt Last Vital Signs Temp 98.2 F 12/22/22 14:00 Pulse 117 H 12/22/22 15:12 Resp 16 12/22/22 15:09 BP 89/55 12/22/22 14:00 Pulse Ox 95 12/22/22 15:09 O2 Del Method Heated High Flow 12/22/22 15:09 O2 Flow Rate 50 12/22/22 15:09 FiO2 50 12/22/22 15:09 12/22/22 12/22/22 12/22/22 06:59 14:59 22:59 Intake Total 1114.970 / 3311.129 1160.417 / 1160.417 Output Total 150 / 450 Balance 964.970 / 2861.129 1160.417 / 1160.417 Weight last 48 hrs Weight 43.091 kg Weight 42.32 kg Physical Exam Narrative: General: lethargic, chronically ill appearing, pale ,cachexic, BMI 14 , able to wake up and answer some questions HEENT: PERRLA, pupils bilaterally equal and reactive, pallors not present Chest: coarse breath sounds B/L CVS: S1-S2 regular, tachycardia Abdomen: Soft, nontender, PEG in place Neuro: No focal deficits, moves all extremities Urinary Catheter Management: Olivas: Cath Placed During This Visit: yes Reason for Continuing Indwelling Catheter: Accurate Measurement of Urinary Output in Critically Ill Patients Urinary Catheter Date of Insertion: 12/21/22 Urinary Catheter Time of Insertion: 02:41 Data 12/22/22 10:37 12/22/22 12:04 Micro: Microbiology 12/21/22 01:48 Blood Culture - Preliminary Blood NEGATIVE TO DATE 12/20/22 18:43 Blood Culture - Preliminary Blood NEGATIVE TO DATE A&P Assessment and plan (1) Dehydration: (2) Adult failure to thrive: (3) Tachycardia: (4) Protein calorie malnutrition: (5) Recurrent aspiration pneumonia: (6) Cancer of hypopharynx: (7) Muscle wasting: (8) Weight loss: (9) Severe muscle deconditioning: Plan 72F with PMh COPD, chronic smoking, h/o 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 She did not complete cisplatin cycles due to side effects. Per last follow up CT PET scan on August 28, 2020 there was resolution of oropharyngeal malignancy and metastatic nodes. 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 She has not followed up with oncology since then. She was recommended to follow up with pulmonology but did not make the appointment. 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 She was recommended to see speech therapy. She was admitted here between 10/01/22 to 10/03/22 after presenting with dyspnea and was found to have numerous pulmonary nodules masses, mass anterior to the right hilum with central necrosis. ?This is concerning for primary and/or metastatic disease. Marked mediastinal and bilateral hilar lymphadenopathy. This is concerning for metastatic disease.Multiple hepatic masses concerning for metastatic disease. Aspiration pneumonia was also noted. Consideration was given to further assessment with bronchoscopy, and PET scan to be completed as outapatient however patient did not keep these appointments as she did not want to see any more doctors. Family tells me that she said even if she had cancer she did not want to know and did not ever want to take chemotherapy again. She just wanted to be home. On last admission in september there were persisting is sues with sinus tachycardia and additional testing was recommended however patient just wanted to return home. She left AMA on thsi admission as her goal was to be comfortable at home. Thereafter she followed up with her PCP as outpatient to consider a PEG tube due to poor caloric intake and continued weight loss. When she presented to surgery office on 12/20/22, she was found to be very lethargic and referred for admission here. She now has a PEG tube placed yesterday. Current hospital course has been notable for hypoxic respiratory failure secondary to lung malignancy, aspiration and possibly post obstructive pneumonia, right pleural effusion which may be malignant. She required Bipap support, precedex infusion to tolerate Bipap and ICU care. ABG showed hypoxic hypercapneic respiratory failure. She is lethargic, dehydated, slurring her words. She is unable to talk to complete a full sentence. I had an extensive discussion with the family regarding her overall goals of care. At this present point of time, patient has lung mass, possibly numerous metastases in the lungs and also the liver. To further evaluate this patient will need a PET/CT and biopsy going forward. We may also attempt to do a thoracentesis for diagnostic purposes. Dependent on biopsy results, should malignancy be proven, next steps would likely be chemotherapy. She is extremely weak and cachectic. Patient has multiple children only form or present at the time of this discussion. Attempted to include patient in the conversation, however she is very lethargic, does not follow all commands, unable to participate in conversation. Her children state that they have had conversations regarding goals of care with their mother in the past. She has clearly stated her wishes on multiple occasions stating that she does not wish to have any further investigations with regards to cancer. She understands that there is a high probability that she may have cancer of the lung, however she has stated that even if it is proven to be cancer she does not want any further chemotherapy or other diagnostics. Her expressed wish has been to be comfortable in her own home and let nature take its course. All her children present currently are in agreement that their mother with be best served by transition to hospice care so that she can return home and be comfortable. Her CODE STATUS has been changed to DNR/DNI. Hospice referral has been sent. Plan to discharge patient to home hospice over the next 24 hours. No further escalation of care from this point on. Attestations Medical Necessity Statement*: extensive GOC discussion, transition to home hospice Coding Level of Care Code Acute Code for Chg Fwd High MDM includes number and complexity of problems actively addressed during encounter, amount and/or complexity of data reviewed/ordered and described risk of complication, morbidity or mortality of management as documented Diagnoses Dehydration E86.0 Adult failure to thrive R62.7 Tachycardia R00.0 Protein calorie malnutrition E46 Recurrent aspiration pneumonia J69.0 Cancer of hypopharynx C13.9 Muscle wasting M62.50 Weight loss R63.4 Severe muscle deconditioning R29.898
[2022-12-22] MEDS: TRAMadol 50 mg Tablet PEG-TUBE (17:55)
--- NOTE | 2022-12-22 18:36 | PC.NURSE ---
Shift Note Frequent safety and comfort rounds continue. Orders and nursing care completed as indicated. Patient monitored for response to intervention and treatments. Dr. Leary spoke with family today and plans for Ms. Mathis to go home with hospice tomorrow. Tube feedings started this afternoon per Dr. Dickens, see note to nurse order. Education provided includes frequent Q2 turns for pressure sore prevention, oxygen requirements, new medications prescribed, tube feeding management, pain management, and Hospice care. Family verbalized understanding and asked follow up questions throughout the day on pains plan of care and status. Will continue to monitor.
[2022-12-23] VITALS (46 sets, daily range): BP systolic 74–131; BP diastolic 49–83; PULSE 124–143; RESP 8–26; TEMP 36.1; O2SAT 88–98
[2022-12-23] MEDS: pantoprazole 40 mg SDV IVP (00:08)
[2022-12-23] MEDS: ipratropium-albuterol 3 mL Neb INHALATION ×2 (00:36→04:25)
[2022-12-23] MEDS: dextrose 5%-sod chloride 0.9% 1,000 ML 125 ML IV (03:50)
[2022-12-23] MEDS: piperacillin-tazobactam 3.375 GM in sodium chloride 0.9% (plus) 50 ML IV (03:54)
--- NOTE | 2022-12-23 08:21 | P.DS_ITS ---
Discharge Providers Date of Admission: 12/20/22 22:19 Date of Discharge: December 23, 2022 Attending Provider at Admission: Curry Her MD Attending Provider at Discharge: Camryn Leary MD Primary Care Provider: Alka Tristan NP Diagnoses at Discharge Discharge Diagnosis (1) Dehydration: Status: Acute (2) Adult failure to thrive: Status: Acute (3) Tachycardia: Status: Acute (4) Protein calorie malnutrition: Status: Inactive (5) Recurrent aspiration pneumonia: Status: Acute (6) Cancer of hypopharynx: Status: Acute (7) Muscle wasting: Status: Acute (8) Weight loss: Status: Acute (9) Severe muscle deconditioning: Status: Acute (10) Lung cancer: Status: Acute (11) Metastasis to liver: Status: Acute Reason for Visit Reason for Visit: Dickens sent/AMS/unable to thrive Hospital Course Hospital Course 72F with PMh COPD, chronic smoking, h/o 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 She did not complete cisplatin cycles due to side effects. Per last follow up? CT PET scan on August 28, 2020 there was resolution of oropharyngeal malignancy and metastatic nodes. 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 She has not followed up with oncology since then. She was recommended to follow up with pulmonology but did not make the appointment. 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 She was recommended to see speech therapy. She was admitted here between 10/01/22 to 10/03/22 after presenting with dyspnea and was found to have? numerous pulmonary nodules masses, mass anterior to the right hilum with central necrosis.??This is concerning for primary and/or metastatic disease. Marked mediastinal and bilateral hilar lymphadenopathy. This is concerning for metastatic disease.Multiple hepatic masses concerning for metastatic disease. Aspiration pneumonia was also noted.?Consideration was given to further assessment with bronchoscopy, and? PET scan to be completed as outapatient however patient did not keep these appointments as she did not want to see any more doctors. Family tells me that she said even if she had cancer she did not want to know and did not ever want to take chemotherapy again. She just wanted to be home. On last admission in september there were persisting issues with sinus tachycardia and additional testing was recommended however patient wanted to return home. She left AMA on this admission. Thereafter she followed up with her PCP as outpatient to consider a PEG tube due to poor caloric intake and continued weight loss. When she presented to surgery office on 12/20/22, she was found to be very lethargic and referred for admission here. She now has a PEG tube placed on 12/21. Current hospital course has been notable for hypoxic respiratory failure secondary to lung malignancy, aspiration and possibly post obstructive pneumonia, right pleural effusion which may be malignant. She required Bipap support, precedex infusion to tolerate Bipap and ICU care. ABG showed hypoxic hypercapneic respiratory failure. She is lethargic, encephalopathic, dehydated, slurring her words. She is unable to talk to complete a full sentence. I had an extensive discussion with the family regarding her overall goals of care. At this present point of time, patient has lung mass, possibly numerous metastases in the lungs and also the liver.? To further evaluate this patient will need a PET/CT and biopsy going forward.? We may also attempt to do a thoracentesis for diagnostic purposes.? Dependent on biopsy results, should malignancy be proven, next steps would likely be chemotherapy.? She is extremely weak and cachectic. Patient has multiple children all of whom present at the time of this discussion.? Attempted to include patient in the conversation, however she is very lethargic and encepahlopathic, does not follow all commands, unable to participate in conversation. She is not in a position to follow this conversation. ? Her children state that they have had conversations regarding goals of care with their mother in the past.? She has clearly stated her wishes on multiple occasions that she does not wish to have any further investigations with regards to cancer.? She understands that there is a high probability that she may have cancer of the lung, however she has stated that even if it is proven to be cancer she does not want any further chemotherapy or other diagnostics.? Her expressed wish has been to be comfortable in her own home and let nature take its course. All her children present currently are in agreement that their mother with be best served by transition to hospice care so that she can return home and be comfortable in her remaining days. Her CODE STATUS has been changed to DNR/DNI.? She is being discharged on home hospice today in poor condition. Her prognosis is guarded. Physical Exam Narrative: General: lethargic, encephalopathic, chronically ill appearing, pale ,cachexic, BMI 14 , able to wake up and answer some questions HEENT: PERRLA, pupils bilaterally equal and reactive, pallors not present Chest: coarse breath sounds B/L, reduced air entery right lung CVS: S1-S2 regular, tachycardia Abdomen: Soft, nontender, PEG in place Urinary Catheter Management: Olivas: Cath Placed During This Visit: yes Reason for Continuing Indwelling Catheter: Accurate Measurement of Urinary Output in Critically Ill Patients Urinary Catheter Date of Insertion: 12/21/22 Urinary Catheter Time of Insertion: 02:41 Discharge Data Studies Completed and Pending Completed Studies During Hospitalization Category Date Time Status CXRP [XR chest 1V portable [id number]] Routine Exams 12/20/22 23:37 Completed XR chest 1V portable [id number] Stat Exams 12/20/22 18:15 Completed Pending at discharge Category Date Time Status Blood Culture Routine Lab 12/20/22 18:43 Results Radiology Impressions Chest X-Ray 12/20/22 23:37 IMPRESSION: Increasing small right pleural effusion with increasing right perihilar and lower lobe consolidation suspicious for pneumonia. Laboratory Results WBC 16.3 10^3/uL (4.0-10.0) H 12/22/22 10:37 RBC 4.77 10^6/uL (4.1-5.3) 12/22/22 10:37 Hgb 12.4 g/dL (11.5-15.3) 12/22/22 10:37 Hct 44.0 % (37.0-47.0) 12/22/22 10:37 MCV 92.2 fl (81-99) 12/22/22 10:37 MCH 26.0 pg (28.0-34.0) L 12/22/22 10:37 MCHC 28.2 g/dL (30.0-36.0) L 12/22/22 10:37 RDW 14.7 % (12.1-15.1) 12/22/22 10:37 Plt Count 285 10^3/cmm (130-400) 12/22/22 10:37 MPV 9.6 fL (7.4-10.4) 12/22/22 10:37 Neut % (Auto) 93.1 % 12/22/22 10:37 Lymph % (Auto) 2.7 % 12/22/22 10:37 Ada % (Auto) 3.3 % 12/22/22 10:37 Eos % (Auto) 0.0 % 12/22/22 10:37 Baso % (Auto) 0.2 % 12/22/22 10:37 Neut # (Auto) 15.17 10^3/uL (1.8-7.7) H 12/22/22 10:37 Lymph # (Auto) 0.4 10^3/uL (0.8-4.8) L 12/22/22 10:37 Ada # (Auto) 0.5 10^3/uL (0.2-0.9) 12/22/22 10:37 Eos # (Auto) 0.0 10^3/uL (0.0-0.8) 12/22/22 10:37 Baso # (Auto) 0.0 10^3/uL (0.0-0.1) 12/22/22 10:37 Nucleated RBC % (auto) 0 % 12/22/22 10:37 Nucleated RBCs # 0.0 /100WBC 12/22/22 10:37 Specimen Type Arterial 12/21/22 06:15 Sample Site Brachial, right 12/21/22 06:15 ABG pH 7.34 (7.35-7.45) L 12/21/22 06:15 ABG pCO2 55.0 mmHg (35-45) H 12/21/22 06:15 ABG pO2 80.1 mmHg (80.0-100.0) 12/21/22 06:15 ABG HCO3 29.5 mmol/L (22-26) H 12/21/22 06:15 ABG O2 Saturation > 100.0 12/21/22 00:00 ABG Base Excess 2.7 mmol/L (-2.0-2.0) H 12/21/22 06:15 Rio Test Pos 12/21/22 06:15 A-a O2 Gradient 54.4 mmHg (5-10) H 12/21/22 00:00 Hematocrit 36.1 % (37-47) L 12/21/22 06:15 Hgb O2 Saturation 98.8 % (95-100) 12/21/22 00:00 Carboxyhemoglobin 1.0 %THgb (0.4-20.1) 12/21/22 00:00 Methemoglobin 0.4 % (0.4-1.5) 12/21/22 00:00 Total Hemoglobin 13.2 g/dL (12-16) 12/21/22 00:00 Sodium 137.0 mmol/L (131-143) 12/21/22 00:00 Potassium 3.8 mmol/L (3.5-5.0) 12/21/22 00:00 Glucose 118.0 mg/dL (70-115) H 12/21/22 00:00 Ionized Calcium 1.4 mmol/L (1.1-1.4) 12/21/22 00:00 O2 Delivery Device Bipap 12/21/22 06:15 FiO2 30.0 % 12/21/22 06:15 Product Representative ID Zohaib 12/21/22 06:15 Sodium 144 mmol/L (136-145) 12/22/22 12:04 Potassium 2.7 mmol/L (3.5-5.1) L* 12/22/22 12:04 Chloride 109 mmol/L (98-107) H 12/22/22 12:04 Carbon Dioxide 25 mmol/L (22-29) 12/22/22 12:04 Anion Gap 12.7 (5-19) 12/22/22 12:04 BUN 7 mg/dL (8-23) L 12/22/22 12:04 Creatinine 0.5 mg/dL (0.5-0.9) 12/22/22 12:04 GFR Calculation 122.0 mL/min (90-130) 12/22/22 12:04 Glucose 114 mg/dL (65-115) 12/22/22 12:04 POC Glucose 181 mg/dL (70-110) H 12/21/22 11:42 Calculated Osmolality 297 mOsm/kg (285-295) H 12/22/22 12:04 Lactic Acid 2.5 mmol/L (0.5-2.2) H 12/20/22 18:43 Lactate 2.7 mmol/L (0.5-2.2) H 12/20/22 22:28 Calcium 8.8 mg/dL (8.5-10.5) 12/22/22 12:04 Ionized Calcium Rosita 0.9 mmol/L (1.1-1.4) L 12/20/22 22:28 Phosphorus 3.0 mg/dL (2.5-4.5) 12/21/22 02:07 Magnesium 1.5 mg/dL (1.7-2.3) L 12/22/22 12:04 Total Bilirubin 0.3 mg/dL (0.15-1.2) 12/22/22 12:04 AST 30 U/L (0-32) 12/22/22 12:04 ALT 9 U/L (0-33) 12/22/22 12:04 Alkaline Phosphatase 69 U/L (35-105) 12/22/22 12:04 Troponin T Baseline 34 ng/L (0-10) H 12/20/22 20:00 Troponin T 120 Minute 31.72 ng/L (0-10) H 12/20/22 22:28 Delta Troponin T -2.28 ABS# (0-10) L 12/20/22 22:28 Troponin T Hi Sens 6Hr 32.83 ng/L (0-10) H 12/21/22 01:48 Troponin T Hi Sens 6Hr Delta -1.17 ng/L (0-12) L 12/21/22 01:48 Total Protein 5.3 g/dL (6.6-8.7) L 12/22/22 12:04 Albumin 2.7 g/dL (3.5-5.2) L 12/22/22 12:04 Globulin 2.6 g/dL (1.3-4.6) 12/22/22 12:04 Procalcitonin 0.20 ng/mL (0-0.5) 12/20/22 22:28 TSH 6.85 uIU/mL (0.27-4.20) H 12/20/22 18:43 PTH Intact 4.9 pg/mL (15-65) L 12/20/22 18:43 Calcium (PTH Intact) 11.5 mg/dL (8.5-10.5) H 12/20/22 18:43 Urine Color Yellow (Yellow) 12/21/22 02:53 Urine Appearance Clear (CLEAR) 12/21/22 02:53 Urine pH 5 (5-7) 12/21/22 02:53 Ur Specific [place] 1.025 (1.005-1.030) 12/21/22 02:53 Urine Protein 1+ (Negative) H 12/21/22 02:53 Urine Glucose (UA) Norm (Normal) 12/21/22 02:53 Urine Ketones 1+ (Negative) H 12/21/22 02:53 Urine Blood Neg (Negative) 12/21/22 02:53 Urine Nitrate Negative (Negative) 12/21/22 02:53 Urine Bilirubin Neg (Negative) 12/21/22 02:53 Urine Urobilinogen Neg mg/dL (Negative) 12/21/22 02:53 Ur Leukocyte Esterase Negative (Negative) 12/21/22 02:53 Urine RBC None /hpf (0-2) 12/21/22 02:53 Urine WBC None /hpf (0-5) 12/21/22 02:53 Ur Squamous Epith Cells 0-4 /hpf (0-5) H 12/21/22 02:53 Amorphous Sediment Not Reportable 12/21/22 02:53 Urine Bacteria 1+ /hpf (NONE) H 12/21/22 02:53 Hyaline Casts 0-4 /lpf H 12/21/22 02:53 Urine Mucus 2+ /hpf 12/21/22 02:53 Vitals Last Vital Signs Temp 97.0 F L 12/23/22 04:00 Pulse 142 H 12/23/22 07:29 Resp 14 12/23/22 07:29 BP 115/73 12/23/22 06:00 Pulse Ox 92 12/23/22 07:29 O2 Del Method Heated High Flow 12/23/22 07:29 O2 Flow Rate 60 12/23/22 07:29 FiO2 73 12/23/22 07:29 Discharge Plan Discharge Patient Disposition: Hospice - Home Condition: Critical Prescriptions: New morphine 10 mg/5 mL solution 10 mg feeding tube Q2H PRN (Reason: dyspnea, pain) Qty: 100 0RF Ativan 1 mg tablet 1 mg PO Q4H PRN (Reason: agitation) 7 Days Qty: 30 0RF Continued albuterol sulfate 0.63 mg/3 mL solution for nebulization 0.63 mg inhalation Q6H PRN (Reason: shortness of breath or wheezing) Qty: 75 2RF lorazepam 1 mg tablet See Rx Instructions .ROUTE .COMPLEX PRN (Reason: anxiety) Qty: 60 0RF Rx Instructions: take 1/2 to one tab up to three times daily as needed for anxiety and nausea. 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 [Primary Care Provider] - Discharge Diet: Start new tube feeds as directed Patient Instructions: GI Discharge Instructions, Opioid Safety Discharge Attestations Time Spent in Discharge Care*: greater than 30 min Status at Discharge: Cognitive status at discharge: mildly impaired cognition , Behavioral status at discharge: cooperative , Quality Metrics Clinical Quality Measures [ No reported AMI, CVA or VTE this stay] Coding Level of Care Code Acute Code for Chg Fwd Diagnoses Dehydration E86.0 Adult failure to thrive R62.7 Tachycardia R00.0 Protein calorie malnutrition E46 Recurrent aspiration pneumonia J69.0 Cancer of hypopharynx C13.9 Muscle wasting M62.50 Weight loss R63.4 Severe muscle deconditioning R29.898 Lung cancer C34.90 Metastasis to liver C78.7
--- NOTE | 2022-12-23 09:27 | PC.NUTR ---
PEG TF consult received. With no Jevity or Osmolite, recommend Pulmocare to begin @ 10 mls/hr increasing 10 mls Q8H as tolerated til goal rate of 30 mls/hr is reached, with fresh water flushes 100 mls Q6H or per MD discretion. Details in RD assessment. Will attempt to consult with the company supplying tube feeding formula and amend recommendation if different formula will be used after the weekend.
[2022-12-23] MEDS: LORazepam 2 mg/mL INJ 1 mL 0.5 MG IVP (09:32)
--- NOTE | 2022-12-23 09:53 | PC.NURSE ---
Discharge Note Patient discharged to home with hospice via EMS accompanied by daughter. Discharge instructions reviewed with family regrading tube feedings, pain management, and hospice care. Mobile pharmacy medications and/or prescriptions sent to pharmacy. Belongings sent home with family.
--- NOTE | 2022-12-23 10:12 | PC.SOCIAL ---
IMM Update pg 2 of IMM updated and reviewed w/ patients daughter. Copy provided and Copy dated, initialed and placed in chart.
== END 2022-12-23 10:14 | disposition hospice, home (50) | DRG 177 ==
LOC: ER 22:23 → CSU 22:42 → ICU 12-21 00:17
PROVIDERS: Emergency Medicine; Surgery; Admitting Provider Family Medicine; Emergency Provider Emergency Medicine; PCP Nurse Practitioner Family; Visit Provider Student in an Organized Health Care Education/Training Program
PROC: 0DH63UZ Insertion of Feeding Device into Stomach, Percutaneous Approach (ICD-10-PCS; CPT 43246; principal; 2022-12-21 11:15)
DX: J69.0 Pneumonitis due to inhalation of food and vomit (principal); E43 Unspecified severe protein-calorie malnutrition; J96.01 Acute respiratory failure with hypoxia; G93.40 Encephalopathy, unspecified; Z68.1 Body mass index [BMI] 19.9 or less, adult; E87.1 Hypo-osmolality and hyponatremia; Z85.818 Personal history of malignant neoplasm of other sites of lip, oral cavity, and pharynx; Z92.21 Personal history of antineoplastic chemotherapy; Z92.3 Personal history of irradiation; R13.10 Dysphagia, unspecified; R91.8 Other nonspecific abnormal finding of lung field; E86.0 Dehydration; Z79.51 Long term (current) use of inhaled steroids; J43.2 Centrilobular emphysema; Z96.641 Presence of right artificial hip joint; R16.0 Hepatomegaly, not elsewhere classified; Z66 Do not resuscitate; F17.210 Nicotine dependence, cigarettes, uncomplicated
CPT/HCPCS: 36415; 36416; 43246; 51702; 71045; 80051; 80053; 81001; 82310; 82330; 82803; 82805; 82962; 83605; 83735; 83970; 84100; 84145; 84443; 84484; 85025; 87040; 93005; 94640; 94660; 94664; 96365; 96372; 96376; 99213; 99285; C9113; J0131; J1650; J2060; J2270; J2370; J2543; J2704; J3370; J3480; J3490; J7030; J7042